=== PATIENT | male | born 1945 | race Caucasian/White ===

== ENCOUNTER → 2018-03-22 11:25 | Outpatient (CLI) | payer MEDICARE, SELFPAY | PROVIDERS: Visit Provider Urology | DX: Z12.5 Encounter for screening for malignant neoplasm of prostate (principal) | CPT/HCPCS: 36415; 84153; G0103 ==

== ENCOUNTER 2018-07-18 10:59 | Emergency (ER) | payer MEDICARE, SELFPAY ==
[2018-07-18 11:00] VITALS: BP 136/75; PULSE 59; RESP 18; TEMP 37.5; O2SAT 98; BMI 25.6
[2018-07-18 11:04] VITALS: BP 136/75; PULSE 60; RESP 19; TEMP 37.5; O2SAT 97
--- NOTE | 2018-07-18 11:14 | EKG12_ITS ---
Test Reason : CP Blood Pressure : / mmHG Vent. Rate : 056 BPM Atrial Rate : 056 BPM P-R Int : 188 ms QRS Dur : 092 ms QT Int : 404 ms P-R-T Axes : 056 023 043 degrees QTc Int : 389 ms Sinus bradycardia Minimal voltage criteria for LVH, may be normal variant Borderline ECG Confirmed by TAMRA BLANTON, EDNA ([id number]), photographic editor HUONG IRVING ([id number]) on 07/20/2018 1:25:42 PM Referred By: KLAUDIA Confirmed By:EDNA BARBOZA MD
--- NOTE | 2018-07-18 11:17 | ED.DCSUM_ITS ---
- ER Visit Summary Date of Service: 07/18/18 Chief Complaint: Chest pain History of Present Illness: The patient is a 73 M with chest and epigastric pain that has been constant over the past 15-17 hours. No cough no fever chills or shortness of breath. Describes the pain is achy and gas. No history of this prior. Physical Examination: Not appear in acute distress. Moist mucous membranes, no obvious facial deformity No C-spine tenderness supple neck. Regular rate and rhythm without any obvious murmurs Clear lungs bilaterally speaking in full sentences without any obvious respiratory distress Abdomen soft with slight epigastric pain, no right upper quadrant pain, no guarding or rebound Moves all extremities without any difficulty or pain. Skin does not show any obvious rashes or lesions, no trauma. Alert oriented ?3 with no gross focal deficit Test Results: [] Emergency Department Course and Treatment: Patient has a heart score of 3. His symptoms significantly improved after GI cocktail. His cardiac workup is unremarkable. I feel confident that he is safe for discharge. He will be discharged on a PPI. Discharge stable condition Impression: Epigastric pain Chest pain unclear etiology This note was generated with [employer] dictation software. It may contain incorrect words, spelling, and punctuation that were not noted in review of the chart prior to signing ED Disposition - Plan for ED Patient: Disposition: Home or Assisted Living Chief Complaint: Chest Pain Instructions: ED Chest Pain Atypical Unkn Cause Prescriptions: Omeprazole 20 mg PO BID #60 tablet. Referrals: Care Physician,No Primary [Primary Care Provider] - 3-5 Days
--- NOTE | 2018-07-18 11:23 | RAD_ITS ---
STUDY: X-RAY CHEST REASON FOR EXAM: Male, 73 years old. Chest pain. TECHNIQUE: Single AP portable view of the chest. COMPARISON: June 20, 2004. FINDINGS: Cardiac monitoring leads are present. The lungs are clear and hyperexpanded. There is no demonstrated pleural abnormality. There is borderline cardiomegaly. There are calcified mediastinal and hilar lymph nodes. Normal visualized pulmonary arteries. There is atherosclerotic calcification of the aortic arch with tortuosity. Normal visualized thoracic spine. Normal visualized ribs, clavicles, and shoulders. There is no demonstrated abnormality of the visualized soft tissue structures of the upper abdomen. RAD/Chest 1 View (Portable) IMPRESSION: No radiographic evidence of acute cardiopulmonary disease. Electronically Signed: Andree Carcamo MD at 11:52 EDT , Service support ,
[2018-07-18 11:33] LABS: Absolute Lymphocyte Count 2.85 X10^3/ul (0.83-4.51); Absolute Neutrophil Count 10.5 X10^3/uL (2.0-7.7); Basophil# 0.02 X10^3/uL; Basophil% 0.1 % (0-1); Eosinophil# 0.09 X10^3/uL; Eosinophils% 0.6 % (0-5); Hematocrit 36.8 % (40-54); Hemoglobin 12.6 g/dl (13.0-16.5); Lymphocyte # 2.85 X10^3/ul (4.0); Lymphocyte % 19.7 % (19-41); Mean Corp Hgb Conc 34.2 g/gl (32-36); Mean Corpuscular Hgb 31.4 pg (27.0-32.0); Mean Corpuscular Volume 91.8 fL (80-94); Mean Platelet Vol. 10.5 fl (6.2-12.0); Monocyte# 1.03 X10^3/uL; Monocyte% 7.1 % (0-10); Neutrophil # 10.46 X10^3/uL (2.7-7.7); Neutrophil % 72.3 % (47-70); Platelet Count 210 K/mm3 (150-450); RBC Distribution Width CV 12.7 % (11.6-14.6); RBC Distribution Width SD 41.8 fl (35.1-43.9); Red Blood Count 4.01 M/mm3 (4.6-6.2); White Blood Count 14.5 K/mm3 (4.4-11.0)
[2018-07-18 11:36] LABS: POSITIVE COUNT NO; POSITIVE DIFFERENTIAL NO; POSITIVE MORPHOLOGY NO
[2018-07-18] MEDS: Mag Hydrox/Al Hydrox/Simeth 30 ML UDC PO (11:38)
[2018-07-18 11:45] LABS: ALB/GLOB Ratio 1.1 RATIO (0.9-2.4); AST(SGOT) 16 U/L (15-37); Alanine Aminotransfer ALT/SGPT 33 U/L (16-61); Alkaline Phosphatase 92 U/L (45-117); Anion Gap 8 (5-15); BUN 23 mg/dL (7-18); Calcium,Total 9.4 mg/dL (8.5-10.1); Chloride 100 mmol/L (98-107); Creatinine, Serum 1.53 mg/dL (0.70-1.30); EST Glomerular Filtration Rate 47 mL/min (>60); Est Glom Filt Rate - Afr Amer 57 mL/min (>60); Estimated Creatinine Clearance 34.93 ml/min; Globulin 3.5 g/dL (2.2-4.2); Glucose 98 mg/dL (74-106); Lipase 151 U/L (73-393); Potassium 3.5 mmol/L (3.5-5.1); Protein, Total 7.5 g/dL (6.4-8.2); Sodium Level 139 mmol/L (136-145)
[2018-07-18 12:55] VITALS: BP 121/59; PULSE 76; RESP 16; O2SAT 97
== END 2018-07-18 12:55 | disposition home or self-care (01) ==
PROVIDERS: Emergency Provider Emergency Medicine
DX: R10.13 Epigastric pain (principal); R07.9 Chest pain, unspecified; I10 Essential (primary) hypertension; E78.00 Pure hypercholesterolemia, unspecified; Z79.899 Other long term (current) drug therapy; Z87.891 Personal history of nicotine dependence
CPT/HCPCS: 71045; 80053; 83690; 84484; 85025; 93005; 99285; A4216

== ENCOUNTER 2018-07-18 21:16 | Inpatient (IN) | payer MEDICARE, SELFPAY ==
[2018-07-18 21:17] VITALS: BP 124/71; PULSE 67; RESP 18; TEMP 37.7; O2SAT 94; BMI 25.7
[2018-07-18 22:05] LABS: Absolute Lymphocyte Count 2.19 X10^3/ul (0.83-4.51); Absolute Neutrophil Count 11.4 X10^3/uL (2.0-7.7); Basophil# 0.01 X10^3/uL; Basophil% 0.1 % (0-1); Eosinophil# 0.01 X10^3/uL; Eosinophils% 0.1 % (0-5); Hematocrit 34.6 % (40-54); Lymphocyte # 2.19 X10^3/ul (4.0); Lymphocyte % 15.1 % (19-41); Mean Corp Hgb Conc 34.7 g/gl (32-36); Mean Corpuscular Hgb 31.7 pg (27.0-32.0); Mean Corpuscular Volume 91.3 fL (80-94); Mean Platelet Vol. 10.3 fl (6.2-12.0); Monocyte# 0.89 X10^3/uL; Monocyte% 6.1 % (0-10); Neutrophil # 11.38 X10^3/uL (2.7-7.7); Neutrophil % 78.5 % (47-70); Platelet Count 198 K/mm3 (150-450); RBC Distribution Width CV 12.6 % (11.6-14.6); RBC Distribution Width SD 41.2 fl (35.1-43.9); Red Blood Count 3.79 M/mm3 (4.6-6.2); White Blood Count 14.5 K/mm3 (4.4-11.0)
[2018-07-18 22:06] LABS: POSITIVE COUNT NO; POSITIVE DIFFERENTIAL NO; POSITIVE MORPHOLOGY NO
[2018-07-18 22:14] LABS: Anion Gap 6 (5-15); BUN 18 mg/dL (7-18); BUN/Creat Ratio 12.4 RATIO (10-20); Calcium,Total 9.5 mg/dL (8.5-10.1); Chloride 98 mmol/L (98-107); Creatinine, Serum 1.45 mg/dL (0.70-1.30); EST Glomerular Filtration Rate 50 mL/min (>60); Est Glom Filt Rate - Afr Amer 61 mL/min (>60); Estimated Creatinine Clearance 36.86 ml/min; Glucose 117 mg/dL (74-106); Potassium 3.7 mmol/L (3.5-5.1); Sodium Level 135 mmol/L (136-145)
[2018-07-18 22:32] VITALS: BP 132/77; PULSE 66; RESP 16; O2SAT 100
--- NOTE | 2018-07-18 23:05 | CT_ITS ---
STUDY: CT ABDOMEN AND PELVIS WITHOUT CONTRAST REASON FOR EXAM: Male, 73 years old. Right lower quadrant abdominal pain. RADIATION DOSAGE (If Supplied By Facility): CTDIvol = ( 6.88 ) mGy, DLP = ( 325.21 ) mGycm TECHNIQUE: Transaxial images were obtained from the dome of the diaphragm to the symphysis pubis without oral contrast, and without intravenous contrast. Sagittal and coronal images were reconstructed. Individualized dose optimization techniques were used for this CT. COMPARISON: None. FINDINGS: There is bilateral basilar dependent atelectasis. Lung bases otherwise appear to be clear. No pleural effusions are visualized. The visualized heart is within normal limits. Normal liver. Normal gallbladder and extrahepatic biliary system. There is a benign calcified granuloma of the spleen. Normal pancreas. Normal bilateral adrenal glands. There is mild bilateral perinephric stranding. The acuity of this is uncertain. The kidneys otherwise have generally normal appearance. There is no evidence for hydronephrosis, hydroureter or radiopaque ureteral calculus. Normal visualized stomach. There is no evidence for dilated bowel, ascites or pneumoperitoneum. The small bowel has a grossly normal appearance. The descending colon is nondistended which gives the appearance of thickened jeronimo. There is residual solid stool. There appears to be some increased attenuation within the right colon that may be medication related. There is a tubular, thick-walled appendix (>7mm), consistent with acute appendicitis. Maximum transverse dimension of the appendix measures approximately 9.8 mm. There is an appendicolith. There is heterogeneous increased attenuation within the fat adjacent to the appendix consistent with acute inflammation. There is minimal atherosclerotic calcification of the abdominal aorta with elongation and tortuosity, but without a demonstrated aneurysm. There is venous distention of the inferior vena cava (IVC). Normal retroperitoneum. Normal urinary bladder. There is enlargement of the prostate gland. There is a small umbilical hernia containing fat. There are diffuse degenerative changes of the visualized lumbar spine. The bones appear mildly osteopenic. There are degenerative changes of the right-sided sacroiliac joint. There are subchondral lucencies within the anterior aspect of the left femoral head that suggests sequela of femoral acetabular impingement. CT/Abdomen/Pelvis without Cont IMPRESSION: CT findings are consistent with acute appendicitis. There is no evidence for abscess or other signs of perforation. N.B. : The above information has been verbally conveyed by Andree Carcamo MD to Parker Kristen on 07/19/2018 00:10:03 (ET). Electronically Signed: Andree Carcamo MD at 0:16 EDT , Service support ,
--- NOTE | 2018-07-18 23:06 | ED.VISSUMM ---
- ER Visit Summary Date of Service: 07/18/18 Chief Complaint: Right lower quadrant abdominal pain History of Present Illness: The patient is a 73 M presents returns to the ED with pain is progressed to the right lower quadrant. Patient seen earlier this morning for chest pain epigastric pain, cardiac workup was negative. He does admit symptoms improved after GI cocktail. States leaving around 11 AM, pain settled in the middle of the stomach and has migrated to the right lower quadrant. Nausea without vomiting. No urinary symptoms. Subjective fevers. No abdominal surgeries. No current chest pain. Denies cardiac or lung history. His pain is constant currently. Did state worse with car ride coming in. Currently 5 out of 10. Had a colonoscopy 10-[address] Elliott. Last meal was earlier this morning with cereal. Physical Examination: General: Alert and oriented ?3, no acute distress HEENT: Normocephalic, atraumatic. Moist mucosa membranes Neck: supple, nontender. Cardiovascular: Regular rate and rhythm, no murmurs Respiratory: Normal breath sounds, symmetric, no distress Abdomen: Soft, nondistended. Tenderness at McBurney's. There is no guarding or rebound. Negative Rovsing's, negative obturators. Negative Meade's. Extremities: Nontender, no edema, pulses intact ?4 Neuro: no focal neurological deficits. Test Results: WBC 14.5. Hemoglobin 12. Platelets 198. Creatinine 1.45. INR 1.1. PTT 35.7. CT abdomen pelvis confirms appendicitis with dilated appendix and appendicolith. There is no abscess or perforation per radiologist. Emergency Department Course and Treatment: Patient progressed pain to the right lower quadrant after being evaluated 12 hours ago. Exam right lower quadrant concerning for likely appendicitis. I did speak with surgeon Dr. Sanderson after my evaluation, requested call back after CT scan. Labs no white count 14.5 with similar previous. Chronic creatinine 1.45. CT does confirm appendicitis. Patient declines any pain medicines. Fluids running. He is kept n.p.o. We discussed with surgeon will start Zosyn. He will be evaluated in the emergency department. Family updated. Patient did have chest x-ray and EKG from his earlier evaluation. Treatment Plan: [] Disposition: Admission Impression: 1. Acute appendicitis 2. Right lower quadrant abdominal pain This note was generated with [employer] dictation software. It may contain incorrect words, spelling, and punctuation that were not noted in review of the chart prior to signing ED Disposition - Plan for ED Patient: Disposition: Acute Care Hospital [facility] Chief Complaint: Abd Pain Diagnosis: Acute appendicitis, Right lower quadrant abdominal pain Referrals: Care Physician,No Primary [Primary Care Provider] -
--- NOTE | 2018-07-18 23:09 | ED.DCSUM_ITS ---
- ER Visit Summary Date of Service: 07/18/18 Chief Complaint: Right lower quadrant abdominal pain History of Present Illness: The patient is a 73 M presents returns to the ED with pain is progressed to the right lower quadrant. Patient seen earlier this morning for chest pain epigastric pain, cardiac workup was negative. He does admit symptoms improved after GI cocktail. States leaving around 11 AM, pain settled in the middle of the stomach and has migrated to the right lower quadrant. Nausea without vomiting. No urinary symptoms. Subjective fevers. No abdominal surgeries. No current chest pain. Denies cardiac or lung history. His pain is constant currently. Did state worse with car ride coming in. Currently 5 out of 10. Had a colonoscopy 10-[address] Elliott. Last meal was earlier this morning with cereal. Physical Examination: General: Alert and oriented ?3, no acute distress HEENT: Normocephalic, atraumatic. Moist mucosa membranes Neck: supple, nontender. Cardiovascular: Regular rate and rhythm, no murmurs Respiratory: Normal breath sounds, symmetric, no distress Abdomen: Soft, nondistended. Tenderness at McBurney's. There is no guarding or rebound. Negative Rovsing's, negative obturators. Negative Meade's. Extremities: Nontender, no edema, pulses intact ?4 Neuro: no focal neurological deficits. Test Results: WBC 14.5. Hemoglobin 12. Platelets 198. Creatinine 1.45. INR 1.1. PTT 35.7. CT abdomen pelvis confirms appendicitis with dilated appendix and appendicolith. There is no abscess or perforation per radiologist. Emergency Department Course and Treatment: Patient progressed pain to the right lower quadrant after being evaluated 12 hours ago. Exam right lower quadrant concerning for likely appendicitis. I did speak with surgeon Dr. Sanderson after my evaluation, requested call back after CT scan. Labs no white count 14.5 with similar previous. Chronic creatinine 1.45. CT does confirm appendicitis. Patient declines any pain medicines. Fluids running. He is kept n.p.o. We discussed with surgeon will start Zosyn. He will be evaluated in the emergency department. Family updated. Patient did have chest x-ray and EKG from his earlier evaluation. Treatment Plan: [] Disposition: Admission Impression: 1. Acute appendicitis 2. Right lower quadrant abdominal pain This note was generated with [employer] dictation software. It may contain incorrect words, spelling, and punctuation that were not noted in review of the chart prior to signing ED Disposition - Plan for ED Patient: Disposition: Acute Care Hospital [facility] Chief Complaint: Abd Pain Diagnosis: Acute appendicitis, Right lower quadrant abdominal pain Referrals: Care Physician,No Primary [Primary Care Provider] -
[2018-07-18] MEDS: 0.9% Normal Saline 1,000 ML 125 ML IV (23:35)
[2018-07-18 23:39] LABS: International Normalized Ratio 1.1; Prothrombin Time (Protime)PT. 14.1 SECONDS (11.7-14.9)
[2018-07-18 23:40] LABS: Partial Thromboplast Time 35.1 Seconds (24.1-36.2)
[2018-07-19] VITALS (16 sets, daily range): BP systolic 98–135; BP diastolic 54–72; PULSE 52–83; RESP 16–18; TEMP 36.6–37.6; O2SAT 88–99; BMI 25.7
--- NOTE | 2018-07-19 | APP_PTH ---
PATIENT: NICK EASTON LOC: [facility]3 U#:[id number] AGE/SX: 73/M ROOM: [facility]322 RE07/20/[address]: Dr. Mitch Sanderson MD : 1945 BED: 1 DIS: 07/22/2018 SPEC #: [id number] RECD: 07/19/18 13:22 STATUS: OTIS REDelroy #: [id number] REBECCA: 07/19/18 00:[address]: Mitch Sanderson DEPT: SURGICAL PATHOLOGY RECD BY: Cesar Su ENTERED: 07/19/18 13:22 SP TYPE: APPENDIX OTHR DR: No Primary Care Phys Tissues: Appendix, NOS Procedures: Surgery Specimen Level III HEADER OPERATION: Laparoscopic appendectomy PRE-OP DIAGNOSIS: Acute appendicitis TISSUE SUBMITTED: Appendix MICROSCOPIC DIAGNOSIS Appendix, appendectomy: Acute necrotizing appendicitis. Acute serositis. AM:mattie 07/20/18 MICROSCOPIC DESCRIPTION Slides are reviewed. GROSS DESCRIPTION Received is one container labeled with the patient's name and designated appendix. The specimen consists of an S-shaped appendix measuring 7.5 cm in length and up to 0.7 cm in average diameter. The attached periappendiceal adipose tissue measures up to 1 cm in width. The serosa is focally congested. No obvious perforation is identified. The mucosa is congested. The lumen contains a small amount of fecal material. No fecalith is identified. Boot Liner Maker sections are submitted in one cassette. / SJ:mattie 07/19/18 TC:2 CPT: 56181
[2018-07-19 00:22] LABS: Bacteria 0 SEEN /hpf (None Seen); Mucous, Urine 0 SEEN /hpf (<or=2+); Red Blood Cells-Urine 0 SEEN /hpf (0-5); Squamous Epithelial Cells - UA 0 SEEN /hpf (0-5); White Blood Cells 0 SEEN /hpf (0-5)
[2018-07-19 00:23] LABS: Color, Urine Yellow (Yellow); Glucose, Dipstick Normal (Normal); Ketone-Dipstick Negative (Negative); Leukocyte Esterase-Dipstick Negative /ul (Negative); Nitrite-Dipstick Negative (Negative); Occult Blood-Urine Negative /ul (Negative); Protein-Dipstick Negative (Negative); Urine Bilirubin Dipstick Negative (Negative); Urine Clarity Clear (Clear); Urine Urobilinogen Normal (Normal)
--- NOTE | 2018-07-19 01:20 | PCM.HP.STD ---
Problem List (1) Acute appendicitis Status: Acute Qualifiers: Acute appendicitis type: unspecified acute appendicitis type Qualified Code(s): K35.80 - Unspecified acute appendicitis History of Present Illness Date of Admission: 07/19/18 The patient is a 73 year old M who reports he has been having pain in his abdomen for over 24 hours. The pain started as epigastric in nature but then moved to his right lower quadrant. The patient has had a hiccuping and no flatus for the last 12 hours. The patient states he is having sharp right lower quadrant pain. He is having nausea but no vomiting. Patient reports no fevers or chills. Past Medical History Past Medical History (Chronic Problems): Chronic Problems Hyperlipidemia (Chronic) Benign hypertension (Chronic) Allergies No Known Allergies Allergy (Verified 07/18/18 21:19) Home Medications: Ambulatory Orders Medication Instructions Recorded Hydrochlorothiazide 12.5 mg PO DAILY 10/24/13 Aspirin [Aspirin, Baby] 81 mg PO DAILY@0800 12/23/14 Atenolol [Tenormin (beta Chrissie)] 25 mg PO DAILY 12/23/14 Dextroamphetamine/Amphetamine 15 mg PO DAILY 12/23/14 [Adderall 15 mg Tablet] Ibuprofen/Diphenhydramine Cit 1 each PO QHS 12/23/14 [Advil Pm Caplet] Omeprazole [Prilosec] 20 mg PO DAILY 12/23/14 Pravastatin [Pravachol] 20 mg PO DAILY 12/23/14 Omeprazole 20 mg PO BID #60 tablet. 07/18/18 Surgical History: no surgical history Smoking Status: Never smoker Alcohol: None - *Family History Maternal History Items: Unknown Review of Systems Constitutional: Reports: Anorexia. Denies: Fever HEENT: Denies: Difficulty Swallowing Cardiovascular: Denies: Chest Pain Respiratory: Denies: Cough, Shortness of Breath Gastrointestinal: Reports: Abdominal Pain, Nausea. Denies: Diarrhea, Vomiting Genitourinary: Denies: Dysuria Musculoskeletal: Denies: Joint Tenderness Skin: Denies: Dryness Neurological: Denies: Balance problems Psychiatric: Denies: Anxiety, Depression Hematologic/ Lymphatic: Denies: Anemia VTE Information - Inpt Only VTE Present on Admission: No VTE Mechan Device Prophylaxis: SCD's Patient Problems: Active and Suspected Problems Acute appendicitis (Acute) Right lower quadrant abdominal pain (Acute) - Physical Exam General: Alert, Oriented x3, Cooperative, No apparent distress HEENT: Atraumatic, PERRLA, EOMI, Normocephalic Oral: Moist Mucosa Neck: Supple Lungs: Normal air movement Cardiovascular: Regular rate, Regular Rhythm Abdomen: Soft, Non-Distended, Tender - Tender in the right lower quadrant with positive Rovsing sign. No rebound or guarding. Skin: No rashes Musculoskeletal: No Tenderness to Palpation of Joints or Extremities, No Muscle Wasting Neurological: Cranial nerves II-XII grossly intact Psych/Mental Status: Normal Affect, Appropriate Vital Signs Temp Pulse Resp BP Pulse Ox 98.6 F 64 16 132/72 H 98 07/19/18 00:52 07/19/18 00:52 07/19/18 00:52 07/19/18 00:52 07/19/18 00:52 Oxygen Delivery Method Room Air Weight: 150 lb Body Mass Index (BMI) 25.7 Laboratory Tests Past 24 Hrs 07/18/18 07/18/18 07/18/18 21:42 21:42 21:42 WBC 14.5 H RBC 3.79 L Hgb 12.0 L Hct 34.6 L MCV 91.3 MCH 31.7 MCHC 34.7 RDW 12.6 RDW Differential 41.2 Plt Count 198 MPV 10.3 Immature Gran % (Auto) 0.100 Neut % (Auto) 78.5 H Lymph % (Auto) 15.1 L Titus % (Auto) 6.1 Eos % (Auto) 0.1 Baso % (Auto) 0.1 Absolute Neuts (auto) 11.4 H Absolute Lymphs (auto) 2.19 Total Counted Not Reportable PT 14.1 INR 1.1 APTT 35.1 Sodium 135 L Potassium 3.7 Chloride 98 Carbon Dioxide 31.0 Anion Gap 6 BUN 18 Creatinine 1.45 H Estim Creat Clear Calc 36.86 Est GFR (MDRD) Af Amer 61 Est GFR (MDRD) Non-Af 50 L BUN/Creatinine Ratio 12.4 Glucose 117 H Calcium 9.5 Urine Color Urine Clarity Urine pH Ur Specific Fulton Urine Protein Urine Glucose (UA) Urine Ketones Urine Occult Blood Urine Nitrite Urine Bilirubin Urine Urobilinogen Ur Leukocyte Esterase Urine RBC Urine WBC Ur Squamous Epith Cells Urine Bacteria Urine Mucus Blood Type Antibody Screen 07/19/18 07/19/18 00:18 00:30 WBC RBC Hgb Hct MCV MCH MCHC RDW RDW Differential Plt Count MPV Immature Gran % (Auto) Neut % (Auto) Lymph % (Auto) Titus % (Auto) Eos % (Auto) Baso % (Auto) Absolute Neuts (auto) Absolute Lymphs (auto) Total Counted PT INR APTT Sodium Potassium Chloride Carbon Dioxide Anion Gap BUN Creatinine Estim Creat Clear Calc Est GFR (MDRD) Af Amer Est GFR (MDRD) Non-Af BUN/Creatinine Ratio Glucose Calcium Urine Color Yellow Urine Clarity Clear Urine pH 8.0 Ur Specific Fulton 1.010 Urine Protein Negative Urine Glucose (UA) Normal Urine Ketones Negative Urine Occult Blood Negative Urine Nitrite Negative Urine Bilirubin Negative Urine Urobilinogen Normal Ur Leukocyte Esterase Negative Urine RBC 0 SEEN Urine WBC 0 SEEN Ur Squamous Epith Cells 0 SEEN Urine Bacteria 0 SEEN Urine Mucus 0 SEEN Blood Type Pending Antibody Screen Pending Clinical Impression(s) from Imaging Studies Abdomen/Pelvis CT 07/18/18 23:05 IMPRESSION: CT findings are consistent with acute appendicitis. There is no evidence for abscess or other signs of perforation. N.B. : The above information has been verbally conveyed by Andree Carcamo MD to Parker Peterson on 07/19/2018 00:10:03 (ET). Electronically Signed: Andree Carcamo MD at 0:16 EDT , Service support , Assessment/Plan All Active Problems Acute appendicitis (Acute) Right lower quadrant abdominal pain (Acute) 73-year-old male with acute appendicitis 1. Patient has elevated white count and right lower quadrant pain. CT is consistent with acute appendicitis. I explained this to the patient and I explained laparoscopic appendectomy to the patient. I explained the risks include but not limited to bleeding, infection, injury to surrounding organs such as the bowels or bladder. Patient understands and is willing to proceed with surgery. 2. Patient is also having a lot of hiccuping and not passing gas. He may be in early stages of an ileus due to the appendicitis. Mitch Sanderson MD Pager: [facility] [address] [place] [address], [address] [place] [address] Office:
--- NOTE | 2018-07-19 01:23 | HP.PCM_ITS ---
Problem List (1) Acute appendicitis Status: Acute Qualifiers: Acute appendicitis type: unspecified acute appendicitis type Qualified Code(s): K35.80 - Unspecified acute appendicitis History of Present Illness Date of Admission: 07/19/18 The patient is a 73 year old M who reports he has been having pain in his abdomen for over 24 hours. The pain started as epigastric in nature but then moved to his right lower quadrant. The patient has had a hiccuping and no flatus for the last 12 hours. The patient states he is having sharp right lower quadrant pain. He is having nausea but no vomiting. Patient reports no fevers or chills. Past Medical History Past Medical History (Chronic Problems): Chronic Problems Hyperlipidemia (Chronic) Benign hypertension (Chronic) Allergies No Known Allergies Allergy (Verified 07/18/18 21:19) Home Medications: Ambulatory Orders Medication Instructions Recorded Hydrochlorothiazide 12.5 mg PO DAILY 10/24/13 Aspirin [Aspirin, Baby] 81 mg PO DAILY@0800 12/23/14 Atenolol [Tenormin (beta Chrissie)] 25 mg PO DAILY 12/23/14 Dextroamphetamine/Amphetamine 15 mg PO DAILY 12/23/14 [Adderall 15 mg Tablet] Ibuprofen/Diphenhydramine Cit 1 each PO QHS 12/23/14 [Advil Pm Caplet] Omeprazole [Prilosec] 20 mg PO DAILY 12/23/14 Pravastatin [Pravachol] 20 mg PO DAILY 12/23/14 Omeprazole 20 mg PO BID #60 tablet. 07/18/18 Surgical History: no surgical history Smoking Status: Never smoker Alcohol: None - *Family History Maternal History Items: Unknown Review of Systems Constitutional: Reports: Anorexia. Denies: Fever HEENT: Denies: Difficulty Swallowing Cardiovascular: Denies: Chest Pain Respiratory: Denies: Cough, Shortness of Breath Gastrointestinal: Reports: Abdominal Pain, Nausea. Denies: Diarrhea, Vomiting Genitourinary: Denies: Dysuria Musculoskeletal: Denies: Joint Tenderness Skin: Denies: Dryness Neurological: Denies: Balance problems Psychiatric: Denies: Anxiety, Depression Hematologic/ Lymphatic: Denies: Anemia VTE Information - Inpt Only VTE Present on Admission: No VTE Mechan Device Prophylaxis: SCD's Patient Problems: Active and Suspected Problems Acute appendicitis (Acute) Right lower quadrant abdominal pain (Acute) - Physical Exam General: Alert, Oriented x3, Cooperative, No apparent distress HEENT: Atraumatic, PERRLA, EOMI, Normocephalic Oral: Moist Mucosa Neck: Supple Lungs: Normal air movement Cardiovascular: Regular rate, Regular Rhythm Abdomen: Soft, Non-Distended, Tender - Tender in the right lower quadrant with positive Rovsing sign. No rebound or guarding. Skin: No rashes Musculoskeletal: No Tenderness to Palpation of Joints or Extremities, No Muscle Wasting Neurological: Cranial nerves II-XII grossly intact Psych/Mental Status: Normal Affect, Appropriate Vital Signs Temp Pulse Resp BP Pulse Ox 98.6 F 64 16 132/72 H 98 07/19/18 00:52 07/19/18 00:52 07/19/18 00:52 07/19/18 00:52 07/19/18 00:52 Oxygen Delivery Method Room Air Weight: 150 lb Body Mass Index (BMI) 25.7 Laboratory Tests Past 24 Hrs 07/18/18 07/18/18 07/18/18 21:42 21:42 21:42 WBC 14.5 H RBC 3.79 L Hgb 12.0 L Hct 34.6 L MCV 91.3 MCH 31.7 MCHC 34.7 RDW 12.6 RDW Differential 41.2 Plt Count 198 MPV 10.3 Immature Gran % (Auto) 0.100 Neut % (Auto) 78.5 H Lymph % (Auto) 15.1 L [place] % (Auto) 6.1 Eos % (Auto) 0.1 Baso % (Auto) 0.1 Absolute Neuts (auto) 11.4 H Absolute Lymphs (auto) 2.19 Total Counted Not Reportable PT 14.1 INR 1.1 APTT 35.1 Sodium 135 L Potassium 3.7 Chloride 98 Carbon Dioxide 31.0 Anion Gap 6 BUN 18 Creatinine 1.45 H Estim Creat Clear Calc 36.86 Est GFR (MDRD) Af Amer 61 Est GFR (MDRD) Non-Af 50 L BUN/Creatinine Ratio 12.4 Glucose 117 H Calcium 9.5 Urine Color Urine Clarity Urine pH Ur Specific [place] Urine Protein Urine Glucose (UA) Urine Ketones Urine Occult Blood Urine Nitrite Urine Bilirubin Urine Urobilinogen Ur Leukocyte Esterase Urine RBC Urine WBC Ur Squamous Epith Cells Urine Bacteria Urine Mucus Blood Type Antibody Screen 07/19/18 07/19/18 00:18 00:30 WBC RBC Hgb Hct MCV MCH MCHC RDW RDW Differential Plt Count MPV Immature Gran % (Auto) Neut % (Auto) Lymph % (Auto) [place] % (Auto) Eos % (Auto) Baso % (Auto) Absolute Neuts (auto) Absolute Lymphs (auto) Total Counted PT INR APTT Sodium Potassium Chloride Carbon Dioxide Anion Gap BUN Creatinine Estim Creat Clear Calc Est GFR (MDRD) Af Amer Est GFR (MDRD) Non-Af BUN/Creatinine Ratio Glucose Calcium Urine Color Yellow Urine Clarity Clear Urine pH 8.0 Ur Specific [place] 1.010 Urine Protein Negative Urine Glucose (UA) Normal Urine Ketones Negative Urine Occult Blood Negative Urine Nitrite Negative Urine Bilirubin Negative Urine Urobilinogen Normal Ur Leukocyte Esterase Negative Urine RBC 0 SEEN Urine WBC 0 SEEN Ur Squamous Epith Cells 0 SEEN Urine Bacteria 0 SEEN Urine Mucus 0 SEEN Blood Type Pending Antibody Screen Pending Clinical Impression(s) from Imaging Studies Abdomen/Pelvis CT 07/18/18 23:05 IMPRESSION: CT findings are consistent with acute appendicitis. There is no evidence for abscess or other signs of perforation. N.B. : The above information has been verbally conveyed by Andree Carcamo MD to Parker Peterson on 07/19/2018 00:10:03 (ET). Electronically Signed: Andree Carcamo MD at 0:16 EDT , Service support , Assessment/Plan All Active Problems Acute appendicitis (Acute) Right lower quadrant abdominal pain (Acute) 73-year-old male with acute appendicitis 1. Patient has elevated white count and right lower quadrant pain. CT is consistent with acute appendicitis. I explained this to the patient and I explained laparoscopic appendectomy to the patient. I explained the risks include but not limited to bleeding, infection, injury to surrounding organs such as the bowels or bladder. Patient understands and is willing to proceed with surgery. 2. Patient is also having a lot of hiccuping and not passing gas. He may be in early stages of an ileus due to the appendicitis. Mitch Sanderson MD Pager: [facility] [address] [place] [address], [address] [place] [address] Office:
[2018-07-19] MEDS: Piperacil/Tazobactam 3.375 GM/50 ML ML IV (02:01)
[2018-07-19] MEDS: Bupiv/Epi 0.5% Mpf 30 ML Vial (02:20)
--- NOTE | 2018-07-19 02:45 | OP.PCM_ITS ---
Problem List (1) Acute appendicitis Status: Acute Qualifiers: Acute appendicitis type: unspecified acute appendicitis type Qualified Code(s): K35.80 - Unspecified acute appendicitis Report of Operation Date of Procedure: 07/19/18 Pre-Operative Diagnosis: Acute appendicitis Post-Operative Diagnosis: Acute appendicitis Surgery/Procedure Performed:: Laparoscopic appendectomy Specimen's removed: Appendix Description of Procedure: The patient was brought into the operating room and general anesthesia was induced. The left arm was tucked and the abdomen was prepped and draped in usual sterile fashion. A small midline incision was made superior to the umbilicus and deepened to the level of the fascia. The fascia was elevated and incised. The peritoneum was also elevated and incised. A finger sweep was performed and a balloon trocar was placed into the abdomen and inflated. The abdomen was insufflated to 15 mmHg and the camera was inserted and the abdomen was inspected for any injuries upon entering the abdomen. There were none. The patient was placed in Trendelenburg position and a 5 mm ports placed in the left lower quadrant and suprapubic areas under direct visualization. Next using atraumatic bowel graspers the appendix was identified. The appendix was grasped and elevated and a harmonic scalpel was used to take down the mesoappendix. A stapler was used to come across the base of the appendix. There was a small amount of bleeding from the staple line. A 5 mm titanium clip was placed over the staple line to stop this bleeding. The appendix was then placed in Endo Catch bag and removed through the umbilical incision. The staple line was inspected and found to be hemostatic and intact. The 2 5 mm ports are removed under direct visualization. The balloon trocar was deflated and removed and all the air was removed from the abdomen. The umbilical incision fascia was closed with an 0 Vicryl [id number] suture. The incisions were then irrigated with saline and dried. Local anesthetic was injected into the incision sites. The skin incisions were then closed with interrupted 4-0 Monocryl suture and Steri- Strips. Bandages were applied and the patient was awoken and taken to PACU in stable condition. Patient tolerated the procedure well.
--- NOTE | 2018-07-19 03:00 | EKG12_ITS ---
Test Reason : POST OP Blood Pressure : / mmHG Vent. Rate : 067 BPM Atrial Rate : 067 BPM P-R Int : 178 ms QRS Dur : 096 ms QT Int : 416 ms P-R-T Axes : 066 041 057 degrees QTc Int : 439 ms Normal sinus rhythm Nonspecific ST abnormality Abnormal ECG Confirmed by TAMRA BLANTON, EDNA ([id number]), editor trade journal HUONG IRVING ([id number]) on 07/20/2018 2:34:56 PM Referred By: RENE Confirmed By:EDNA BARBOZA MD
[2018-07-19] MEDS: Dextrose 5%-Lactated Ringers 1,000 ML 125 ML IV ×2 (05:29→15:19)
[2018-07-19 06:17] LABS: Absolute Lymphocyte Count 1.81 X10^3/ul (0.83-4.51); Absolute Neutrophil Count 14.2 X10^3/uL (2.0-7.7); Basophil# 0.01 X10^3/uL; Basophil% 0.1 % (0-1); Hematocrit 32.5 % (40-54); Hemoglobin 10.9 g/dl (13.0-16.5); Lymphocyte # 1.81 X10^3/ul (4.0); Mean Corp Hgb Conc 33.5 g/gl (32-36); Mean Corpuscular Volume 92.3 fL (80-94); Mean Platelet Vol. 10.6 fl (6.2-12.0); Monocyte# 0.43 X10^3/uL; Monocyte% 2.6 % (0-10); Neutrophil # 14.21 X10^3/uL (2.7-7.7); Neutrophil % 86.1 % (47-70); Platelet Count 178 K/mm3 (150-450); RBC Distribution Width CV 12.8 % (11.6-14.6); RBC Distribution Width SD 41.6 fl (35.1-43.9); Red Blood Count 3.52 M/mm3 (4.6-6.2); White Blood Count 16.5 K/mm3 (4.4-11.0)
[2018-07-19 06:23] LABS: POSITIVE COUNT NO; POSITIVE DIFFERENTIAL NO; POSITIVE MORPHOLOGY NO
[2018-07-19 06:29] LABS: Anion Gap 8 (5-15); BUN 20 mg/dL (7-18); BUN/Creat Ratio 12.8 RATIO (10-20); Calcium,Total 8.6 mg/dL (8.5-10.1); Chloride 101 mmol/L (98-107); Creatinine, Serum 1.56 mg/dL (0.70-1.30); EST Glomerular Filtration Rate 46 mL/min (>60); Est Glom Filt Rate - Afr Amer 56 mL/min (>60); Estimated Creatinine Clearance 34.26 ml/min; Glucose 146 mg/dL (74-106); Potassium 3.3 mmol/L (3.5-5.1); Sodium Level 136 mmol/L (136-145)
[2018-07-19] MEDS: Pantoprazole Sodium 40 MG Tablet PO (07:44)
--- NOTE | 2018-07-19 08:05 | PN.SURG_ITS ---
Patient Problems: Active and Suspected Problems Acute appendicitis (Acute) Right lower quadrant abdominal pain (Acute) Subjective: Patient's pain is well controlled. He is not having any nausea or vomiting. He has tolerated some water since surgery. He is not passing any flatus. - Physical Exam General: Alert, Oriented x3, Cooperative Lungs: Normal air movement Cardiovascular: Regular rate, Regular Rhythm Abdomen: Soft, Non-Distended, Tender - Tender in the right lower quadrant., - - Incisions are clean dry and intact Vital Signs Temp Pulse Resp BP Pulse Ox 98.1 F 69 17 98/54 L 98 07/19/18 07:28 07/19/18 07:28 07/19/18 07:28 07/19/18 07:28 07/19/18 07:28 Oxygen Flow Rate (L/min) 2 Oxygen Delivery Method Nasal Cannula Weight: 150 lb Body Mass Index (BMI) 25.7 Intake and Output for Last 24 Hours 07/17/18 07/18/18 07/19/18 23:59 23:59 23:59 Intake Total 1664 / 1664 Balance 1664 / 1664 Laboratory Tests Past 24 Hrs 07/18/18 07/18/18 07/18/18 21:42 21:42 21:42 WBC 14.5 H RBC 3.79 L Hgb 12.0 L Hct 34.6 L MCV 91.3 MCH 31.7 MCHC 34.7 RDW 12.6 RDW Differential 41.2 Plt Count 198 MPV 10.3 Immature Gran % (Auto) 0.100 Neut % (Auto) 78.5 H Lymph % (Auto) 15.1 L [place] % (Auto) 6.1 Eos % (Auto) 0.1 Baso % (Auto) 0.1 Absolute Neuts (auto) 11.4 H Absolute Lymphs (auto) 2.19 Total Counted Not Reportable PT 14.1 INR 1.1 APTT 35.1 Sodium 135 L Potassium 3.7 Chloride 98 Carbon Dioxide 31.0 Anion Gap 6 BUN 18 Creatinine 1.45 H Estim Creat Clear Calc 36.86 Est GFR (MDRD) Af Amer 61 Est GFR (MDRD) Non-Af 50 L BUN/Creatinine Ratio 12.4 Glucose 117 H Calcium 9.5 Urine Color Urine Clarity Urine pH Ur Specific [place] Urine Protein Urine Glucose (UA) Urine Ketones Urine Occult Blood Urine Nitrite Urine Bilirubin Urine Urobilinogen Ur Leukocyte Esterase Urine RBC Urine WBC Ur Squamous Epith Cells Urine Bacteria Urine Mucus Blood Type Antibody Screen 07/19/18 07/19/18 07/19/18 00:18 00:30 05:45 WBC 16.5 H RBC 3.52 L Hgb 10.9 L Hct 32.5 L MCV 92.3 MCH 31.0 MCHC 33.5 RDW 12.8 RDW Differential 41.6 Plt Count 178 MPV 10.6 Immature Gran % (Auto) 0.200 Neut % (Auto) 86.1 H Lymph % (Auto) 11.0 L [place] % (Auto) 2.6 Eos % (Auto) 0.0 Baso % (Auto) 0.1 Absolute Neuts (auto) 14.2 H Absolute Lymphs (auto) 1.81 Total Counted Not Reportable PT INR APTT Sodium Potassium Chloride Carbon Dioxide Anion Gap BUN Creatinine Estim Creat Clear Calc Est GFR (MDRD) Af Amer Est GFR (MDRD) Non-Af BUN/Creatinine Ratio Glucose Calcium Urine Color Yellow Urine Clarity Clear Urine pH 8.0 Ur Specific [place] 1.010 Urine Protein Negative Urine Glucose (UA) Normal Urine Ketones Negative Urine Occult Blood Negative Urine Nitrite Negative Urine Bilirubin Negative Urine Urobilinogen Normal Ur Leukocyte Esterase Negative Urine RBC 0 SEEN Urine WBC 0 SEEN Ur Squamous Epith Cells 0 SEEN Urine Bacteria 0 SEEN Urine Mucus 0 SEEN Blood Type O POSITIVE Antibody Screen NEGATIVE 07/19/18 05:45 WBC RBC Hgb Hct MCV MCH MCHC RDW RDW Differential Plt Count MPV Immature Gran % (Auto) Neut % (Auto) Lymph % (Auto) [place] % (Auto) Eos % (Auto) Baso % (Auto) Absolute Neuts (auto) Absolute Lymphs (auto) Total Counted PT INR APTT Sodium 136 Potassium 3.3 L Chloride 101 Carbon Dioxide 27.0 Anion Gap 8 BUN 20 H Creatinine 1.56 H Estim Creat Clear Calc 34.26 Est GFR (MDRD) Af Amer 56 L Est GFR (MDRD) Non-Af 46 L BUN/Creatinine Ratio 12.8 Glucose 146 H Calcium 8.6 Urine Color Urine Clarity Urine pH Ur Specific [place] Urine Protein Urine Glucose (UA) Urine Ketones Urine Occult Blood Urine Nitrite Urine Bilirubin Urine Urobilinogen Ur Leukocyte Esterase Urine RBC Urine WBC Ur Squamous Epith Cells Urine Bacteria Urine Mucus Blood Type Antibody Screen Medical Necessity - Tobacco Use Smoking Status: Never smoker Assessment/Plan All Active Problems Acute appendicitis (Acute) Right lower quadrant abdominal pain (Acute) 73-year-old male status post laparoscopic appendectomy 1. I will start the patient on clear liquids. He may be developing an ileus. Once he is passing gas he can advance his diet and if he tolerates that he will be discharged home. Mitch Sanderson MD Pager: [facility] [address] [place] [address], [address] [place] [address] Office:
--- NOTE | 2018-07-19 12:09 | NURSING ---
ST CATHED ORDERED FOR 100ML KARENA URINE. PT TOLERATED WELL.
--- NOTE | 2018-07-19 17:34 | NURSING ---
CALLED PTS PHARMACY, [id number] TO UPDATE HOME MED LIST, THEY STATE ONLY MEDS FILLED THERE SINCE MAY HAVE BEEN ADDERALL & OMEPRAZOLE.
--- NOTE | 2018-07-19 18:41 | NURSING ---
DR DIGGS CALLED WITH UPDATE. PT STILL UNABLE TO VOID AFTER BEING ST CATH X1 EARLIER. STILL NO BS, BUT DENIES ABD PAIN, NAUSEA. NEW ORDERS RECEIVED.
[2018-07-19] MEDS: Tamsulosin HCl 0.4 MG Capsule PO (20:04)
--- NOTE | 2018-07-20 00:45 | NURSING ---
This RN walked into pt's room for hourly rounds and discovered IV pump had been turned off. Pt states he turned it off about 15 minutes ago because it would not stop beeping. Pt states he didn't even think to call out for his nurse. Instructed pt to push his call light next time his IV pump alarms. IV pump now locked.
[2018-07-20] MEDS: Dextrose 5%-Lactated Ringers 1,000 ML 125 ML IV ×2 (00:50→10:01)
--- NOTE | 2018-07-20 01:04 | NURSING ---
Pt has voided 200cc since bolus was given about 4hrs ago. Per MD orders, was only to straight cath if pt hadn't voided by those 4 hrs. Bladder scanned for 467ml post void, but pt states he feels like he will be able to void again, will continue to monitor and contact MD if needed.
[2018-07-20 03:15] VITALS: BP 106/58; PULSE 52; RESP 18; TEMP 36.9; O2SAT 94
[2018-07-20 06:20] LABS: Absolute Neutrophil Count 8.2 X10^3/uL (2.0-7.7); Basophil# 0.01 X10^3/uL; Basophil% 0.1 % (0-1); Eosinophil# 0.02 X10^3/uL; Eosinophils% 0.2 % (0-5); Hematocrit 27.2 % (40-54); Hemoglobin 9.1 g/dl (13.0-16.5); Lymphocyte % 17.3 % (19-41); Mean Corp Hgb Conc 33.5 g/gl (32-36); Mean Corpuscular Hgb 31.1 pg (27.0-32.0); Mean Corpuscular Volume 92.8 fL (80-94); Mean Platelet Vol. 10.3 fl (6.2-12.0); Monocyte# 0.82 X10^3/uL; Monocyte% 7.4 % (0-10); Neutrophil # 8.24 X10^3/uL (2.7-7.7); Neutrophil % 74.8 % (47-70); Platelet Count 137 K/mm3 (150-450); RBC Distribution Width CV 12.9 % (11.6-14.6); Red Blood Count 2.93 M/mm3 (4.6-6.2)
[2018-07-20 06:22] LABS: POSITIVE COUNT NO; POSITIVE DIFFERENTIAL NO; POSITIVE MORPHOLOGY NO
[2018-07-20 06:37] LABS: Anion Gap 8 (5-15); BUN 20 mg/dL (7-18); BUN/Creat Ratio 14.4 RATIO (10-20); Chloride 101 mmol/L (98-107); Creatinine, Serum 1.39 mg/dL (0.70-1.30); EST Glomerular Filtration Rate 53 mL/min (>60); Est Glom Filt Rate - Afr Amer 64 mL/min (>60); Estimated Creatinine Clearance 38.45 ml/min; Glucose 102 mg/dL (74-106); Potassium 3.4 mmol/L (3.5-5.1); Sodium Level 135 mmol/L (136-145)
--- NOTE | 2018-07-20 08:57 | PCM.PN.SRG ---
Patient Problems: Active and Suspected Problems Acute appendicitis (Acute) Right lower quadrant abdominal pain (Acute) Subjective: Patient reports he is still having hiccuping. He does feel some abdominal soreness. He is not passing any flatus but he did have a small bowel movement. - Physical Exam General: Alert, Oriented x3, Cooperative Lungs: Clear to auscultation Cardiovascular: Regular rate, Regular Rhythm Abdomen: Soft, Non Tender, Distended Vital Signs Temp Pulse Resp BP Pulse Ox 98.5 F 52 L 18 106/58 L 94 07/20/18 03:15 07/20/18 03:15 07/20/18 03:15 07/20/18 03:15 07/20/18 03:15 Oxygen Flow Rate (L/min) 2 Oxygen Delivery Method Nasal Cannula Weight: 150 lb 0.005 oz Body Mass Index (BMI) 25.7 Intake and Output for Last 24 Hours 07/18/18 07/19/18 07/20/18 23:59 23:59 23:59 Intake Total 4859 / 4859 2427 / 2427 Output Total 450 / 450 1075 / 1075 Balance 4409 / 4409 1352 / 1352 Laboratory Tests Past 24 Hrs 07/20/18 07/20/18 06:04 06:04 WBC 11.0 RBC 2.93 L Hgb 9.1 L Hct 27.2 L MCV 92.8 MCH 31.1 MCHC 33.5 RDW 12.9 RDW Differential 42.0 Plt Count 137 L MPV 10.3 Immature Gran % (Auto) 0.200 Neut % (Auto) 74.8 H Lymph % (Auto) 17.3 L [place] % (Auto) 7.4 Eos % (Auto) 0.2 Baso % (Auto) 0.1 Absolute Neuts (auto) 8.2 H Absolute Lymphs (auto) 1.90 Total Counted Not Reportable Sodium 135 L Potassium 3.4 L Chloride 101 Carbon Dioxide 26.0 Anion Gap 8 BUN 20 H Creatinine 1.39 H Estim Creat Clear Calc 38.45 Est GFR (MDRD) Af Amer 64 Est GFR (MDRD) Non-Af 53 L BUN/Creatinine Ratio 14.4 Glucose 102 Calcium 8.0 L Medical Necessity - Tobacco Use Smoking Status: Never smoker Assessment/Plan All Active Problems Acute appendicitis (Acute) Right lower quadrant abdominal pain (Acute) 73-year-old male status post laparoscopic appendectomy 1. Patient had urinary retention yesterday. Flomax was started. The patient reported one straight cath that he is urinating on his own having adequate urine output. 2. Patient is having postoperative ileus-abdomen is distended and the patient is not passing any flatus. Continue clears until he is passing flatus and having more significant bowel function and I will advance his diet and discharge him. Continue IV fluids at the current time. 3. Hypokalemia-replaced 4. PPI, SCDs, Lovenox Mitch Sanderson MD Pager: [facility] [address] [place] [address], [address] [place] [address] Office:
--- NOTE | 2018-07-20 09:00 | PN.SURG_ITS ---
Patient Problems: Active and Suspected Problems Acute appendicitis (Acute) Right lower quadrant abdominal pain (Acute) Subjective: Patient reports he is still having hiccuping. He does feel some abdominal soreness. He is not passing any flatus but he did have a small bowel movement. - Physical Exam General: Alert, Oriented x3, Cooperative Lungs: Clear to auscultation Cardiovascular: Regular rate, Regular Rhythm Abdomen: Soft, Non Tender, Distended Vital Signs Temp Pulse Resp BP Pulse Ox 98.5 F 52 L 18 106/58 L 94 07/20/18 03:15 07/20/18 03:15 07/20/18 03:15 07/20/18 03:15 07/20/18 03:15 Oxygen Flow Rate (L/min) 2 Oxygen Delivery Method Nasal Cannula Weight: 150 lb 0.005 oz Body Mass Index (BMI) 25.7 Intake and Output for Last 24 Hours 07/18/18 07/19/18 07/20/18 23:59 23:59 23:59 Intake Total 4859 / 4859 2427 / 2427 Output Total 450 / 450 1075 / 1075 Balance 4409 / 4409 1352 / 1352 Laboratory Tests Past 24 Hrs 07/20/18 07/20/18 06:04 06:04 WBC 11.0 RBC 2.93 L Hgb 9.1 L Hct 27.2 L MCV 92.8 MCH 31.1 MCHC 33.5 RDW 12.9 RDW Differential 42.0 Plt Count 137 L MPV 10.3 Immature Gran % (Auto) 0.200 Neut % (Auto) 74.8 H Lymph % (Auto) 17.3 L [place] % (Auto) 7.4 Eos % (Auto) 0.2 Baso % (Auto) 0.1 Absolute Neuts (auto) 8.2 H Absolute Lymphs (auto) 1.90 Total Counted Not Reportable Sodium 135 L Potassium 3.4 L Chloride 101 Carbon Dioxide 26.0 Anion Gap 8 BUN 20 H Creatinine 1.39 H Estim Creat Clear Calc 38.45 Est GFR (MDRD) Af Amer 64 Est GFR (MDRD) Non-Af 53 L BUN/Creatinine Ratio 14.4 Glucose 102 Calcium 8.0 L Medical Necessity - Tobacco Use Smoking Status: Never smoker Assessment/Plan All Active Problems Acute appendicitis (Acute) Right lower quadrant abdominal pain (Acute) 73-year-old male status post laparoscopic appendectomy 1. Patient had urinary retention yesterday. Flomax was started. The patient reported one straight cath that he is urinating on his own having adequate urine output. 2. Patient is having postoperative ileus-abdomen is distended and the patient is not passing any flatus. Continue clears until he is passing flatus and having more significant bowel function and I will advance his diet and discharge him. Continue IV fluids at the current time. 3. Hypokalemia-replaced 4. PPI, SCDs, Lovenox Mitch Sanderson MD Pager: [facility] [address] [place] [address], [address] [place] [address] Office:
[2018-07-20 09:15] VITALS: BP 102/58; PULSE 52; RESP 16; TEMP 36.6; O2SAT 95
[2018-07-20] MEDS: BENZOCAINE/MENTHOL 1 LOZENGE MUCOUS MEM ×3 (09:42→14:22)
[2018-07-20] MEDS: Pantoprazole Sodium 40 MG Tablet PO (09:42)
[2018-07-20] MEDS: Morphine 2 MG/ML Syringe IV (12:05)
--- NOTE | 2018-07-20 12:30 | RAD_ITS ---
STUDY: X-RAY - ABDOMEN/PELVIS REASON FOR EXAM: Male, 73 years old. Abdominal pain, ileus TECHNIQUE: Single AP view of the abdomen / pelvis. COMPARISON: CT from 07/18/2018 FINDINGS: Excluded lung bases. There is air within the right side of the colon. No dilated loops of small bowel. There is no demonstrated free abdominal air. The visualized liver, spleen and kidneys are grossly normal in size and morphology. Normal soft tissue structures. Normal visualized osseous structures. RAD/Abdomen Single View (Portable) IMPRESSION: Nonobstructive bowel gas pattern. Electronically Signed: Santiago Mckeon MD at 15:36 EDT , Service support ,
[2018-07-20] MEDS: Dextrose 5%-Lactated Ringers 1,000 ML 80 ML IV ×2 (12:51→19:35)
[2018-07-20 16:30] VITALS: BP 113/66; PULSE 66; RESP 18; TEMP 38.2; O2SAT 95
--- NOTE | 2018-07-20 16:37 | NURSING ---
message replied from Dr. Elliott to pt and visitor Clarita that he will be up to see pt as soon is he's done dictating that he just finished up a case and will be up.
--- NOTE | 2018-07-20 17:10 | NURSING ---
Patient in bed upon entering room. He complains of abdominal discomfort. focussed abdominal assessment performed. Patient is short of breath at times per report and O2 saturation was in the upper 80s on Room air. Patient encouraged up at side of bed and ambulated in hallway 2 full laps. Also had patient perform incentive spirometry. Patient then ambulated to bathroom and voided 250mls of clear yellow urine. patient now in chair. Dr Elliott in room with patient
[2018-07-20 17:41] VITALS: TEMP 38.7
[2018-07-20 17:57] LABS: Absolute Lymphocyte Count 2.47 X10^3/ul (0.83-4.51); Absolute Neutrophil Count 9.2 X10^3/uL (2.0-7.7); Basophil# 0.01 X10^3/uL; Basophil% 0.1 % (0-1); Eosinophil# 0.08 X10^3/uL; Eosinophils% 0.6 % (0-5); Hematocrit 29.2 % (40-54); Hemoglobin 9.8 g/dl (13.0-16.5); Lymphocyte # 2.47 X10^3/ul (4.0); Lymphocyte % 19.4 % (19-41); Mean Corp Hgb Conc 33.6 g/gl (32-36); Mean Corpuscular Hgb 31.1 pg (27.0-32.0); Mean Corpuscular Volume 92.7 fL (80-94); Monocyte# 0.89 X10^3/uL; Neutrophil # 9.23 X10^3/uL (2.7-7.7); Neutrophil % 72.7 % (47-70); Platelet Count 147 K/mm3 (150-450); RBC Distribution Width CV 13.4 % (11.6-14.6); RBC Distribution Width SD 45.2 fl (35.1-43.9); Red Blood Count 3.15 M/mm3 (4.6-6.2); White Blood Count 12.7 K/mm3 (4.4-11.0)
[2018-07-20 17:58] LABS: POSITIVE COUNT NO; POSITIVE DIFFERENTIAL NO; POSITIVE MORPHOLOGY NO
[2018-07-20] MEDS: Tamsulosin HCl 0.4 MG Capsule PO (18:33)
[2018-07-20] MEDS: Piperacil/Tazobactam 3.375 GM/50 ML ML IV (20:31)
--- NOTE | 2018-07-20 21:02 | NURSING ---
pt walked the nursing unit x 4 times. pt used is x10 up to 1700ml
[2018-07-20 21:04] VITALS: BP 124/61; PULSE 71; RESP 18; TEMP 38.1; O2SAT 93
--- NOTE | 2018-07-20 21:37 | NURSING ---
Pt took his advil pm from home. His friend Yasemin took his pills home.
[2018-07-20] MEDS: Acetaminophen 325 MG Tablet 650 MG PO (23:37)
[2018-07-20 23:51] VITALS: BP 116/56; PULSE 60; RESP 18; TEMP 37.8; O2SAT 93
[2018-07-21 02:38] VITALS: BP 103/69; PULSE 53; RESP 17; TEMP 38.2; O2SAT 95
[2018-07-21] MEDS: Piperacil/Tazobactam 3.375 GM/50 ML ML IV ×3 (05:04→21:30)
[2018-07-21 05:06] VITALS: TEMP 37.6
[2018-07-21 06:40] LABS: Absolute Lymphocyte Count 2.27 X10^3/ul (0.83-4.51); Absolute Neutrophil Count 6.1 X10^3/uL (2.0-7.7); Basophil# 0.01 X10^3/uL; Basophil% 0.1 % (0-1); Eosinophil# 0.09 X10^3/uL; Hematocrit 28.7 % (40-54); Hemoglobin 9.6 g/dl (13.0-16.5); Lymphocyte # 2.27 X10^3/ul (4.0); Lymphocyte % 24.6 % (19-41); Mean Corp Hgb Conc 33.4 g/gl (32-36); Mean Corpuscular Hgb 31.5 pg (27.0-32.0); Mean Corpuscular Volume 94.1 fL (80-94); Mean Platelet Vol. 10.8 fl (6.2-12.0); Monocyte# 0.79 X10^3/uL; Monocyte% 8.5 % (0-10); Neutrophil # 6.07 X10^3/uL (2.7-7.7); Neutrophil % 65.7 % (47-70); Platelet Count 149 K/mm3 (150-450); RBC Distribution Width CV 13.1 % (11.6-14.6); RBC Distribution Width SD 43.6 fl (35.1-43.9); Red Blood Count 3.05 M/mm3 (4.6-6.2); White Blood Count 9.2 K/mm3 (4.4-11.0)
[2018-07-21 06:42] LABS: POSITIVE COUNT NO; POSITIVE DIFFERENTIAL NO; POSITIVE MORPHOLOGY NO
[2018-07-21 06:54] LABS: Anion Gap 7 (5-15); BUN 18 mg/dL (7-18); BUN/Creat Ratio 10.7 RATIO (10-20); Calcium,Total 8.4 mg/dL (8.5-10.1); Chloride 106 mmol/L (98-107); Creatinine, Serum 1.68 mg/dL (0.70-1.30); EST Glomerular Filtration Rate 43 mL/min (>60); Est Glom Filt Rate - Afr Amer 51 mL/min (>60); Estimated Creatinine Clearance 31.81 ml/min; Glucose 94 mg/dL (74-106); Potassium 3.8 mmol/L (3.5-5.1); Sodium Level 142 mmol/L (136-145)
--- NOTE | 2018-07-21 07:48 | PCM.PN.SRG ---
Patient Problems: Active and Suspected Problems Acute appendicitis (Acute) Right lower quadrant abdominal pain (Acute) Subjective: Patient is feeling was bloated but he is still not passing any flatus. He had low-grade fever overnight and his antibiotics were resumed. He is not having severe abdominal pain this morning. He has not had any pain medication since midnight. - Physical Exam General: Alert, Oriented x3, Cooperative Neck: No JVD Lungs: Normal air movement Cardiovascular: Regular rate, Regular Rhythm Abdomen: Soft, Non Tender, Distended - Less distended, - - Incisions are clean dry and intact with no erythema Vital Signs Temp Pulse Resp BP Pulse Ox 99.6 F H 53 L 17 103/69 95 07/21/18 05:06 07/21/18 02:38 07/21/18 02:38 07/21/18 02:38 07/21/18 02:38 Oxygen Flow Rate (L/min) 2 Oxygen Delivery Method Room Air Weight: 153 lb 3.54 oz Body Mass Index (BMI) 25.7 Intake and Output for Last 24 Hours 07/19/18 07/20/18 07/21/18 23:59 23:59 23:59 Intake Total 4859 / 4859 4479 / 4479 411 / 411 Output Total 450 / 450 4975 / 4975 850 / 850 Balance 4409 / 4409 -496 / -496 -439 / -439 Laboratory Tests Past 24 Hrs 07/20/18 07/21/18 07/21/18 17:49 06:15 06:15 WBC 12.7 H 9.2 RBC 3.15 L 3.05 L Hgb 9.8 L 9.6 L Hct 29.2 L 28.7 L MCV 92.7 94.1 H MCH 31.1 31.5 MCHC 33.6 33.4 RDW 13.4 13.1 RDW Differential 45.2 H 43.6 Plt Count 147 L 149 L MPV 10.0 10.8 Immature Gran % (Auto) 0.200 0.100 Neut % (Auto) 72.7 H 65.7 Lymph % (Auto) 19.4 24.6 [place] % (Auto) 7.0 8.5 Eos % (Auto) 0.6 1.0 Baso % (Auto) 0.1 0.1 Absolute Neuts (auto) 9.2 H 6.1 Absolute Lymphs (auto) 2.47 2.27 Total Counted Not Reportable Not Reportable Sodium 142 Potassium 3.8 Chloride 106 Carbon Dioxide 29.0 Anion Gap 7 BUN 18 Creatinine 1.68 H Estim Creat Clear Calc 31.81 Est GFR (MDRD) Af Amer 51 L Est GFR (MDRD) Non-Af 43 L BUN/Creatinine Ratio 10.7 Glucose 94 Calcium 8.4 L Medical Necessity - Tobacco Use Smoking Status: Never smoker Assessment/Plan All Active Problems Acute appendicitis (Acute) Right lower quadrant abdominal pain (Acute) 73-year-old male status post laparoscopic appendectomy 1. Postoperative ileus-patient is still not passing any flatus. He is still n.p.o. with IV fluids. Await bowel function before starting clears again. 2. Hypokalemia improved 3. Patient had elevated white count yesterday evening and low-grade fevers. Zosyn was resumed. Incisions appear clean with no erythema or purulent drainage. 4. Urinary retention-patient had postvoid residual of 375 cc and a Azul was placed. Patient has had copious urine output overnight having almost 5 L of urine output for the last 24 hours. IV fluids have been decreased. His creatinine has risen to 1.68 but he does have some baseline renal insufficiency. Patient has been started on Flomax. Plan another postvoid residual before discharge. Mitch Sanderson MD Pager: [facility] [address] [place] [address], [address] [place] [address] Office:
--- NOTE | 2018-07-21 07:51 | PN.SURG_ITS ---
Patient Problems: Active and Suspected Problems Acute appendicitis (Acute) Right lower quadrant abdominal pain (Acute) Subjective: Patient is feeling was bloated but he is still not passing any flatus. He had low-grade fever overnight and his antibiotics were resumed. He is not having severe abdominal pain this morning. He has not had any pain medication since midnight. - Physical Exam General: Alert, Oriented x3, Cooperative Neck: No JVD Lungs: Normal air movement Cardiovascular: Regular rate, Regular Rhythm Abdomen: Soft, Non Tender, Distended - Less distended, - - Incisions are clean dry and intact with no erythema Vital Signs Temp Pulse Resp BP Pulse Ox 99.6 F H 53 L 17 103/69 95 07/21/18 05:06 07/21/18 02:38 07/21/18 02:38 07/21/18 02:38 07/21/18 02:38 Oxygen Flow Rate (L/min) 2 Oxygen Delivery Method Room Air Weight: 153 lb 3.54 oz Body Mass Index (BMI) 25.7 Intake and Output for Last 24 Hours 07/19/18 07/20/18 07/21/18 23:59 23:59 23:59 Intake Total 4859 / 4859 4479 / 4479 411 / 411 Output Total 450 / 450 4975 / 4975 850 / 850 Balance 4409 / 4409 -496 / -496 -439 / -439 Laboratory Tests Past 24 Hrs 07/20/18 07/21/18 07/21/18 17:49 06:15 06:15 WBC 12.7 H 9.2 RBC 3.15 L 3.05 L Hgb 9.8 L 9.6 L Hct 29.2 L 28.7 L MCV 92.7 94.1 H MCH 31.1 31.5 MCHC 33.6 33.4 RDW 13.4 13.1 RDW Differential 45.2 H 43.6 Plt Count 147 L 149 L MPV 10.0 10.8 Immature Gran % (Auto) 0.200 0.100 Neut % (Auto) 72.7 H 65.7 Lymph % (Auto) 19.4 24.6 [place] % (Auto) 7.0 8.5 Eos % (Auto) 0.6 1.0 Baso % (Auto) 0.1 0.1 Absolute Neuts (auto) 9.2 H 6.1 Absolute Lymphs (auto) 2.47 2.27 Total Counted Not Reportable Not Reportable Sodium 142 Potassium 3.8 Chloride 106 Carbon Dioxide 29.0 Anion Gap 7 BUN 18 Creatinine 1.68 H Estim Creat Clear Calc 31.81 Est GFR (MDRD) Af Amer 51 L Est GFR (MDRD) Non-Af 43 L BUN/Creatinine Ratio 10.7 Glucose 94 Calcium 8.4 L Medical Necessity - Tobacco Use Smoking Status: Never smoker Assessment/Plan All Active Problems Acute appendicitis (Acute) Right lower quadrant abdominal pain (Acute) 73-year-old male status post laparoscopic appendectomy 1. Postoperative ileus-patient is still not passing any flatus. He is still n.p.o. with IV fluids. Await bowel function before starting clears again. 2. Hypokalemia improved 3. Patient had elevated white count yesterday evening and low-grade fevers. Zosyn was resumed. Incisions appear clean with no erythema or purulent drainage. 4. Urinary retention-patient had postvoid residual of 375 cc and a Azul was placed. Patient has had copious urine output overnight having almost 5 L of urine output for the last 24 hours. IV fluids have been decreased. His creatinine has risen to 1.68 but he does have some baseline renal insufficiency. Patient has been started on Flomax. Plan another postvoid residual before discharge. Mitch Sanderson MD Pager: [facility] [address] [place] [address], [address] [place] [address] Office:
[2018-07-21 08:27] VITALS: BP 116/60; PULSE 60; RESP 16; TEMP 37; O2SAT 94
[2018-07-21] MEDS: Pantoprazole Sodium 40 MG Tablet PO (09:50)
[2018-07-21] MEDS: Dextrose 5%-Lactated Ringers 1,000 ML 80 ML IV (12:49)
--- NOTE | 2018-07-21 13:34 | CASEMGMT ---
RN CM Face to Face with patient for initial transition planning/care coordination assessment. RN CM introduced self and role at [facility]. Patient lying in bed, alert and oriented. Patient willing to participate in assessment and is able to answer all questions appropriately. Care providers, pharmacy, and demographics verified. Patient lives in 2 story home with bed and bath on 1st floor. Patient is independent and drives self at home. Patient states he has living will and HPOA with son Taran Alvares listed has HPOA. Patient wishes to discharge home, denies need for home health at this time. Patient states he has no further needs or concerns at this time. CM to follow for discharge planning needs that may arise. Disposition Plan: Patient to discharge home with family support and follow-up plans in place. Monique BUSBY, RN, CM
[2018-07-21 14:17] VITALS: BP 139/71; PULSE 65; RESP 16; TEMP 36.8; O2SAT 94
[2018-07-21] MEDS: Tamsulosin HCl 0.4 MG Capsule PO (17:21)
[2018-07-21 21:00] VITALS: BP 137/71; PULSE 75; RESP 16; TEMP 37.6; O2SAT 96
[2018-07-21] MEDS: Acetaminophen 325 MG Tablet 650 MG PO (21:36)
[2018-07-21] MEDS: DiphenhydrAMINE 25 MG Capsule PO (22:22)
[2018-07-22] MEDS: Dextrose 5%-Lactated Ringers 1,000 ML 80 ML IV (02:30)
[2018-07-22 03:35] VITALS: BP 120/58; PULSE 55; RESP 16; TEMP 37.1; O2SAT 96
[2018-07-22] MEDS: Piperacil/Tazobactam 3.375 GM/50 ML ML IV ×2 (06:11→13:06)
--- NOTE | 2018-07-22 07:22 | PN.SURG_ITS ---
Patient Problems: Active and Suspected Problems Acute appendicitis (Acute) Right lower quadrant abdominal pain (Acute) Subjective: Patient admits to flatus and a small bowel movement denies any nausea or vomiting tolerating clears - Physical Exam General: Alert, Oriented x3, Cooperative, No apparent distress Lungs: Normal air movement Cardiovascular: Regular rate Abdomen: Soft, Passing Flatus, Distended - Mild, Tender - Mild tenderness palpation at incisions/right lower quadrant, no rebound or guarding Extremities: No clubbing, No cyanosis, No edema Vital Signs Temp Pulse Resp BP Pulse Ox 98.7 F 55 L 16 120/58 L 96 07/22/18 03:35 07/22/18 03:35 07/22/18 03:35 07/22/18 03:35 07/22/18 03:35 Oxygen Flow Rate (L/min) 2 Oxygen Delivery Method Room Air Weight: 154 lb 8.705 oz Body Mass Index (BMI) 25.7 Intake and Output for Last 24 Hours 07/20/18 07/21/18 07/22/18 23:59 23:59 23:59 Intake Total 4479 / 4479 1773 / 1773 1636 / 1636 Output Total 4975 / 4975 2300 / 2300 1250 / 1250 Balance -496 / -496 -527 / -527 386 / 386 Medical Necessity - Tobacco Use Smoking Status: Never smoker Assessment/Plan All Active Problems Acute appendicitis (Acute) Right lower quadrant abdominal pain (Acute) 73-year-old male status post laparoscopic appendectomy, postoperative ileus 1. Patient tolerated clears will advance to full liquids. He is having flatus and did have a small bowel movement. His stomach is still slightly distended however patient states it almost back to normal. If patient tolerates full liquids will advance to regular for lunch. If patient tolerates a regular diet is ambulating pain controlled vital signs remained stable he may be able to be DC'd later today. 2. Urinary retention we will try to DC Azul today and check for postvoid residual. If adequate patient will build to go home with his Flomax for about 2 weeks otherwise the Azul may need to be replaced and patient will need to follow-up with urology. 3. We will continue Augmentin for 2 more days at home. Lucy Meraz M.D. Pager: [phone] [facility] [address] [place] [address], [address] [place] [address] Office: [phone]
[2018-07-22 07:37] LABS: Absolute Neutrophil Count 4.5 X10^3/uL (2.0-7.7); Basophil# 0.02 X10^3/uL; Basophil% 0.3 % (0-1); Eosinophil# 0.18 X10^3/uL; Eosinophils% 2.4 % (0-5); Hematocrit 29.6 % (40-54); Hemoglobin 9.8 g/dl (13.0-16.5); Lymphocyte % 30.5 % (19-41); Mean Corp Hgb Conc 33.1 g/gl (32-36); Mean Corpuscular Hgb 30.9 pg (27.0-32.0); Mean Corpuscular Volume 93.4 fL (80-94); Mean Platelet Vol. 10.1 fl (6.2-12.0); Monocyte# 0.54 X10^3/uL; Monocyte% 7.2 % (0-10); Neutrophil % 59.6 % (47-70); Platelet Count 152 K/mm3 (150-450); RBC Distribution Width CV 13.1 % (11.6-14.6); RBC Distribution Width SD 44.6 fl (35.1-43.9); Red Blood Count 3.17 M/mm3 (4.6-6.2); White Blood Count 7.5 K/mm3 (4.4-11.0)
[2018-07-22 07:38] LABS: POSITIVE COUNT NO; POSITIVE DIFFERENTIAL NO; POSITIVE MORPHOLOGY NO
[2018-07-22 07:52] VITALS: BP 153/73; PULSE 53; RESP 16; TEMP 36.7; O2SAT 97
[2018-07-22 07:52] LABS: Anion Gap 6 (5-15); BUN 13 mg/dL (7-18); BUN/Creat Ratio 7.6 RATIO (10-20); Calcium,Total 8.3 mg/dL (8.5-10.1); Chloride 107 mmol/L (98-107); EST Glomerular Filtration Rate 42 mL/min (>60); Est Glom Filt Rate - Afr Amer 51 mL/min (>60); Estimated Creatinine Clearance 31.44 ml/min; Glucose 101 mg/dL (74-106); Potassium 3.5 mmol/L (3.5-5.1); Sodium Level 141 mmol/L (136-145)
[2018-07-22] MEDS: Pantoprazole Sodium 40 MG Tablet PO (08:08)
--- NOTE | 2018-07-22 08:49 | PCM.DC.APPY ---
Discharge Diet: Light diet - advance as tolerated Discharge Activity: May Shower Lifting Restrictions: no lifting >20 lb for 4 weeks Call your doctor if your incision/area has: Continuous Slow Oozing, Sudden Increased Bleeding, Increased Pain/ Swelling, Increased Redness, Foul Smelling Discharge, Swelling at the incision site Call your doctor if you observe: Fever of 101 or Higher Medications to take at Discharge Hydrochlorothiazide 12.5 mg PO DAILY 10/24/13 Atenolol [Tenormin (beta Chrissie)] 25 mg PO DAILY 12/23/14 Dextroamphetamine/Amphetamine [Adderall 15 mg Tablet] 15 mg PO DAILY 12/23/14 Pravastatin [Pravachol] 20 mg PO DAILY 12/23/14 Omeprazole 20 mg PO BID #60 tablet.dr 07/18/18 Amoxicillin/Potassium Clav [Augmentin 875-125 Tablet] 1 each PO BID #4 tablet 07/22/18 Tamsulosin HCl [Flomax] 0.4 mg PO DAILY #12 capsule 07/22/18 Allergies/Adverse Reactions: Allergies No Known Allergies Allergy (Verified 07/18/18 21:19) The following prescriptions were given: Tamsulosin HCl [Flomax] 0.4 mg PO DAILY #12 capsule Amoxicillin/Potassium Clav [Augmentin 875-125 Tablet] 1 each PO BID #4 tablet Primary Care Physician: Care Physician,No Primary [Primary Care Provider] - Test Results: Test results from this visit will be discussed in further detail at your follow-up appointment, if applicable. Please Follow Up With: Mitch Sanderson MD - after 5pm/weekends call [phone] with any concerns When: call office for appt in 2 weeks [phone] Proposed Discharge Date: 07/22/18
--- NOTE | 2018-07-22 08:52 | DCINST_ITS ---
Discharge Diet: Light diet - advance as tolerated Discharge Activity: May Shower Lifting Restrictions: no lifting >20 lb for 4 weeks Call your doctor if your incision/area has: Continuous Slow Oozing, Sudden Increased Bleeding, Increased Pain/ Swelling, Increased Redness, Foul Smelling Discharge, Swelling at the incision site Call your doctor if you observe: Fever of 101 or Higher Medications to take at Discharge Hydrochlorothiazide 12.5 mg PO DAILY 10/24/13 Atenolol [Tenormin (beta Chrissie)] 25 mg PO DAILY 12/23/14 Dextroamphetamine/Amphetamine [Adderall 15 mg Tablet] 15 mg PO DAILY 12/23/14 Pravastatin [Pravachol] 20 mg PO DAILY 12/23/14 Omeprazole 20 mg PO BID #60 tablet.dr 07/18/18 Amoxicillin/Potassium Clav [Augmentin 875-125 Tablet] 1 each PO BID #4 tablet 07/22/18 Tamsulosin HCl [Flomax] 0.4 mg PO DAILY #12 capsule 07/22/18 Allergies/Adverse Reactions: Allergies No Known Allergies Allergy (Verified 07/18/18 21:19) The following prescriptions were given: Tamsulosin HCl [Flomax] 0.4 mg PO DAILY #12 capsule Amoxicillin/Potassium Clav [Augmentin 875-125 Tablet] 1 each PO BID #4 tablet Primary Care Physician: Care Physician,No Primary [Primary Care Provider] - Test Results: Test results from this visit will be discussed in further detail at your follow- up appointment, if applicable. Please Follow Up With: Mitch Sanderson MD - after 5pm/weekends call [phone] with any concerns When: call office for appt in 2 weeks [phone] Proposed Discharge Date: 07/22/18
--- NOTE | 2018-07-22 08:57 | DS.PCM_ITS ---
Discharge Date and Diagnosis - Problem List Patient Problems: Active and Suspected Problems Acute appendicitis (Acute) Right lower quadrant abdominal pain (Acute) Date of Admission: 07/19/18 Date of Discharge: 07/22/18 - Primary Discharge Diagnosis Active and Suspected Problems Acute appendicitis (Acute) Right lower quadrant abdominal pain (Acute) Post op ileus Urinary retention - Secondary Discharge Diagnosis Chronic Problems Hyperlipidemia (Chronic) Benign hypertension (Chronic) Hospital Course and Treatment Operations: appendectomy - lap appy 07/19/18 Summary of Care Provided: The patient is a 73 year old M underwent lap appy 07/19/18 for acute appendicitis. He did require straight cath and klein for urinary retention, was started on flomax. He also had an post op ileus and fevers, so zosyn IV was restarted. 07/21/18 pt began having +flatus, griselda clears. 07/22/18, his diet was advanced-he tolerated regular diet. and klein was d/c for void trial and pt states that he felt like he was emptying well- voided 250- PVR 140 will check again before d/c and continue flomax for another 12 days. Patient Problems: Active and Suspected Problems Acute appendicitis (Acute) Right lower quadrant abdominal pain (Acute) Subjective: + flatus, less distended, griselda clears- - Physical Exam General: Alert, Oriented x3, Cooperative, No apparent distress Lungs: Normal air movement Cardiovascular: Regular rate Abdomen: Soft, Distended - mild, Tender - mild, no PS Extremities: No clubbing, No cyanosis, No edema Neurological: Cranial nerves II-XII grossly intact Psych/Mental Status: Normal Affect Vital Signs Temp Pulse Resp BP Pulse Ox 98.0 F 53 L 16 153/73 H 97 07/22/18 07:52 07/22/18 07:52 07/22/18 07:52 07/22/18 07:52 07/22/18 07:52 Oxygen Flow Rate (L/min) 2 Oxygen Delivery Method Room Air Weight: 154 lb 8.705 oz Body Mass Index (BMI) 25.7 Intake and Output for Last 24 Hours 07/20/18 07/21/18 07/22/18 23:59 23:59 23:59 Intake Total 4479 / 4479 1773 / 1773 1636 / 1636 Output Total 4975 / 4975 2300 / 2300 1350 / 1350 Balance -496 / -496 -527 / -527 286 / 286 Laboratory Tests Past 24 Hrs 07/22/18 07/22/18 07:18 07:18 WBC 7.5 RBC 3.17 L Hgb 9.8 L Hct 29.6 L MCV 93.4 MCH 30.9 MCHC 33.1 RDW 13.1 RDW Differential 44.6 H Plt Count 152 MPV 10.1 Immature Gran % (Auto) 0.000 Neut % (Auto) 59.6 Lymph % (Auto) 30.5 [place] % (Auto) 7.2 Eos % (Auto) 2.4 Baso % (Auto) 0.3 Absolute Neuts (auto) 4.5 Absolute Lymphs (auto) 2.30 Total Counted Not Reportable Sodium 141 Potassium 3.5 Chloride 107 Carbon Dioxide 28.0 Anion Gap 6 BUN 13 Creatinine 1.70 H Estim Creat Clear Calc 31.44 Est GFR (MDRD) Af Amer 51 L Est GFR (MDRD) Non-Af 42 L BUN/Creatinine Ratio 7.6 L Glucose 101 Calcium 8.3 L Discharge Diet: Light diet - advance as tolerated Discharge Activity: May Shower Call your doctor if your incision/area has: Continuous Slow Oozing, Sudden Increased Bleeding, Increased Pain/ Swelling, Increased Redness, Foul Smelling Discharge, Swelling at the incision site Call your doctor if you observe: Fever of 101 or Higher Home Medications: Medications to take at Discharge Hydrochlorothiazide 12.5 mg PO DAILY 10/24/13 Atenolol [Tenormin (beta Chrissie)] 25 mg PO DAILY 12/23/14 Dextroamphetamine/Amphetamine [Adderall 15 mg Tablet] 15 mg PO DAILY 12/23/14 Pravastatin [Pravachol] 20 mg PO DAILY 12/23/14 Omeprazole 20 mg PO BID #60 tablet. 07/18/18 Amoxicillin/Potassium Clav [Augmentin 875-125 Tablet] 1 each PO BID #4 tablet 07/22/18 Tamsulosin HCl [Flomax] 0.4 mg PO DAILY #12 capsule 07/22/18 Following Prescrptions Were Given to Patient: Tamsulosin HCl [Flomax] 0.4 mg PO DAILY #12 capsule Amoxicillin/Potassium Clav [Augmentin 875-125 Tablet] 1 each PO BID #4 tablet Primary Care Physician: Care Physician,No Primary [Primary Care Provider] - Please Follow Up With: Mitch Sanderson MD - after 5pm/weekends call [phone] with any concerns When: call office for appt in 2 weeks [phone] Medical Necessity - Tobacco Use Smoking Status: Never smoker Meaningful Use Info Meaningful Use Diagnoses (Choose all that apply): None applicable
[2018-07-22 14:00] VITALS: BP 148/86; PULSE 76; RESP 16; TEMP 37; O2SAT 98
[2018-07-22] MEDS: Tamsulosin HCl 0.4 MG Capsule PO (17:02)
[2018-07-22 17:06] VITALS: BP 159/84; PULSE 56; RESP 16; TEMP 37.1; O2SAT 98
== END 2018-07-22 17:41 | disposition home or self-care (01) | DRG 342 ==
LOC: ED 07-19 00:23 → SDC 07-19 00:41 → AC 07-19 00:42 → MS3 07-19 01:36 → SDC 07-19 01:36
PROVIDERS: Surgery; Admitting Provider Surgery; Emergency Provider Emergency Medicine; Visit Provider Surgery
PROC: 0DTJ4ZZ Resection of Appendix, Percutaneous Endoscopic Approach (ICD-10-PCS; CPT 44970; principal; 2018-07-19 01:45)
DX: K56.7 Ileus, unspecified (principal); K35.80 Unspecified acute appendicitis; E87.6 Hypokalemia; R33.9 Retention of urine, unspecified; E78.5 Hyperlipidemia, unspecified; I10 Essential (primary) hypertension; Z23 Encounter for immunization
CPT/HCPCS: 36415; 71045; 74018; 74176; 80048; 80053; 81001; 83690; 84484; 85025; 85610; 85730; 86850; 86900; 88304; 93005; 97802; 99283; 99285; J7030; J7040; 90686; A4216; C1760; J2405

== ENCOUNTER 2018-08-05 10:43 | Emergency (ER) | payer MEDICARE, SELFPAY ==
[2018-08-05 10:44] VITALS: BP 139/78; PULSE 57; RESP 18; TEMP 37.2; O2SAT 99; BMI 24.9
--- NOTE | 2018-08-05 11:05 | CT_ITS ---
STUDY: CT FACIAL BONES WITHOUT CONTRAST REASON FOR EXAM: Male, 73 years old. Injury to the head and nose. RADIATION DOSAGE (If Supplied By Facility): CTDIvol = ( 29.38 ) mGy, DLP = ( 591.93 ) mGycm TECHNIQUE: The patient was scanned in a multi detector CT scanner. Sagittal and coronal images were reconstructed. Individualized dose optimization techniques were used for this CT. COMPARISON: None. FINDINGS: There is mild right periorbital soft tissue swelling. Normal orbital jeronimo and orbital contents. There are fractures of the nasal bones bilaterally. The remainder of the facial bony structures appear intact. There is mild mucosal thickening of the right maxillary sinus. CT/Sinus/Facial Bone IMPRESSION: Fracture of the nasal bones. Electronically Signed: Lio Gonzalez MD at 12:23 EDT Tel , Service support ,
--- NOTE | 2018-08-05 11:05 | CT_ITS ---
STUDY: CT BRAIN WITHOUT CONTRAST REASON FOR EXAM: Male, 73 years old. Head injury. RADIATION DOSAGE (If Supplied By Facility): CTDIvol = ( 44.99 ) mGy, DLP = ( 779.24 ) mGycm TECHNIQUE: Transaxial CT imaging of the brain was performed without administration of intravenous contrast material. Individualized dose optimization techniques were used for this CT. COMPARISON: None. FINDINGS: Normal soft tissue structures. Normal calvarium. There is mild cerebral atrophy with widening of the extra-axial spaces and ventricular dilatation. There are areas of decreased attenuation within the white matter tracts of the supratentorial brain, consistent with microvascular disease changes. Normal basal ganglia and thalami. Normal brainstem. Normal cerebellum. There is no intracranial hemorrhage. There are no findings of an acute ischemic infarction. Normal visualized paranasal sinuses. CT/Brain/Head without Contrast IMPRESSION: 1. Chronic involutional changes of the brain. 2. No acute intracranial process. Electronically Signed: Lio Gonzalez MD at 12:19 EDT Tel , Service support ,
--- NOTE | 2018-08-05 12:44 | ED.VISSUMM ---
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 He notes he had bleeding from the nares for quite a while. He states that as the night has gone on right eye particular has gotten swollen shot in the left eye starts to have some swelling. He notes the epistaxis has resolved. He notes a cut to the bridge of the nose. He had surgery less than 2 weeks ago for an appendectomy and believes that his tetanus is up-to-date. History of hypertension high cholesterol BPH. No vomiting. No loss of consciousness. He is not on anticoagulants. Physical Examination: Afebrile vital signs are stable Gen: Well-nourished well-developed Head: Normocephalic bilateral periorbital ecchymosis. Right upper and lower eyelid swelling. Eyes: Perrl EOMI subconjunctival hemorrhage. No hyphema. ENT: TMs clear no rhinorrhea moist mucous membranes there is no septal hematoma. There is a centimeter laceration with mild bleeding over the bridge of the nose. The wound edges are well approximated Neck: Supple no lymphadenopathy no JVD nontender CVS: Regular rate rhythm no murmurs normal S1-S2 Respiratory: No distress clear to auscultation bilaterally chest nontender Abdomen: Soft nontender nondistended normal bowel sounds no masses Back: Nontender Extremity: Nontender no edema Skin: Normal color no rash Neuro: alert orientated ?3 CN II-XII intact normal strength sensation reflexes gait cerebellar Psych: Normal affect normal mood Test Results: CT the facial bone and brain did not demonstrate any intracranial hemorrhage. Bilateral nasal bone fractures were seen. Emergency Department Course and Treatment: Wound was washed with Shur-Clens. Dermabond was used to close the abrasion there is been no further bleeding. Patient will follow plastic surgery if he is unhappy with cosmetic outcome or with difficulty breathing through his nose. Return if worsening or concerns. Impression: 1. Facial contusion 2. Bilateral nasal bone fracture 3. Nasal laceration 1 cm with repair This note was generated with [employer]™ dictation software. It may contain incorrect words, spelling, and punctuation that were not noted in review of the chart prior to signing ED Disposition - Plan for ED Patient: Disposition: Home or Assisted Living Chief Complaint: Head Injury Instructions: ED Fx Nose W Lac Skin Glue Referrals: Anselmo Keys MD [STAFF PHYSICIAN] - As Needed
--- NOTE | 2018-08-05 12:48 | ED.DCSUM_ITS ---
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 He notes he had bleeding from the nares for quite a while. He states that as the night has gone on right eye particular has gotten swollen shot in the left eye starts to have some swelling. He notes the epistaxis has resolved. He notes a cut to the bridge of the nose. He had surgery less than 2 weeks ago for an appendectomy and believes that his tetanus is up-to-date. History of hypertension high cholesterol BPH. No vo miting. No loss of consciousness. He is not on anticoagulants. Physical Examination: Afebrile vital signs are stable Gen: Well-nourished well-developed Head: Normocephalic bilateral periorbital ecchymosis. Right upper and lower eyelid swelling. Eyes: Perrl EOMI subconjunctival hemorrhage. No hyphema. ENT: TMs clear no rhinorrhea moist mucous membranes there is no septal hematoma. There is a centimeter laceration with mild bleeding over the bridge of the nose. The wound edges are well approximated Neck: Supple no lymphadenopathy no JVD nontender CVS: Regular rate rhythm no murmurs normal S1-S2 Respiratory: No distress clear to auscultation bilaterally chest nontender Abdomen: Soft nontender nondistended normal bowel sounds no masses Back: Nontender Extremity: Nontender no edema Skin: Normal color no rash Neuro: alert orientated ?3 CN II-XII intact normal strength sensation reflexes gait cerebellar Psych: Normal affect normal mood Test Results: CT the facial bone and brain did not demonstrate any intracranial hemorrhage. Bilateral nasal bone fractures were seen. Emergency Department Course and Treatment: Wound was washed with Shur-Clens. Dermabond was used to close the abrasion there is been no further bleeding. Patient will follow plastic surgery if he is unhappy with cosmetic outcome or with difficulty breathing through his nose. Return if worsening or concerns. Impression: 1. Facial contusion 2. Bilateral nasal bone fracture 3. Nasal laceration 1 cm with repair This note was generated with [employer] software. It may contain incorrect words, spelling, and punctuation that were not noted in review of the chart prior to signing ED Disposition - Plan for ED Patient: Disposition: Home or Assisted Living Chief Complaint: Head Injury Instructions: ED Fx Nose W Lac Skin Glue Referrals: Anselmo Keys MD [STAFF PHYSICIAN] - As Needed
[2018-08-05 13:10] VITALS: PULSE 68; RESP 14; O2SAT 98
== END 2018-08-05 13:11 | disposition home or self-care (01) ==
PROVIDERS: Emergency Provider Emergency Medicine
DX: S02.2XXA Fracture of nasal bones, initial encounter for closed fracture (principal); S01.21XA Laceration without foreign body of nose, initial encounter; H11.33 Conjunctival hemorrhage, bilateral; S00.83XA Contusion of other part of head, initial encounter; W22.8XXA Striking against or struck by other objects, initial encounter; Y93.9 Activity, unspecified; Y92.9 Unspecified place or not applicable; Y99.9 Unspecified external cause status; I10 Essential (primary) hypertension; E78.00 Pure hypercholesterolemia, unspecified; K21.9 Gastro-esophageal reflux disease without esophagitis; N40.1 Benign prostatic hyperplasia with lower urinary tract symptoms; Z79.899 Other long term (current) drug therapy
CPT/HCPCS: 12011; 70450; 70486; 99282

== ENCOUNTER → 2018-08-09 13:08 | Outpatient (CLI) | payer MEDICARE, SELFPAY | DX: Z00.00 Encounter for general adult medical examination without abnormal findings (principal) ==

== ENCOUNTER 2018-11-11 09:53 | Observation (INO) | payer MEDICARE, SELFPAY ==
[2018-11-11] VITALS (13 sets, daily range): BP systolic 128–139; BP diastolic 68–86; PULSE 58–75; RESP 16–20; TEMP 36.6–37.3; O2SAT 94–100; BMI 24.0; BMI 23.5
--- NOTE | 2018-11-11 10:21 | EKG12_ITS ---
Test Reason : GENERAL ILLNESS Blood Pressure : / mmHG Vent. Rate : 057 BPM Atrial Rate : 057 BPM P-R Int : 176 ms QRS Dur : 098 ms QT Int : 406 ms P-R-T Axes : 056 057 063 degrees QTc Int : 395 ms Sinus bradycardia Otherwise normal ECG Confirmed by JUANCHO BLANTON, VINCENZO ([id number]), news assignment editor HUONG IRVING ([id number]) on 11/15/2018 1:30:18 PM Referred By: CARMENZA Confirmed By:VINCENZO DAWKINS MD
--- NOTE | 2018-11-11 10:25 | ED.DCSUM_ITS ---
- ER Visit Summary Date of Service: 11/11/18 Chief Complaint: Cough, congestion History of Present Illness: The patient is a 73 M presenting with cough, congestion. Patient has been ill for the past week. He states he went to urgent care and was diagnosed with the flu. He states he has been progressively worsening. He has had productive cough, shortness of breath. He denies chest pain. He had nausea, vomiting, diarrhea. He has lightheadedness. No syncope. He has not been eating or drinking well. He complains of generalized weakness. Denies other complaints. Physical Examination: Vitals are stable. Patient is afebrile. Alert no acute distress. HEENT exam dry mucous membranes Neck is supple. Lungs are expiratory wheezing bilaterally. Heart is regular rate and rhythm. Abdomen is soft nontender nondistended. No guarding or rebound Extremities are unremarkable. Skin is warm and dry. No focal neurologic deficit. Remainder of exam is unremarkable. Emergency Department Course and Treatment: Patient was given IV fluids, Zofran. He was given albuterol, Atrovent aerosols. Chest x-ray shows no acute process. EKG sinus rate of 57. CBC unremarkable. Chemistries show sodium 134, potassium 3.2, BUN 22, creatinine 1.51. Troponin is negative. Urinalysis unremarkable. Influenza negative. With ambulation patient's pulse ox dropped from 96% to 90% with just a couple of steps. He felt dizzy with ambulation. While resting in bed his pulse ox dropped to 88% with talking. On repeat exam, lungs have continued wheezing bilaterally. He was given solumedrol IV. Will discuss with hospitalist for observation. Disposition: Observation Impression: Bronchitis, hypoxia This note was generated with [employer] dictation software. It may contain incorrect words, spelling, and punctuation that were not noted in review of the chart prior to signing ED Disposition - Plan for ED Patient: Referrals: Care Physician,No Primary [NON-STAFF] -
--- NOTE | 2018-11-11 10:27 | RAD_ITS ---
STUDY: X-RAY CHEST REASON FOR EXAM: Male, 73 years old. Cough TECHNIQUE: AP COMPARISON: 07/28/2018 FINDINGS: EKG leads project over the chest. Granulomata stable. There is no demonstrated pleural abnormality. Normal size heart. There are calcified mediastinal lymph nodes. Normal visualized pulmonary arteries. There is atherosclerotic tortuosity of the aortic arch and descending thoracic aorta. No acute bony process. There is no demonstrated abnormality of the visualized soft tissue structures of the upper abdomen. RAD/Chest 1 View (Portable) IMPRESSION: Nonacute portable x-ray examination of the chest. Electronically Signed: Santiago Mckeon MD at 10:48 EST , Service support ,
[2018-11-11] MEDS: Ipratropium/Albuterol Sulfate 3 ML AMPUL.NEB INHALATION ×4 (10:38→22:23)
[2018-11-11] MEDS: Ondansetron 4 MG/2 ML Vial IV (10:38)
[2018-11-11] MEDS: Albuterol 2.5 MG/3 ML VIAL.NEB. INHALATION ×3 (10:38→10:39)
[2018-11-11 11:01] LABS: Absolute Lymphocyte Count 2.13 X10^3/ul (0.83-4.51); Absolute Neutrophil Count 2.7 X10^3/uL (2.0-7.7); Basophil# 0.02 X10^3/uL; Basophil% 0.4 % (0-1); Eosinophil# 0.03 X10^3/uL; Eosinophils% 0.6 % (0-5); Hematocrit 37.9 % (40-54); Hemoglobin 13.5 g/dl (13.0-16.5); Lymphocyte # 2.13 X10^3/ul (4.0); Lymphocyte % 39.9 % (19-41); Mean Corp Hgb Conc 35.6 g/gl (32-36); Mean Corpuscular Hgb 31.4 pg (27.0-32.0); Mean Corpuscular Volume 88.1 fL (80-94); Mean Platelet Vol. 10.4 fl (6.2-12.0); Monocyte# 0.49 X10^3/uL; Monocyte% 9.2 % (0-10); Neutrophil # 2.66 X10^3/uL (2.7-7.7); Neutrophil % 49.7 % (47-70); Platelet Count 176 K/mm3 (150-450); RBC Distribution Width CV 12.7 % (11.6-14.6); RBC Distribution Width SD 40.3 fl (35.1-43.9); White Blood Count 5.3 K/mm3 (4.4-11.0)
[2018-11-11 11:04] LABS: POSITIVE COUNT NO; POSITIVE DIFFERENTIAL NO; POSITIVE MORPHOLOGY NO
[2018-11-11 11:16] LABS: Anion Gap 10 (5-15); BUN 22 mg/dL (7-18); BUN/Creat Ratio 14.6 RATIO (10-20); Calcium,Total 9.7 mg/dL (8.5-10.1); Chloride 97 mmol/L (98-107); Creatinine, Serum 1.51 mg/dL (0.70-1.30); EST Glomerular Filtration Rate 48 mL/min (>60); Est Glom Filt Rate - Afr Amer 58 mL/min (>60); Estimated Creatinine Clearance 35.39 ml/min; Glucose 109 mg/dL (74-106); Potassium 3.2 mmol/L (3.5-5.1); Sodium Level 134 mmol/L (136-145)
[2018-11-11 12:01] LABS: Bacteria 0 SEEN /hpf (None Seen); Mucous, Urine 0 SEEN /hpf (<or=2+); Red Blood Cells-Urine 0 SEEN /hpf (0-5); Squamous Epithelial Cells - UA 0 SEEN /hpf (0-5); White Blood Cells 0 SEEN /hpf (0-5)
[2018-11-11 12:03] LABS: Color, Urine Yellow (Yellow); Glucose, Dipstick Normal (Normal); Ketone-Dipstick Negative (Negative); Leukocyte Esterase-Dipstick Negative /ul (Negative); Nitrite-Dipstick Negative (Negative); Occult Blood-Urine Negative /ul (Negative); Protein-Dipstick 15 mg/dl (Negative); Urine Bilirubin Dipstick Negative (Negative); Urine Clarity Clear (Clear); Urine Urobilinogen Normal (Normal)
--- NOTE | 2018-11-11 12:40 | PCM.HP.STD ---
Problem List (1) Acute viral syndrome Status: Acute (2) Hypoxia Status: Acute (3) HTN (hypertension) Status: Chronic Qualifiers: Hypertension type: essential hypertension Qualified Code(s): I10 - Essential (primary) hypertension (4) Exposure to tobacco smoke at work Status: Chronic (5) ANTIONE (obstructive sleep apnea) Status: Chronic (6) ADHD Status: Chronic Qualifiers: Attention deficit-hyperactivity disorder type: unspecified Qualified Code(s): F90.9 - Attention-deficit hyperactivity disorder, unspecified type (7) Hyperlipidemia Status: Chronic Qualifiers: Hyperlipidemia type: unspecified Qualified Code(s): E78.5 - Hyperlipidemia, unspecified History of Present Illness Date of Admission: 11/11/18 Chief Complaint: Cough, congestion, dyspnea The patient is a 73 y/o M w/ PMHx: HTN, HLD, GERD, ADHD, BPH, CKD stage III, History of 2nd hand tobacco exposure who presents to the [facility] ED on 11/11/18 with history of ongoing cough, mildly to moderately productive, congestion, fatigue, malaise, decreased intake, initially nausea, emesis but this has seemed to resolve in addition to episodes of more loose stools than baseline with evaluation at prior with no nasal swab obtained but noted Influenza diagnosis and discharged to home with conservative measures encouraged, now returning to ED for evaluation as worsening over the last 2-3 days with subjective fevers and chills. 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 Work-up in the ED included T 97.8, heart rate 58, BP 136/73, respiratory rate 16, 94% on room air however per ED report did decrease to 90% with any attempted exertion, CBC with W BC 5.3, heme globin 13.5, platelet 176 without shift, BMP with sodium 134, potassium 3.2, chloride 97, BUN/Cr 1.51 (baseline Cr 1.5-1.7), glucose 109, troponin < 0.015, UA not marked appearing, negative influenza rapid, CXR w/ no acute cardiopulmonary process, EKG with sinus bradycardia without acute evidence of ischemia. In the ED patient administered albuterol, DuoNeb, Zofran in addition to normal saline. Notified ED that hospitalist added on respiratory viral panel as urgent care had mentioned influenza positive in the [place] are frequently falsely negative. Past Medical History Past Medical History (Chronic Problems): Chronic Problems HTN (hypertension) (Chronic) Exposure to tobacco smoke at work (Chronic) ANTIONE (obstructive sleep apnea) (Chronic) ADHD (Chronic) Hyperlipidemia (Chronic) Benign hypertension (Chronic) Allergies No Known Allergies Allergy (Verified 11/11/18 09:54) Home Medications: Ambulatory Orders Medication Instructions Recorded Hydrochlorothiazide 12.5 mg PO DAILY 10/24/13 Atenolol [Tenormin (beta Chrissie)] 25 mg PO DAILY 12/23/14 Pravastatin [Pravachol] 20 mg PO DAILY 12/23/14 Omeprazole 20 mg PO BID #60 tablet. 07/18/18 Tamsulosin HCl [Flomax] 0.4 mg PO DAILY #12 capsule 07/22/18 Surgical History: appendectomy Psychiatric History: Attn. deficit disorder Lives: Spouse/ Significant Other - Patient notes that he and his girlfriend share living spaces. 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 Tobacco Use: Secondhand Alcohol: None - *Family History Maternal History Items: Hypertension Paternal History Items: - - Patient notes that his father had been healthy until age 61 at which time he passed secondary to a brain tumor. Review of Systems Constitutional: Reports: Anorexia, Chills, Fever, Malaise, Weakness, Fatigue. Denies: Weight Change HEENT: Denies: Head Aches, Sinus Congestion, Sinus Drainage Cardiovascular: Denies: Chest Pain, Palpitations Respiratory: Reports: Cough, Shortness of Breath, Shortness of breath at rest, Shortness of breath upon exertion, Sputum production, Wheezing Gastrointestinal: Reports: Diarrhea, Nausea, Vomiting. Denies: Abdominal Pain Genitourinary: Denies: Dysuria Musculoskeletal: Reports: Joint Pain, Muscle pain. Denies: Joint Tenderness Skin: Denies: Rash, Wounds Neurological: Denies: Numbness, Tingling, Focal weakness Psychiatric: Denies: Anxiety, Depression, Homicidal Ideations, Suicidal Ideations Hematologic/ Lymphatic: Denies: Easy Bruising, Easy Bleeding VTE Information - Inpt Only VTE Present on Admission: No VTE Mechan Device Prophylaxis: SCD's VTE Pharm Prophylaxis ordered?: Yes Patient Problems: Active and Suspected Problems Acute viral syndrome (Acute) Hypoxia (Acute) Subjective: Seated upright in ED bed, fatigued appearance, harsh coughing, do note occasional hypoxia on monitor with any exertion dropping into the 80s, however does recover quickly into the 90s. Objective: Physical Examination: General: awake, alert, oriented x 3 and cooperative, seated upright in the ED bed, NAD, fatigued appearance, harsh coughing during exam. Skin: normal color, turgor, no icterus, cyanosis. HEENT: AT/NC, EOMI, PERRLA, dry MM, no carotid bruits or JVD noted. Lungs: Diminished BS BL, > bases, diffusely coarse, rhonchorous, wheezings, harsh coughing during examination. Heart: Regular rate and rhythm; no gallop, rub audible. Abdomen: soft, NTTP, ND, normal BS, no HSM. Extremities: no cyanosis, clubbing, or edema. Neurological: patient awake, alert, oriented x 3; cognitive function intact; pupils equally reactive to light and accomodation; cranial nerves II-XII grossly normal, moving all 4 extremities, no focal deficits, strength severely globally decreased secondary to acute presentation. Psychiatric: affect appears fatigued, normal, no acute evidence of depressive or anxiety feelings. - Physical Exam Vital Signs Temp Pulse Resp BP Pulse Ox 98.0 F 75 20 H 139/86 H 97 11/11/18 11:59 11/11/18 11:59 11/11/18 11:59 11/11/18 11:59 11/11/18 11:59 Oxygen Delivery Method Room Air Weight: 140 lb Body Mass Index (BMI) 24.0 Microbiology Past 72 Hours 11/11/18 11:15 Influenza Types A,B Direct FA (CHARISSA) - Final Mucosa - Nose Laboratory Tests Past 24 Hrs 11/11/18 11/11/18 11/11/18 10:50 10:50 11:55 WBC 5.3 RBC 4.30 L Hgb 13.5 Hct 37.9 L MCV 88.1 MCH 31.4 MCHC 35.6 RDW 12.7 RDW Differential 40.3 Plt Count 176 MPV 10.4 Immature Gran % (Auto) 0.200 Neut % (Auto) 49.7 Lymph % (Auto) 39.9 Faulk % (Auto) 9.2 Eos % (Auto) 0.6 Baso % (Auto) 0.4 Absolute Neuts (auto) 2.7 Absolute Lymphs (auto) 2.13 Total Counted Not Reportable Sodium 134 L Potassium 3.2 L Chloride 97 L Carbon Dioxide 27.0 Anion Gap 10 BUN 22 H Creatinine 1.51 H Estim Creat Clear Calc 35.39 Est GFR (MDRD) Af Amer 58 L Est GFR (MDRD) Non-Af 48 L BUN/Creatinine Ratio 14.6 Glucose 109 H Calcium 9.7 Troponin I < 0.015 Urine Color Yellow Urine Clarity Clear Urine pH 6.0 Ur Specific [place] 1.010 Urine Protein 15 H Urine Glucose (UA) Normal Urine Ketones Negative Urine Occult Blood Negative Urine Nitrite Negative Urine Bilirubin Negative Urine Urobilinogen Normal Ur Leukocyte Esterase Negative Urine RBC 0 SEEN Urine WBC 0 SEEN Ur Squamous Epith Cells 0 SEEN Urine Bacteria 0 SEEN Urine Mucus 0 SEEN Assessment/Plan All Active Problems Acute appendicitis (Acute) Right lower quadrant abdominal pain (Acute) Acute viral syndrome (Acute) Hypoxia (Acute) The patient is a 73 y/o M w/ PMHx: HTN, HLD, GERD, ADHD, BPH, CKD stage III, History of 2nd hand tobacco exposure who presents to the [facility] ED on 11/11/18 with history of ongoing cough, mildly to moderately productive, congestion, fatigue, malaise, decreased intake, initially nausea, emesis but this has seemed to resolve in addition to episodes of more loose stools than baseline with evaluation at UC prior with no nasal swab obtained but noted Influenza diagnosis and discharged to home with conservative measures encouraged, now returning to ED for evaluation as worsening over the last 2-3 days with subjective fevers and chills. (1) General Malaise, Cough, Subjective Fever/Chills, General Debility secondary to possibly Influenza Viral Syndrome, Noted Recent UC + Influenza but pending Respiratory Viral Panel: CXR in the ED w/ no acute cardiopulmonary findings. Admission CBC w/ WBC WBC 5.3 without shift. Influenza rapid negative; however, poor test, requested ED initiated respiratory viral panel. Given timeline would not initiate Tamiflu. Will admit to [facility], requested ED to administer solumedrol given severity of wheezing, maintain on oxygen with wean as tolerated, continue ATC duonebs, PRN albuterol, HOB, IS parameters. PT, OT, CM consultation for discharge planning. May need oxygenation testing prior to discharge. Given dehydration, will plan continued hydration and repeat PA and Lateral CXR in AM. (2) Hypokalemia: Admission K+ 3.2, supplementation given, repeat level in AM. (3) Hyponatremia, Mild: Hypovolemic, admission Na 134, baseline 140s, likely secondary to acute presentation #1 with mild dehydration, continue to hydrate, hold diuretic, repeat BMP in AM. (4) Chronic Kidney Disease Stage III w/ likely concurrent mild dehydration given acute presentation #1: Admission BUN/Cr 22/1.51, baseline renal function 1.5-1.7, stable, gently hydrating, repeat BMP in AM. 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 Possible underlying pulmonary disease, would benefit from PFTs once clinically improved. (6) Hypertension: Continue home regimen including atenolol, holding HCTZ, PRN hydralazine. (7) Hyperlipidemia: Continue home statin regimen. (8) BPH: Continue home flomax regimen. (9) GERD: PPI. (10) ANTIONE: CPAP q HS. (11) DVT Prophylaxis: SCDs, heparin. Code Visit OBSV E&M: 31309 Initial observation care L3
[2018-11-11] MEDS: MethylPREDNISolone 125 MG/2 ML Vial IV (12:52)
[2018-11-11] MEDS: 0.9% Normal Saline 1,000 ML 100 ML IV ×2 (14:43→23:27)
[2018-11-11] MEDS: Pravastatin 20 MG Tablet PO (15:45)
[2018-11-11] MEDS: Atenolol 25 MG Tablet PO (15:45)
[2018-11-11] MEDS: Heparin Injection (Vial) 5,000 UNIT/ML VIAL 5000 UNIT SC (21:48)
[2018-11-11] MEDS: Pantoprazole Sodium 20 MG Tablet PO (21:48)
[2018-11-11] MEDS: guaiFENesin 600 MG Tablet PO (21:48)
[2018-11-11] MEDS: DiphenhydrAMINE 25 MG Capsule PO (23:26)
[2018-11-11] MEDS: Acetaminophen 325 MG Tablet 650 MG PO (23:26)
[2018-11-12 02:00] VITALS: BP 121/64; PULSE 59; RESP 18; TEMP 36.9; O2SAT 97
[2018-11-12 03:29] VITALS: PULSE 64; RESP 18
[2018-11-12] MEDS: Ipratropium/Albuterol Sulfate 3 ML AMPUL.NEB INHALATION ×2 (03:29→08:38)
[2018-11-12 06:58] LABS: Absolute Lymphocyte Count 1.51 X10^3/ul (0.83-4.51); Absolute Neutrophil Count 4.2 X10^3/uL (2.0-7.7); Basophil# 0.01 X10^3/uL; Basophil% 0.2 % (0-1); Hematocrit 32.3 % (40-54); Lymphocyte # 1.51 X10^3/ul (4.0); Lymphocyte % 25.6 % (19-41); Mean Corp Hgb Conc 34.1 g/gl (32-36); Mean Corpuscular Hgb 30.8 pg (27.0-32.0); Mean Corpuscular Volume 90.5 fL (80-94); Mean Platelet Vol. 10.8 fl (6.2-12.0); Monocyte# 0.21 X10^3/uL; Monocyte% 3.6 % (0-10); Neutrophil # 4.15 X10^3/uL (2.7-7.7); Neutrophil % 70.3 % (47-70); Platelet Count 171 K/mm3 (150-450); RBC Distribution Width CV 13.1 % (11.6-14.6); Red Blood Count 3.57 M/mm3 (4.6-6.2); White Blood Count 5.9 K/mm3 (4.4-11.0)
[2018-11-12 07:00] LABS: POSITIVE COUNT NO; POSITIVE DIFFERENTIAL NO; POSITIVE MORPHOLOGY NO
[2018-11-12 07:24] LABS: Anion Gap 13 (5-15); BUN 25 mg/dL (7-18); BUN/Creat Ratio 16.4 RATIO (10-20); Calcium,Total 8.8 mg/dL (8.5-10.1); Chloride 104 mmol/L (98-107); Creatinine, Serum 1.52 mg/dL (0.70-1.30); EST Glomerular Filtration Rate 48 mL/min (>60); Est Glom Filt Rate - Afr Amer 58 mL/min (>60); Estimated Creatinine Clearance 35.16 ml/min; Glucose 153 mg/dL (74-106); Potassium 3.7 mmol/L (3.5-5.1); Sodium Level 140 mmol/L (136-145)
[2018-11-12 08:38] VITALS: PULSE 66; RESP 18; O2SAT 92
[2018-11-12 08:45] VITALS: BP 134/60; PULSE 70; RESP 18; TEMP 37.1; O2SAT 92
[2018-11-12] MEDS: Tamsulosin HCl 0.4 MG Capsule PO (08:45)
[2018-11-12] MEDS: Atenolol 25 MG Tablet PO (08:46)
[2018-11-12] MEDS: Heparin Injection (Vial) 5,000 UNIT/ML VIAL 5000 UNIT SC (08:46)
[2018-11-12] MEDS: guaiFENesin 600 MG Tablet PO (08:46)
[2018-11-12] MEDS: Pantoprazole Sodium 20 MG Tablet PO (08:46)
[2018-11-12 09:08] VITALS: O2SAT 89; O2SAT 92
--- NOTE | 2018-11-12 09:13 | NURSING ---
Walked pt [place] on [place] and only dropped to 89%. Walked all away around unit. Denies SOB. Dr. Simmons aware.
--- NOTE | 2018-11-12 09:52 | PCM.DC ---
- Discharge Diagnoses Current Active Problems: Current Active and Chronic Problems (1) General Malaise, Cough, Subjective Fever/Chills, General Debility secondary to Suspected Acute Viral Bronchitis (2) Hypokalemia (3) Hyponatremia, Mild, Hypovolemic, secondary to #1 (4) Chronic Kidney Disease Stage III w/ concurrent mild dehydration given acute presentation #1 (5) History of Heavy Tobacco Exposure, Possible Underlying Pulmonary Disease (6) Hypertension (7) Hyperlipidemia (8) BPH (9) GERD (10) ANTIONE w/ CPAP q HS usage You will use the following diet at home:: Cardiac Your food should be the consistency of: Regular Your liquids should be the consistency of: Regular/Thin Discharge Activity: - - Avoid aggressive activity until complete steroid burst, no recurrent shortness of breath and no requiring the inhaler. May resume sexual activity in: 10-14 days Call your doctor if you observe: Fever of 101 or Higher, Inability to urinate, Inability to have a bowel movement, Shortness of breath, Dizziness, Fainting spells, Chest pain, Uncontrolled pain Instructions: Acute Bronchitis, Caring for Your Inhaler, Using an Inhaler with a Spacer, Using an Inhaler Without a Spacer Allergies/Adverse Reactions: Allergies No Known Allergies Allergy (Verified 11/11/18 14:19) Medications to take at Discharge Hydrochlorothiazide 12.5 mg PO DAILY 10/24/13 Atenolol [Tenormin (beta batool)] 25 mg PO DAILY 12/23/14 Pravastatin [Pravachol] 20 mg PO DAILY 12/23/14 Omeprazole 20 mg PO BID #60 tablet. 07/18/18 Tamsulosin HCl [Flomax] 0.4 mg PO DAILY #12 capsule 07/22/18 Potassium Chloride 10 meq PO DAILY 11/11/18 Albuterol IH (ProAir) [Proair Hfa] 1 - 2 puff INHALATION UD PRN #1 inhaler 11/12/18 Guaifenesin [Mucinex] 600 mg PO BID #20 tablet 11/12/18 predniSONE tablet 40 mg PO DAILY 5 Days #10 tablet 11/12/18 The following prescriptions were given: Albuterol IH (ProAir) [Proair Hfa] 1 - 2 puff INHALATION UD PRN #1 inhaler PRN Reason: Dyspnea, wheezing predniSONE tablet 40 mg PO DAILY 5 Days #10 tablet Guaifenesin [Mucinex] 600 mg PO BID #20 tablet Primary Care Physician: Care Physician,No Primary [NON-STAFF] - Please follow up with your Primary Care Physician in: Follow-up with PCP within 3-5 days to review admission. Test Results: Test results from this visit will be discussed in further detail at your follow-up appointment, if applicable. Please Follow Up With: Natan Varma DO - Notable tobacco prolonged exposure, evaluation for underlying pulmonary disease. When: Please follow-up with Pulmonary 2-4 weeks, may see UTILITY SALES AND SERVICE MANAGER/PA for PFT. Proposed Discharge Date: 11/12/18
--- NOTE | 2018-11-12 09:56 | DCINST_ITS ---
- Discharge Diagnoses Current Active Problems: Current Active and Chronic Problems (1) General Malaise, Cough, Subjective Fever/Chills, General Debility secondary to Suspected Acute Viral Bronchitis (2) Hypokalemia (3) Hyponatremia, Mild, Hypovolemic, secondary to #1 (4) Chronic Kidney Disease Stage III w/ concurrent mild dehydration given acute presentation #1 (5) History of Heavy Tobacco Exposure, Possible Underlying Pulmonary Disease (6) Hypertension (7) Hyperlipidemia (8) BPH (9) GERD (10) ANTIONE w/ CPAP q HS usage You will use the following diet at home:: Cardiac Your food should be the consistency of: Regular Your liquids should be the consistency of: Regular/Thin Discharge Activity: - - Avoid aggressive activity until complete steroid burst, no recurrent shortness of breath and no requiring the inhaler. May resume sexual activity in: 10-14 days Call your doctor if you observe: Fever of 101 or Higher, Inability to urinate, Inability to have a bowel movement, Shortness of breath, Dizziness, Fainting spells, Chest pain, Uncontrolled pain Instructions: Acute Bronchitis, Caring for Your Inhaler, Using an Inhaler with a Spacer, Using an Inhaler Without a Spacer Allergies/Adverse Reactions: Allergies No Known Allergies Allergy (Verified 11/11/18 14:19) Medications to take at Discharge Hydrochlorothiazide 12.5 mg PO DAILY 10/24/13 Atenolol [Tenormin (beta batool)] 25 mg PO DAILY 12/23/14 Pravastatin [Pravachol] 20 mg PO DAILY 12/23/14 Omeprazole 20 mg PO BID #60 tablet. 07/18/18 Tamsulosin HCl [Flomax] 0.4 mg PO DAILY #12 capsule 07/22/18 Potassium Chloride 10 meq PO DAILY 11/11/18 Albuterol IH (ProAir) [Proair Hfa] 1 - 2 puff INHALATION UD PRN #1 inhaler 11/12/18 Guaifenesin [Mucinex] 600 mg PO BID #20 tablet 11/12/18 predniSONE tablet 40 mg PO DAILY 5 Days #10 tablet 11/12/18 The following prescriptions were given: Albuterol IH (ProAir) [Proair Hfa] 1 - 2 puff INHALATION UD PRN #1 inhaler PRN Reason: Dyspnea, wheezing predniSONE tablet 40 mg PO DAILY 5 Days #10 tablet Guaifenesin [Mucinex] 600 mg PO BID #20 tablet Primary Care Physician: Care Physician,No Primary [NON-STAFF] - Please follow up with your Primary Care Physician in: Follow-up with PCP within 3-5 days to review admission. Test Results: Test results from this visit will be discussed in further detail at your follow- up appointment, if applicable. Please Follow Up With: Natan Varma DO - Notable tobacco prolonged exposure, evaluation for underlying pulmonary disease. When: Please follow-up with Pulmonary 2-4 weeks, may see ROOFING MACHINE OPERATOR/PA for PFT. Proposed Discharge Date: 11/12/18
--- NOTE | 2018-11-12 09:56 | PCM.DC.SUM ---
Discharge Date and Diagnosis - Problem List Patient Problems: Active and Suspected Problems Acute viral syndrome (Acute) Hypoxia (Acute) Date of Admission: 11/11/18 Date of Discharge: 11/12/18 - Primary Discharge Diagnosis Active and Suspected Problems (1) General Malaise, Cough, Subjective Fever/Chills, General Debility secondary to Suspected Acute Viral Bronchitis with Mild Hypoxia (down to 89-90%) in the ED (2) Hypokalemia (3) Hyponatremia, Mild, Hypovolemic, secondary to #1 (4) Chronic Kidney Disease Stage III w/ concurrent mild dehydration given acute presentation #1 (5) History of Heavy Tobacco Exposure, Possible Underlying Pulmonary Disease (6) Hypertension (7) Hyperlipidemia (8) BPH (9) GERD (10) ANTIONE w/ CPAP q HS usage - Secondary Discharge Diagnosis Chronic Problems HTN (hypertension) (Chronic) Exposure to tobacco smoke at work (Chronic) ANTIONE (obstructive sleep apnea) (Chronic) ADHD (Chronic) Hyperlipidemia (Chronic) Benign hypertension (Chronic) Hospital Course and Treatment Operations: appendectomy Procedures: EKG Summary of Care Provided: The patient is a 73 y/o M w/ PMHx: HTN, HLD, GERD, ADHD, BPH, CKD stage III, History of 2nd hand tobacco exposure who presented to the [facility] ED on 11/11/18 with history of ongoing cough, mildly to moderately productive, congestion, fatigue, malaise, decreased intake, initially nausea, emesis but this has seemed to resolve in addition to episodes of more loose stools than baseline with evaluation at prior with no nasal swab obtained but noted Influenza diagnosis and discharged to home with conservative measures encouraged, now returning to ED for evaluation as worsening over the last 2-3 days with subjective fevers and chills. 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 Work-up in the ED included T 97.8, heart rate 58, BP 136/73, respiratory rate 16, 94% on room air however per ED report did decrease to 90% with any attempted exertion, CBC with W BC 5.3, heme globin 13.5, platelet 176 without shift, BMP with sodium 134, potassium 3.2, chloride 97, BUN/Cr 1.51 (baseline Cr 1.5-1.7), glucose 109, troponin < 0.015, UA not marked appearing, negative influenza rapid, CXR w/ no acute cardiopulmonary process, EKG with sinus bradycardia without acute evidence of ischemia. In the ED patient administered albuterol, DuoNeb, Zofran in addition to normal saline. The patient was admitted to [place], maintained on room air with improvement with no desaturations and remained > 89% with exertion upon oxygenation assessment, continued on ATC duonebs, PRN albuterol, HOB, IS parameters. Dramatically improved following steroid initiation with market improvement on pulmonary exam. Patient also ambulating in the room and feeling much better, exerting himself with greater ease. Overnight hydration patient improvement in his BMP with sodium 140, potassium 3.7 following supplementation in addition to stable renal function with creatinine 1.52. Patient rapid influenza as noted was negative with respiratory viral panel requested and obtained, results pending upon discharge; however, given timeline and improvement would not initiate any Tamiflu even if returned positive. Patient discharged to home in improved condition with unremarkable oxygenation testing with no needs for home discharge, steroid burst, albuterol inhaler with strong encouragement to follow-up with primary care physician in addition to pulmonary medicine for outpatient PFTs once clinically improved given very prolonged heavy secondhand tobacco exposure. DAY OF DISCHARGE PROGRESS NOTE: Subjective: Patient without acute event overnight per self and nursing report. Patient notes remarkable improvement since initial presentation, pulmonary examination improved and states coughing has markedly lessened, notes having more energy and appetite has returned. Patient denies fever, chills, nausea, emesis, abdominal pain, chest pain or recurrent or worsened dyspnea. Patient agreeable to discharge to home. Patient will be discharged with follow-up with primary care physician within 3-5 days in addition to a follow-up. Objective: T 98.7, heart rate 70, BP 134/60, respiratory rate 18, 92% on room air. Physical Examination: General: awake, alert, oriented x 3 and cooperative, seated upright in the bedside chair, improved appearance, eating, NAD. Skin: normal color, turgor, no icterus, cyanosis. HEENT: AT/NC, EOMI, PERRLA, improved MMM. Lungs: Improved, diminished BL bases, nearly resolved coarse rhonchi, resolved wheezing, normal respiratory effort. Heart: Regular rate and rhythm; no gallop, rub audible. Abdomen: soft, NTTP, ND, normal BS. Extremities: no cyanosis, clubbing, or edema. Neurological: patient awake, alert, oriented x 3; cognitive function appears intact upon questioning,; pupils equally reactive to light and accomodation; cranial nerves II-XII grossly normal, moving all 4 extremities, strength improved, mildly globally decreased. Psychiatric: affect appears normal, no acute evidence of depressive or anxiety feelings. Assessment and Plan: Please see hospital summary above. Patient Problems: Active and Suspected Problems Acute viral syndrome (Acute) Hypoxia (Acute) - Physical Exam Vital Signs Temp Pulse Resp BP Pulse Ox 98.7 F 70 18 134/60 H 92 11/12/18 08:45 11/12/18 08:45 11/12/18 08:45 11/12/18 08:45 11/12/18 09:08 Oxygen Delivery Method Room Air Weight: 137 lb Body Mass Index (BMI) 23.5 Intake and Output for Last 24 Hours 11/10/18 11/11/18 11/12/18 23:59 23:59 23:59 Intake Total 653 / 653 1776 / 1776 Output Total 200 / 200 300 / 300 Balance 453 / 453 1476 / 1476 Microbiology Past 72 Hours 11/11/18 11:15 Influenza Types A,B Direct FA (CHARISSA) - Final Mucosa - Nose Laboratory Tests Past 24 Hrs 11/11/18 11/11/18 11/11/18 10:50 10:50 10:50 WBC 5.3 RBC 4.30 L Hgb 13.5 Hct 37.9 L MCV 88.1 MCH 31.4 MCHC 35.6 RDW 12.7 RDW Differential 40.3 Plt Count 176 MPV 10.4 Immature Gran % (Auto) 0.200 Neut % (Auto) 49.7 Lymph % (Auto) 39.9 [place] % (Auto) 9.2 Eos % (Auto) 0.6 Baso % (Auto) 0.4 Absolute Neuts (auto) 2.7 Absolute Lymphs (auto) 2.13 Total Counted Not Reportable Sodium 134 L Potassium 3.2 L Chloride 97 L Carbon Dioxide 27.0 Anion Gap 10 BUN 22 H Creatinine 1.51 H Estim Creat Clear Calc 35.39 Est GFR (MDRD) Af Amer 58 L Est GFR (MDRD) Non-Af 48 L BUN/Creatinine Ratio 14.6 Glucose 109 H Calcium 9.7 Magnesium 2.0 Troponin I < 0.015 Urine Color Urine Clarity Urine pH Ur Specific [place] Urine Protein Urine Glucose (UA) Urine Ketones Urine Occult Blood Urine Nitrite Urine Bilirubin Urine Urobilinogen Ur Leukocyte Esterase Urine RBC Urine WBC Ur Squamous Epith Cells Urine Bacteria Urine Mucus 11/11/18 11/12/18 11/12/18 11:55 05:16 05:16 WBC 5.9 RBC 3.57 L Hgb 11.0 L Hct 32.3 L MCV 90.5 MCH 30.8 MCHC 34.1 RDW 13.1 RDW Differential 43.0 Plt Count 171 MPV 10.8 Immature Gran % (Auto) 0.300 Neut % (Auto) 70.3 H Lymph % (Auto) 25.6 [place] % (Auto) 3.6 Eos % (Auto) 0.0 Baso % (Auto) 0.2 Absolute Neuts (auto) 4.2 Absolute Lymphs (auto) 1.51 Total Counted Not Reportable Sodium 140 Potassium 3.7 Chloride 104 Carbon Dioxide 23.0 Anion Gap 13 BUN 25 H Creatinine 1.52 H Estim Creat Clear Calc 35.16 Est GFR (MDRD) Af Amer 58 L Est GFR (MDRD) Non-Af 48 L BUN/Creatinine Ratio 16.4 Glucose 153 H Calcium 8.8 Magnesium Troponin I Urine Color Yellow Urine Clarity Clear Urine pH 6.0 Ur Specific [place] 1.010 Urine Protein 15 H Urine Glucose (UA) Normal Urine Ketones Negative Urine Occult Blood Negative Urine Nitrite Negative Urine Bilirubin Negative Urine Urobilinogen Normal Ur Leukocyte Esterase Negative Urine RBC 0 SEEN Urine WBC 0 SEEN Ur Squamous Epith Cells 0 SEEN Urine Bacteria 0 SEEN Urine Mucus 0 SEEN Discharge Activity: - - Avoid aggressive activity until complete steroid burst, no recurrent shortness of breath and no requiring the inhaler. May resume sexual activity in: 10-14 days Call your doctor if you observe: Fever of 101 or Higher, Inability to urinate, Inability to have a bowel movement, Shortness of breath, Dizziness, Fainting spells, Chest pain, Uncontrolled pain Home Medications: Medications to take at Discharge Hydrochlorothiazide 12.5 mg PO DAILY 10/24/13 Atenolol [Tenormin (beta batool)] 25 mg PO DAILY 12/23/14 Pravastatin [Pravachol] 20 mg PO DAILY 12/23/14 Omeprazole 20 mg PO BID #60 tablet. 07/18/18 Tamsulosin HCl [Flomax] 0.4 mg PO DAILY #12 capsule 07/22/18 Potassium Chloride 10 meq PO DAILY 11/11/18 Albuterol IH (ProAir) [Proair Hfa] 1 - 2 puff INHALATION UD PRN #1 inhaler 11/12/18 Guaifenesin [Mucinex] 600 mg PO BID #20 tablet 11/12/18 predniSONE tablet 40 mg PO DAILY 5 Days #10 tablet 11/12/18 Following Prescrptions Were Given to Patient: Albuterol IH (ProAir) [Proair Hfa] 1 - 2 puff INHALATION UD PRN #1 inhaler PRN Reason: Dyspnea, wheezing predniSONE tablet 40 mg PO DAILY 5 Days #10 tablet Guaifenesin [Mucinex] 600 mg PO BID #20 tablet Primary Care Physician: Care Physician,No Primary [NON-STAFF] - Please follow up with your Primary Care Physician in: Follow-up with PCP within 3-5 days to review admission. Please Follow Up With: Natan Varma DO - Notable tobacco prolonged exposure, evaluation for underlying pulmonary disease. When: Please follow-up with Pulmonary 2-4 weeks, may see MARKETING AND COMMUNICATIONS OFFICER/PA for PFT. Patient Instructions: Acute Bronchitis, Caring for Your Inhaler, Using an Inhaler with a Spacer, Using an Inhaler Without a Spacer Disposition: Home Minutes spent on discharge:: 35 Patient Condition:: Fair Medical Necessity - Tobacco Use Smoking Status: Never smoker Tobacco Use: Secondhand Meaningful Use Info Meaningful Use Diagnoses (Choose all that apply): None applicable Code Visit OBSV E&M: 83050 Observation care discharge
[2018-11-12] MEDS: Pravastatin 20 MG Tablet PO (10:49)
[2018-11-12 13:16] VITALS: BP 130/57; PULSE 62; RESP 20; TEMP 36.6; O2SAT 95
== END 2018-11-12 13:15 | disposition home or self-care (01) ==
LOC: ED 11:33 → MS2 13:17
PROVIDERS: Admitting Provider Family Medicine; Emergency Provider Emergency Medicine; Family Provider Family Medicine; PCP Family Medicine; Visit Provider Family Medicine
DX: R09.02 Hypoxemia (principal); R05 Cough; B34.9 Viral infection, unspecified; E87.1 Hypo-osmolality and hyponatremia; E86.0 Dehydration; E87.6 Hypokalemia; K21.9 Gastro-esophageal reflux disease without esophagitis; G47.33 Obstructive sleep apnea (adult) (pediatric); N40.0 Benign prostatic hyperplasia without lower urinary tract symptoms; E78.5 Hyperlipidemia, unspecified; I12.9 Hypertensive chronic kidney disease with stage 1 through stage 4 chronic kidney disease, or unspecified chronic kidney disease; N18.3 Chronic kidney disease, stage 3 (moderate); F90.9 Attention-deficit hyperactivity disorder, unspecified type; Z79.899 Other long term (current) drug therapy
CPT/HCPCS: 36415; 71045; 80048; 81001; 83735; 84484; 85025; 87633; 87804; 93005; 94640; 94667; 94668; 96361; 96372; 96374; 96375; 96376; 97802; 99218; 99285; J7030; J7040; A4216; G0378; J2405

== ENCOUNTER 2019-06-12 04:48 | Emergency (ER) | payer MEDICARE, SELFPAY ==
[2018-11-11 13:47] VITALS: BMI 23.5
[2019-06-12 04:49] VITALS: BP 144/77; PULSE 55; RESP 16; TEMP 36.7; O2SAT 98; BMI 25.6
--- NOTE | 2019-06-12 04:59 | CT_ITS ---
STUDY: CT ABDOMEN AND PELVIS WITHOUT CONTRAST REASON FOR EXAM: Male, 74 years old. Right-sided abdominal pain and swelling RADIATION DOSAGE (If Supplied By Facility): CTDIvol = ( 6.41 ) mGy, DLP = ( 312.13 ) mGycm TECHNIQUE: Transaxial images were obtained from the dome of the diaphragm to the symphysis pubis without oral contrast, and without intravenous contrast. Sagittal and coronal images were reconstructed. Individualized dose optimization techniques were used for this CT. COMPARISON: CT abdomen and pelvis from 07/18/2018 FINDINGS: The visualized lung bases are unremarkable. The visualized portions of the heart are within normal limits. Normal liver. Normal gallbladder and extrahepatic biliary system. There is tiny splenic calcified granulomas. Normal pancreas. Normal bilateral adrenal glands. Normal right kidney. Normal left kidney. Normal visualized stomach. Normal small intestine. Normal colon. There is moderate retained stool is in the colon. The appendix is nonvisualized. Normal abdominal aorta. Normal inferior vena cava. Normal retroperitoneum. Normal urinary bladder. Small bilateral inguinal hernias containing a small portion of the anterior urinary bladder projecting into the right inguinal hernia. Normal abdominal wall. There are diffuse degenerative changes of the visualized lumbar spine. CT/Abdomen/Pelvis without Cont IMPRESSION: Negative unenhanced CT of the abdomen and pelvis for acute intra-abdominal abnormality. Interval appendectomy. Electronically Signed: Darren Mercado, at 5:35 EDT Tel , Service support ,
--- NOTE | 2019-06-12 04:59 | ED.VIS.GEN ---
History of Present Illness Chief Complaint: Abd Pain Informant: Patient Narrative: Stated for the last 3 months he has noticed a bulge in his right abdomen. He is unsure what it is. Going to make sure things were okay. And normally does not bother him but over the last 10 days has been getting intermittent pain in this area that is sharp. Denies any urinary symptoms. Not having any pain currently. He was having some discomfort when he laid down this evening so he came in for further evaluation. He had a laparoscopy in 2018 to remove his appendix for appendicitis. He stated he did not have this before his laparoscopy. He is unsure if that is the cause of this. Current severity is mild. - Past Medical History (1) Acute appendicitis Status: Acute (2) Acute viral syndrome Status: Acute (3) Hypoxia Status: Acute (4) Right lower quadrant abdominal pain Status: Acute (5) ADHD Status: Chronic (6) Benign hypertension Status: Chronic (7) Exposure to tobacco smoke at work Status: Chronic (8) HTN (hypertension) Status: Chronic (9) Hyperlipidemia Status: Chronic (10) ANTIONE (obstructive sleep apnea) Status: Chronic Past Medical History - Allergies and Home Meds Allergies/Adverse Reactions: Allergies No Known Allergies Allergy (Verified 06/12/19 04:52) Primary Care Physician: Ana Wilburn MD [Primary Care Provider] - Prior records reviewed: Yes Past Medical History: - Surgical History: appendectomy Smoking Status: Never smoker Alcohol: None Drugs: None - Family History Maternal Family History: Reports: Hypertension Paternal Family History: Reports: - - Patient notes that his father had been healthy until age 61 at which time he passed secondary to a brain tumor. Review of Systems General: Denies: Chills, Fever, Sweats Eyes: Denies: Visual changes - bilaterally, Diplopia ENT: Denies: Rhinorrhea, Sore throat Cardiovascular: Denies: Chest pain, Palpitations Respiratory: Denies: Dyspnea, Cough, Dyspnea on exertion Gastrointestinal: Reports: Abdominal pain. Denies: Nausea, Vomiting, Diarrhea, Melena, Hematochezia Genitourinary: Denies: Dysuria, Hematuria, Frequency Musculoskeletal: Denies: Back pain, Extremity Pain Skin: Denies: Rash, Wounds Neurological: Denies: Headache, Weakness, Numbness Physical Exam Vital Signs/Narrative: Vital Signs Temp Pulse Resp BP Pulse Ox 06/12/19 04:49 98.0 F 55 L 16 144/77 H 98 General: Well nourished, Well developed, No Acute Distress Head: Normocephalic, Atraumatic Eyes: Perrl, EOMI ENT: Moist mucous membranes, No rhinorrhea Neck: Supple, Nontender Cardiovascular: Regular rate, Regular rhythm, No murmurs Respiratory: No distress, CTA bilaterally, Chest nontender Abdomen: Soft, Nontender, Normal bowel sounds, Tender - Right side of his abdomen has a small bulge-like area which I suspect is a abdominal wall hernia. There is no incarceration or strangulation. Negative for: Nondistended Back: Nontender, Normal Inspection Extremities: Nontender, No edema Skin: Normal color, No rash Neurological: Alert, Oriented x3, Cranial nerves II-XII grossly intact, Normal Strength, Normal Sensation Psychological: Normal affect, Normal Mood Diagnostic/Tx/Re-eval - Medical Decision Making Resting comfortably. Did not want any pain medicine. Lab work and CAT scan obtained of the abdomen. Lab work shows no major abnormalities. Chronic renal insufficiency. Potassium 2.8. He has not been taking his potassium at home. He has chronic hypokalemia. He states he does not want a dose here and will take one at home. CT showed no major abnormalities. Bilateral small inguinal hernias. They are not causing him discomfort. He knew about these. The abdominal wall bulge is just soft tissue of his right abdomen. I do not think this is pathologic. I feel like the pain he is experiencing actually is more back related musculoskeletal pain. He will continue to use ibuprofen and follow-up as an outpatient. I do not feel he needs further imaging. Resting comfortably. ED Disposition - Plan for ED Patient: Disposition: Psychiatric Hospital or Unit Diagnosis: Hypokalemia, Back pain Instructions: Relieving Back Pain Referrals: Ana Wilburn MD [Primary Care Provider] -
[2019-06-12 05:09] LABS: Absolute Lymphocyte Count 3.93 X10^3/uL (0.83-4.51); Absolute Neutrophil Count 3.4 X10^3/uL (2.0-7.7); Basophil# 0.04 X10^3/uL; Basophil% 0.5 % (0-1); Eosinophil# 0.18 X10^3/uL; Eosinophils% 2.2 % (0-5); Hematocrit 35.1 % (40-54); Hemoglobin 12.2 g/dL (13.0-16.5); Lymphocyte # 3.93 X10^3/ul (4.0); Lymphocyte % 47.6 % (19-41); Mean Corp Hgb Conc 34.8 g/dL (32-36); Mean Corpuscular Hgb 31.6 pg (27.0-32.0); Mean Corpuscular Volume 90.9 fL (80-94); Mean Platelet Vol. 10.3 fl (6.2-12.0); Monocyte# 0.71 X10^3/uL; Monocyte% 8.6 % (0-10); NRBC Flagged by Analyzer 0 % (0-5); Neutrophil # 3.38 X10^3/uL (2.7-7.7); Neutrophil % 40.9 % (47-70); Platelet Count 195 K/mm3 (150-450); RBC Distribution Width CV 12.8 % (11.6-14.6); Red Blood Count 3.86 M/mm3 (4.6-6.2); White Blood Count 8.3 K/mm3 (4.4-11.0)
[2019-06-12 05:21] LABS: Anion Gap 10 (5-15); BUN 28 mg/dL (7-18); BUN/Creat Ratio 15.6 RATIO (10-20); Calcium,Total 8.8 mg/dL (8.5-10.1); Chloride 98 mmol/L (98-107); Creatinine, Serum 1.79 mg/dL (0.70-1.30); EST Glomerular Filtration Rate 39 mL/min (>60); Est Glom Filt Rate - Afr Amer 48 mL/min (>60); Glucose 148 mg/dL (74-106); Potassium 2.8 mmol/L (3.5-5.1); Sodium Level 137 mmol/L (136-145)
[2019-06-12 05:57] VITALS: RESP 16
== END 2019-06-12 06:07 | disposition home or self-care (01) ==
PROVIDERS: Emergency Provider Emergency Medicine; Family Provider Family Medicine; PCP Family Medicine
DX: E87.6 Hypokalemia (principal); M54.9 Dorsalgia, unspecified; K40.20 Bilateral inguinal hernia, without obstruction or gangrene, not specified as recurrent; I12.9 Hypertensive chronic kidney disease with stage 1 through stage 4 chronic kidney disease, or unspecified chronic kidney disease; N18.9 Chronic kidney disease, unspecified; E78.5 Hyperlipidemia, unspecified; G47.33 Obstructive sleep apnea (adult) (pediatric); Z79.899 Other long term (current) drug therapy
CPT/HCPCS: 74176; 80048; 85025; 99283; A4216

== ENCOUNTER → 2019-08-14 11:22 | Outpatient (CLI) | payer MEDICARE, SELFPAY ==
[2019-06-21 06:22] VITALS: BMI 24.3
[2019-08-14 15:20] LABS: Absolute Lymphocyte Count 2.98 X10^3/uL (0.83-4.51); Absolute Neutrophil Count 4.1 X10^3/uL (2.0-7.7); Basophil# 0.04 X10^3/uL; Basophil% 0.5 % (0-1); Eosinophil# 0.11 X10^3/uL; Eosinophils% 1.4 % (0-5); Hematocrit 36.8 % (40-54); Hemoglobin 12.2 g/dL (13.0-16.5); Lymphocyte # 2.98 X10^3/ul (4.0); Lymphocyte % 38.3 % (19-41); Mean Corp Hgb Conc 33.2 g/dL (32-36); Mean Corpuscular Volume 93.6 fL (80-94); Mean Platelet Vol. 11.1 fl (6.2-12.0); Monocyte# 0.58 X10^3/uL; Monocyte% 7.4 % (0-10); NRBC Flagged by Analyzer 0 % (0-5); Neutrophil # 4.05 X10^3/uL (2.7-7.7); Platelet Count 201 K/mm3 (150-450); RBC Distribution Width CV 12.8 % (11.6-14.6); Red Blood Count 3.93 M/mm3 (4.6-6.2); White Blood Count 7.8 K/mm3 (4.4-11.0)
[2019-08-14 15:33] LABS: ALB/GLOB Ratio 1.3 RATIO (0.9-2.4); AST(SGOT) 12 U/L (15-37); Alanine Aminotransfer ALT/SGPT 24 U/L (16-61); Albumin, Serum 4.2 g/dL (3.2-5.0); Alkaline Phosphatase 80 U/L (45-117); Anion Gap 6 (5-15); BUN 24 mg/dL (7-18); BUN/Creat Ratio 14.9 RATIO (10-20); Calcium,Total 9.1 mg/dL (8.5-10.1); Chloride 102 mmol/L (98-107); Cholesterol 178 mg/dL (200); Creatinine, Serum 1.61 mg/dL (0.70-1.30); EST Glomerular Filtration Rate 45 mL/min (>60); Est Glom Filt Rate - Afr Amer 54 mL/min (>60); Globulin 3.3 g/dL (2.2-4.2); Glucose 87 mg/dL (74-106); High Density Lipoprotein 42 mg/dL; PSA,Total - Annual Screen 4.73 ng/mL (0.00-4.00); Potassium 3.7 mmol/L (3.5-5.1); Protein, Total 7.5 g/dL (6.4-8.2); Sodium Level 138 mmol/L (136-145); Triglycerides 169 mg/dL; Very Low Density Lipoprotein 34 mg/dL (5-40)
== END ==
PROVIDERS: Family Provider Family Medicine; PCP Family Medicine; Visit Provider Family Medicine
DX: Z00.00 Encounter for general adult medical examination without abnormal findings (principal); I12.9 Hypertensive chronic kidney disease with stage 1 through stage 4 chronic kidney disease, or unspecified chronic kidney disease; N18.3 Chronic kidney disease, stage 3 (moderate); E78.5 Hyperlipidemia, unspecified; N40.0 Benign prostatic hyperplasia without lower urinary tract symptoms; K21.9 Gastro-esophageal reflux disease without esophagitis; Z12.5 Encounter for screening for malignant neoplasm of prostate
CPT/HCPCS: 36415; 80053; 80061; 84153; 85025; G0103

== ENCOUNTER 2020-08-10 18:08 | Observation (INO) | payer MEDICARE, SELFPAY ==
[2019-06-21 06:22] VITALS: BMI 24.3
[2020-08-10 18:09] VITALS: BP 157/82; PULSE 65; RESP 24; TEMP 36.4; O2SAT 95; BMI 24.0
--- NOTE | 2020-08-10 18:46 | EKG12_ITS ---
Test Reason : FALL Blood Pressure : / mmHG Vent. Rate : 063 BPM Atrial Rate : 063 BPM P-R Int : 208 ms QRS Dur : 080 ms QT Int : 378 ms P-R-T Axes : 057 042 039 degrees QTc Int : 386 ms Normal sinus rhythm Normal ECG Confirmed by JUANCHO BLANTON, VINCENZO ([id number]), greeting card editor NAZIA ROSENBAUM ([id number]) on 08/12/2020 11:29:51 AM Referred By: Garfield Monroe Confirmed By:VINCENZO DAWKINS MD
--- NOTE | 2020-08-10 18:47 | CT_ITS ---
STUDY: CT CHEST WITH CONTRAST REASON FOR EXAM: Male, 75 years old. Trauma fall, hit chest, left chest pain RADIATION DOSAGE (If Supplied By Facility): CTDIvol = ( 13.98 ) mGy, DLP = ( 589.30 ) mGycm TECHNIQUE: Transaxial imaging was performed following intravenous administration of IV 100mL [id number]-370. Individualized dose optimization techniques were used for this CT. COMPARISON: 18 July 2018 plain films FINDINGS: Lungs are clear. Pleural surfaces are intact. Central airways are patent. Mediastinal contents are normal. Cardiac changes are normal in size and shape. Aorta and pulmonary artery are unremarkable. There is a longitudinal oblique fracture of the medial left clavicle. Sternoclavicular joint is mildly widened on the left. However, this is a finding of questionable significance. Left acromioclavicular joint is intact. There is a 1 cm sclerotic lesion in the right first rib. CT/Chest WITH Contrast IMPRESSION: 1. Left clavicular fracture. 2. No intrathoracic organ injury. 3. Right first rib sclerotic lesion, unknown etiology, possibly benign bone island versus less likely metastatic prostate. Refer to PSA confirmation. Electronically Signed: Jhon Curry, at 19:48 EST Tel , Service support ,
--- NOTE | 2020-08-10 18:48 | RAD_ITS ---
STUDY: X-RAY - LEFT SHOULDER REASON FOR EXAM: Male, 75 years old. fall 4-6 ft from ladder, hitting chest area, left shoulder pain TECHNIQUE: 3 view(s) of the shoulder. COMPARISON: 24 October 2013 FINDINGS: Normal glenohumeral articulation. There is degenerative change in the acromion clavicular joint.. Normal acromion. Normal humeral head and visualized proximal humerus. The soft tissue structures are unremarkable. Normal visualized pulmonary apex. RAD/Shoulder min 2 Views IMPRESSION: Normal x-ray examination of the shoulder. Electronically Signed: Jhon Curry, at 19:53 EST Tel , Service support ,
[2020-08-10] MEDS: fentaNYL 100 MCG/2 ML Ampul 50 MCG IV (19:15)
[2020-08-10] MEDS: Diphth,Pertuss(Acell),Tet Vac 0.5 ML Vial IM (19:15)
[2020-08-10] MEDS: Ondansetron 4 MG/2 ML Vial IV (19:16)
[2020-08-10 19:23] LABS: Absolute Lymphocyte Count 2.75 X10^3/uL (0.83-4.51); Absolute Neutrophil Count 9.1 X10^3/uL (2.0-7.7); Basophil# 0.02 X10^3/uL; Basophil% 0.2 % (0-1); Eosinophil# 0.05 X10^3/uL; Eosinophils% 0.4 % (0-5); Hematocrit 34.3 % (40-54); Hemoglobin 11.6 g/dL (13.0-16.5); Lymphocyte # 2.75 X10^3/ul (4.0); Mean Corp Hgb Conc 33.8 g/dL (32-36); Mean Corpuscular Hgb 31.5 pg (27.0-32.0); Mean Corpuscular Volume 93.2 fL (80-94); Mean Platelet Vol. 10.6 fl (6.2-12.0); Monocyte# 0.54 X10^3/uL; Monocyte% 4.3 % (0-10); NRBC Flagged by Analyzer 0 % (0-5); Neutrophil # 9.05 X10^3/uL (2.7-7.7); Neutrophil % 72.5 % (47-70); Platelet Count 184 K/mm3 (150-450); RBC Distribution Width CV 12.8 % (11.6-14.6); RBC Distribution Width SD 43.6 fl (35.1-43.9); Red Blood Count 3.68 M/mm3 (4.6-6.2); White Blood Count 12.5 K/mm3 (4.4-11.0)
[2020-08-10 19:29] LABS: International Normalized Ratio 1.1; Prothrombin Time (Protime)PT. 13.2 SECONDS (11.7-14.9)
[2020-08-10 19:30] LABS: Partial Thromboplast Time 28.6 Seconds (24.1-36.2)
[2020-08-10 19:38] LABS: AST(SGOT) 14 U/L (15-37); Alanine Aminotransfer ALT/SGPT 24 U/L (16-61); Albumin, Serum 3.8 g/dL (3.2-5.0); Alkaline Phosphatase 83 U/L (45-117); Anion Gap 7 (5-15); BUN 37 mg/dL (7-18); BUN/Creat Ratio 17.7 RATIO (10-20); Bilirubin, Direct 0.09 mg/dL (0.00-0.30); Calcium,Total 8.6 mg/dL (8.5-10.1); Chloride 104 mmol/L (98-107); Creatinine, Serum 2.09 mg/dL (0.70-1.30); EST Glomerular Filtration Rate 33 mL/min (>60); Est Glom Filt Rate - Afr Amer 40 mL/min (>60); Estimated Creatinine Clearance 24.78 ml/min; Globulin 3.2 g/dL (2.2-4.2); Glucose 134 mg/dL (74-106); Potassium 3.3 mmol/L (3.5-5.1); Sodium Level 139 mmol/L (136-145)
--- NOTE | 2020-08-10 20:12 | ED.VIS.INJ ---
History of Present Illness Chief Complaint: Fall Informant: Patient Onset: Today Mechanism/Context: Fall Narrative: Patient is a 75-year-old male with history of hypertension, hyperlipidemia and obstructive sleep apnea presenting from home after injury. Patient was working on a project when standing on a stepladder. He states he was about 4 to 6 feet up in the air. The ladder tipped over patient fell on top of the ladder. Patient hit his chest with the ladder. He had immediate pain and shortness of breath secondary to his chest pain. The laceration to his chin. He denies any his head. He denies any loss of consciousness. He is also complaining of pain over his left shoulder. No associated numbness or tingling. No other injuries. He is not on any anticoagulation. He has no other complaints at this time. Did not take anything for pain prior to arrival. Tetanus Immunization: Unknown Past Medical History - Allergies and Home Meds Allergies/Adverse Reactions: Allergies No Known Allergies Allergy (Verified 08/10/20 18:15) Primary Care Physician: Ana Wilburn MD [Primary Care Provider] - Past Medical History: - - Hyperlipidemia, hypertension Surgical History: appendectomy Lives: Alone Smoking Status: Never smoker - Family History Maternal Family History: Reports: Hypertension Paternal Family History: Reports: - - Patient notes that his father had been healthy until age 61 at which time he passed secondary to a brain tumor. Review of Systems General: Denies: Chills, Fever, Sweats Eyes: Denies: Visual changes - bilaterally, Diplopia ENT: Denies: Rhinorrhea, Sore throat Cardiovascular: Reports: Chest pain. Denies: Palpitations Respiratory: Denies: Dyspnea, Cough, Dyspnea on exertion Gastrointestinal: Denies: Abdominal pain, Nausea, Vomiting, Diarrhea, Melena, Hematochezia Genitourinary: Denies: Dysuria, Hematuria, Frequency Musculoskeletal: Reports: Myalgias, Extremity Pain - Left shoulder. Denies: Neck pain, Back pain, Swelling Skin: Reports: Wounds - right neck . Denies: Rash Neurological: Denies: Headache, Weakness, Numbness Physical Exam Vital Signs/Narrative: Vital Signs Temp Pulse Resp BP Pulse Ox 08/10/20 18:09 97.5 F L 65 24 H 157/82 H 95 Inital Vital Signs reviewed: Yes General: Well nourished, Well developed Head: Normocephalic, Atraumatic. Negative for: Trauma Eyes: Perrl, EOMI ENT: TM's clear, No hemotympanum or drainage, No trauma. Negative for: Hemotympanum, Nasal trauma, Nasal septal hematoma Neck: Nontender, Full ROM. Negative for: Spinal Tenderness, Paraspinal Tenderness Cardiovascular: Regular rate, Regular rhythm, No murmurs Respiratory: No distress, CTA bilaterally, Chest tenderness - Diffuse anterior tenderness, - - No chest wall crepitus. No flail chest. Abdomen: Soft, Nontender, Nondistended, Normal bowel sounds. Negative for: Guarding, Rebound tenderness Back: Nontender. Negative for: Spinal Tenderness, Paraspinal Tenderness Extremeties: No obvious deformity. Extremities are equal length. Decreased range of motion of the left shoulder secondary to pain. Diffuse tenderness palpation of the left shoulder. Normal strength and sensation of the lower arms. Normal lower extremities. Pelvis is stable. Skin: Normal color, No rash, Trauma - 2 cm irregular laceration just below the right jawline. Exposure of subcutanious tissue. Does not appear to violate the platysmas. Superficial abrasions to the anterior chest wall present. Neurological: Alert, Oriented x3, Cranial nerves II-XII grossly intact, Normal Strength, Normal Sensation Psychological: Normal affect - Glascow Coma Scale Eye Opening: Spontaneous Motor: Obeys Commands Verbal: Oriented Coma Scale Total: 15 Diagnostic/Tx/Re-eval Clinical Impression(s) from Imaging Studies Chest CT 08/10/20 18:47 IMPRESSION: 1. Left clavicular fracture. 2. No intrathoracic organ injury. 3. Right first rib sclerotic lesion, unknown etiology, possibly benign bone island versus less likely metastatic prostate. Refer to PSA confirmation. Electronically Signed: Jhon Curry at 19:48 EST Tel , Service support , Shoulder X-Ray 08/10/20 18:48 IMPRESSION: Normal x-ray examination of the shoulder. Electronically Signed: Jhon Curry at 19:53 EST Tel , Service support , Laboratory Data 08/10/20 08/10/20 08/10/20 19:11 19:11 19:11 WBC 12.5 H RBC 3.68 L Hgb 11.6 L Hct 34.3 L MCV 93.2 MCH 31.5 MCHC 33.8 RDW Std Deviation 43.6 RDW Coeff of Moiz 12.8 Plt Count 184 MPV 10.6 Immature Gran % (Auto) 0.600 Neut % (Auto) 72.5 H Lymph % (Auto) 22.0 Edgar % (Auto) 4.3 Eos % (Auto) 0.4 Baso % (Auto) 0.2 Absolute Neuts (auto) 9.1 H Absolute Lymphs (auto) 2.75 Nucleated RBC % 0 PT 13.2 INR 1.1 APTT 28.6 Sodium 139 Potassium 3.3 L Chloride 104 Carbon Dioxide 28.0 Anion Gap 7 BUN 37 H Creatinine 2.09 H Estim Creat Clear Calc 24.78 Est GFR (MDRD) Af Amer 40 L Est GFR (MDRD) Non-Af 33 L BUN/Creatinine Ratio 17.7 Glucose 134 H Calcium 8.6 Total Bilirubin 0.30 Direct Bilirubin 0.09 AST 14 L ALT 24 Alkaline Phosphatase 83 Troponin I Total Protein 7.0 Albumin 3.8 Globulin 3.2 Urine Color Urine Clarity Urine pH Ur Specific [place] Urine Protein Urine Glucose (UA) Urine Ketones Urine Occult Blood Urine Nitrite Urine Bilirubin Urine Urobilinogen Ur Leukocyte Esterase Urine RBC Urine WBC Ur Squamous Epith Cells Urine Bacteria Urine Mucus Blood Type Antibody Screen 08/10/20 08/10/20 08/10/20 19:11 19:11 20:48 WBC RBC Hgb Hct MCV MCH MCHC RDW Std Deviation RDW Coeff of Moiz Plt Count MPV Immature Gran % (Auto) Neut % (Auto) Lymph % (Auto) Edgar % (Auto) Eos % (Auto) Baso % (Auto) Absolute Neuts (auto) Absolute Lymphs (auto) Nucleated RBC % PT INR APTT Sodium Potassium Chloride Carbon Dioxide Anion Gap BUN Creatinine Estim Creat Clear Calc Est GFR (MDRD) Af Amer Est GFR (MDRD) Non-Af BUN/Creatinine Ratio Glucose Calcium Total Bilirubin Direct Bilirubin AST ALT Alkaline Phosphatase Troponin I < 0.015 Total Protein Albumin Globulin Urine Color Yellow Urine Clarity Clear Urine pH 6.5 Ur Specific [place] 1.010 Urine Protein Negative Urine Glucose (UA) Normal Urine Ketones Negative Urine Occult Blood 10 H Urine Nitrite Negative Urine Bilirubin Negative Urine Urobilinogen Normal Ur Leukocyte Esterase Negative Urine RBC 0 SEEN Urine WBC 0 SEEN Ur Squamous Epith Cells 0 SEEN Urine Bacteria 0 SEEN Urine Mucus 0 SEEN Blood Type O POSITIVE Antibody Screen NEGATIVE - EKG Initial EKG Interpretation: Sinus Rhythm, - - Normal sinus rhythm at a rate of 63 Normal axis Normal intervals Normal ST segments Compared to prior EKG on 11/11/2018, no acute changes Prior: Unchanged - Medical Decision Making Evaluated after mechanical fall off a stepladder. He hit his chest on the stepladder when he fell. No loss of consciousness. Patient has normal vital signs. He is initially given fentanyl for pain control. Patient sustained a laceration to his right neck, see procedure note for repair. Work-up is remarkable for a left clavicular fracture. Patient has abrasion to his anterior chest wall no associated rib fracture or signs of any underlying contusion. No signs of cardiac contusion based on EKG and troponin. Given patient oxycodone for pain control and attempted to ambulate him. He was not able to secondary to significant left shoulder pain. Patient will require admission for pain control and possible PT OT. He does live home alone and does not feel safe going home tonight. Patient is agreeable with plan of care. Patient will need his sutures removed in approximately 7 days. Laceration No standard instances Length: 0.79 in Depth: Skin Shape: Stellate Prep: Sterile Conditions, Chlorhexadine Laceration Repair: Lidocaine with epi Irrigated (ml): 200 Number of Sutures/Martita: 3 Stitch Description: Ethilon, Simple, 5-0 ED Disposition - Plan for ED Patient: Disposition: Home or Assisted Living Diagnosis: Fall from ladder, Laceration of neck without foreign body, Closed left clavicular fracture, Chest wall contusion Referrals: Ana Wilburn MD [Primary Care Provider] -
[2020-08-10 20:49] VITALS: PULSE 72; RESP 22; O2SAT 93
[2020-08-10 20:58] LABS: Bacteria 0 SEEN /hpf (None Seen); Mucous, Urine 0 SEEN /hpf (<or=2+); Red Blood Cells-Urine 0 SEEN /hpf (0-5); Squamous Epithelial Cells - UA 0 SEEN /hpf (0-5); White Blood Cells 0 SEEN /hpf (0-5)
[2020-08-10 21:10] LABS: Color, Urine Yellow (Yellow); Glucose, Dipstick Normal (Normal); Ketone-Dipstick Negative (Negative); Leukocyte Esterase-Dipstick Negative /ul (Negative); Nitrite-Dipstick Negative (Negative); Occult Blood-Urine 10 /ul (Negative); Protein-Dipstick Negative (Negative); Urine Bilirubin Dipstick Negative (Negative); Urine Clarity Clear (Clear); Urine Urobilinogen Normal (Normal); Urine pH 6.5 (5.0 - 8.0)
[2020-08-10] MEDS: oxyCODONE 5 MG Tablet PO (21:20)
[2020-08-10 22:04] VITALS: BP 127/69; PULSE 71; RESP 21; TEMP 36.3; O2SAT 92
[2020-08-10 23:10] VITALS: PULSE 64
[2020-08-10 23:17] VITALS: BMI 24.7
[2020-08-10 23:18] VITALS: BP 137/74; PULSE 69; RESP 22; TEMP 37.6; O2SAT 95
[2020-08-10 23:31] VITALS: BMI 24.7
--- NOTE | 2020-08-10 23:32 | HP.PCM_ITS ---
Problem List (1) Fall from ladder Status: Acute (2) Laceration of neck without foreign body Status: Acute (3) Closed left clavicular fracture Status: Acute (4) Chest wall contusion Status: Acute (5) HTN (hypertension) Status: Chronic Qualifiers: Hypertension type: essential hypertension Qualified Code(s): I10 - Essential (primary) hypertension (6) Exposure to tobacco smoke at work Status: Chronic (7) ANTIONE (obstructive sleep apnea) Status: Chronic (8) ADHD Status: Chronic Qualifiers: Attention deficit-hyperactivity disorder type: unspecified Qualified Code(s): F90.9 - Attention-deficit hyperactivity disorder, unspecified type (9) Hyperlipidemia Status: Chronic Qualifiers: Hyperlipidemia type: unspecified Qualified Code(s): E78.5 - Hyperlipidemia, unspecified (10) Benign hypertension Status: Chronic History of Present Illness Date of Admission: 08/10/20 Chief Complaint: Fall The patient is a 75 year old M obstructive sleep apnea; hypertension and hyperlipidemia who presents emergency department because he fell on the day of presentation. He fell from a ladder and landed on his chest. He has excruciating pain of the right side of his chest and his entire anterior torso as well as his left scapular area. He had a laceration under his chin that was sutured at the emergency department. He was given DTaP vaccination at the ED. Past Medical History Past Medical History (Chronic Problems): Chronic Problems (Last Reviewed 08/11/20 @ 00:[address] Garfield Monroe MD) HTN (hypertension) (Chronic) Exposure to tobacco smoke at work (Chronic) ANTIONE (obstructive sleep apnea) (Chronic) ADHD (Chronic) Hyperlipidemia (Chronic) Benign hypertension (Chronic) Medical History: Medical History (Last Reviewed 08/11/20 @ 01:[address] Garfield Monroe MD) Inguinal hernia of right side without obstruction or gangrene (Inactive) K40.90 Diastasis, muscle (Inactive) M62.00 Acute appendicitis (Inactive) K35.80 Right lower quadrant abdominal pain (Inactive) R10.31 Acute viral syndrome (Inactive) B34.9 Hypoxia (Inactive) R09.02 HTN (hypertension) (Chronic) I10 Exposure to tobacco smoke at work (Chronic) Z57.31 ANTIONE (obstructive sleep apnea) (Chronic) G47.33 ADHD (Chronic) F90.9 Hyperlipidemia (Chronic) E78.5 Benign hypertension (Chronic) I10 Allergies No Known Allergies Allergy (Verified 08/10/20 18:15) Home Medications: Ambulatory Orders Medication Instructions Recorded Hydrochlorothiazide 25 mg PO DAILY 10/24/13 Atenolol [Tenormin (beta batool)] 25 mg PO DAILY 12/23/14 Pravastatin [Pravachol] 20 mg PO DAILY 12/23/14 Omeprazole 20 mg PO BID #60 tablet.dr 07/18/18 Tamsulosin HCl [Flomax] 0.4 mg PO DAILY #12 cap 07/22/18 potassium chloride 10 mEq 10 meq PO BID cap 06/21/19 capsule,extended release Surgical History: Surgical History (Last Reviewed 08/11/20 @ 01:[address] Garfield Monroe MD) History of laparoscopic appendectomy Z90.49 History of tonsillectomy Z90.89 Surgical History: appendectomy Psychiatric History: Attn. deficit disorder Lives: Alone Smoking Status: Never smoker - *Family History Maternal History Items: Hypertension Paternal History Items: - - Patient notes that his father had been healthy until age 61 at which time he passed secondary to a brain tumor. Review of Systems Constitutional: Denies: Chills, Fever, Weight Change HEENT: Denies: Head Aches, Sinus Congestion, Sinus Drainage Cardiovascular: Reports: Chest Pain - Chest wall pain. Denies: Palpitations Respiratory: Denies: Cough, Shortness of breath at rest, Sputum production Gastrointestinal: Denies: Abdominal Pain, Nausea, Vomiting Genitourinary: Denies: Dysuria Musculoskeletal: Denies: Joint Pain, Joint Tenderness Skin: Reports: Skin Changes - Chest wall bruise. Denies: Rash, Wounds Neurological: Denies: Numbness, Tingling, Focal weakness Psychiatric: Denies: Anxiety, Depression, Homicidal Ideations, Suicidal Ideations Hematologic/ Lymphatic: Denies: Easy Bruising, Easy Bleeding VTE Information - Inpt Only VTE Present on Admission: No VTE Mechan Device Prophylaxis: SCD's VTE Pharm Prophylaxis ordered?: No Patient Problems: Active and Suspected Problems (Last Reviewed 08/11/20 @ 00:[address] Garfield Monroe MD) Fall from ladder (Acute) Laceration of neck without foreign body (Acute) Closed left clavicular fracture (Acute) Chest wall contusion (Acute) - Physical Exam Vitals/I&O's: Vital Signs Temp Pulse Resp BP Pulse Ox 99.6 F H 69 22 H 137/74 H 95 08/10/20 23:18 08/10/20 23:18 08/10/20 23:18 08/10/20 23:18 08/10/20 23:18 Oxygen Delivery Method Room Air Weight: 65.227 kg Body Mass Index (BMI) 24.7 Intake and Output for Last 24 Hours 08/08/20 08/09/20 08/10/20 23:59 23:59 22:59 Intake Total 500 / 500 Balance 500 / 500 General: Alert, Oriented x3, Cooperative HEENT: Atraumatic, PERRLA, EOMI, Normocephalic Neck: Supple, No JVD, Negative Carotid Bruits Lungs: Diminished, - - Tender left clavicular area Cardiovascular: Regular rate, No murmurs Abdomen: Bowel Sounds Present, Soft, Non Tender Extremities: No edema, Capillary Refill Less than 3 Seconds Skin: - - ecchymosis on right chest and; curvilinear scratch on left upper chest. Sutures beneath chin. Musculoskeletal: Tenderness - left clavicular area Neurological: Cranial nerves II-XII grossly intact Psych/Mental Status: Normal Affect, Appropriate Laboratory Results 08/10/20 19:11: WBC 12.5 H, RBC 3.68 L, Hgb 11.6 L, Hct 34.3 L, MCV 93.2, MCH 31.5, MCHC 33.8, RDW Std Deviation 43.6, RDW Coeff of Moiz 12.8, Plt Count 184, MPV 10.6, Immature Gran % (Auto) 0.600, Neut % (Auto) 72.5 H, Lymph % (Auto) 22.0, [place] % (Auto) 4.3, Eos % (Auto) 0.4, Baso % (Auto) 0.2, Absolute Neuts (auto) 9.1 H, Absolute Lymphs (auto) 2.75, Nucleated RBC % 0 08/10/20 19:11: Sodium 139, Potassium 3.3 L, Chloride 104, Carbon Dioxide 28.0, Anion Gap 7, BUN 37 H, Creatinine 2.09 H, Estim Creat Clear Calc 24.78, Est GFR (MDRD) Af Amer 40 L, Est GFR (MDRD) Non-Af 33 L, BUN/Creatinine Ratio 17.7, Glucose 134 H, Calcium 8.6, Total Bilirubin 0.30, Direct Bilirubin 0.09, AST 14 L, ALT 24, Alkaline Phosphatase 83, Total Protein 7.0, Albumin 3.8, Globulin 3.2 08/10/20 19:11: PT 13.2, INR 1.1, APTT 28.6 08/10/20 19:11: Blood Type O POSITIVE, Antibody Screen NEGATIVE 08/10/20 19:11: Troponin I < 0.015 08/10/20 19:11: Free PSA Pending, % Free PSA Pending, Total PSA Pending 08/10/20 20:48: Urine Color Yellow, Urine Clarity Clear, Urine pH 6.5, Ur Specific [place] 1.010, Urine Protein Negative, Urine Glucose (UA) Normal, Urine Ketones Negative, Urine Occult Blood 10 H, Urine Nitrite Negative, Urine Bilirubin Negative, Urine Urobilinogen Normal, Ur Leukocyte Esterase Negative, Urine RBC 0 SEEN, Urine WBC 0 SEEN, Ur Squamous Epith Cells 0 SEEN, Urine Bacteria 0 SEEN, Urine Mucus 0 SEEN Current Medications Acetaminophen (Acetaminophen 325 Mg Tablet) 650 mg PO Q6H PRN PRN PRN Reason: Pain Score 1-10/Temp > 100.7 F Atenolol (Atenolol 25 Mg Tablet) 25 mg PO DAILY [facility] Sodium Chloride () 1,000 mls @ 75 mls/hr IV .[id number] JAISON Sodium Chloride () 250 mls @ 15 mls/hr IV .[id number] PRN PRN Reason: Saline Flush Ondansetron HCl (Ondansetron 4 Mg/2 Ml Vial) 4 mg IV Q8H PRN PRN PRN Reason: NAUSEA/VOMITING Oxycodone HCl (Oxycodone 5 Mg Tablet) 5 mg PO Q4H PRN PRN PRN Reason: Pain Score 4-5 Oxycodone HCl (Oxycodone 5 Mg Tablet) 10 mg PO Q4H PRN PRN PRN Reason: Pain Score 6-10 Pantoprazole Sodium (Pantoprazole Sodium 20 Mg Tablet) 20 mg PO BID [facility] Potassium Chloride (Potassium Chloride 10 Meq Tablet) 10 meq PO BIDCM [facility] Pravastatin Sodium (Pravastatin 20 Mg Tablet) 20 mg PO DAILY@2200 [facility] Senna/Docusate Sodium (Senna/Docusate Sodium 1 Tablet) 2 tablet PO BID PRN PRN PRN Reason: Constipation Sodium Chloride (0.9% Saline Lock 10 Ml Syringe) 10 - 40 ml IV UD PRN PRN Reason: SALINE FLUSH Tamsulosin HCl (Tamsulosin Hcl 0.4 Mg Capsule) 0.4 mg PO DAILY JAISON Assessment/Plan All Active Problems (Last Reviewed 08/11/20 @ 00:[address] Garfield Monroe MD) Fall from ladder (Acute) Laceration of neck without foreign body (Acute) Closed left clavicular fracture (Acute) Chest wall contusion (Acute) The patient is a 75 year old M obstructive sleep apnea; hypertension and hyperlipidemia who presents emergency department with a fall from ladder and contusions and injuries from the fall including clavicular fracture Fall with acute closed clavicular fracture; chest wall contusion Shoulder x-ray with normal Chest CT with left clavicular fracture. Received oxycodone 5 mg p.o. at the ED with improvement in pain. Oxycodone 5 mg p.o. as needed continued. Bowel protocol and antiemetics ordered. Incentive spirometer ordered. Rib sclerotic lesion There was right first rib sclerotic lesion of unknown etiology possible benign bone island versus less likely metastatic prostate. PSA was recommended by radiology. PSA ordered. SYLVIA Creatinine is 2.09 Review of records shows a creatinine baseline between 1.5-1.79. BUN was 37. BUN over creatinine is 17.7. Urine electrolytes ordered. US bladder and kidneys ordered Gentle rehydration. Hold nephrotoxins. Hydrochlorothiazide held. Hypertension Blood pressure is not within goal Atenolol continued. Trend blood pressures and adjust blood pressure medication. Obstructive Sleep apnea Home CPAP continued DVT Prophylaxis SCD ordered. Avoid chemical thromboprophylaxis due to patient being at risk of bleeding from fall. OBSV E&M: 19423 Initial observation care L3
[2020-08-10] MEDS: 0.9% Normal Saline 1,000 ML 75 ML IV (23:58)
[2020-08-10] MEDS: Acetaminophen 325 MG Tablet 650 MG PO (23:58)
[2020-08-11] MEDS: 0.9% Saline Lock 10 ML Syringe IV ×2 (00:08→08:02)
--- NOTE | 2020-08-11 02:28 | NURSING ---
Called lab to see if they could run urine creatinine & sodium off urine already collected. She will check and see and call if we need to collect more.
--- NOTE | 2020-08-11 03:13 | NURSING ---
Ela BURTON assuming care.
[2020-08-11 04:30] VITALS: BP 135/66; PULSE 70; RESP 18; TEMP 36.9; O2SAT 98
[2020-08-11] MEDS: oxyCODONE 5 MG Tablet 10 MG PO ×5 (04:31→21:54)
[2020-08-11 05:52] LABS: Absolute Lymphocyte Count 2.75 X10^3/uL (0.83-4.51); Absolute Neutrophil Count 7.7 X10^3/uL (2.0-7.7); Basophil# 0.02 X10^3/uL; Basophil% 0.2 % (0-1); Eosinophil# 0.02 X10^3/uL; Eosinophils% 0.2 % (0-5); Hematocrit 33.3 % (40-54); Hemoglobin 11.3 g/dL (13.0-16.5); Lymphocyte # 2.75 X10^3/ul (4.0); Lymphocyte % 24.4 % (19-41); Mean Corp Hgb Conc 33.9 g/dL (32-36); Mean Corpuscular Hgb 31.1 pg (27.0-32.0); Mean Corpuscular Volume 91.7 fL (80-94); Mean Platelet Vol. 10.6 fl (6.2-12.0); Monocyte# 0.71 X10^3/uL; Monocyte% 6.3 % (0-10); NRBC Flagged by Analyzer 0 % (0-5); Neutrophil # 7.73 X10^3/uL (2.7-7.7); Neutrophil % 68.6 % (47-70); Platelet Count 185 K/mm3 (150-450); RBC Distribution Width CV 13.1 % (11.6-14.6); RBC Distribution Width SD 43.7 fl (35.1-43.9); Red Blood Count 3.63 M/mm3 (4.6-6.2); White Blood Count 11.3 K/mm3 (4.4-11.0)
[2020-08-11 06:11] LABS: Anion Gap 6 (5-15); BUN 28 mg/dL (7-18); Calcium,Total 8.5 mg/dL (8.5-10.1); Chloride 107 mmol/L (98-107); Creatinine, Serum 1.87 mg/dL (0.70-1.30); EST Glomerular Filtration Rate 37 mL/min (>60); Est Glom Filt Rate - Afr Amer 45 mL/min (>60); Glucose 100 mg/dL (74-106); Potassium 3.8 mmol/L (3.5-5.1); Sodium Level 138 mmol/L (136-145)
[2020-08-11 08:00] VITALS: BP 131/75; PULSE 60; RESP 18; TEMP 36.8; O2SAT 97
[2020-08-11] MEDS: Acetaminophen 325 MG Tablet 650 MG PO (08:01)
[2020-08-11] MEDS: Tamsulosin HCl 0.4 MG Capsule PO (08:02)
[2020-08-11] MEDS: Atenolol 25 MG Tablet PO (08:02)
[2020-08-11] MEDS: Pantoprazole Sodium 20 MG Tablet PO ×2 (08:03→21:55)
[2020-08-11] MEDS: 0.9% Normal Saline 1,000 ML 75 ML IV (13:16)
[2020-08-11 15:00] VITALS: BP 134/82; PULSE 69; RESP 18; TEMP 36.9; O2SAT 93
--- NOTE | 2020-08-11 15:17 | CASEMGMT ---
Social Work Note PT/OT updated this worker that they are recommending placement for pt. SW in to speak with pt. SW introduced self and role at [facility]. Pt is alert and orientated x3. Pt kept his eyes shut during conversation with this worker. Pt appears to be in some pain. Pt states that he lives alone in a two story home with first floor set up. Pt states that he has six steps to enter the home. PCP is Ana Wilburn. DME: Pt states my probably had something that I could use. Pt states that he is having some pain now that his arm is in a sling, requests to be laid down in bed. SW updated pt that this worker would update RN. HHC: Pt states he thinks his used to have some kind of HHC SNF: None Mental Health Hx: Pt denied Substance Abuse Hx: Pt denied SW spoke with pt regarding recommendations of placement. Pt states you mean like [facility]? SW explained that [facility] is an option but there are other SNF in the area that accept his insurance. Pt states I am not going to a penitentiary. FAWN informed pt that [facility] does have a TCU that pt may be able to go to pending bed availability. FAWN provided pt with list of SNF that accept pt's insurance. Pt agreeable to [facility] TCU and then states I think I am able to go home though. FAWN asked pt if this worker could get the process started for TCU in the event that tomorrow pt doesn't feel that he can go home and pt agreeable to starting process with TCU. FAWN updated RN on pt's request to lay down. FAWN placed a call to Valentina in TCU and provided referral. Valentina states TCU does have a bed available tomorrow, will submit for pre-cert. Plan: TBD. TCU pending pre-cert vs Home Monique Murillo [employer], [employer]
[2020-08-11 15:45] LABS: Urine Sodium 71 mmol/L (Not Establ.)
[2020-08-11] MEDS: dexAMETHasone 4 MG Tablet PO (17:37)
[2020-08-11] MEDS: BENZOCAINE/MENTHOL 1 LOZENGE 2 LOZENGE MUCOUS MEM (17:37)
--- NOTE | 2020-08-11 18:57 | PCM.PROGNOTE ---
Patient Problems: Active and Suspected Problems (Last Reviewed 08/11/20 @ 01:[address] Garfield Monroe MD) Fall from ladder (Acute) Laceration of neck without foreign body (Acute) Closed left clavicular fracture (Acute) Chest wall contusion (Acute) Subjective: She was seen and examined today, he continues to complain of left shoulder pain and pain on deep breathing. Patient did very poorly with physical therapy today, it was recommended that the patient be reevaluated tomorrow morning again. I placed the patient on dexamethasone for left shoulder pain, I do not know if he could have bruised his left shoulder when he fell. Patient is getting OxyIR for pain, I added on IV morphine for severe pain. - Physical Exam Vitals/I&O's: Vital Signs Temp Pulse Resp BP Pulse Ox 98.4 F 69 18 134/82 H 93 08/11/20 15:00 08/11/20 15:00 08/11/20 15:00 08/11/20 15:00 08/11/20 15:00 Oxygen Delivery Method Room Air Weight: 65.227 kg Body Mass Index (BMI) 24.7 Intake and Output for Last 24 Hours 08/10/20 08/10/20 08/11/20 00:59 23:59 23:59 Intake Total 2237.5 / 2237.5 Output Total 825 / 825 Balance 1412.5 / 1412.5 General: Alert, Oriented x3, Cooperative, No apparent distress, Well developed, Well nourished HEENT: Atraumatic, PERRLA, EOMI, Normocephalic Oral: Moist Mucosa Neck: Supple, No JVD, Trachea Midline, Thyroid Normal Size and Texture Lungs: Clear to auscultation, Normal air movement, No rhonchi, No wheeze Cardiovascular: Regular rate, Regular Rhythm, Normal S1, Normal S2, No murmurs Abdomen: Bowel Sounds Present, Soft, Non Tender, Non-Distended Extremities: No clubbing, No cyanosis, No edema, Capillary Refill Less than 3 Seconds Skin: No rashes, Ulcer/ Wound - 2 cm sutured wound on the right neck area Musculoskeletal: Tenderness - extreme tenderness to palpation over the patient's left shoulder area Neurological: Cranial nerves II-XII grossly intact, Neuro grossly intact, Sensory exam intact to light touch and pain, Coordination normal Psych/Mental Status: Normal Affect, Appropriate, Alert and oriented to time, place, person, mood and affect Laboratory Results 08/10/20 19:11: WBC 12.5 H, RBC 3.68 L, Hgb 11.6 L, Hct 34.3 L, MCV 93.2, MCH 31.5, MCHC 33.8, RDW Std Deviation 43.6, RDW Coeff of Moiz 12.8, Plt Count 184, MPV 10.6, Immature Gran % (Auto) 0.600, Neut % (Auto) 72.5 H, Lymph % (Auto) 22.0, [place] % (Auto) 4.3, Eos % (Auto) 0.4, Baso % (Auto) 0.2, Absolute Neuts (auto) 9.1 H, Absolute Lymphs (auto) 2.75, Nucleated RBC % 0 08/10/20 19:11: Sodium 139, Potassium 3.3 L, Chloride 104, Carbon Dioxide 28.0, Anion Gap 7, BUN 37 H, Creatinine 2.09 H, Estim Creat Clear Calc 24.78, Est GFR (MDRD) Af Amer 40 L, Est GFR (MDRD) Non-Af 33 L, BUN/Creatinine Ratio 17.7, Glucose 134 H, Calcium 8.6, Total Bilirubin 0.30, Direct Bilirubin 0.09, AST 14 L, ALT 24, Alkaline Phosphatase 83, Total Protein 7.0, Albumin 3.8, Globulin 3.2 08/10/20 19:11: PT 13.2, INR 1.1, APTT 28.6 08/10/20 19:11: Blood Type O POSITIVE, Antibody Screen NEGATIVE 08/10/20 19:11: Troponin I < 0.015 08/10/20 19:11: Free PSA Pending, % Free PSA Pending, Total PSA Pending 08/10/20 20:48: Urine Color Yellow, Urine Clarity Clear, Urine pH 6.5, Ur Specific [place] 1.010, Urine Protein Negative, Urine Glucose (UA) Normal, Urine Ketones Negative, Urine Occult Blood 10 H, Urine Nitrite Negative, Urine Bilirubin Negative, Urine Urobilinogen Normal, Ur Leukocyte Esterase Negative, Urine RBC 0 SEEN, Urine WBC 0 SEEN, Ur Squamous Epith Cells 0 SEEN, Urine Bacteria 0 SEEN, Urine Mucus 0 SEEN 08/11/20 05:30: WBC 11.3 H, RBC 3.63 L, Hgb 11.3 L, Hct 33.3 L, MCV 91.7, MCH 31.1, MCHC 33.9, RDW Std Deviation 43.7, RDW Coeff of Moiz 13.1, Plt Count 185, MPV 10.6, Immature Gran % (Auto) 0.300, Neut % (Auto) 68.6, Lymph % (Auto) 24.4, [place] % (Auto) 6.3, Eos % (Auto) 0.2, Baso % (Auto) 0.2, Absolute Neuts (auto) 7.7, Absolute Lymphs (auto) 2.75, Nucleated RBC % 0 08/11/20 05:30: Sodium 138, Potassium 3.8, Chloride 107, Carbon Dioxide 25.0, Anion Gap 6, BUN 28 H, Creatinine 1.87 H, Estim Creat Clear Calc 27.70, Est GFR (MDRD) Af Amer 45 L, Est GFR (MDRD) Non-Af 37 L, BUN/Creatinine Ratio 15.0, Glucose 100, Calcium 8.5 08/11/20 07:00: Ur Random Sodium 71, Urine Creatinine 72.80 Current Medications Acetaminophen (Acetaminophen 325 Mg Tablet) 650 mg PO Q6H PRN PRN PRN Reason: Pain Score 1-10/Temp > 100.7 F Last Admin: 08/11/20 08:01 Dose: 650 mg Documented by: Atenolol (Atenolol 25 Mg Tablet) 25 mg PO DAILY [facility] Last Admin: 08/11/20 08:02 Dose: 25 mg Documented by: Dexamethasone (Dexamethasone 4 Mg Tablet) 4 mg PO TIDCM [facility] Last Admin: 08/11/20 17:37 Dose: 4 mg Documented by: Sodium Chloride () 1,000 mls @ 75 mls/hr IV .[id number] [facility] Last Admin: 08/11/20 13:16 Dose: 75 mls/hr Documented by: Sodium Chloride () 250 mls @ 15 mls/hr IV .[id number] PRN PRN Reason: Saline Flush Morphine Sulfate (Morphine 4 Mg/Ml Syringe) 4 mg IV Q4H PRN PRN PRN Reason: Pain Score 6-10 Ondansetron HCl (Ondansetron 4 Mg/2 Ml Vial) 4 mg IV Q8H PRN PRN PRN Reason: NAUSEA/VOMITING Oxycodone HCl (Oxycodone 5 Mg Tablet) 5 mg PO Q4H PRN PRN PRN Reason: Pain Score 4-5 Oxycodone HCl (Oxycodone 5 Mg Tablet) 10 mg PO Q4H PRN PRN PRN Reason: Pain Score 6-10 Last Admin: 08/11/20 17:01 Dose: 10 mg Documented by: Pantoprazole Sodium (Pantoprazole Sodium 20 Mg Tablet) 20 mg PO BID [facility] Last Admin: 08/11/20 08:03 Dose: 20 mg Documented by: Potassium Chloride (Potassium Ch[facility]ide 10 Meq [facility]t) [facility] Last Admin: 08/11/20 17:01 Dose: 10 meq Documented by: Pravastatin Sodium (Pravastatin 20 Mg Tablet) 20 mg PO DAILY@2200 [facility] Senna/Docusate Sodium (Senna/Docusate Sodium 1 Tablet) 2 tablet PO BID PRN PRN PRN Reason: Constipation Sodium Chloride (0.9% Saline Lock 10 Ml Syringe) 10 - 40 ml IV UD PRN PRN Reason: SALINE FLUSH Last Admin: 08/11/20 08:02 Dose: 10 ml Documented by: Tamsulosin HCl (Tamsulosin Hcl 0.4 Mg Capsule) 0.4 mg PO DAILY [facility] Last Admin: 08/11/20 08:02 Dose: 0.4 mg Documented by: Throat Lozenges (Benzocaine/Menthol 1 Lozenge) 2 lozenge MUCOUS MEM Q2H PRN PRN PRN Reason: SORE THROAT Last Admin: 08/11/20 17:37 Dose: 2 lozenge Documented by: Medical Necessity - Tobacco Use Smoking Status: Never smoker Assessment/Plan All Active Problems (Last Reviewed 08/11/20 @ 01:[address] Garfield Monroe MD) Fall from ladder (Acute) Laceration of neck without foreign body (Acute) Closed left clavicular fracture (Acute) Chest wall contusion (Acute) #1 acute left clavicular fracture secondary to mechanical fall-patient had a sling ordered for his left arm, PT will continue to work with patient #2 chest wall contusion #3 sclerotic lesion right first rib-etiology unclear #4 left shoulder contusion-secondary to fall #5 essential hypertension #6 obstructive sleep apnea-patient uses CPAP when sleeping #7 right neck laceration-secondary to fall, this was sutured in the emergency room OBSV E&M: 15502 Subsequent observation care L3
[2020-08-11 21:44] VITALS: BP 148/76; PULSE 68; RESP 18; TEMP 37; O2SAT 91
[2020-08-11] MEDS: Pravastatin 20 MG Tablet PO (21:55)
[2020-08-11 23:12] VITALS: BP 149/82; PULSE 72; RESP 18; TEMP 37; O2SAT 97
[2020-08-12] MEDS: 0.9% Normal Saline 1,000 ML 75 ML IV (01:24)
[2020-08-12 03:20] VITALS: BP 151/75; PULSE 75; RESP 18; TEMP 36.6; O2SAT 94
[2020-08-12] MEDS: BENZOCAINE/MENTHOL 1 LOZENGE 2 LOZENGE MUCOUS MEM ×3 (03:24→10:15)
[2020-08-12 09:24] VITALS: BP 157/81; PULSE 69; RESP 18; TEMP 36.7; O2SAT 95
--- NOTE | 2020-08-12 09:35 | CASEMGMT ---
MICHEAL HAMPTON in to complete S[employer] form with patient. MICHEAL HAMPTON explained [employer] form to patient, patient voiced understanding. Patient signed [employer] form and original filed in chart. Patient provided with copy of signed [employer] form. Patient had no further questions or concerns at this time.
[2020-08-12] MEDS: Pantoprazole Sodium 20 MG Tablet PO (10:10)
[2020-08-12] MEDS: Atenolol 25 MG Tablet PO (10:10)
[2020-08-12] MEDS: dexAMETHasone 4 MG Tablet PO ×2 (10:10→12:03)
[2020-08-12] MEDS: Tamsulosin HCl 0.4 MG Capsule PO (10:10)
[2020-08-12] MEDS: Acetaminophen 325 MG Tablet 650 MG PO (10:14)
[2020-08-12] MEDS: oxyCODONE 5 MG Tablet 10 MG PO (10:15)
--- NOTE | 2020-08-12 12:17 | DCINST_ITS ---
- Discharge Diagnoses Current Active Problems: Current Active and Chronic Problems (Last Reviewed 08/11/20 @ 01:[address] Garfield Monroe MD) Fall from ladder (Acute) Laceration of neck without foreign body (Acute) Closed left clavicular fracture (Acute) Chest wall contusion (Acute) HTN (hypertension) (Chronic) Exposure to tobacco smoke at work (Chronic) ANTIONE (obstructive sleep apnea) (Chronic) ADHD (Chronic) Hyperlipidemia (Chronic) Benign hypertension (Chronic) You will use the following diet at home:: No restrictions Your food should be the consistency of: Regular Your liquids should be the consistency of: Regular/Thin Discharge Activity: Return to Normal Activity Weight Bearing Status: Full weight bearing Additional Instructions: Wear left arm sling when ambulating and for comfort measures Be careful driving when using pain meds Allergies/Adverse Reactions: Allergies No Known Allergies Allergy (Verified 08/10/20 18:15) Medications to take at Discharge Hydrochlorothiazide 25 mg PO DAILY 10/24/13 Atenolol [Tenormin (beta batool)] 25 mg PO DAILY 12/23/14 Pravastatin [Pravachol] 20 mg PO DAILY 12/23/14 Omeprazole 20 mg PO BID #60 tablet. 07/18/18 Tamsulosin HCl [Flomax] 0.4 mg PO DAILY #12 cap 07/22/18 potassium chloride 10 mEq capsule,extended release 10 meq PO BID cap 06/21/19 Oxycodone [Oxyir] 10 mg PO Q4H PRN PRN 7 Days #40 tablet 08/12/20 Senna/Docusate Sodium [Senokot-S] 2 tablet PO BID PRN PRN tablet 08/12/20 predniSONE tablet 20 mg PO UD #15 tab 08/12/20 The following prescriptions were given: Oxycodone [Oxyir] 10 mg PO Q4H PRN PRN 7 Days #40 tablet PRN Reason: Pain Score 6-10 Transmission Status: Sent to [facility] predniSONE tablet 20 mg PO UD #15 tab Transmission Status: Pending to [facility] Primary Care Physician: Ana Wilburn MD [Primary Care Provider] - Please follow up with your Primary Care Physician in: in one week Test Results: Test results from this visit will be discussed in further detail at your follow- up appointment, if applicable.
--- NOTE | 2020-08-12 12:57 | CASEMGMT ---
MICHEAL HAMPTON updated by nurse that patient would like [facility] at discharge. MICHEAL HAMPTON in to discuss discharge planning with patient. MICHEAL HAMPTON provided list of [facility] and he would like [facility]. MICHEAL HAMPTON sent referral to [facility] and they are able to accept the patient. MICHEAL HAMPTON updated that patient and he had no further questions or concerns at this time.
--- NOTE | 2020-08-12 13:12 | CASEMGMT ---
Social Work Note SW updated that pt is going home with [facility]. SW placed a call to referral line for TCU, updated Felicitas that pt is going home now. Plan: Home with [facility] Monique BOOGIE, POLYGRAPH OPERATOR
[2020-08-12 14:40] LABS: PSA, Free 1.88 ng/mL; PSA, Free % 34.8 % (.); PSA, Total Ultrasensitive 5.4 ng/mL (0.0-4.0)
--- NOTE | 2020-08-13 11:14 | PCM.DC.SUM ---
Discharge Date and Diagnosis - Problem List Patient Problems: Active and Suspected Problems (Last Reviewed 08/11/20 @ 01:[address] Garfield Monroe MD) Fall from ladder (Acute) Laceration of neck without foreign body (Acute) Closed left clavicular fracture (Acute) Chest wall contusion (Acute) Date of Admission: 08/10/20 Date of Discharge: 08/12/20 - Primary Discharge Diagnosis Acute Problems: Active Problems (Last Reviewed 08/11/20 @ 01:[address] Garfield Monroe MD) Closed left clavicular fracture (Acute) Chest wall contusion (Acute) Right neck laceration-superficial Right first rib sclerotic lesion-etiology unknown Left shoulder contusion Obstructive sleep apnea Essential hypertension - Secondary Discharge Diagnosis Chronic Problems: Chronic Problems (Last Reviewed 08/11/20 @ 01:[address] Garfield Monroe MD) HTN (hypertension) (Chronic) Exposure to tobacco smoke at work (Chronic) ANTIONE (obstructive sleep apnea) (Chronic) ADHD (Chronic) Hyperlipidemia (Chronic) Benign hypertension (Chronic) Hospital Course and Treatment Procedures: None Summary of Care Provided: The patient is a 75 year old M was seen in the emergency room at [facility] after suffering a fall on a ladder, patient fell and struck his chest and left clavicular area and left shoulder. Work-up in the emergency room included x-rays which showed an acute left clavicular fracture, chest CT was unremarkable, patient was not hypoxic, patient has small laceration his right neck area which was repaired with sutures. Patient was placed in observation status on [facility] 3. He was seen by PT and OT. He was given oral corticosteroids and pain medications. On 08/12/2020, patient was seen and examined: On examination he appeared in good health and spirits. Vital signs as documented. Skin warm and dry and without overt rashes. Neck without JVD, neck was supple, trachea midline, thyroid was normal. Lungs clear bilaterally, normal air movement was noted. Heart exam notable for regular rhythm, normal sounds and absence of murmurs, rubs or gallops. Abdomen unremarkable and without evidence of organomegaly, masses, or abdominal aortic enlargement. Bowel sounds are present, abdomen is not distended. Extremities nonedematous, no cyanosis was noted, no clubbing was noted, there is tenderness to palpation over the patient's left shoulder area. Neuro: Cranial nerves II through XII are grossly intact, no focal motor deficits were noted, sensation to light touch and pinprick intact, motor exam 5/5 throughout. Psych: Patient is alert and oriented x3, he does not appear anxious or depressed, he does not appear agitated. On 08/12/2020, patient was discharged to home in stable condition, I contacted him by phone and talked with him and his son about a sclerotic lesion to his right first rib and I recommended that he follow-up with his PCP to do a further investigation about this. I also called the patient's PCP (Dr. Wilburn) and let her know about this finding. Patient had a PSA when he was placed in the hospital and this was elevated in the 5 range. Patient Problems: Active and Suspected Problems (Last Reviewed 08/11/20 @ 01:[address] Garfield Monroe MD) Fall from ladder (Acute) Laceration of neck without foreign body (Acute) Closed left clavicular fracture (Acute) Chest wall contusion (Acute) - Physical Exam Vitals/I&O's: Vital Signs Temp Pulse Resp BP Pulse Ox 98.1 F 69 18 157/81 H 95 08/12/20 09:24 08/12/20 09:24 08/12/20 09:24 08/12/20 09:24 08/12/20 09:24 Oxygen Flow Rate (L/min) 2 Oxygen Delivery Method Room Air Weight: 65.227 kg Body Mass Index (BMI) 24.7 Intake and Output for Last 24 Hours 08/11/20 08/12/20 08/13/20 23:59 23:59 23:59 Intake Total 2737.5 / 2737.5 2113.75 / 2113.75 Output Total 825 / 825 250 / 250 Balance 1912.5 / 1912.5 1863.75 / 1863.75 Laboratory Results 08/10/20 19:11: Free PSA 34.8, % Free PSA 1.88, Total PSA 5.4 H Discharge Activity: Return to Normal Activity Weight Bearing Status: Full weight bearing Home Medications: Medications to take at Discharge Hydrochlorothiazide 25 mg PO DAILY 10/24/13 Atenolol [Tenormin (beta batool)] 25 mg PO DAILY 12/23/14 Pravastatin [Pravachol] 20 mg PO DAILY 12/23/14 Omeprazole 20 mg PO BID #60 tablet. 07/18/18 Tamsulosin HCl [Flomax] 0.4 mg PO DAILY #12 cap 07/22/18 potassium chloride 10 mEq capsule,extended release 10 meq PO BID cap 06/21/19 Oxycodone [Oxyir] 10 mg PO Q4H PRN PRN 7 Days #40 tab 08/12/20 Senna/Docusate Sodium [Senokot-S] 2 tab PO BID PRN PRN tab 08/12/20 predniSONE tablet 20 mg PO UD #15 tab 08/12/20 Following Prescriptions Were Given to Patient: Oxycodone [Oxyir] 10 mg PO Q4H PRN PRN 7 Days #40 tab PRN Reason: Pain Score 6-10 Transmission Status: Received by [facility] predniSONE tablet 20 mg PO UD #15 tab Transmission Status: Received by [facility] Primary Care Physician: Ana Wilburn MD [Primary Care Provider] - Please follow up with your Primary Care Physician in: in one week Disposition: Home Minutes spent on discharge:: 31 Patient Condition:: Stable Medical Necessity - Tobacco Use Smoking Status: Never smoker Meaningful Use Info Meaningful Use Diagnoses (Choose all that apply): None applicable OBSV E&M: 25318 Observation care discharge
== END 2020-08-12 14:24 | disposition home health service (06) ==
LOC: ED 21:51 → MS3 22:50
PROVIDERS: Admitting Provider Hospitalist; Emergency Provider Emergency Medicine; PCP Family Medicine; Referring Provider Hospitalist; Visit Provider Internal Medicine
DX: S42.002A Fracture of unspecified part of left clavicle, initial encounter for closed fracture (principal); S11.91XA Laceration without foreign body of unspecified part of neck, initial encounter; S20.219A Contusion of unspecified front wall of thorax, initial encounter; N17.9 Acute kidney failure, unspecified; Z23 Encounter for immunization; G47.33 Obstructive sleep apnea (adult) (pediatric); I10 Essential (primary) hypertension; E78.5 Hyperlipidemia, unspecified; M89.9 Disorder of bone, unspecified; W11.XXXA Fall on and from ladder, initial encounter; Y92.009 Unspecified place in unspecified non-institutional (private) residence as the place of occurrence of the external cause; Y93.89 Activity, other specified; Y99.9 Unspecified external cause status; Z79.899 Other long term (current) drug therapy
CPT/HCPCS: 12001; 36415; 71260; 73030; 80048; 80076; 81001; 82570; 84153; 84154; 84300; 84484; 85025; 85610; 85730; 86850; 86900; 86901; 90715; 93005; 96361; 96374; 96375; 97116; 97162; 97166; 97530; 97535; 99218; 99251; 99285; J7030; J7040; Q9967; A4216; G0378; G0463; J2405

== ENCOUNTER → 2020-08-20 10:01 | Outpatient (CLI) | payer MEDICARE, SELFPAY ==
[2019-06-21 06:22] VITALS: BMI 24.3
[2020-08-10 18:09] VITALS: BMI 24.0
[2020-08-10 23:17] VITALS: BMI 24.7
[2020-08-20 12:13] LABS: Absolute Lymphocyte Count 4.91 X10^3/uL (0.83-4.51); Absolute Neutrophil Count 5.9 X10^3/uL (2.0-7.7); Basophil# 0.02 X10^3/uL; Basophil% 0.2 % (0-1); Eosinophil# 0.07 X10^3/uL; Eosinophils% 0.6 % (0-5); Hemoglobin 11.2 g/dL (13.0-16.5); Lymphocyte # 4.91 X10^3/ul (4.0); Lymphocyte % 41.6 % (19-41); Mean Corp Hgb Conc 32.9 g/dL (32-36); Mean Corpuscular Volume 94.2 fL (80-94); Mean Platelet Vol. 10.7 fl (6.2-12.0); Monocyte# 0.86 X10^3/uL; Monocyte% 7.3 % (0-10); NRBC Flagged by Analyzer 0 % (0-5); Neutrophil # 5.85 X10^3/uL (2.7-7.7); Neutrophil % 49.6 % (47-70); Platelet Count 268 K/mm3 (150-450); RBC Distribution Width CV 13.1 % (11.6-14.6); RBC Distribution Width SD 45.1 fl (35.1-43.9); Red Blood Count 3.61 M/mm3 (4.6-6.2); White Blood Count 11.8 K/mm3 (4.4-11.0)
[2020-08-20 12:44] LABS: Vitamin B12 653 pg/mL (211-911)
[2020-08-20 13:06] LABS: ALB/GLOB Ratio 1.1 RATIO (0.9-2.4); AST(SGOT) 11 U/L (15-37); Alanine Aminotransfer ALT/SGPT 36 U/L (16-61); Albumin, Serum 3.8 g/dL (3.2-5.0); Alkaline Phosphatase 80 U/L (45-117); Anion Gap 7 (5-15); BUN 37 mg/dL (7-18); BUN/Creat Ratio 20.7 RATIO (10-20); Calcium,Total 8.7 mg/dL (8.5-10.1); Chloride 101 mmol/L (98-107); Cholesterol 170 mg/dL (200); Creatinine, Serum 1.79 mg/dL (0.70-1.30); EST Glomerular Filtration Rate 39 mL/min (>60); Est Glom Filt Rate - Afr Amer 48 mL/min (>60); Ferritin 30 ng/mL (26-388); Globulin 3.5 g/dL (2.2-4.2); Glucose 78 mg/dL (74-106); High Density Lipoprotein 49 mg/dL; Iron 144 ug/dL (65-175); Iron Binding Capacity,Total 293 ug/dL (250-450); PSA,Total - Annual Screen 5.58 ng/mL (0.00-4.00); Potassium 3.1 mmol/L (3.5-5.1); Protein, Total 7.3 g/dL (6.4-8.2); Sodium Level 137 mmol/L (136-145); Triglycerides 146 mg/dL; Very Low Density Lipoprotein 29 mg/dL (5-40)
== END ==
LOC: LAB.FUTURE 08-10 21:23 → BFHLAB 10:01
PROVIDERS: PCP Family Medicine; Visit Provider Family Medicine
DX: I12.9 Hypertensive chronic kidney disease with stage 1 through stage 4 chronic kidney disease, or unspecified chronic kidney disease (principal); N18.30 Chronic kidney disease, stage 3 unspecified; E78.5 Hyperlipidemia, unspecified; D64.9 Anemia, unspecified; K21.9 Gastro-esophageal reflux disease without esophagitis; N40.0 Benign prostatic hyperplasia without lower urinary tract symptoms; Z12.5 Encounter for screening for malignant neoplasm of prostate
CPT/HCPCS: 36415; 80053; 80061; 82607; 82728; 83540; 83550; 84153; 85025; G0103

== ENCOUNTER → 2020-09-03 07:59 | Outpatient (CLI) | payer MEDICARE, SELFPAY ==
[2020-08-10 23:17] VITALS: BMI 24.7
--- NOTE | 2020-09-03 08:02 | NM_ITS ---
CLINICAL: 75-year-old male with recent traumatic fall and resultant left clavicular fracture with apparent right first rib radiographic abnormality. WHOLE BODY 99m Tc MDP RADIONUCLIDE BONE SCINTIGRAPHY COMPARISON: CT of the chest 08/10/2020 FINDINGS: Following the intravenous administration of 24.9 mCi of 99m Tc MDP, whole body bone images reveal: 1. Increased radiopharmaceutical concentration is defined in the left proximal clavicle, the manubrium to the right midline, proximal sternum, first-third thoracic vertebra posteriorly in the midline, right posterior first rib, the first-third anterior ribs bilaterally, fourth-sixth left anterior ribs at the costochondral junctions, distal right femoral metaphysis medially. 2. Enhanced tracer uptake is defined in the lower cervical spine posteriorly on the left, eighth thoracic vertebra posteriorly on the left, bilateral wrists, left elbow, the left hand, patellofemoral compartment of the left knee, bilateral ankles and right midfoot. 3. The remaining skeletal structures are scintigraphically unremarkable with normal-appearing renal images and urinary bladder activity identified. NM/Bone Scan Whole Body IMPRESSION: 1. The increase in radiopharmaceutical concentration identified in the left proximal clavicle, sternum, upper thoracic spine, bilateral ribs and distal right femur is most consistent with trauma-fracture. Uptake in the right posterior first rib appears to correlate with the sclerotic change defined on CT of the chest dated 08/10/2020 in the analogous location. 2. 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 3. There is no definitive typical scintigraphic evidence of diffuse axial skeletal metastatic disease on the current examination. Electronically Signed: Javy Sue DO at 8:00 EST Tel , Service support ,
== END ==
PROVIDERS: PCP Family Medicine; Referring Provider Family Medicine; Visit Provider Family Medicine
DX: M84.48XA Pathological fracture, other site, initial encounter for fracture (principal)
CPT/HCPCS: 78306

== ENCOUNTER 2021-11-21 10:32 | Outpatient (CLI) | payer MEDICARE, SELFPAY ==
[2021-11-25 15:30] LABS: Calprotectin, Stool 26 ug/g (0-120)
== END 2021-11-21 23:59 | disposition home or self-care (01) ==
LOC: LABSPEC 10:35
PROVIDERS: PCP Family Medicine; Referring Provider Family Medicine; Visit Provider Family Medicine
DX: R19.7 Diarrhea, unspecified (principal)
CPT/HCPCS: 83630; 83993; 87177; 87209; 87493; 87506

== ENCOUNTER 2021-11-23 10:44 | Emergency (ER) | payer MEDICARE, SELFPAY ==
[2021-11-23 10:45] VITALS: BP 170/81; PULSE 62; RESP 15; TEMP 36; O2SAT 99; BMI 22.3
[2021-11-23 11:50] VITALS: BP 170/81; PULSE 62; RESP 15; TEMP 36; O2SAT 99
[2021-11-23] MEDS: 0.9% Normal Saline 1,000 ML 1000 ML IV (11:50)
[2021-11-23 12:30] LABS: Absolute Lymphocyte Count 2.66 X10^3/uL (0.83-4.51); Absolute Neutrophil Count 6.5 X10^3/uL (2.0-7.7); Basophil# 0.03 X10^3/uL; Basophil% 0.3 % (0-1); Eosinophil# 0.02 X10^3/uL; Eosinophils% 0.2 % (0-5); Hematocrit 33.4 % (40-54); Hemoglobin 12.2 g/dL (13.0-16.5); Lymphocyte # 2.66 X10^3/ul (0.83-4.51); Lymphocyte % 27.1 % (19-41); Mean Corp Hgb Conc 36.5 g/dL (32-36); Mean Corpuscular Hgb 32.4 pg (27.0-32.0); Mean Corpuscular Volume 88.6 fL (80-94); Mean Platelet Vol. 10.7 fl (6.2-12.0); Monocyte# 0.63 X10^3/uL; Monocyte% 6.4 % (0-10); NRBC Flagged by Analyzer 0 % (0-5); Neutrophil # 6.47 X10^3/uL (2.7-7.7); Neutrophil % 65.8 % (47-70); Platelet Count 251 K/mm3 (150-450); Red Blood Count 3.77 M/mm3 (4.6-6.2); White Blood Count 9.8 K/mm3 (4.4-11.0)
[2021-11-23 13:29] LABS: ALB/GLOB Ratio 1.2 RATIO (0.9-2.4); AST(SGOT) 17 U/L (15-37); Alanine Aminotransfer ALT/SGPT 28 U/L (16-61); Albumin, Serum 4.2 g/dL (3.2-5.0); Alkaline Phosphatase 82 U/L (45-117); Anion Gap 6 (5-15); BUN 29 mg/dL (7-18); BUN/Creat Ratio 13.2 RATIO (10-20); Calcium,Total 9.3 mg/dL (8.5-10.1); Chloride 99 mmol/L (98-107); Creatinine, Serum 2.19 mg/dL (0.70-1.30); EST Glomerular Filtration Rate 31 mL/min (>60); Est Glom Filt Rate - Afr Amer 38 mL/min (>60); Estimated Creatinine Clearance 23.19 ml/min; Globulin 3.4 g/dL (2.2-4.2); Glucose 87 mg/dL (74-106); Lipase 89 U/L (73-393); Potassium 2.5 mmol/L (3.5-5.1); Protein, Total 7.6 g/dL (6.4-8.2); Sodium Level 134 mmol/L (136-145)
[2021-11-23 14:13] VITALS: BP 137/72; PULSE 56; RESP 18; TEMP 36.6; O2SAT 97
--- NOTE | 2021-11-23 14:55 | EDS_ITS ---
HPI HPI - GI History of Present Illness Chief Complaint: Diarrhea Informant: patient Abdominal Pain/Flank Pain Worsened by: Nothing Relieved by: Nothing Nausea/Vomiting/Emesis GI Symptom: Positive for Nausea; Negative for Vomiting Diarrhea/Melena/Hematochezia GI Symptom: Positive for Diarrhea; Negative for Melena and Hematochezia Onset: Weeks (2) Stool Quality: Positive for Watery Associated Symptoms Associated Symptoms: Positive for Frequency; Negative for Dysuria and Hematuria Narrative Narrative: Patient presents with diarrhea that has been constant for the past 2 weeks. Patient states his diarrhea is watery. Patient states that his doctor ordered an outpatient stool study which he brought to the hospital 2 days ago. Patient admits to some intermittent nausea but denies any vomiting. Patient denies any abdominal pain. Patient denies any melena or hematochezia. Patient admits to some urinary frequency but denies any dysuria or hematuria. Patient states nothing makes his diarrhea better nothing makes it worse. PFSH PFS Medical History Acute appendicitis Acute viral syndrome ADHD Benign hypertension Diastasis, muscle Exposure to tobacco smoke at work HTN (hypertension) Hyperlipidemia Hypoxia Inguinal hernia of right side without obstruction or gangrene ANTIONE (obstructive sleep apnea) Right lower quadrant abdominal pain Home Medications hydrochlorothiazide 25 mg PO DAILY 10/24/13 [History Last Taken Unknown] atenolol 25 mg PO DAILY 12/23/14 [History Last Taken Unknown] pravastatin 20 mg PO DAILY 12/23/14 [History Last Taken Unknown] omeprazole 20 mg PO BID #60 tablet. 07/18/18 [Rx Last Taken Unknown] tamsulosin 0.4 mg PO DAILY #12 cap 07/22/18 [Rx Last Taken Unknown] potassium chloride 10 mEq capsule,extended release 10 meq PO BID cap 06/21/19 [History Last Taken Unknown] Allergy/AdvReac Type Severity Reaction Status Date / Time No Known Allergies Allergy Verified 11/23/21 10:47 Surgical History History of laparoscopic appendectomy History of tonsillectomy Social History Smoking Status: Never smoker alcohol intake: never substance use type: does not use ROS ROS ED Constitutional Constitutional ED: Denies chills or fever(s) Eyes Eyes: Denies blurry vision or change in vision ENT ENT ED: Reports rhinorrhea; Denies sore throat Cardiovascular Cardiovascular: Denies chest pain or palpitations Respiratory/Chest Respiratory/Chest: Denies cough or dyspnea Gastrointestinal Gastrointestinal: Reports diarrhea; Denies nausea or vomiting Genitourinary Genitourinary ED: Reports urinary frequency; Denies dysuria or hematuria Musculoskeletal Musculoskeletal: Denies back pain or neck pain Integumentary Denies abscess or rash Neurologic Neurologic: Denies headache(s) or weakness Allergic/Immunologic Allergic/Immunologic ED: Denies mouth swelling or urticaria EXAM Physical Exam Const Vital Signs: 11/23/21 10:45 11/23/21 11:50 11/23/21 14:13 Temperature 96.8 F L 96.8 F L 97.8 F Temperature Source Temporal Temporal Oral Pulse Rate 62 62 56 L Respiratory Rate 15 15 18 Blood Pressure 170/81 H 170/81 H 137/72 H Blood Pressure Mean 110 110 93 Pulse Ox 99 99 97 Oxygen Delivery Method Room Air Room Air Room Air Positive well nourished and well developed General Appearance ED: well developed HEENT Reports moist mucous membranes Neck supple and no JVD Resp normal respiratory effort and clear to auscultation bilaterally Cardio regular rate, regular rhythm and no murmurs GI normal to inspection, nondistended, normoactive bowel sounds and non-tender Palpation: soft Extremity normal to inspection General Extremety ED: Negative for edema or tenderness General Extremity: Negative for edema Neuro oriented x3, CN's II-XII intact bilaterally and no sensory deficits noted Sensorium / Orientation: alert Motor Exam: strength 5/5 throughout Psych mental status grossly normal Skin no rashes or lesions noted MDM MDM MDM Narrative Medical decision making narrative: Patient was given IV fluids here. CBC shows hemoglobin of 12.2 hematocrit 33.4. Comprehensive metabolic profile shows a potassium of 2.5. BUN was 29 and creatinine was 2.19. These are only slightly increased from previous results. Lipase was normal. Patient was given a dose of oral potassium as well as IV potassium. Stool studies were reviewed. There are fecal leukocytes. Stool culture was negative. C. difficile was negative. Patient was instructed to continue his oral potassium is previously prescribed. Patient was instructed to follow-up with his primary care physician in 5 to 7 days. Patient understood and was agreeable with the plan. All questions were answered. Lab Data Attestation: I reviewed the patient's lab results. Labs: Laboratory Results - last 24 hr 11/23/21 11/23/21 11:15 11:15 WBC 9.8 RBC 3.77 L Hgb 12.2 L Hct 33.4 L MCV 88.6 MCH 32.4 H MCHC 36.5 H RDW Std Deviation 42.0 RDW Coeff of Moiz 13.0 Plt Count 251 MPV 10.7 Immature Gran % (Auto) 0.200 Neut % (Auto) 65.8 Lymph % (Auto) 27.1 [place] % (Auto) 6.4 Eos % (Auto) 0.2 Baso % (Auto) 0.3 Absolute Neuts (auto) 6.5 Absolute Lymphs (auto) 2.66 Nucleated RBC % 0 Sodium 134 L Potassium 2.5 L* Chloride 99 Carbon Dioxide 29.0 Anion Gap 6 BUN 29 H Creatinine 2.19 H Estim Creat Clear Calc 23.19 Est GFR (MDRD) Af Amer 38 L Est GFR (MDRD) Non-Af 31 L BUN/Creatinine Ratio 13.2 Glucose 87 Calcium 9.3 Total Bilirubin 0.50 AST 17 ALT 28 Alkaline Phosphatase 82 Total Protein 7.6 Albumin 4.2 Globulin 3.4 Albumin/Globulin Ratio 1.2 Lipase 89 Discharge Plan Triage Chief Complaint: Diarrhea ED Provider: Juan Heller Dx/Rx/DC Orders Clinical Impression: Diarrhea Instructions: ED Diarrhea, Unknown Cause Prescriptions: No Action hydrochlorothiazide 25 MG tablet 25 mg PO DAILY RF: 0 atenolol 25 MG tablet 25 mg PO DAILY RF: 0 pravastatin 20 MG tablet 20 mg PO DAILY RF: 0 omeprazole 20 MG tablet,delayed release (DR/EC) 20 mg PO BID Qty: 60 RF: 0 tamsulosin 0.4 MG capsule 0.4 mg PO DAILY Qty: 12 RF: 0 potassium chloride 10 mEq capsule, extended release 10 meq PO BID RF: 0 Primary Care Provider: Ana Wilburn Referrals: Ana Wilburn MD [Primary Care Provider] - 3-5 Days Disposition Disposition: Home, Self Care
[2021-11-23] MEDS: Potassium Chloride 10mEq/100mL 10 MEQ/100 ML IV.SOLN. 100 MEQ IV BOLUS (16:07)
[2021-11-23] MEDS: Potassium Chloride Oral Tablet 20 MEQ 40 MEQ PO (17:17)
== END 2021-11-23 17:45 | disposition home or self-care (01) ==
PROVIDERS: Emergency Provider Emergency Medicine; PCP Family Medicine; Visit Provider Emergency Medicine
DX: R19.7 Diarrhea, unspecified (principal); E87.6 Hypokalemia; R11.0 Nausea; R35.0 Frequency of micturition; R10.9 Unspecified abdominal pain; I10 Essential (primary) hypertension; E78.5 Hyperlipidemia, unspecified; G47.33 Obstructive sleep apnea (adult) (pediatric); Z79.899 Other long term (current) drug therapy
CPT/HCPCS: 80053; 83690; 85025; 96361; 96365; 99284; J7030; A4216

== ENCOUNTER 2021-11-24 14:00 | Outpatient (CLI) | payer MEDICARE, SELFPAY ==
[2021-11-24 14:31] LABS: Magnesium 1.8 mg/dL (1.6-2.6); Potassium 3.2 mmol/L (3.5-5.1)
== END 2021-11-24 23:59 | disposition home or self-care (01) ==
LOC: PAVLAB 14:01
PROVIDERS: PCP Family Medicine; Referring Provider Surgery; Visit Provider Surgery
DX: E83.42 Hypomagnesemia (principal); E87.6 Hypokalemia
CPT/HCPCS: 36415; 83735; 84132

== ENCOUNTER 2021-11-27 05:32 | Day surgery (SDC) | payer MEDICARE, SELFPAY ==
[2021-11-27] MEDS: Lactated Ringers 1,000 ML 15 ML IV (05:45)
--- NOTE | 2021-11-27 05:58 | HP.PCM_ITS ---
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 07/18/18 [Rx Confirmed 11/24/21] tamsulosin 0.4 mg PO DAILY #12 cap 07/22/18 [Rx Confirmed 11/24/21] potassium chloride 10 mEq capsule,extended release 20 meq PO TID cap 11/24/21 [History Confirmed 11/24/21] PFSH Medical History Acute appendicitis Acute viral syndrome ADHD Benign hypertension Diastasis, muscle Exposure to tobacco smoke at work HTN (hypertension) Hyperlipidemia Hypoxia Inguinal hernia of right side without obstruction or gangrene ANTIONE (obstructive sleep apnea) Right lower quadrant abdominal pain Surgical History History of laparoscopic appendectomy History of tonsillectomy Social History Smoking Status: Never smoker alcohol intake: never substance use type: does not use HPI HPI HPI: NICK EASTON, is a 76 M who presents to the office today for evaluation of a hand lesion. 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 Evaluation for possible wide excision in the setting that will be required. The hand lesion was why the patient is referred however its become apparent that an additional referral was made for urgent colonoscopy. For 2 weeks the patient has had severe profuse watery diarrhea. Etiology not clear. He travels back and forth to [place]. He was seen by urgent care and was instructed to take Pepto-Bismol. Because of increasing severity of problems and greater than 10 pound weight loss he was seen in the emergency room yesterday. White blood cell count 9.8 with a hemoglobin 12.2 hematocrit 33.4 platelet count 251,000. Stool was negative for C. difficile. Enteric pathogen gins were not identified. His potassium was 2.5. BUN elevated 29 and creatinine elevated 2.19. Magnesium was 2. Liver function tests normal. He received some IV fluid and 10 mEq of IV potassium and 40 mEq of oral potassium. He was discharged on 10 mEq of potassium twice a day. He was seen by Dr. Ana Wilburn earlier today and that was increased to 10 mEq 3 times a day. The patient denies any bright red blood per rectum or melena. He claims that it is a perfused watery diarrhea. He does not recall eating any unusual foods. He is does not go out to eat when he travels. He takes his own food. ROS General General: Yes weight change and fatigue; No appetite, colon cancer, breast cancer or weakness Additional Details: Pt states 10lb weight loss in two weeks HEENT HEENT: Yes difficulty swallowing; No eye injury, eye surgery, swollen glands or hoarseness Endo Endocrine: No thyroid disease, diabetes mellitus, thyroid cancer, Hair loss, heat intolerance or cold intolerance Skin Skin: Yes changing moles; No rash Additional Details: Pt has had many skin removals and skin areas frozen in the past[place] [facility] [place]: No back problems, arthritis, rheumatoid arthritis, gout or joint pain Cardio Cardiovascular: Yes high blood pressure; No murmur, pacemaker, heart disease, atrial fibrillation, heart attack, heart stent, palpitations, shortness of breat with exertion or chest pain Psych Psychiatric: No depression, anxiety or hearing voices Resp Respiratory: No shortness of breath, Yes sleep apnea, No cough, No COPD, No asthma, No emphysema and No wheezing Gastro Gastrointestinal: No abdominal pain, Yes nausea or vomiting, Yes diarrhea, No constipation, No blood in stool, No acid reflux, No hemorrhoids, No ulcers, No gallbladder problem and No black,tarry stools Fabien Hematologic: No blood thinners, No blood disorders, No bleeding, No anemia and No blood clots Neuro Neurologic: No system reviewed and no additional complaints, except as d ocumented, No as per HPI, No abnormal gait, No abnormal hearing, No abnormal movements, No abnormal speech, No behavioral changes, No burning sensations, No confusion, No convulsions, No disequilibrium, No dizziness, No localized weakness, No frequent falls, No headache(s), No lack of coordination, No loss of vision, No memory loss, No numbness, No other visual disturbances, No radicular pain, No restless legs, No sensory deficit, No syncope, No tingling, No tremor(s), No weakness and No other Exam Const General: cooperative and comfortable Nutritional Appearance: average body habitus Orientation: alert and awake [facility] Head: normal to inspection Eyes General: appearance normal, both eyes and all related structures Neck Neck: normal visual inspection Chest Chest palpation & inspection: normal inspection of the chest Resp Effort & Inspection: normal respiratory effort Auscultation: clear to auscultation bilaterally Cardio Rate: regular rate Rhythm: regular rhythm GI Palpation: soft and no hepatosplenomegaly Musc Cervical Spine: normal cervical lordosis Skin General: no rashes or lesions noted Neuro General: patient alert and patient awake Extrem General: no calf tenderness Psych Appearance: grossly normal Assessment and Plan Plan Details Other Orders: Orders: Potassium Today E83.42, E87.6 Magnesium Today E83.42, E87.6 Additional Comments: 76-year-old gentleman. 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 We will schedule and plan I am very concerned however this patient's diffuse watery diarrhea and weight loss and renal insufficiency. I believe it becomes very important to do everything possible to try to help manage and stop and control his diarrhea. I have recommended to him Pedialyte or adult electrolyte replacement. I am upping his potassium to 20 mg orally 3 times a day. We will again recheck his potassium and magnesium today. Unfortunately with the profuse diarrhea I do not believe he will tolerate oral magnesium. We will try to expedite schedule him for combined upper and lower endoscopy with planned arthur biopsies throughout an attempt to try to help decipher the etiology to his diarrhea. We need to make sure that his electrolyte replacement can tolerate the bowel prep. He is aware of the technique, benefit, risk, alternatives. He has had an opportunity to ask and have questions answered. We will schedule and expedite his care. Appreciate the opportunity of assisting with the surgical management. Copy: Dr. Ana Elliott M.D., F.A.C.S. I have re-examined the patient. There are no clinical changes since date of exam.
[2021-11-27 06:06] VITALS: BP 128/73; PULSE 54; RESP 16; TEMP 36.4; O2SAT 100; BMI 23.5
[2021-11-27 06:09] LABS: Potassium 3.4 mmol/L (3.5-5.1)
--- NOTE | 2021-11-27 06:30 | IMM_PTH ---
PATIENT: NICK EASTON LOC: EN U#:[id number] AGE/SX: 76/M ROOM: RE11/27/[address]: Dr. Jorge Elliott MD : 1945 BED: DIS: 11/27/2021 SPEC #: [id number] RECD: 11/27/21 14:08 STATUS: OTIS REDelroy #: [id number] REBECCA: 11/27/21 06:[address]: Jorge Elliott DEPT: IMMUNOHISTOCHEMISTRY RECD BY: Janeth Barlow ENTERED: 11/27/21 14:09 SP TYPE: IMMUNO OTHR DR: Dr. Ana Wilburn MD Tissues: B - Stomach, NOS Procedures: H Pylori (initial) PHYSICIAN & INSTITUTION [place] [id number] SPECIMEN INFORMATION: Tissue Source: B ? Antrum biopsy Clinical Info: Diffuse watery diarrhea Specimen Number: [id number] CPT code: 42668 METHODOLOGY: Deparaffinized sections of prefer/formalin-fixed tissue or PAP/DQ stained slides are incubated with monoclonal/polyclonal antibodies/oligonucleotide probes. Localization is made via biotin free immunoperoxidase method. Appropriate controls are performed and reacted as expected. Results on target cell population are indicated in the following table: RESULTS: ANTIBODY / CLONE RESULT Block B H Pylori (polyclonal) negative These tests were developed and their performance characteristics determined by [facility]. They may not have been cleared or approved by the U.S. Food and Drug Administration. The FDA has determined that such clearance or approval is not necessary. INTERPRETATION: B. Antrum biopsy: Negative for Helicobacter pylori organisms. SJ:mattie 11/30/2021
--- NOTE | 2021-11-27 06:30 | COLBX_PTH ---
PATIENT: NICK EASTON LOC: EN U#:[id number] AGE/SX: 76/M ROOM: RE11/27/[address]: Dr. Jorge Elliott MD : 1945 BED: DIS: 11/27/2021 SPEC #: [id number] RECD: 11/27/21 06:30 STATUS: OTIS FABIAN #: [id number] REBECCA: 11/27/21 06:[address]: Jorge Elliott DEPT: SURGICAL PATHOLOGY RECD BY: Sharon Shaw ENTERED: 11/27/21 13:05 SP TYPE: COLON BX OTHR DR: Dr. Ana Wilburn MD Tissues: A - Duodenum, NOS B - Gastric mucous membrane C - Esophagus, NOS D - Esophagus, NOS E - COLON BIOPSY Procedures: Trichrome (control) Special Stain Group II Surgery Specimen Level IV Alcian Blue/PAS (control) HEADER OPERATION: Colonoscopy, EGD ([facility]), biopsy PRE-OP DIAGNOSIS: Diffuse watery diarrhea TISSUE SUBMITTED: A ? Duodenum biopsy, B ? Antrum biopsy for histo and H. pylori, C ? Distal esophagus biopsy, D ? Mid esophagus biopsy, E ? Random colonic biopsy MICROSCOPIC DIAGNOSIS A. Duodenum, biopsy: Mild nonspecific chronic inflammation. B. Gastric antrum, biopsy: Chronic gastritis. See comment. C. Distal esophagus, biopsy: Consistent with reflux esophagitis/eosinophilic esophagitis. No evidence of goblet cell metaplasia. See comment. D. Mid esophagus, biopsy: No significant pathologic change. See comment. E. Colon, random biopsy: Lymphocytic colitis. See comment. AM:mattie 11/30/21 COMMENT B. The results of immunohistochemistry for Helicobacter pylori will be reported separately ([id number]). C. Alcian blue/PAS stain with matched control supports the above diagnosis. D. Very rare eosinophils are present. Clinical correlation is suggested. E. Trichrome stain with matched control does not reveal a thickened basal plate. MICROSCOPIC DESCRIPTION Slides are reviewed. GROSS DESCRIPTION A - Received in fixative is one container labeled with the patient's name and designated duodenum biopsy. The specimen consists of one irregular fragment of light arrington soft tissue that measures 0.3 x 0.3 x 0.1 cm. The specimen is totally submitted in one cassette. B - Received in fixative is one container labeled with the patient's name and designated antrum biopsy. The specimen consists of one irregular fragment of light arrington soft tissue that measures 0.4 x 0.2 x 0.1 cm. The specimen is totally submitted in one cassette. C - Received in fixative is one container labeled with the patient's name and designated distal esophagus biopsy. The specimen consists of one irregular fragment of light arrington soft tissue that measures 0.5 x 0.2 x 0.1 cm. The specimen is totally submitted in one cassette. D - Received in fixative is one container labeled with the patient's name and designated mid esophagus biopsy. The specimen consists of multiple irregular fragments of light arrington soft tissue that in aggregate measure 0.5 x 0.5 x 0.1 cm. The specimen is totally submitted in one cassette. E - Received in fixative is one container labeled with the patient's name and designated random colonic biopsy. The specimen consists of multiple irregular fragments of light arrington soft tissue that in aggregate measure 2 x 0.5 x 0.1 cm. The specimen is totally submitted in one cassette. / SJ:rg 11/27/2021 TC:3 CPT: 21099 x5, 10011 x2
--- NOTE | 2021-11-27 07:04 | OP.EGD_ITS ---
Patient Name: Juan Diego Alvares Procedure Date: 11/27/2021 6:15 AM Date of : 1945 Age: 76 Procedure: Upper GI endoscopy Indications: Nausea Providers: Jorge Elliott MD Referring MD: Jorge Elliott MD Medicines: See the Anesthesia note for documentation of the administered medications Complications: No immediate complications. Procedure: Pre-Anesthesia Assessment: - Prior to the procedure, a History and Physical was performed, and patient medications and allergies were reviewed. The patient's tolerance of previous anesthesia was also reviewed. The risks and benefits of the procedure and the sedation options and risks were discussed with the patient. All questions were answered, and informed consent was obtained. Prior Anticoagulants: The patient has taken no previous anticoagulant or antiplatelet agents. ASA Grade Assessment: III - A patient with severe systemic disease. After reviewing the risks and benefits, the patient was deemed in satisfactory condition to undergo the procedure. After obtaining informed consent, the endoscope was passed under direct vision. Throughout the procedure, the patient's blood pressure, pulse, and oxygen saturations were monitored continuously. The Endoscope was introduced through the mouth, and advanced to the second part of duodenum. The upper GI endoscopy was accomplished without difficulty. The patient tolerated the procedure well. Scope In: 6:34:37 AM Scope Out: 6:39:39 AM Total Procedure Duration Time 0 hours 5 minutes 2 seconds Findings: The examined esophagus was normal. The mid esophagus was normal. Biopsies were taken with a cold forceps for histology. The Z-line was regular and was found 40 cm from the incisors. Biopsies were taken with a cold forceps for histology. Diffuse mildly erythematous mucosa without bleeding was found in the gastric antrum. Biopsies were taken with a cold forceps for histology. The examined duodenum was normal. Biopsies were taken with a cold forceps for histology. Impression: - Normal esophagus. - Normal mid esophagus. Biopsied. - Z-line regular, 40 cm from the incisors. Biopsied. - Erythematous mucosa in the antrum. Biopsied. - Normal examined duodenum. Biopsied. Recommendation: - Discharge patient to home. - Resume previous diet. - Continue present medications. - Await pathology results. - Telephone my office for pathology results in 1 week. Procedure Code(s): --- Professional --- 50616, Esophagogastroduodenoscopy, flexible, transoral; with biopsy, single or multiple Diagnosis Code(s): --- Professional --- K31.89, Other diseases of stomach and duodenum CPT copyright 2017 [employer]. All rights reserved. The codes documented in this report are preliminary and upon preschool paraprofessional review may be revised to meet current compliance requirements. Jorge Elliott MD 11/27/2021 7:04:13 AM This report has been signed electronically. Number of Addenda: 0 Note Initiated On: 11/27/2021 6:15 AM
[2021-11-27 07:05] VITALS: BP 113/65; BP 128/73; PULSE 56; RESP 14; TEMP 36.5; O2SAT 99
--- NOTE | 2021-11-27 07:05 | OP.CCLET_ITS ---
11/27/2021 Ana Wilburn [address] [place] [address] Re : Upper GI endoscopy procedure for Juan Diego Dia Dear Dr. Wilburn This procedure was performed on Saturday, November 27, 2021. My impressions and recommendations are as follows: Impressions : - Normal esophagus. - Normal mid esophagus. Biopsied. - Z-line regular, 40 cm from the incisors. Biopsied. - Erythematous mucosa in the antrum. Biopsied. - Normal examined duodenum. Biopsied. Recommendations : - Discharge patient to home. - Resume previous diet. - Continue present medications. - Await pathology results. - Telephone my office for pathology results in 1 week. My findings are described in the full procedure note, which is enclosed. If I can be of further assistance, please feel free to contact me at Doctor phone number(s): Work: . Sincerely, Jorge Elliott MD 11/27/2021 7:04:13 AM This report has been signed electronically.
--- NOTE | 2021-11-27 07:08 | OP.COLON_ITS ---
Patient Name: Juan Diego Alvares Procedure Date: 11/27/2021 6:40 AM Date of : 1945 Age: 76 Procedure: Colonoscopy Indications: Clinically significant diarrhea of unexplained origin Providers: Jorge Elliott MD Referring MD: Jorge Elliott MD Medicines: See the Anesthesia note for documentation of the administered medications Patient Profile: Last Colonoscopy: none. The patient's first colonoscopy is today. Complications: No immediate complications. Procedure: Pre-Anesthesia Assessment: - Prior to the procedure, a History and Physical was performed, and patient medications and allergies were reviewed. The patient's tolerance of previous anesthesia was also reviewed. The risks and benefits of the procedure and the sedation options and risks were discussed with the patient. All questions were answered, and informed consent was obtained. Prior Anticoagulants: The patient has taken no previous anticoagulant or antiplatelet agents. ASA Grade Assessment: III - A patient with severe systemic disease. After reviewing the risks and benefits, the patient was deemed in satisfactory condition to undergo the procedure. After I obtained informed consent, the scope was passed under direct vision. Throughout the procedure, the patient's blood pressure, pulse, and oxygen saturations were monitored continuously. The Colonoscope was introduced through the anus and advanced to the cecum, identified by appendiceal orifice and ileocecal valve. The colonoscopy was performed without difficulty. The patient tolerated the procedure well. The quality of the bowel preparation was good. The ileocecal valve and the appendiceal orifice were photographed. Scope In: 6:42:02 AM Scope Withdrawal Time 0 hours 8 minutes 38 seconds Scope Out: 6:58:35 AM Total Procedure Duration Time 0 hours 16 minutes 33 seconds Findings: The digital rectal exam findings include non-thrombosed external hemorrhoids, non-thrombosed internal hemorrhoids, internal hemorrhoids that prolapse with straining, but spontaneously regress to the resting position (Grade II) and enlarged prostate. The colon (entire examined portion) appeared normal. Biopsies for histology were taken with a cold forceps from the entire colon for evaluation of microscopic colitis. Impression: - Non-thrombosed external hemorrhoids, non-thrombosed internal hemorrhoids, internal hemorrhoids that prolapse with straining, but spontaneously regress to the resting position (Grade II) and enlarged prostate found on digital rectal exam. - The entire examined colon is normal. Biopsied. Recommendation: - Discharge patient to home. - Resume previous diet. - Continue present medications. - Repeat colonoscopy in 10 years for screening purposes. - Telephone my office for pathology results in 1 week. Procedure Code(s): --- Professional --- 04140, Colonoscopy, flexible; with biopsy, single or multiple Diagnosis Code(s): --- Professional --- K64.1, Second degree hemorrhoids K64.4, Residual hemorrhoidal skin tags R19.7, Diarrhea, unspecified N40.0, Benign prostatic hyperplasia without lower urinary tract symptoms CPT copyright 2017 [employer]. All rights reserved. The codes documented in this report are preliminary and upon medical photographer review may be revised to meet current compliance requirements. Jorge Elliott MD 11/27/2021 7:07:50 AM This report has been signed electronically. Number of Addenda: 0 Note Initiated On: 11/27/2021 6:40 AM
--- NOTE | 2021-11-27 07:09 | OP.CCLET_ITS ---
11/27/2021 Ana Wilburn [place] [id number] [address] Re : Colonoscopy procedure for Juan Diego Alvares Dear Dr. Wilburn This procedure was performed on Saturday, November 27, 2021. My impressions and recommendations are as follows: Impressions : - Non-thrombosed external hemorrhoids, non-thrombosed internal hemorrhoids, internal hemorrhoids that prolapse with straining, but spontaneously regress to the resting position (Grade II) and enlarged prostate found on digital rectal exam. - The entire examined colon is normal. Biopsied. Recommendations : - Discharge patient to home. - Resume previous diet. - Continue present medications. - Repeat colonoscopy in 10 years for screening purposes. - Telephone my office for pathology results in 1 week. My findings are described in the full procedure note, which is enclosed. If I can be of further assistance, please feel free to contact me at Doctor phone number(s): Work: . Sincerely, Jorge Elliott MD 11/27/2021 7:07:50 AM This report has been signed electronically.
[2021-11-27 07:10] VITALS: BP 114/62; BP 128/73; PULSE 58; RESP 14; O2SAT 99
[2021-11-27 07:15] VITALS: BP 112/69; BP 128/73; PULSE 61; RESP 14; O2SAT 99
[2021-11-27 07:21] VITALS: BP 123/67; BP 128/73; PULSE 74; RESP 16; TEMP 36.4; O2SAT 99
[2021-11-27 08:20] VITALS: BP 113/70; BP 128/73; PULSE 56; RESP 16; TEMP 36.7; O2SAT 97
== END 2021-11-27 23:59 | disposition home or self-care (01) ==
LOC: EN 05:33 → AC 05:37
PROVIDERS: PCP Family Medicine; Referring Provider Surgery; Visit Provider Surgery
PROC: 0DJD8ZZ Inspection of Lower Intestinal Tract, Via Natural or Artificial Opening Endoscopic (ICD-10-PCS; CPT 45378; principal; 2021-11-27 06:25)
DX: K52.832 Lymphocytic colitis (principal); K29.80 Duodenitis without bleeding; K29.50 Unspecified chronic gastritis without bleeding; R63.4 Abnormal weight loss; Z68.23 Body mass index [BMI] 23.0-23.9, adult; K21.9 Gastro-esophageal reflux disease without esophagitis; K64.1 Second degree hemorrhoids; K64.4 Residual hemorrhoidal skin tags; I10 Essential (primary) hypertension; E78.5 Hyperlipidemia, unspecified; N40.0 Benign prostatic hyperplasia without lower urinary tract symptoms; G47.33 Obstructive sleep apnea (adult) (pediatric); Z79.899 Other long term (current) drug therapy
CPT/HCPCS: 45380; 43239; 84132; 87426; 88305; 88313; 88342; J7040; J7120; J2405; J3475

== ENCOUNTER 2021-11-29 09:32 | Emergency (ER) | payer MEDICARE, SELFPAY ==
[2021-11-29 09:33] VITALS: BP 139/70; PULSE 66; RESP 18; TEMP 36.4; O2SAT 95; BMI 21.9
[2021-11-29] MEDS: 0.9% Normal Saline 1,000 ML 999 ML IV (10:24)
[2021-11-29 10:42] LABS: Absolute Lymphocyte Count 2.36 X10^3/uL (0.83-4.51); Absolute Neutrophil Count 5.9 X10^3/uL (2.0-7.7); Basophil# 0.03 X10^3/uL; Basophil% 0.3 % (0-1); Eosinophil# 0.08 X10^3/uL; Eosinophils% 0.9 % (0-5); Hematocrit 33.1 % (40-54); Hemoglobin 11.1 g/dL (13.0-16.5); Lymphocyte # 2.36 X10^3/ul (0.83-4.51); Lymphocyte % 26.5 % (19-41); Mean Corp Hgb Conc 33.5 g/dL (32-36); Mean Corpuscular Hgb 30.9 pg (27.0-32.0); Mean Corpuscular Volume 92.2 fL (80-94); Mean Platelet Vol. 10.2 fl (6.2-12.0); Monocyte# 0.52 X10^3/uL; Monocyte% 5.8 % (0-10); NRBC Flagged by Analyzer 0 % (0-5); Neutrophil # 5.88 X10^3/uL (2.7-7.7); Neutrophil % 66.3 % (47-70); Platelet Count 205 K/mm3 (150-450); RBC Distribution Width CV 13.4 % (11.6-14.6); RBC Distribution Width SD 45.9 fl (35.1-43.9); Red Blood Count 3.59 M/mm3 (4.6-6.2); White Blood Count 8.9 K/mm3 (4.4-11.0)
--- NOTE | 2021-11-29 10:49 | EDS_ITS ---
HPI History of Present Illness Chief Complaint: General Illness Informant: patient and family Narrative Narrative: Patient is a 76-year-old male with history of recurrent diarrhea over the past 3 weeks with subsequent hypokalemia and hypomagnesium. On Tuesday, 2 da ys ago, he had an EGD and colonoscopy with Dr. Elliott. Dr. 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 He had a post anesthesia urinary retention and a Azul catheter was placed. He received magnesium and normal saline during and before his procedure. Family notes that he is continued to have diarrhea which has been typical but his urine output has decreased and his urine has been much darker. They are concern for subsequent dehydration with his continued diarrhea. Last episode of diarrhea was last night and was like lemonade. Per the patient he has had negative stool studies. He denies any abdominal pain, lightheadedness or fatigue. He was able to keep down an Ensure this morning without any further diarrhea. Patient is on 60 mEq of potassium daily. Not currently on any magnesium supplementation. [facility] Medical History Acute appendicitis Acute viral syndrome ADHD Benign hypertension Broken back Cancer Cardiology follow-up encounter CPAP (continuous positive airway pressure) dependence Diastasis, muscle Excessive bleeding Exposure to tobacco smoke at work Gastric reflux High cholesterol History of rheumatic fever History of stress test HTN (hypertension) Hyperlipidemia Hypoxia Inguinal hernia of right side without obstruction or gangrene Non-smoker ANTIONE (obstructive sleep apnea) Right lower quadrant abdominal pain Sleep apnea Home Medications hydrochlorothiazide 25 mg PO DAILY 10/24/13 [History Last Taken Unknown] atenolol 25 mg PO DAILY 12/23/14 [History Last Taken 11/27/21 04:30] pravastatin 20 mg PO DAILY 12/23/14 [History Last Taken Unknown] omeprazole 20 mg PO BID #60 tablet. 07/18/18 [Rx Last Taken Unknown] potassium chloride 10 mEq capsule,extended release 20 meq PO TID cap 11/24/21 [History Last Taken Unknown] tamsulosin 0.4 mg capsule 0.4 mg PO DAILY 11/27/21 [History Last Taken Unknown] Allergy/AdvReac Type Severity Reaction Status Date / Time No Known Allergies Allergy Verified 11/27/21 15:52 Surgical History History of cardiac catheterization History of laparoscopic appendectomy History of tonsillectomy Social History Smoking Status: Never smoker alcohol intake: never substance use type: does not use ROS ROS ED Constitutional Constitutional ED: Reports weight loss; Denies chills or fever(s) Eyes Eyes: Denies change in vision ENT ENT ED: Denies rhinorrhea or sore throat Cardiovascular Cardiovascular: Denies chest pain or palpitations Respiratory/Chest Respiratory/Chest: Denies dyspnea Gastrointestinal Gastrointestinal: Reports diarrhea; Denies abdominal pain, melena, nausea or vomiting Genitourinary Genitourinary ED: Reports other Details: Decreased urine output ; Denies dysuria or hematuria Musculoskeletal Musculoskeletal: Denies arthralgias or myalgias Integumentary Denies rash Neurologic Neurologic: Denies headache(s), paresthesias or weakness EXAM Physical Exam Const Vital Signs: 11/29/21 09:33 11/29/21 10:46 11/29/21 12:28 Temperature 97.6 F L Temperature Source Temporal Pulse Rate 66 62 Respiratory Rate 18 18 Respiratory Effort Normal Non-Labored Respiratory Pattern Normal Blood Pressure 139/70 H 118/75 Blood Pressure Mean 93 89 Pulse Ox 95 97 Oxygen Delivery Method Room Air Room Air 11/29/21 14:25 Temperature Temperature Source Pulse Rate 62 Respiratory Rate 20 H Respiratory Effort Respiratory Pattern Blood Pressure 123/75 H Blood Pressure Mean 91 Pulse Ox 99 Oxygen Delivery Method Room Air Positive well nourished and well developed; Negative for cachectic General Appearance ED: well developed; Negative for cachectic Nutritional Appearance: Negative for cachectic HEENT Reports moist mucous membranes Negative for trauma Eyes PERRL and EOMs intact bilaterally Neck supple and no JVD Chest Wall inspection of chest normal Resp normal respiratory effort and clear to auscultation bilaterally Cardio regular rate, regular rhythm and no murmurs GI normal to inspection, nondistended, normoactive bowel sounds, non-tender and non-distended Palpation: soft Extremity normal to inspection General Extremety ED: Negative for edema or tenderness General Extremity: Negative for edema Neuro oriented x3 Sensorium / Orientation: alert Motor Exam: Negative for general weakness Psych mental status grossly normal Skin no rashes or lesions noted and no wounds MDM MDM MDM Narrative Medical decision making narrative: Patient evaluated for concern of dehydration, decreased urine output and electrode abnormalities. Patient having ongoing diarrhea that is currently under evaluation with general surgery. He is on oral potassium supplements and is received IV magnesium supplements. In the last 24 hours he has had decreased urine output. He admits he is not drinking as much fluid as he should be. Lab work is largely normal. He is hemodynamically stable. His creatinine is baseline elevated at 2.13. Potassium is normal at 3.6 and magnesium is normal at 1.6 but it is downtrending. Patient is given a total of 2 L of IV fluid in the ER with improvement of his urine output as well as IV magnesium replacement. He is given referral for GI and encouraged to continue to follow-up with Dr. Elliott. Spoke with the patient and his son and he does not meet inpatient criteria at this time. They verbalized agreement understand this plan. Patient is given return precaution. His abdomen is soft and nontender I do not think emergent CT imaging is indicated at this time. He is counseled at length on the importance of keeping up his oral intake to help combat GI loss. Lab Data Labs: Laboratory Results - last 24 hr 11/29/21 11/29/21 10:25 10:25 WBC 8.9 RBC 3.59 L Hgb 11.1 L Hct 33.1 L MCV 92.2 MCH 30.9 MCHC 33.5 RDW Std Deviation 45.9 H RDW Coeff of Moiz 13.4 Plt Count 205 MPV 10.2 Immature Gran % (Auto) 0.200 Neut % (Auto) 66.3 Lymph % (Auto) 26.5 [place] % (Auto) 5.8 Eos % (Auto) 0.9 Baso % (Auto) 0.3 Absolute Neuts (auto) 5.9 Absolute Lymphs (auto) 2.36 Nucleated RBC % 0 Sodium 139 Potassium 3.6 Chloride 107 Carbon Dioxide 25.0 Anion Gap 7 BUN 22 H Creatinine 2.13 H Estim Creat Clear Calc 23.47 Est GFR (MDRD) Af Amer 39 L Est GFR (MDRD) Non-Af 32 L BUN/Creatinine Ratio 10.3 Glucose 95 Calcium 8.7 Magnesium 1.6 Discharge Plan Triage Chief Complaint: General Illness ED Provider: Tianna Gonsales Dx/Rx/DC Orders Clinical Impression: Diarrhea Instructions: ED Diarrhea, Unknown Cause Prescriptions: No Action tamsulosin [Flomax] 0.4 mg capsule 0.4 mg PO DAILY RF: 0 hydrochlorothiazide 25 MG tablet 25 mg PO DAILY RF: 0 atenolol 25 MG tablet 25 mg PO DAILY RF: 0 pravastatin 20 MG tablet 20 mg PO DAILY RF: 0 omeprazole 20 MG tablet,delayed release (DR/EC) 20 mg PO BID Qty: 60 RF: 0 potassium chloride 10 mEq capsule, extended release 20 meq PO TID RF: 0 Primary Care Provider: Ana Wilburn Referrals: Ana Wilburn MD [Primary Care Provider] - Forrest Almanzar DO [STAFF PHYSICIAN] - Activity Restrictions/Additional Instructions: Your potassium today was 3.6. Your magnesium 1.6. You were given magnesium replacement. Please continue to follow-up with Dr. Elliott for this diarrhea. You have been given information for GI doctor, Dr. Almanzar to follow-up with as needed. Disposition Disposition: Home, Self Care Discharge Date/Time: 11/29/21 15:43
[2021-11-29 11:04] LABS: Anion Gap 7 (5-15); BUN 22 mg/dL (7-18); BUN/Creat Ratio 10.3 RATIO (10-20); Calcium,Total 8.7 mg/dL (8.5-10.1); Chloride 107 mmol/L (98-107); Creatinine, Serum 2.13 mg/dL (0.70-1.30); EST Glomerular Filtration Rate 32 mL/min (>60); Est Glom Filt Rate - Afr Amer 39 mL/min (>60); Estimated Creatinine Clearance 23.47 ml/min; Glucose 95 mg/dL (74-106); Magnesium 1.6 mg/dL (1.6-2.6); Potassium 3.6 mmol/L (3.5-5.1); Sodium Level 139 mmol/L (136-145)
[2021-11-29 12:28] VITALS: BP 118/75; PULSE 62; RESP 18; O2SAT 97
[2021-11-29 14:25] VITALS: BP 123/75; PULSE 62; RESP 20; O2SAT 99
== END 2021-11-29 15:43 | disposition home or self-care (01) ==
PROVIDERS: Emergency Provider Emergency Medicine; PCP Family Medicine; Visit Provider Emergency Medicine
DX: R19.7 Diarrhea, unspecified (principal); I10 Essential (primary) hypertension; E78.00 Pure hypercholesterolemia, unspecified; E78.5 Hyperlipidemia, unspecified; F90.9 Attention-deficit hyperactivity disorder, unspecified type; K21.9 Gastro-esophageal reflux disease without esophagitis; G47.30 Sleep apnea, unspecified; Z79.899 Other long term (current) drug therapy
CPT/HCPCS: 80048; 83735; 85025; 96360; 96361; 99282; J7030; J7040; A4216

== ENCOUNTER 2021-12-08 15:00 | Inpatient (IN) | payer MEDICARE, SELFPAY ==
[2021-12-08 15:01] VITALS: BP 133/74; PULSE 67; RESP 15; TEMP 36.3; O2SAT 98; BMI 21.9
[2021-12-08 15:03] VITALS: BP 133/74; PULSE 67; RESP 15; TEMP 36.3; O2SAT 98
--- NOTE | 2021-12-08 15:19 | ED.VIS.GI ---
HPI HPI - GI History of Present Illness Chief Complaint: Diarrhea Informant: patient, family and PCP (General surgeon called in prior to arrival) Abdominal Pain/Flank Pain Onset: Days Context: Sudden Onset Timing: Intermittent Quality: - (Fullness) Location: Diffuse Current Severity: Gone Maximum Severity: Mild Worsened by: Nothing Relieved by: Nothing Nausea/Vomiting/Emesis GI Symptom: Negative for Nausea and Vomiting Diarrhea/Melena/Hematochezia GI Symptom: Positive for Diarrhea (8 loose stools today and many yesterday) Stool Quality: Positive for Loose and Watery; Negative for Mucous, Black, Maroon and BRB per rectum Associated Symptoms Associated Symptoms: Negative for Dysuria, Frequency, Hematuria and Urgency LMP: Not applicable Narrative Narrative: Patient is a 76-year-old male with history of lymphocytic colitis who has lost 15 to 20 pounds since November 10 not July. He has had issues with hypokalemia and hypomagnesemia due to the profuse diarrhea. He was scoped 1.5 weeks ago, EGD and colonoscopy. He carries diagnosis of lymphocytic colitis. He is presently on budesonide. He is still having diarrhea. He complains of mild generalized weakness. Does report dry tongue and thirst. He denies dark urine this past several days. Had dark urine a month ago. He denies history of liver disease. He denies fever, chills night sweats. He denies HEENT, cardiac or respiratory symptoms. Prior similar symptoms: Yes Recent Illness/Hospitalization: No [facility] Medical History Acute appendicitis Acute viral syndrome ADHD Benign hypertension Broken back Cancer Cardiology follow-up encounter CPAP (continuous positive airway pressure) dependence Diastasis, muscle Eosinophilic esophagitis Excessive bleeding Exposure to tobacco smoke at work Gastric reflux High cholesterol History of rheumatic fever History of stress test HTN (hypertension) Hyperlipidemia Hypoxia Inguinal hernia of right side without obstruction or gangrene Non-smoker ANTIONE (obstructive sleep apnea) Right lower quadrant abdominal pain Sleep apnea Home Medications hydrochlorothiazide 25 mg PO DAILY 10/24/13 [History Last Taken Unknown] atenolol 25 mg PO DAILY 12/23/14 [History Last Taken 11/27/21 04:30] pravastatin 20 mg PO DAILY 12/23/14 [History Last Taken Unknown] omeprazole 20 mg PO BID #60 tablet. 07/18/18 [Rx Last Taken Unknown] potassium chloride 10 mEq capsule,extended release 20 meq PO TID cap 11/24/21 [History Last Taken Unknown] tamsulosin 0.4 mg capsule 0.4 mg PO DAILY 11/27/21 [History Last Taken Unknown] budesonide 9 mg tablet,delayed and extended release 9 mg PO DAILY #60 ea 12/02/21 [Rx Last Taken Unknown] Allergy/AdvReac Type Severity Reaction Status Date / Time No Known Allergies Allergy Verified 12/02/21 16:25 Family History (Updated 12/08/21 @ 16:22 by Emma Rodriguez NP, [employer]) Mother Hypertension Father , at age 61 secondary to brain tumor Cancer Surgical History History of cardiac catheterization History of laparoscopic appendectomy History of tonsillectomy Social History household members: none Smoking Status: Never smoker alcohol intake: never substance use type: does not use ROS ROS ED Constitutional Constitutional ED: Reports weight loss; Denies chills, fever(s), subjective or sweats ENT ENT ED: Denies ear pain, rhinorrhea or sore throat Cardiovascular Cardiovascular: Denies chest pain, palpitations or racing heartbeat Respiratory/Chest Respiratory/Chest: Denies cough, dyspnea or dyspnea on exertion Gastrointestinal Gastrointestinal: Reports abdominal pain and diarrhea; Denies constipation, melena, nausea or vomiting Genitourinary Genitourinary ED: Denies dysuria, hematuria or urinary frequency Musculoskeletal Musculoskeletal: Denies arthralgias, myalgias or neck pain Integumentary Denies rash Neurologic Neurologic: Reports weakness; Denies headache(s) or paresthesias Endocrine Endocrinology: Denies polydipsia, polyphagia or polyuria Hematologic/Lymphatic Hematologic/Lymphatic: Denies anemia, easy bleeding, easy bruising or lymphadenopathy EXAM Physical Exam Const Vital Signs: 12/08/21 15:01 12/08/21 15:03 12/08/21 16:10 Temperature 97.4 F L 97.4 F L 97.4 F L Temperature Source Temporal Temporal Temporal Pulse Rate 67 67 67 Respiratory Rate 15 15 15 Blood Pressure 133/74 H 133/74 H 133/74 H Blood Pressure Mean 93 93 93 Pulse Ox 98 98 98 Oxygen Delivery Method Room Air Room Air Room Air Positive well nourished and well developed General Appearance ED: well developed and NAD; Negative for pallor HEENT Reports dry mucous membranes HEENT Narrative: Nares patent. Uvula midline. No erythema or exudate posterior pharynx. Ears normal. normocephalic and atraumatic Mouth ED: Yes dry mucous membranes Mouth: dry mucous membranes Eyes PERRL and EOMs intact bilaterally General Eye ED: Negative for pale conjunctiva or scleral icterus Neck no lymphadenopathy, supple and no JVD Resp normal respiratory effort and clear to auscultation bilaterally Cardio regular rate, regular rhythm, S1 normal heart sound and no murmurs GI non-tender and no masses; Negative for non-distended Inspection: abdominal distention Auscultation: hypoactive bowel sounds; Negative for normoactive bowel sounds Palpation: soft; Negative for hepatomegaly or splenomegaly Back/Spine no CVA tenderness Thoracic Spine / Upper Back: Negative for thoracic spinal tenderness Lumbar Spine / Lower Back: Negative for lumbar spinal tenderness Extremity full ROM General Extremety ED: Negative for edema or tenderness General Extremity: Negative for edema Neuro CN's II-XII intact bilaterally and no sensory deficits noted Sensorium / Orientation: alert and oriented to person Motor Exam: strength 5/5 throughout Psych mental status grossly normal and thought process normal Skin no wounds Skin Narrative: Question of slight yellow tinge to skin versus patient's normal skin color. General Skin Exam: Negative for jaundice or pallor Lesions: no lesions Rashes: no rashes MDM MDM MDM Narrative Medical decision making narrative: Dr. Almanzar was contacted regarding starting octreotide as far as dose. With history of hypokalemia and hypomagnesemia electrolyte panel was obtained as well as magnesium. Clinically patient is dehydrated. IV fluids were started. Once laboratory results are back we will contact hospitalist since hospitalist was notified prior to patient's arrival by Dr. Jorge Elliott. Dr. Almanzar was paged. His nurse called back. Patient was started on octreotide. He also received magnesium since he has hypomagnesemia. Creatinine is elevated. His creatinine is slightly lower than baseline. Lab Data Attestation: I reviewed the patient's lab results. Labs: Laboratory Results - last 24 hr 12/08/21 12/08/21 12/08/21 15:40 15:40 15:40 WBC 10.2 RBC 3.46 L Hgb 11.0 L Hct 31.4 L MCV 90.8 MCH 31.8 MCHC 35.0 RDW Std Deviation 42.3 RDW Coeff of Moiz 12.9 Plt Count 259 MPV 10.5 Immature Gran % (Auto) 0.400 Neut % (Auto) 61.5 Lymph % (Auto) 29.3 [place] % (Auto) 7.7 Eos % (Auto) 0.7 Baso % (Auto) 0.4 Absolute Neuts (auto) 6.3 Absolute Lymphs (auto) 2.98 Nucleated RBC % 0 Sodium 135 L Potassium 3.6 Chloride 101 Carbon Dioxide 27.0 Anion Gap 7 BUN 21 H Creatinine 1.87 H Estim Creat Clear Calc 26.74 Est GFR (MDRD) Af Amer 45 L Est GFR (MDRD) Non-Af 37 L BUN/Creatinine Ratio 11.2 Glucose 87 Lactic Acid 1.3 Calcium 8.9 Magnesium 1.5 L Discharge Plan Triage Chief Complaint: Diarrhea ED Provider: Chevy Mendes Dx/Rx/DC Orders Clinical Impression: Lymphocytic colitis, Hypomagnesemia, Unintentional weight loss of 10% body weight within 6 months Prescriptions: No Action tamsulosin [Flomax] 0.4 mg capsule 0.4 mg PO DAILY RF: 0 hydrochlorothiazide 25 MG tablet 25 mg PO DAILY RF: 0 atenolol 25 MG tablet 25 mg PO DAILY RF: 0 pravastatin 20 MG tablet 20 mg PO DAILY RF: 0 omeprazole 20 MG tablet,delayed release (DR/EC) 20 mg PO BID Qty: 60 RF: 0 potassium chloride 10 mEq capsule, extended release 20 meq PO TID RF: 0 budesonide 9 mg tablet,delayed and ext.release 9 mg PO DAILY Qty: 60 RF: 0 Primary Care Provider: Ana Wilburn Referrals: Ana Wilburn MD [Primary Care Provider] - Disposition Disposition: Acute Care Hospital [facility]
[2021-12-08] MEDS: 0.9% Normal Saline 1,000 ML 125 ML IV (15:39)
[2021-12-08 15:51] LABS: Absolute Lymphocyte Count 2.98 X10^3/uL (0.83-4.51); Absolute Neutrophil Count 6.3 X10^3/uL (2.0-7.7); Basophil# 0.04 X10^3/uL; Basophil% 0.4 % (0-1); Eosinophil# 0.07 X10^3/uL; Eosinophils% 0.7 % (0-5); Hematocrit 31.4 % (40-54); Lymphocyte # 2.98 X10^3/ul (0.83-4.51); Lymphocyte % 29.3 % (19-41); Mean Corpuscular Hgb 31.8 pg (27.0-32.0); Mean Corpuscular Volume 90.8 fL (80-94); Mean Platelet Vol. 10.5 fl (6.2-12.0); Monocyte# 0.78 X10^3/uL; Monocyte% 7.7 % (0-10); NRBC Flagged by Analyzer 0 % (0-5); Neutrophil # 6.25 X10^3/uL (2.7-7.7); Neutrophil % 61.5 % (47-70); Platelet Count 259 K/mm3 (150-450); RBC Distribution Width CV 12.9 % (11.6-14.6); RBC Distribution Width SD 42.3 fl (35.1-43.9); Red Blood Count 3.46 M/mm3 (4.6-6.2); White Blood Count 10.2 K/mm3 (4.4-11.0)
[2021-12-08 16:01] LABS: Anion Gap 7 (5-15); BUN 21 mg/dL (7-18); BUN/Creat Ratio 11.2 RATIO (10-20); Calcium,Total 8.9 mg/dL (8.5-10.1); Chloride 101 mmol/L (98-107); Creatinine, Serum 1.87 mg/dL (0.70-1.30); EST Glomerular Filtration Rate 37 mL/min (>60); Est Glom Filt Rate - Afr Amer 45 mL/min (>60); Estimated Creatinine Clearance 26.74 ml/min; Glucose 87 mg/dL (74-106); Magnesium 1.5 mg/dL (1.6-2.6); Potassium 3.6 mmol/L (3.5-5.1); Sodium Level 135 mmol/L (136-145)
[2021-12-08 16:10] VITALS: BP 133/74; PULSE 67; RESP 15; TEMP 36.3; O2SAT 98
--- NOTE | 2021-12-08 16:13 | PCM.HP.STD ---
Documented by User: Emma Rodriguez NP, MEDICAL COLLECTIONS-C 12/08/21 17:28 HPI - General HPI Narrative NICK EASTON, is a 76 M who presents to the emergency room due to intractable diarrhea. He underwent EGD/colonoscopy 11/27/2021 which demonstrated lymphocytic colitis. He has been on budesonide. Patient states after he began budesonide his symptoms improved however last night began to have intractable diarrhea again with 7-8 watery stools overnight as well as nausea without emesis. He reports 15 to 20 pound weight loss since November 10. He reports mild abdominal tenderness. Denies significant abdominal pain. Denies fever, chills. Denies bloody stool. Reports generalized fatigue. Denies other symptoms or complaints. He has a past medical history of ANTIONE on CPAP, hypertension, hyperlipidemia, BPH, squamous cell carcinoma of the hand. [facility] Medical History (Updated 12/08/21 @ 18:[address] Juan Novak, DO) Acute appendicitis Acute viral syndrome ADHD Benign hypertension Broken back Cancer Cardiology follow-up encounter COVID-19 vaccine dose declined CPAP (continuous positive airway pressure) dependence Diastasis, muscle Eosinophilic esophagitis Excessive bleeding Exposure to tobacco smoke at work Gastric reflux High cholesterol History of rheumatic fever History of stress test HTN (hypertension) Hyperlipidemia Hypoxia Inguinal hernia of right side without obstruction or gangrene Lymphocytic colitis Non-smoker ANTIONE (obstructive sleep apnea) Right lower quadrant abdominal pain Sleep apnea Home Medications hydrochlorothiazide 25 mg PO DAILY 10/24/13 [History Last Taken 12/08/21] atenolol 25 mg PO DAILY 12/23/14 [History Last Taken 12/08/21] pravastatin 20 mg PO DAILY 12/23/14 [History Last Taken 12/08/21] omeprazole 20 mg PO BID #60 tablet. 07/18/18 [Rx Last Taken 12/08/21] tamsulosin 0.4 mg capsule 0.4 mg PO DAILY 11/27/21 [History Last Taken 12/08/21] budesonide 9 mg PO DAILY@1200 12/08/21 [History Last Taken 12/08/21] potassium chloride 20 meq PO TID 12/08/21 [History Last Taken 12/08/21] Allergy/AdvReac Type Severity Reaction Status Date / Time No Known Allergies Allergy Verified 12/02/21 16:25 Family History Mother Hypertension Father , at age 61 secondary to brain tumor Cancer Surgical History History of cardiac catheterization History of laparoscopic appendectomy History of tonsillectomy Social History household members: none Smoking Status: Never smoker alcohol intake: never substance use type: does not use ROS Constitutional Constitutional: Reports change in weight and fatigue; Denies chills, fever(s) or weakness Cardiovascular Cardiovascular: Denies chest pain, edema, lightheadedness, palpitations or syncope Respiratory/Chest Respiratory/Chest: Denies cough, dyspnea, productive cough, shortness of breath at rest, shortness of breath with exertion or wheezing Gastrointestinal Gastrointestinal: Reports diarrhea, nausea and other Details: mild abdominal tenderness ; Denies constipation or vomiting Genitourinary Genitourinary: Denies burning urination, difficulty urinating, dysuria, hematuria, urinary frequency, urinary incontinence or urinary urgency Musculoskeletal Musculoskeletal: Denies back pain, joint pain or muscle weakness Integumentary Integumentary: Denies erythema, lesions, rash or wounds Neurologic Neurologic: Denies abnormal speech, confusion, dizziness, focal weakness, numbness, paresthesias, seizure-like activity or syncope Psychiatric Psychiatric: Denies anxiety or depression Hematologic/Lymphatic Hematologic/Lymphatic: Denies anemia, easy bleeding or easy bruising Allergic/Immunologic Allergic/Immunologic: Denies hives or asthma Vital Signs Vital Signs Vital Signs: 12/08/21 15:01 12/08/21 15:03 12/08/21 16:10 Temperature 97.4 F L 97.4 F L 97.4 F L Temperature Source Temporal Temporal Temporal Pulse Rate 67 67 67 Respiratory Rate 15 15 15 Blood Pressure 133/74 H 133/74 H 133/74 H Blood Pressure Mean 93 93 93 Pulse Ox 98 98 98 Oxygen Delivery Method Room Air Room Air Room Air Weight Weight: 128 lb Body Mass Index (BMI) 21.9 Physical Exam Const alert, oriented x3 and no apparent distress Orientation / Consciousness: awake, oriented to person, oriented to place and oriented to time HEENT normocephalic and moist oral mucous membranes Eyes PERRL, EOMs intact bilaterally and conjunctivae normal Neck no lymphadenopathy Resp normal respiratory effort and clear to auscultation bilaterally Cardio regular rate, regular rhythm and no murmurs Peripheral Pulses: pulses 2+ throughout GI normal to inspection, nondistended, normoactive bowel sounds, non-tender and non-distended Extremity normal to inspection Skin no rashes or lesions noted Lesions: no lesions Rashes: no rashes Trauma: no lacerations or abrasions Neuro CN's II-XII intact bilaterally, no focal motor deficits, no sensory deficits noted and deep tendon reflexes 2+ bilaterally Psych mental status grossly normal and affect normal Results Lab / Micro Data Result Diagrams: 12/08/21 15:40 12/08/21 15:40 Labs: Laboratory Results - last 24 hr 12/08/21 15:40: WBC 10.2, RBC 3.46 L, Hgb 11.0 L, Hct 31.4 L, MCV 90.8, MCH 31.8, MCHC 35.0, RDW Std Deviation 42.3, RDW Coeff of Moiz 12.9, Plt Count 259, MPV 10.5, Immature Gran % (Auto) 0.400, Neut % (Auto) 61.5, Lymph % (Auto) 29.3, [place] % (Auto) 7.7, Eos % (Auto) 0.7, Baso % (Auto) 0.4, Absolute Neuts (auto) 6.3, Absolute Lymphs (auto) 2.98, Nucleated RBC % 0 12/08/21 15:40: Sodium 135 L, Potassium 3.6, Chloride 101, Carbon Dioxide 27.0, Anion Gap 7, BUN 21 H, Creatinine 1.87 H, Estim Creat Clear Calc 26.74, Est GFR (MDRD) Af Amer 45 L, Est GFR (MDRD) Non-Af 37 L, BUN/Creatinine Ratio 11.2, Glucose 87, Calcium 8.9, Magnesium 1.5 L Assessment & Plan Assessment/Plan (1) Intractable diarrhea: (2) Lymphocytic colitis: PLAN: 1. Intractable diarrhea secondary to lymphocytic colitis- failed treatment with budesonide. GI consult. Recommends octeotride. IV fluids. As needed antiemetics. 2. Severe protein calorie malnutrition-as evidenced by significant recent weight loss, poor oral intake and GI losses. Dietitian consult. 3. CKD stage IIIb-appears at baseline. Trend BMP. 4. BPH- recent urinary retention following scopes requiring klein, now resolved. Continue Flomax. 5. ANTIONE on CPAP 6. Hypertension-stable, continue atenolol. Hold HCTZ. 7. Hyperlipidemia-continue statin. 8. Squamous cell carcinoma- following with general surgery for excision. DVT prophylaxis-heparin sc This patient was seen by Emma Rodriguez NP-Brandon under the supervision of Dr. Novak. Time spent examining patient, reviewing data and subsequent management of care: 16 Minutes Documented by User: Dr. Juan Novak DO 12/08/21 18:31 HPI - General General Date of Admission: 12/08/21 Date of Service: 12/08/21 Chief Complaint: diarrhea HPI Narrative This is a 68-year-old male presents with diarrhea. Patient has been having diarrhea since November 10. Diagnosed with lymphocytic colitis and started on cholestyramine as well as budesonide. Has been doing well since initiating that therapy about 4 days ago only to have worsening diarrhea last night. This is all began, patient has lost 15 to 20 pounds. Patient was instructed to go to the emergency room for further treatment. Dr. Elliott contacted me about this patient and stated that he spoke with Dr. Almanzar who recommended octreotide drip. Patient went to the emergency room and was noted to have hypomagnesemia and was started on IV fluids as well as an octreotide drip. Patient denies having had this before November. [facility] Medical History (Updated 12/08/21 @ 18:[address] Juan Novak DO) Acute appendicitis Acute viral syndrome ADHD Benign hypertension Broken back Cancer Cardiology follow-up encounter COVID-19 vaccine dose declined CPAP (continuous positive airway pressure) dependence Diastasis, muscle Eosinophilic esophagitis Excessive bleeding Exposure to tobacco smoke at work Gastric reflux High cholesterol History of rheumatic fever History of stress test HTN (hypertension) Hyperlipidemia Hypoxia Inguinal hernia of right side without obstruction or gangrene Lymphocytic colitis Non-smoker ANTIONE (obstructive sleep apnea) Right lower quadrant abdominal pain Sleep apnea Home Medications hydrochlorothiazide 25 mg PO DAILY 10/24/13 [History Last Taken 12/08/21] atenolol 25 mg PO DAILY 12/23/14 [History Last Taken 12/08/21] pravastatin 20 mg PO DAILY 12/23/14 [History Last Taken 12/08/21] omeprazole 20 mg PO BID #60 tablet. 07/18/18 [Rx Last Taken 12/08/21] tamsulosin 0.4 mg capsule 0.4 mg PO DAILY 11/27/21 [History Last Taken 12/08/21] budesonide 9 mg PO DAILY@1200 12/08/21 [History Last Taken 12/08/21] potassium chloride 20 meq PO TID 12/08/21 [History Last Taken 12/08/21] Allergy/AdvReac Type Severity Reaction Status Date / Time No Known Allergies Allergy Verified 12/02/21 16:25 Family History Mother Hypertension Father , at age 61 secondary to brain tumor Cancer Surgical History History of cardiac catheterization History of laparoscopic appendectomy History of tonsillectomy Social History household members: none Smoking Status: Never smoker alcohol intake: never substance use type: does not use ROS ROS Narrative All review of systems were negative except as mentioned above in the history of present illness and the other review of systems. Physical Exam Const alert General Appearance: cooperative Resp normal respiratory effort, no retractions and no use of accessory muscles Cardio regular rate, regular rhythm, S1 normal heart sound and S2 normal heart sound GI normal to inspection, nondistended, normoactive bowel sounds, soft to palpation, non-tender and non-distended Extremity normal to inspection Skin no rashes or lesions noted Neuro Sensorium / Orientation: awake and alert Psych affect normal Results Lab / Micro Data Attestation: I reviewed the patient's lab results. Result Diagrams: 12/08/21 15:40 12/08/21 15:40 Assessment & Plan Assessment/Plan (1) Intractable diarrhea: (2) Lymphocytic colitis: (3) Unintentional weight loss of 10% body weight within 6 months: (4) Hypomagnesemia: (5) Lymphocytic colitis: (6) COVID-19 vaccine dose declined: PLAN: Patient seen and examined independently. Data and vitals reviewed. I agree with the above note by the nurse practitioner. 1. Intractable diarrhea Secondary to lymphocytic colitis Per GI recommendations, patient has been started on octreotide drip in the emergency room and will continue on the floor Additionally, will continue with IV fluids. On November 20, patient was checked for ova and parasites, C. difficile and enteric panel that was all negative UA positive was fecal leukocytes. Fecal leukocytes is likely related with the lymphocytic colitis 2. Lymphocytic colitis Treatment as above Continue budesonide 3. Hypomagnesemia Secondary to diarrhea Replaced in the emergency room 4. BPH After his prior endoscopy, he did require catheter placement temporarily. He does note some urinary frequency and decreased urine output No indication for repeat catheter placement at this time. Though if does become necessary would recommend straight catheterization over Klein catheter placement. Continue tamsulosin 5. COVID-19 vaccine declined Patient has not been vaccinated for COVID-19 nor has he had COVID-19 that he is aware of. Recommended that he do have the COVID-19 vaccine. 6. VTE prophylaxis With subcu heparin 7. CODE STATUS: Addressed with the patient. Patient was to be full CODE STATUS. Greater than 40 minutes of which greater than 50% of time was discussing with the ER physician, Dr. Orosco, discussion with the patient and reviewing data. Charges/Coding Visit Charges Inpatient E&M: 33021 Init Hosp L3
[2021-12-08 16:26] LABS: Lactic Acid 1.3 mmol/L (0.4-1.9)
[2021-12-08] MEDS: Magnesium Sulfate 4gm/100mL 4 GM/100 ML IV.SOLN. IV (17:17)
--- NOTE | 2021-12-08 17:17 | NURSING ---
MED SURG JOJOSH EXAC LYMPHOCYTIC COLITIS, HYPOMAGNESEMIA, UNINTENTIONAL WEIGHT LOSS
[2021-12-08 17:22] VITALS: BP 150/72; PULSE 54; RESP 18; TEMP 36.6; O2SAT 98
[2021-12-08 17:46] LABS: Erythrocyte Sedimentation Rate 9 mm/hr (0-20)
[2021-12-08 18:09] LABS: CRP < 2.90 mg/L (0.0-3.0); LDH 141 U/L (87-241)
--- NOTE | 2021-12-08 18:50 | EX.PCM.CON.G ---
HPI Consult Data Date of Consult: 12/08/21 HPI Narrative HPI Narrative: NICK EASTON, is a 76 M who presents to the ED for evaluation of diarrhea. Patient says that this has been going on for about a month. 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 Patient said that out of the blue 1 day he started having an upset stomach accompanied by watery diarrhea. He denies any sick contacts. He does travel for living. He has not had any recent antibiotics. He had stool testing which was negative for C. difficile and enteric pathogens. He underwent an upper and lower endoscopy. His upper endoscopy did not show any signs of GI bleeding or acute inflammatory process. Also his colonoscopy did not show any acute inflammatory process but it did show biopsy-proven chronic lymphocytic colitis. He was started on empiric budesonide therapy. He says that his diarrhea was improving. However he did come back, this morning. He says his particular pattern is that he can go to the bathroom multiple times in the morning and then he is okay throughout the day. He said the only other change that he has noticed is that he has not been able to urinate. He did see the urologist and he was placed on Flomax with no improvement. Therefore he underwent catheterization for retention of urine. And yesterday he had the catheter removed and he had Flomax increased to twice a day. He has no low pain. He has lost about 12 pounds because of diarrhea. His biochemical analysis did show hypomagnesemia consistent with diarrhea and mild hypokalemia consistent with diarrhea. His biochemical analysis did not show a nongap metabolic acidosis. Previously he was diagnosed with prerenal azotemia with a creatinine of 2.19. Currently his creatinine is down to 1.87. [facility] Medical History (Updated 12/08/21 @ 18:[address] Clayton Friend, DO) Acute appendicitis Acute viral syndrome ADHD Benign hypertension Broken back Cancer Cardiology follow-up encounter COVID-19 vaccine dose declined CPAP (continuous positive airway pressure) dependence Diastasis, muscle Eosinophilic esophagitis Excessive bleeding Exposure to tobacco smoke at work Gastric reflux High cholesterol History of rheumatic fever History of stress test HTN (hypertension) Hyperlipidemia Hypoxia Inguinal hernia of right side without obstruction or gangrene Lymphocytic colitis Non-smoker ANTIONE (obstructive sleep apnea) Right lower quadrant abdominal pain Sleep apnea Home Medications hydrochlorothiazide 25 mg PO DAILY 10/24/13 [History Last Taken 12/08/21] atenolol 25 mg PO DAILY 12/23/14 [History Last Taken 12/08/21] pravastatin 20 mg PO DAILY 12/23/14 [History Last Taken 12/08/21] omeprazole 20 mg PO BID #60 tablet. 07/18/18 [Rx Last Taken 12/08/21] tamsulosin 0.4 mg capsule 0.4 mg PO DAILY 11/27/21 [History Last Taken 12/08/21] budesonide 9 mg PO DAILY@1200 12/08/21 [History Last Taken 12/08/21] potassium chloride 20 meq PO TID 12/08/21 [History Last Taken 12/08/21] Allergy/AdvReac Type Severity Reaction Status Date / Time No Known Allergies Allergy Verified 12/02/21 16:25 Family History Mother Hypertension Father , at age 61 secondary to brain tumor Cancer Surgical History History of cardiac catheterization History of laparoscopic appendectomy History of tonsillectomy Social History household members: none Smoking Status: Never smoker alcohol intake: never substance use type: does not use ROS Gastrointestinal Gastrointestinal: Reports bloating, diarrhea and loose stools Physical Exam Const alert General Appearance: cooperative Orientation / Consciousness: oriented to person HEENT hearing grossly normal bilaterally Head and Scalp: normal to inspection Face and Sinus: face symmetric Nose: external nose normal Mouth: oral and palatal mucosa normal Eyes conjunctivae normal General Eye: normal appearance of both eyes Neck full ROM General: normal visual inspection Lymph Lymphatic: no lymphadenopathy noted Chest inspection of chest normal and palpation of chest normal Chest: symmetrical chest wall rise Resp normal respiratory effort Effort and Inspection: able to speak in complete sentences Cardio regular rate GI non-distended Percussion: normal to percussion Rectal Exam: deferred Neuro Speech: speech normal Gait (Neuro): normal gait Lab / Micro Data Result Diagrams: 12/08/21 15:40 12/08/21 15:40 Labs: Laboratory Results - last 24 hr 12/08/21 15:40: WBC 10.2, RBC 3.46 L, Hgb 11.0 L, Hct 31.4 L, MCV 90.8, MCH 31.8, MCHC 35.0, RDW Std Deviation 42.3, RDW Coeff of Moiz 12.9, Plt Count 259, MPV 10.5, Immature Gran % (Auto) 0.400, Neut % (Auto) 61.5, Lymph % (Auto) 29.3, [place] % (Auto) 7.7, Eos % (Auto) 0.7, Baso % (Auto) 0.4, Absolute Neuts (auto) 6.3, Absolute Lymphs (auto) 2.98, Nucleated RBC % 0 12/08/21 15:40: Sodium 135 L, Potassium 3.6, Chloride 101, Carbon Dioxide 27.0, Anion Gap 7, BUN 21 H, Creatinine 1.87 H, Estim Creat Clear Calc 26.74, Est GFR (MDRD) Af Amer 45 L, Est GFR (MDRD) Non-Af 37 L, BUN/Creatinine Ratio 11.2, Glucose 87, Calcium 8.9, Magnesium 1.5 L 12/08/21 15:40: Lactic Acid 1.3 12/08/21 15:40: ESR 9 12/08/21 15:40: Lactate Dehydrogenase 141, C-React Prot Ext Range < 2.90 12/08/21 16:36: Miscellaneous Test Cancelled Assessment & Plan Assessment/Plan (1) Intractable diarrhea: PLAN: There is a possibility that this is refractory lymphocytic colitis. However it typically does not present as an acute diarrhea. He is typically in the acute phase of near the subacute phase. SIRS more likely infectious diarrhea secondary to a virus, such as [place] virus. The typical bacterial diarrhea that she typically experiences accompanies any nausea and vomiting followed by diarrhea due to the release of toxins. This also could be post infectious diarrhea. Typically postinfectious diarrhea will take about 3 to 6 weeks to resolve with medicine such as cholestyramine. He has any nausea which implies any hypergastrinemia component. I will check a gastrin level along with a chromogranin A and chromogranin b, stool for Giardia as this is an area of subacute phase, I will also check a protein electrophoresis and immunofixation because of his age. I do not suspect that this is a late onset of inflammatory bowel disease involving the small bowel but there is also on the differential diagnosis. I will start him on empiric octreotide as it can binds to somatostatin receptors coupled to phospholipase C through G proteins and leads to smooth muscle contraction in the blood vessels diarrhea. We will hopefully be able to get a dose start him on subcutaneous and octreotide bolus. If this is refractory lymphocytic colitis he may be able to administer Imuran but that takes 4 to 6 weeks to start working versus Remicade. However I think this is the infectious diarrhea. (2) Nausea: PLAN: Patient is here with a PPI drip also as this can also help with his nausea and stopped diarrhea. Charges/Coding Visit Charges Inpatient E&M: 51081 Init Hosp L3
[2021-12-08 19:17] VITALS: BMI 22.7
[2021-12-08 19:20] VITALS: BP 148/73; PULSE 60; RESP 18; TEMP 36.7; O2SAT 100
[2021-12-08 19:29] VITALS: BP 148/73; PULSE 60; RESP 18; TEMP 36.7; O2SAT 100
[2021-12-08] MEDS: Heparin Injection (Vial) 5,000 UNIT/ML VIAL 5000 UNIT SC (21:03)
--- NOTE | 2021-12-08 22:00 | CPS ---
set up pt's own CPAP unit from home.
[2021-12-09] MEDS: 0.9% Normal Saline 1,000 ML 125 ML IV ×3 (00:15→15:57)
[2021-12-09 01:50] VITALS: BP 145/76; PULSE 58; RESP 16; TEMP 36.6; O2SAT 100
[2021-12-09 05:48] LABS: Absolute Lymphocyte Count 2.41 X10^3/uL (0.83-4.51); Absolute Neutrophil Count 3.9 X10^3/uL (2.0-7.7); Basophil# 0.03 X10^3/uL; Basophil% 0.4 % (0-1); Eosinophil# 0.09 X10^3/uL; Eosinophils% 1.3 % (0-5); Hematocrit 27.8 % (40-54); Hemoglobin 9.7 g/dL (13.0-16.5); Lymphocyte # 2.41 X10^3/ul (0.83-4.51); Lymphocyte % 34.5 % (19-41); Mean Corp Hgb Conc 34.9 g/dL (32-36); Mean Corpuscular Hgb 31.6 pg (27.0-32.0); Mean Corpuscular Volume 90.6 fL (80-94); Mean Platelet Vol. 10.7 fl (6.2-12.0); Monocyte# 0.52 X10^3/uL; Monocyte% 7.4 % (0-10); NRBC Flagged by Analyzer 0 % (0-5); Neutrophil # 3.91 X10^3/uL (2.7-7.7); Neutrophil % 56.1 % (47-70); Platelet Count 225 K/mm3 (150-450); RBC Distribution Width CV 13.1 % (11.6-14.6); RBC Distribution Width SD 43.5 fl (35.1-43.9); Red Blood Count 3.07 M/mm3 (4.6-6.2)
[2021-12-09 06:16] LABS: Anion Gap 7 (5-15); BUN 19 mg/dL (7-18); Calcium,Total 8.3 mg/dL (8.5-10.1); Chloride 105 mmol/L (98-107); Creatinine, Serum 1.72 mg/dL (0.70-1.30); EST Glomerular Filtration Rate 41 mL/min (>60); Est Glom Filt Rate - Afr Amer 50 mL/min (>60); Estimated Creatinine Clearance 29.64 ml/min; Glucose 117 mg/dL (74-106); Magnesium 2.5 mg/dL (1.6-2.6); Sodium Level 137 mmol/L (136-145)
[2021-12-09 07:46] VITALS: BP 142/74; PULSE 47; RESP 18; TEMP 36.5; O2SAT 100
[2021-12-09] MEDS: Potassium Chloride Oral Tablet 20 MEQ PO (08:19)
[2021-12-09] MEDS: Heparin Injection (Vial) 5,000 UNIT/ML VIAL 5000 UNIT SC ×2 (08:19→20:46)
[2021-12-09] MEDS: Tamsulosin HCl 0.4 MG Capsule PO ×2 (08:19→13:29)
--- NOTE | 2021-12-09 09:35 | CASEMGMT ---
RN CM BELLSTAFF CM to room to meet with patient for initial transition planning/care coordination assessment. RN MEMO introduced self and role at [facility]. Pt voices understanding and consents to assessment at this time. Pt resting in bed in no distress at this time. Pt is A/O at this time and answers all questions appropriately. Care providers, pharmacy, and demographics verified/updated at this time. PCP: Dr Wilburn Specialists: Dr Manuel Elliott--surgeon, Dr Brooks-urology Preferred Pharmacy: [facility] Retail Insurance: [employer] MCR Prescription Benefit: Yes Living Will/HPOA: Has both LW and HPOA, which are on-file @ [facility]. Pt's son, Taran, is HPOA LNOK: 3 sons: Frankie Chirinos, and Hudson. Taran, is HPOA Living Arrangements: Lives alone in 2-story home. [employer]. 6 steps to enter w/railing. 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 Independent w/ADL's and IADL's. Friend/sig-other, Yasemin, is a retired nurse and states, She makes sure I take my meds and states, she helps w/supper. 3 sons live close and are supportive. Transportation: Pt states drives self and states no transportation concerns at this time. DME: States has the following DME: CPAP, hospital bed (was his 's, who has and pt now uses it) Pt states no need for further DME at this time. HHC/SNF: No hx of SNF. States had HHC in the past after collar bone fx. Denies need for HHC at this time. Pt wishes to return home and states has no concerns with going home at time of discharge. CM to follow for any discharge planning/needs. Pt voices no concerns/needs at this time. Advised pt to ask for CM if any questions/concerns/needs arise. Voices understanding. PLAN: Home w/family and sig other support and discharge plans in place. Sandra BUSBY RN, CM
[2021-12-09] MEDS: Ensure Clear 120 ML Liquid PO ×3 (13:29→20:46)
[2021-12-09 13:58] VITALS: BP 130/69; PULSE 45; RESP 18; TEMP 36.6; O2SAT 100
--- NOTE | 2021-12-09 14:19 | PCM.PN.HOSP ---
Documented by User: Emma Rodriguez [employer], [employer] 12/09/21 14:26 Subjective Subjective Patient seen and examined. Reports improvement in diarrhea. Denies nausea, vomiting, abdominal pain. Denies fever, chills Objective Data Objective Data Vital Signs: Vital Signs Temp Pulse Resp BP Pulse Ox 97.9 F 45 L 18 130/69 H 100 12/09/21 13:58 12/09/21 13:58 12/09/21 13:58 12/09/21 13:58 12/09/21 13:58 Oxygen Delivery Method CPAP Weight: 132 lb 11.2 oz Body Mass Index (BMI) 22.7 Intake & Output: Intake and Output for Last 24 Hours 12/07/21 12/08/21 12/09/21 23:59 23:59 23:59 Intake Total 1100 / 1380 1631 / 1631 Output Total 1000 / 1000 Balance 1100 / 1380 631 / 631 Lab / Micro Data Result Diagrams: 12/09/21 05:17 12/09/21 05:17 Labs: Laboratory Results - last 24 hr 12/08/21 15:40: WBC 10.2, RBC 3.46 L, Hgb 11.0 L, Hct 31.4 L, MCV 90.8, MCH 31.8, MCHC 35.0, RDW Std Deviation 42.3, RDW Coeff of Moiz 12.9, Plt Count 259, MPV 10.5, Immature Gran % (Auto) 0.400, Neut % (Auto) 61.5, Lymph % (Auto) 29.3, [place] % (Auto) 7.7, Eos % (Auto) 0.7, Baso % (Auto) 0.4, Absolute Neuts (auto) 6.3, Absolute Lymphs (auto) 2.98, Nucleated RBC % 0 12/08/21 15:40: Sodium 135 L, Potassium 3.6, Chloride 101, Carbon Dioxide 27.0, Anion Gap 7, BUN 21 H, Creatinine 1.87 H, Estim Creat Clear Calc 26.74, Est GFR (MDRD) Af Amer 45 L, Est GFR (MDRD) Non-Af 37 L, BUN/Creatinine Ratio 11.2, Glucose 87, Calcium 8.9, Magnesium 1.5 L 12/08/21 15:40: Lactic Acid 1.3 12/08/21 15:40: ESR 9 12/08/21 15:40: Lactate Dehydrogenase 141, C-React Prot Ext Range < 2.90 12/08/21 16:36: Miscellaneous Test Cancelled 12/08/21 16:36: Miscellaneous Test Cancelled 12/09/21 05:17: WBC 7.0, RBC 3.07 L, Hgb 9.7 L, Hct 27.8 L, MCV 90.6, MCH 31.6, MCHC 34.9, RDW Std Deviation 43.5, RDW Coeff of Moiz 13.1, Plt Count 225, MPV 10.7, Immature Gran % (Auto) 0.300, Neut % (Auto) 56.1, Lymph % (Auto) 34.5, [place] % (Auto) 7.4, Eos % (Auto) 1.3, Baso % (Auto) 0.4, Absolute Neuts (auto) 3.9, Absolute Lymphs (auto) 2.41, Nucleated RBC % 0 12/09/21 05:17: Sodium 137, Potassium 4.0, Chloride 105, Carbon Dioxide 25.0, Anion Gap 7, BUN 19 H, Creatinine 1.72 H, Estim Creat Clear Calc 29.64, Est GFR (MDRD) Af Amer 50 L, Est GFR (MDRD) Non-Af 41 L, BUN/Creatinine Ratio 11.0, Glucose 117 H, Calcium 8.3 L, Magnesium 2.5 Micro: Microbiology 12/08/21 22:40 Stool Stool Lactoferrin - Final Physical Exam Const alert, oriented x3 and no apparent distress Orientation / Consciousness: awake, oriented to person, oriented to place and oriented to time HEENT normocephalic and moist oral mucous membranes Eyes PERRL, EOMs intact bilaterally and conjunctivae normal Neck no lymphadenopathy Resp normal respiratory effort and clear to auscultation bilaterally Cardio regular rate, regular rhythm and no murmurs Peripheral Pulses: pulses 2+ throughout GI normal to inspection, nondistended, normoactive bowel sounds, non-tender and non-distended Extremity normal to inspection Skin no rashes or lesions noted Lesions: no lesions Rashes: no rashes Trauma: no lacerations or abrasions Neuro CN's II-XII intact bilaterally, no focal motor deficits, no sensory deficits noted and deep tendon reflexes 2+ bilaterally Psych mental status grossly normal and affect normal Assessment & Plan Assessment/Plan (1) Intractable diarrhea: PLAN: 1. Intractable diarrhea secondary to lymphocytic colitis versus infectious diarrhea- failed treatment with budesonide. GI consulted. On octeotride. IV fluids. As needed antiemetics. Further recommendations per GI. 2. Severe protein calorie malnutrition-as evidenced by significant recent weight loss, poor oral intake and GI losses. Dietitian consult. 3. CKD stage IIIb-appears at baseline. Trend BMP. 4. BPH- recent urinary retention following scopes requiring klein, now resolved. Continue Flomax. 5. ANTIONE on CPAP 6. Hypertension-stable, continue atenolol. Hold HCTZ. 7. Hyperlipidemia-continue statin. 8. Squamous cell carcinoma- following with general surgery for excision. DVT prophylaxis-heparin sc This patient was seen by Emma Rodriguez NP-Brandon under the supervision of Dr. Edmonds. Time spent examining patient, reviewing data and subsequent management of care: 12 Minutes Documented by User: Dr. Sumit Edmonds DO 12/09/21 18:18 Objective Data Lab / Micro Data Result Diagrams: 12/09/21 05:17 12/09/21 05:17 Charges/Coding Addendum Addendum: Patient was seen and examined independently of Emma Rodriguez today, he is having problems urinating and he has a post void residual of over 370 cc. I talked with urology concerning this, patient has been following with Dr. Brooks and has had an insertion of 2 Klein catheters in the last few weeks, the last one was removed this week. Urology will see him in consultation in the hospital. Patient states that he is only had 1 bowel movement today, I talked briefly with gastroenterology about his care, gastroenterology does not feel he has lymphocytic colitis. He thinks that he may have diarrhea from resolving infectious colitis. On examination he appeared in good health and spirits. Vital signs as documented. Skin warm and dry and without overt rashes. Neck without JVD, neck was supple, trachea midline, thyroid was normal. Lungs clear bilaterally, normal air movement was noted. Heart exam notable for regular rhythm, normal sounds and absence of murmurs, rubs or gallops. Abdomen unremarkable and without evidence of organomegaly, masses, or abdominal aortic enlargement. Bowel sounds are present, abdomen is not distended. Extremities nonedematous, no cyanosis was noted, no clubbing was noted. Neuro: Cranial nerves II through XII are grossly intact, no focal motor deficits were noted, sensation to light touch and pinprick intact, motor exam 5/5 throughout. Psych: Patient is alert and oriented x3, he does not appear anxious or depressed, he does not appear agitated. Impression: #1 intractable diarrhea-etiology unclear at this point, gastroenterology is seeing the patient, he remains on clear liquids, he remains on a Sandostatin drip and a Protonix drip. I talked with gastroenterology, they stated that in certain cases a Protonix drip would help with the diarrhea. #2 bladder outlet obstruction from benign prostatic hypertrophy-urology will see the patient, he will most likely need a Klein catheter. #3 anemia-etiology unclear at this point, I will obtain iron studies if not already done, I think some of the drop in the patient's hemoglobin may be delusional. #4 hyperlipidemia-patient is currently on pravastatin I have reviewed Emma Rodriguez's progress note including her medical assessment and plan of care and with the above additions endorse it. Total clinical time spent by myself addressing the patient's medical issues, reviewing the patient's medical data, and in collaboration with the patient's care team: 20 minutes Visit Charges Inpatient E&M: 83764 Subs Hosp L2
--- NOTE | 2021-12-09 15:32 | CON.PCM.UR_ITS ---
Assessment & Plan Assessment/Plan (1) BPH with obstruction/lower urinary tract symptoms: PLAN: Continue with Flomax and Proscar hopefully he will need a catheter as possible if he developed retention of urine hold off on the catheter for now continue to monitor his PVRs. Follow-up as an outpatient to consider TURP and cystoscopy prior to this once his diarrhea is resolved. HPI Consult Data Date of Consult: 12/09/21 HPI Narrative HPI Narrative: NICK EASTON, is a 76 M who presents to the hospital with intractable diarrhea he was admitted by the medical service is consulted regarding his BPH problems I did see him in the office for retention of urine after colonoscopy we did remove the catheter but he has been able to urinate but has been going very frequently and not emptying his bladder completely at this point he is on Flomax 0.8 mg daily and also Proscar 5 mg daily. I went recommend a TURP at this point until his diarrhea is resolved. We will try to m anage it without a catheter but if he developed retention of urine he may need a catheter. After discharge with a follow-up in my office and then probably plan for cystoscopy to evaluate the prostate to see if a TURP is necessary. We will also discussed other options of management. [facility] Medical History (Updated 12/09/21 @ 15:[address] Amandeep Brooks MD) Acute appendicitis Acute viral syndrome ADHD Benign hypertension Broken back Cancer Cardiology follow-up encounter COVID-19 vaccine dose declined CPAP (continuous positive airway pressure) dependence Diastasis, muscle Eosinophilic esophagitis Excessive bleeding Exposure to tobacco smoke at work Gastric reflux High cholesterol History of rheumatic fever History of stress test HTN (hypertension) Hyperlipidemia Hypoxia Inguinal hernia of right side without obstruction or gangrene Lymphocytic colitis Non-smoker ANTIONE (obstructive sleep apnea) Right lower quadrant abdominal pain Sleep apnea Home Medications hydrochlorothiazide 25 mg PO DAILY 10/24/13 [History Last Taken 12/08/21] atenolol 25 mg PO DAILY 12/23/14 [History Last Taken 12/08/21] pravastatin 20 mg PO DAILY 12/23/14 [History Last Taken 12/08/21] omeprazole 20 mg PO BID #60 tablet. 07/18/18 [Rx Last Taken 12/08/21] tamsulosin 0.4 mg capsule 0.4 mg PO DAILY 11/27/21 [History Last Taken 12/08/21] budesonide 9 mg PO DAILY@1200 12/08/21 [History Last Taken 12/08/21] potassium chloride 20 meq PO TID 12/08/21 [History Last Taken 12/08/21] Allergy/AdvReac Type Severity Reaction Status Date / Time No Known Allergies Allergy Verified 12/02/21 16:25 Family History Mother Hypertension Father , at age 61 secondary to brain tumor Cancer Surgical History (Updated 12/08/21 @ 19:25 by Mary Sams) History of appendectomy History of cardiac catheterization History of laparoscopic appendectomy History of tonsillectomy Social History household members: none Smoking Status: Never smoker alcohol intake: never substance use type: does not use Physical Exam Const alert and oriented x3 General Appearance: cooperative HEENT normocephalic, head/scalp atraumatic, EAC's normal and TM's normal bilaterally Eyes PERRL and EOMs intact bilaterally Pupil: sluggish Neck no lymphadenopathy, supple and no JVD General: trachea midline Lymph Lymphatic: no lymphadenopathy noted, lymphedema and lymphadenopathy Resp normal respiratory effort, normal air movement and clear to auscultation bilaterally Cardio regular rate, regular rhythm and peripheral pulses 2+ throughout GI soft to palpation, non-tender and non-distended Extremity normal capillary refill and no clubbing, cyanosis or edema General Extremity: no tenderness to palpation of joints or extremities Skin no rashes or lesions noted General Skin Exam: turgor normal Lesions: no lesions Rashes: no rashes Neuro CN's II-XII intact bilaterally Speech: speech normal Motor Exam: strength 5/5 throughout; Negative for general weakness Psych thought process normal, cooperative and affect normal Appearance: appropriate Medical Records Data Medical Nutrition Assessment Dietitian: Malnutrition Criteria Met Start: 12/09/21 15:14 Freq: Status: Active Protocol: Document 12/09/21 15:14 (Rec: 12/09/21 15:14 [id number]) Nutrition Malnutrition Evidence of Malnutrition Exists Yes Malnutrition (moderate): Acute Illness/Injury Evidenced By Suboptimal Energy Intake ( Moderate),Weight Loss (Severe) Clinical Problem Acute Disease or Injury Related Malnutrition Etiology moderate, acute malnutrition r /t inadequate energy intake w/ increased GI output Signs/Symptoms as evidenced by reported unintentional wt loss of 11.3# /8% x 1 month; estimated PO intake meeting<75% of estimated energy needs >7 days Status Active Problem Recommendation Dietitian Recommendations/Changes recommend advance diet as tolerated to transitional; will order 120mL ensure clear 4x/day w/ medpass for additional calories/protein if consumed. Recommend ensure enlive when PO diet is advanced. Lab / Micro Data Result Diagrams: 12/09/21 05:17 12/09/21 05:17 Labs: Laboratory Results - last 24 hr 12/08/21 15:40: WBC 10.2, RBC 3.46 L, Hgb 11.0 L, Hct 31.4 L, MCV 90.8, MCH 31.8, MCHC 35.0, RDW Std Deviation 42.3, RDW Coeff of Moiz 12.9, Plt Count 259, MPV 10.5, Immature Gran % (Auto) 0.400, Neut % (Auto) 61.5, Lymph % (Auto) 29.3, [place] % (Auto) 7.7, Eos % (Auto) 0.7, Baso % (Auto) 0.4, Absolute Neuts (auto) 6.3, Absolute Lymphs (auto) 2.98, Nucleated RBC % 0 12/08/21 15:40: Sodium 135 L, Potassium 3.6, Chloride 101, Carbon Dioxide 27.0, Anion Gap 7, BUN 21 H, Creatinine 1.87 H, Estim Creat Clear Calc 26.74, Est GFR (MDRD) Af Amer 45 L, Est GFR (MDRD) Non-Af 37 L, BUN/Creatinine Ratio 11.2, Glucose 87, Calcium 8.9, Magnesium 1.5 L 12/08/21 15:40: Lactic Acid 1.3 12/08/21 15:40: ESR 9 12/08/21 15:40: Lactate Dehydrogenase 141, C-React Prot Ext Range < 2.90 12/08/21 16:36: Miscellaneous Test Cancelled 12/08/21 16:36: Miscellaneous Test Cancelled 12/09/21 05:17: WBC 7.0, RBC 3.07 L, Hgb 9.7 L, Hct 27.8 L, MCV 90.6, MCH 31.6, MCHC 34.9, RDW Std Deviation 43.5, RDW Coeff of Moiz 13.1, Plt Count 225, MPV 10.7, Immature Gran % (Auto) 0.300, Neut % (Auto) 56.1, Lymph % (Auto) 34.5, [place] % (Auto) 7.4, Eos % (Auto) 1.3, Baso % (Auto) 0.4, Absolute Neuts (auto) 3.9, Absolute Lymphs (auto) 2.41, Nucleated RBC % 0 12/09/21 05:17: Sodium 137, Potassium 4.0, Chloride 105, Carbon Dioxide 25.0, Anion Gap 7, BUN 19 H, Creatinine 1.72 H, Estim Creat Clear Calc 29.64, Est GFR (MDRD) Af Amer 50 L, Est GFR (MDRD) Non-Af 41 L, BUN/Creatinine Ratio 11.0, Glucose 117 H, Calcium 8.3 L, Magnesium 2.5 Micro: Microbiology 12/08/21 22:40 Stool Stool Lactoferrin - Final
[2021-12-09] MEDS: Finasteride 5 MG Tablet PO (15:57)
--- NOTE | 2021-12-09 18:11 | PCM.PROGNOTE ---
Subjective Subjective Patient is doing very well. He is not having any abdominal pain. He has not had any stools today on the octreotide drip and the PPI drip. He was seen by urologist. Objective Data Objective Data Vital Signs: Vital Signs Temp Pulse Resp BP Pulse Ox 97.9 F 45 L 18 130/69 H 100 12/09/21 13:58 12/09/21 13:58 12/09/21 13:58 12/09/21 13:58 12/09/21 13:58 Oxygen Delivery Method CPAP Weight: 132 lb 11.21 oz Body Mass Index (BMI) 22.7 Intake & Output: Intake and Output for Last 24 Hours 12/07/21 12/08/21 12/09/21 23:59 23:59 23:59 Intake Total 1100 / 1380 2673.25 / 2673.25 Output Total 1000 / 1000 Balance 1100 / 1380 1673.25 / 1673.25 Medical Nutrition Assessment Dietitian: Malnutrition Criteria Met Start: 12/09/21 15:14 Freq: Status: Active Protocol: Document 12/09/21 15:14 AG (Rec: 12/09/21 15:14 [id number]) Nutrition Malnutrition Evidence of Malnutrition Exists Yes Malnutrition (moderate): Acute Illness/Injury Evidenced By Suboptimal Energy Intake ( Moderate),Weight Loss (Severe) Clinical Problem Acute Disease or Injury Related Malnutrition Etiology moderate, acute malnutrition r /t inadequate energy intake w/ increased GI output Signs/Symptoms as evidenced by reported unintentional wt loss of 11.3# /8% x 1 month; estimated PO intake meeting<75% of estimated energy needs >7 days Status Active Problem Recommendation Dietitian Recommendations/Changes recommend advance diet as tolerated to transitional; will order 120mL ensure clear 4x/day w/ medpass for additional calories/protein if consumed. Recommend ensure enlive when PO diet is advanced. Lab / Micro Data Result Diagrams: 12/09/21 05:17 12/09/21 05:17 Labs: Laboratory Results - last 24 hr 12/08/21 16:36: Miscellaneous Test Cancelled 12/08/21 16:36: Miscellaneous Test Cancelled 12/09/21 05:17: WBC 7.0, RBC 3.07 L, Hgb 9.7 L, Hct 27.8 L, MCV 90.6, MCH 31.6, MCHC 34.9, RDW Std Deviation 43.5, RDW Coeff of Moiz 13.1, Plt Count 225, MPV 10.7, Immature Gran % (Auto) 0.300, Neut % (Auto) 56.1, Lymph % (Auto) 34.5, [place] % (Auto) 7.4, Eos % (Auto) 1.3, Baso % (Auto) 0.4, Absolute Neuts (auto) 3.9, Absolute Lymphs (auto) 2.41, Nucleated RBC % 0 12/09/21 05:17: Sodium 137, Potassium 4.0, Chloride 105, Carbon Dioxide 25.0, Anion Gap 7, BUN 19 H, Creatinine 1.72 H, Estim Creat Clear Calc 29.64, Est GFR (MDRD) Af Amer 50 L, Est GFR (MDRD) Non-Af 41 L, BUN/Creatinine Ratio 11.0, Glucose 117 H, Calcium 8.3 L, Magnesium 2.5 Micro: Microbiology 12/08/21 22:40 Stool Stool Lactoferrin - Final Physical Exam Const alert General Appearance: cooperative Orientation / Consciousness: oriented to person HEENT hearing grossly normal bilaterally Head and Scalp: normal to inspection Face and Sinus: face symmetric Nose: external nose normal Mouth: oral and palatal mucosa normal Eyes conjunctivae normal General Eye: normal appearance of both eyes Neck full ROM General: normal visual inspection Lymph Lymphatic: no lymphadenopathy noted Chest inspection of chest normal and palpation of chest normal Chest: symmetrical chest wall rise Resp normal respiratory effort Effort and Inspection: able to speak in complete sentences Cardio regular rate GI non-distended Percussion: normal to percussion Rectal Exam: deferred Neuro Speech: speech normal Gait (Neuro): normal gait Assessment & Plan Assessment/Plan (1) Diarrhea: PLAN: I suspect that his diarrhea is postinfectious diarrhea or a functional diarrhea being that his symptoms and presentation are consistent with a infectious diarrhea. I do not think he has current diarrhea at this time secondary to infection because his fecal lactoferrin is normal. Also he is responding very well to PPI drip for his diarrhea. It works by inhibition of gastric secretion. It effectively controls the diarrhea and postprandial urgency associated with IBS or functional diarrhea, probably by diminishing the gastrocolic or gastroenteric reflex. Octreotide for his diarrhea has also been working very well. Octreotide is a drug for the treatment of these patients as it inhibits gastrointestinal motility, pancreatic secretion and inhibits intestinal absorption.it is also used in in the treatment of patients with chemotherapy-induced diarrhea, short-bowel syndrome, AIDS-associated diarrhea and other conditions with chronic diarrhea not responding to standard treatment. I will start him on cholestyramine now that his diarrhea has completely stopped. He will take that twice a day. I am waiting on his gastrin level, 5 HIAA level and also, chromogranin, protein electrophoresis and immunofixation to make sure that there is not a biochemical cause of his diarrhea. (2) Anemia: PLAN: His hemoglobin is down to 9.7. It is possibly dilutional. If his hemoglobin continues to trend down he will need an upper endoscopy. N.p.o. past midnight. Charges/Coding Visit Charges Inpatient E&M: 55341 Subs Hosp L3
[2021-12-09 20:00] VITALS: BP 127/61; PULSE 45; RESP 18; TEMP 36.9; O2SAT 98
[2021-12-09] MEDS: Pravastatin 20 MG Tablet PO (20:46)
[2021-12-10] VITALS (11 sets, daily range): BP systolic 123–183; BP diastolic 63–86; PULSE 40–72; RESP 14–20; TEMP 36.3–36.7; O2SAT 93–100; BMI 22.7
[2021-12-10] MEDS: 0.9% Normal Saline 1,000 ML 125 ML IV ×2 (00:14→08:20)
--- NOTE | 2021-12-10 07:34 | CON.PCM.UR_ITS ---
HPI Consult Data Date of Consult: 12/10/21 HPI Narrative HPI Narrative: NICK EASTON, is a 76 M who presents to the hospital with dehydration diarrhea also has BPH with obstruction he is on Flomax and Proscar yesterday was having difficult time urinating this morning he is doing much better states his flow is easier we hold off on putting the catheter yesterday he does not empty his bladder completely does have elevated postvoid residuals but since he is urinating okay organ to watch for now he can follow-up as an outpatient with me after discharge. [facility] Medical History (Updated 12/09/21 @ 18:[address] Forrest Almanzar, ) Acute appendicitis Acute viral syndrome ADHD Benign hypertension Broken back Cancer Cardiology follow-up encounter COVID-19 vaccine dose declined CPAP (continuous positive airway pressure) dependence Diastasis, muscle Eosinophilic esophagitis Excessive bleeding Exposure to tobacco smoke at work Gastric reflux High cholesterol History of rheumatic fever History of stress test HTN (hypertension) Hyperlipidemia Hypoxia Inguinal hernia of right side without obstruction or gangrene Lymphocytic colitis Non-smoker ANTIONE (obstructive sleep apnea) Right lower quadrant abdominal pain Sleep apnea Home Medications hydrochlorothiazide 25 mg PO DAILY 10/24/13 [History Last Taken 12/08/21] atenolol 25 mg PO DAILY 12/23/14 [History Last Taken 12/08/21] pravastatin 20 mg PO DAILY 12/23/14 [History Last Taken 12/08/21] omeprazole 20 mg PO BID #60 tablet. 07/18/18 [Rx Last Taken 12/08/21] tamsulosin 0.4 mg capsule 0.4 mg PO DAILY 11/27/21 [History Last Taken 12/08/21] budesonide 9 mg PO DAILY@1200 12/08/21 [History Last Taken 12/08/21] potassium chloride 20 meq PO TID 12/08/21 [History Last Taken 12/08/21] Allergy/AdvReac Type Severity Reaction Status Date / Time No Known Allergies Allergy Verified 12/02/21 16:25 Family History Mother Hypertension Father , at age 61 secondary to brain tumor Cancer Surgical History (Updated 12/08/21 @ 19:25 by Mary Sams) History of appendectomy History of cardiac catheterization History of laparoscopic appendectomy History of tonsillectomy Social History household members: none Smoking Status: Never smoker alcohol intake: never substance use type: does not use Medical Records Data Medical Nutrition Assessment Dietitian: Malnutrition Criteria Met Start: 12/09/21 15:14 Freq: Status: Active Protocol: Document 12/09/21 15:14 AG (Rec: 12/09/21 15:14 [id number]) Nutrition Malnutrition Evidence of Malnutrition Exists Yes Malnutrition (moderate): Acute Illness/Injury Evidenced By Suboptimal Energy Intake ( Moderate),Weight Loss (Severe) Clinical Problem Acute Disease or Injury Related Malnutrition Etiology moderate, acute malnutrition r /t inadequate energy intake w/ increased GI output Signs/Symptoms as evidenced by reported unintentional wt loss of 11.3# /8% x 1 month; estimated PO intake meeting<75% of estimated energy needs >7 days Status Active Problem Recommendation Dietitian Recommendations/Changes recommend advance diet as tolerated to transitional; will order 120mL ensure clear 4x/day w/ medpass for additional calories/protein if consumed. Recommend ensure enlive when PO diet is advanced. Lab / Micro Data Result Diagrams: 12/09/21 05:17 12/09/21 05:17
[2021-12-10 10:10] LABS: Absolute Lymphocyte Count 2.12 X10^3/uL (0.83-4.51); Absolute Neutrophil Count 3.5 X10^3/uL (2.0-7.7); Basophil# 0.02 X10^3/uL; Basophil% 0.3 % (0-1); Eosinophil# 0.08 X10^3/uL; Eosinophils% 1.3 % (0-5); Hematocrit 26.7 % (40-54); Hemoglobin 8.8 g/dL (13.0-16.5); Lymphocyte # 2.12 X10^3/ul (0.83-4.51); Lymphocyte % 34.6 % (19-41); Mean Corpuscular Hgb 30.8 pg (27.0-32.0); Mean Corpuscular Volume 93.4 fL (80-94); Mean Platelet Vol. 10.4 fl (6.2-12.0); Monocyte# 0.37 X10^3/uL; NRBC Flagged by Analyzer 0 % (0-5); Neutrophil # 3.52 X10^3/uL (2.7-7.7); Neutrophil % 57.6 % (47-70); Platelet Count 190 K/mm3 (150-450); RBC Distribution Width CV 13.6 % (11.6-14.6); Red Blood Count 2.86 M/mm3 (4.6-6.2); White Blood Count 6.1 K/mm3 (4.4-11.0)
[2021-12-10 10:20] LABS: Anion Gap 4 (5-15); BUN 19 mg/dL (7-18); BUN/Creat Ratio 11.4 RATIO (10-20); Chloride 111 mmol/L (98-107); Creatinine, Serum 1.66 mg/dL (0.70-1.30); EST Glomerular Filtration Rate 43 mL/min (>60); Est Glom Filt Rate - Afr Amer 52 mL/min (>60); Estimated Creatinine Clearance 30.71 ml/min; Glucose 107 mg/dL (74-106); Potassium 3.9 mmol/L (3.5-5.1); Sodium Level 140 mmol/L (136-145)
--- NOTE | 2021-12-10 12:41 | PN.HOSP_ITS ---
Documented by User: Isaac PRESTON 12/10/21 12:51 Subjective Subjective Patient is a 76-year-old male comfortably resting in bed, alert and orient x3. Patient denies development of any new symptoms overnight. Does not appear in acute distress. Objective Data Objective Data Vital Signs: Vital Signs Temp Pulse Resp BP Pulse Ox 98.1 F 42 L 18 137/66 H 97 12/10/21 11:38 12/10/21 11:38 12/10/21 11:38 12/10/21 11:38 12/10/21 11:38 Oxygen Delivery Method Room Air Weight: 132 lb 11.21 oz Body Mass Index (BMI) 22.7 Intake & Output: Intake and Output for Last 24 Hours 12/08/21 12/09/21 12/10/21 23:59 23:59 23:59 Intake Total 1100 / 1380 2673.25 / 2673.25 2200 / 2200 Output Total 1000 / 1500 500 / 500 Balance 1100 / 1380 1673.25 / 1173.25 1700 / 1700 Medical Nutrition Assessment Dietitian: Malnutrition Criteria Met Start: 12/09/21 15:14 Freq: Status: Active Protocol: Document 12/09/21 15:14 AG (Rec: 12/09/21 15:14 AG [id number]) Nutrition Malnutrition Evidence of Malnutrition Exists Yes Malnutrition (moderate): Acute Illness/Injury Evidenced By Suboptimal Energy Intake ( Moderate),Weight Loss (Severe) Clinical Problem Acute Disease or Injury Related Malnutrition Etiology moderate, acute malnutrition r /t inadequate energy intake w/ increased GI output Signs/Symptoms as evidenced by reported unintentional wt loss of 11.3# /8% x 1 month; estimated PO intake meeting<75% of estimated energy needs >7 days Status Active Problem Recommendation Dietitian Recommendations/Changes recommend advance diet as tolerated to transitional; will order 120mL ensure clear 4x/day w/ medpass for additional calories/protein if consumed. Recommend ensure enlive when PO diet is advanced. Lab / Micro Data Result Diagrams: 12/10/21 09:55 12/10/21 09:55 Labs: Laboratory Results - last 24 hr 12/10/21 09:55: WBC 6.1, RBC 2.86 L, Hgb 8.8 L, Hct 26.7 L, MCV 93.4, MCH 30.8, MCHC 33.0 D, RDW Std Deviation 46.0 H, RDW Coeff of Moiz 13.6, Plt Count 190, MPV 10.4, Immature Gran % (Auto) 0.200, Neut % (Auto) 57.6, Lymph % (Auto) 34.6, Cabell % (Auto) 6.0, Eos % (Auto) 1.3, Baso % (Auto) 0.3, Absolute Neuts (auto) 3.5, Absolute Lymphs (auto) 2.12, Nucleated RBC % 0 12/10/21 09:55: Sodium 140, Potassium 3.9, Chloride 111 H, Carbon Dioxide 25.0, Anion Gap 4 L, BUN 19 H, Creatinine 1.66 H, Estim Creat Clear Calc 30.71, Est GFR (MDRD) Af Amer 52 L, Est GFR (MDRD) Non-Af 43 L, BUN/Creatinine Ratio 11.4, Glucose 107 H, Calcium 8.0 L Micro: Microbiology 12/10/21 11:59 Nasal Secretion SARS-CoV-2 Antigen (Rapid) - Final 12/08/21 22:40 Stool Stool Lactoferrin - Final Physical Exam Const alert, oriented x3 and no apparent distress HEENT head/scalp atraumatic and moist oral mucous membranes Head and Scalp: normocephalic Eyes PERRL and conjunctivae normal Neck no lymphadenopathy, supple and no JVD Resp normal respiratory effort, no retractions and no use of accessory muscles Cardio regular rate, regular rhythm and no JVD GI normal to inspection, nondistended, normoactive bowel sounds Extremity normal to inspection Skin no rashes or lesions noted Neuro CN's II-XII intact bilaterally Psych affect normal Assessment & Plan Assessment/Plan (1) Intractable diarrhea: PLAN: Day 2 Discharge planning: To be determined. 1) intractable diarrhea Believed to be the result of postinfectious diarrhea, GI consulted, continue octreotide, IV fluids, antiemetics and IV PPI. 2) CKD stage IIIb Creatinine at baseline, continue to trend BMP. 3) severe protein calorie malnutrition Evidenced by recent weight loss and poor oral intake. BMI 22.8. Dietitian consult ordered. 4) BPH Continue Flomax. 5) ANTIONE Continue CPAP. 6) HTN Hold hydrochlorothiazide, continue atenolol. 7) hyperlipidemia Continue statin. 8) squamous cell carcinoma Following with general surgery as an outpatient. DVT prophylaxis - heparin Patient seen by Isaac Webber PA-C, under the supervision of Dr. Edmonds. Time spent on patient care: 10 minutes. Documented by User: Dr. Sumit Edmonds, 12/10/21 19:24 Objective Data Lab / Micro Data Result Diagrams: 12/10/21 09:55 12/10/21 09:55 Charges/Coding Addendum Addendum: Patient was seen and examined independently of Isaac Webber, he underwent an EGD today which did not show any obvious signs of bleeding. Patient's hemoglobin dropped to 8.8 today-this appears to be delusional in nature as we have no proof that the patient is actively bleeding. Patient is having no episodes of diarrhea today, I talked at length with the son who was in the room this afternoon and his son requested that gastroenterology return to have further conversations with them-I passed this on to Dr. Almanzar. Patient will be placed on a regular diet, the Sandostatin drip will be discontinued, and his Protonix drip will be discontinued. Patient requested that a Azul catheter be placed today before the EGD, it is desired to go home with an indwelling Azul and to follow-up with urology. I told the patient's son he would need to be on Proscar for a few weeks before it would have a marked effect on his bladder obstruction. On examination he appeared in good health and spirits. Vital signs as documented. Skin warm and dry and without overt rashes. Neck without JVD, neck was supple, trachea midline, thyroid was normal. Lungs clear bilaterally, normal air movement was noted. Heart exam notable for regular rhythm, normal sounds and absence of murmurs, rubs or gallops. Abdomen unremarkable and without evidence of organomegaly, masses, or abdominal aortic enlargement. Bowel sounds are present, abdomen is not distended. Extremities nonedematous, no cyanosis was noted, no clubbing was noted. Neuro: Cranial nerves II through XII are grossly intact, no focal motor deficits were noted, sensation to light touch and pinprick intact, motor exam 5/5 throughout. Psych: Patient is alert and oriented x3, he does not appear anxious or depressed, he does not appear agitated. Impression:1. Intractable diarrhea secondary to lymphocytic colitis versus infectious diarrhea- failed treatment with budesonide. GI consulted. Patient was placed on cholestyramine by GI, his Sandostatin drip will be discontinued. Patient will resume a regular diet 2. Severe protein calorie malnutrition-as evidenced by significant recent weight loss, poor oral intake and GI losses. Dietitian consult, recommend advance diet as tolerated , 120 mL of Ensure clear 4 times a day with Medipass for additional calories and protein, Ensure Enlive when p.o. diet is advanced. 3. CKD stage IIIb-appears at baseline. Trend BMP. 4. BPH-patient now has a Azul catheter, he will remain on Proscar and Flomax 5. ANTIONE on CPAP 6. Hypertension-stable, continue atenolol-dosage was adjusted due to bradycardia. Hold HCTZ. 7. Hyperlipidemia-continue statin. 8. Squamous cell carcinoma- following with general surgery for excision. #9 asymptomatic bradycardia-I have elected to reduce the patient's atenolol at this time I have reviewed Isaac Webber's progress note including his medical assessment and plan of care and with the above additions endorse it. Total clinical time spent by myself addressing the patient's medical issues, reviewing his medical data, and in collaboration with the patient's care team: 25 minutes Visit Charges Inpatient E&M: 15631 Subs Hosp L3
--- NOTE | 2021-12-10 12:54 | OP.CCLET_ITS ---
07/07/2022 Ana Wilburn [place] [id number] [place] [address] Re : Upper GI endoscopy procedure for Juan Diego Joyshanita Dear Dr. Wilburn This procedure was performed on December. My impressions and recommendations are as follows: Impressions : - Non-obstructing Schatzki ring. - Esophageal plaques were found, consistent with candidiasis. - Esophageal mucosal changes consistent with eosinophilic esophagitis. Biopsied. - Normal stomach. - Multiple non-bleeding duodenal ulcers with no stigmata of bleeding. Recommendations : - Nystatin suspension 200,000 units PO QID for 1 week. - Continue present medications. My findings are described in the full procedure note, which is enclosed. If I can be of further assistance, please feel free to contact me at . Sincerely, Forrest Friend, DO 12/10/2021 12:53:07 PM This report has been signed electronically.
--- NOTE | 2021-12-10 12:54 | OP.EGD_ITS ---
Patient Name: Juan Diego Alvares Procedure Date: 12/10/2021 12:12 PM Date of : 1945 Age: 76 Procedure: Upper GI endoscopy Indications: Iron deficiency anemia Providers: Forrest Almanzar DO Medicines: See the Anesthesia note for documentation of the administered medications Patient Profile: This is a 76 year old male. Refer to note in patient chart for documentation of history and physical. Patient has symptoms. He is status post EGD for biopsy within the past month. Complications: No immediate complications. Procedure: Pre-Anesthesia Assessment: - Prior to the procedure, a History and Physical was performed, and patient medications and allergies were reviewed. The patient is competent. The risks and benefits of the procedure and the sedation options and risks were discussed with the patient. All questions were answered and informed consent was obtained. Patient identification and proposed procedure were verified by the physician in the pre-procedure area. Mental Status Examination: alert and oriented. Airway Examination: normal oropharyngeal airway and neck mobility. Respiratory Examination: clear to auscultation. CV Examination: normal. Prophylactic Antibiotics: The patient does not require prophylactic antibiotics. Prior Anticoagulants: The patient has taken no previous anticoagulant or antiplatelet agents. ASA Grade Assessment: II - A patient with mild systemic disease. After reviewing the risks and benefits, the patient was deemed in satisfactory condition to undergo the procedure. The anesthesia plan was to use moderate sedation / analgesia (conscious sedation). Immediately prior to administration of medications, the patient was re-assessed for adequacy to receive sedatives. The heart rate, respiratory rate, oxygen saturations, blood pressure, adequacy of pulmonary ventilation, and response to care were monitored throughout the procedure. The physical status of the patient was re-assessed after the procedure. After obtaining informed consent, the endoscope was passed under direct vision. Throughout the procedure, the patient's blood pressure, pulse, and oxygen saturations were monitored continuously. The gastroscope was introduced through the mouth, and advanced to the second part of duodenum. The upper GI endoscopy was accomplished without difficulty. The patient tolerated the procedure well. Moderate Sedation: Moderate (conscious) sedation was administered by the endoscopy nurse and supervised by the endoscopist. The patient's oxygen saturation, heart rate, blood pressure and response to care were monitored. Total physician intraservice time was 15 minutes. Scope In: 12:38:25 PM Scope Out: 12:44:22 PM Total Procedure Duration Time 0 hours 5 minutes 57 seconds Findings: A non-obstructing Schatzki ring was found in the lower third of the esophagus. Patchy, white plaques were found in the lower third of the esophagus. Mucosal changes including ringed esophagus, small-caliber esophagus and white plaques were found in the lower third of the esophagus. Esophageal findings were graded using the Eosinophilic Esophagitis Endoscopic Reference Score (EoE-EREFS) as: Edema Grade 0 Normal (distinct vascular markings), Rings Grade 2 Moderate (distinct rings that do not occlude passage of diagnostic 8-10 mm endoscope), Exudates Grade 1 Mild (scattered white lesions involving less than 10 percent of the esophageal surface area), Furrows Grade 0 None (no vertical lines seen) and Stricture none (no stricture found). Biopsies were taken with a cold forceps for histology. Verification of patient identification for the specimen was done. Estimated blood loss was minimal. The entire examined stomach was normal. Two non-bleeding linear duodenal ulcers with no stigmata of bleeding were found in the second portion of the duodenum. The largest lesion was 6 mm in largest dimension. Impression: - Non-obstructing Schatzki ring. - Esophageal plaques were found, consistent with candidiasis. - Esophageal mucosal changes consistent with eosinophilic esophagitis. Biopsied. - Normal stomach. - Multiple non-bleeding duodenal ulcers with no stigmata of bleeding. Recommendation: - Nystatin suspension 200,000 units PO QID for 1 week. - Continue present medications. Procedure Code(s): --- Professional --- 93066, Esophagogastroduodenoscopy, flexible, transoral; with biopsy, single or multiple 34048, 59, Moderate sedation services provided by the same physician or other qualified health career resource specialist performing the diagnostic or therapeutic service that the sedation supports, requiring the presence of an independent trained observer to assist in the monitoring of the patient's level of consciousness and physiological status; initial 15 minutes of intraservice time, patient age 5 years or older CPT copyright 2017 [employer]. All rights reserved. The codes documented in this report are preliminary and upon scout professional sports review may be revised to meet current compliance requirements. Forrest Almanzar DO 12/10/2021 12:53:07 PM This report has been signed electronically. Number of Addenda: 1 Note Initiated On: 12/10/2021 12:12 PM Addendum Number: 1 Addendum Date: 07/07/2022 6:37:36 AM MAC was used as sedation for this procedure. Forrest Almanzar DO 07/07/2022 6:37:40 AM This report has been signed electronically.
--- NOTE | 2021-12-10 13:00 | EGD_PTH ---
PATIENT: NICK EASTON LOC: [facility] U#:[id number] AGE/SX: 76/M ROOM: [facility] RE12/08/[address]: Dr. Sumit Edmonds DO : 1945 BED: 1 DIS: 12/11/2021 SPEC #: [id number] RECD: 12/10/21 13:43 STATUS: OTIS FABIAN #: [id number] REBECCA: 12/10/21 13:[address]: Forrest Almanzar DEPT: SURGICAL PATHOLOGY RECD BY: Patricia Aguero ENTERED: 12/11/21 09:30 SP TYPE: EGD BIOPSY OTHR DR: DO Dr. Ana Dickinson MD Dr. Juan Miguel Proano, MD Dr. Mark Tereletsky, DO Dr. Rahsaan Friend, DO Tissues: Esophagus, NOS Procedures: Special Stain Group II Surgery Specimen Level IV Alcian Blue/PAS (control) Comments: @ Ordering doctor for SUIV edited from to @ by GABRIELLE at 12/11/21 1438 @ Submitting doctor edited from to @ by MALLIKAOD at 12/11/21 1438 HEADER OPERATION: EGD ([facility]) PRE-OP DIAGNOSIS: Intractable diarrhea, nausea, anemia TISSUE SUBMITTED: Distal esophagus biopsy MICROSCOPIC DIAGNOSIS Distal esophagus, biopsy: Fragments of gastroesophageal mucosa with moderate chronic inflammation and mild acute inflammation. Intestinal metaplasia (goblet cell metaplasia) not identified. See comment. SOTO:mattie 12/14/2021 COMMENT Alcian blue/PAS stain with matched control is used in the evaluation of the specimen. MICROSCOPIC DESCRIPTION Slides are reviewed. GROSS DESCRIPTION Received in fixative is one container labeled with the patient's name and designated distal esophagus biopsy. The specimen consists of multiple irregular fragments of light arrington soft tissue that in aggregate measure 1 x 0.6 x 0.1 cm. The specimen is totally submitted in one cassette. / SJ:mattie 12/11/2021 TC:3 CPT: 35606, 21809
[2021-12-10 15:09] LABS: Anti-Centromere B Ab <0.2 AI (0.0-0.9); Anti-Chromatin <0.2 AI (0.0-0.9); Anti-Jo <0.2 AI (0.0-0.9); Anti-Scleroderma-70 AB <0.2 AI (0.0-0.9); Anti-ribosomal P Antibodies <0.2 AI (0.0-0.9); RNP Ab 0.3 AI (0.0-0.9); SJOGREN'S Anti-SS-A test < 0.2 AI (0.0-0.9); SJOGREN'S Anti-SS-B test < 0.2 AI (0.0-0.9); Smith Ab <0.2 AI (0.0-0.9); Smith/RNP Ab <0.2 AI (0.0-0.9)
--- NOTE | 2021-12-10 15:33 | PCM.DC ---
Discharge Instructions Diet Discharge Diet: No restrictions Activity Discharge Activity: Return to Normal Activity Weight Bearing Status: Weight bearing as tolerated Dressing / Incision Call your doctor if you observe: Fever of 101 or Higher, Numbness or Tingling, Shortness of breath, Dizziness, Chest pain, Increased palpitations (irregular heartbeat) and Calf discomfort Follow Up Care Please Follow Up With: Primary care provider When: Within the next two weeks. Test Results: Test results from this visit will be discussed in further detail at your follow-up appointment, if applicable. Discharge Plan Admission Admit Date/Time: 12/08/21 17:28 Primary Reason for Your Visit: Intractable diarrhea Attending Provider: Sumit Edmonds Primary Care Provider: Ana Wilburn Consulting Providers: Forrest Almanzar ; Amandeep Brooks Discharge Orders/Prescriptions Prescriptions: No Action tamsulosin [Flomax] 0.4 mg capsule 0.4 mg PO DAILY RF: 0 hydrochlorothiazide 25 MG tablet 25 mg PO DAILY RF: 0 atenolol 25 MG tablet 25 mg PO DAILY RF: 0 pravastatin 20 MG tablet 20 mg PO DAILY RF: 0 omeprazole 20 MG tablet,delayed release (DR/EC) 20 mg PO BID Qty: 60 RF: 0 potassium chloride 20 mEq tablet extended release 20 meq PO TID RF: 0 budesonide 9 mg tablet,delayed and ext.release 9 mg PO DAILY@1200 RF: 0 Referrals / Follow Up: Ana Wilburn MD [Primary Care Provider] -
[2021-12-10] MEDS: Potassium Chloride Oral Tablet 20 MEQ PO (16:01)
[2021-12-10] MEDS: Tamsulosin HCl 0.4 MG Capsule 0.8 MG PO (16:01)
[2021-12-10] MEDS: Finasteride 5 MG Tablet PO (16:02)
[2021-12-10 16:11] LABS: Endomysial Antibody IgA Negative (Negative)
[2021-12-10] MEDS: 0.9% Normal Saline 1,000 ML 100 ML IV (17:20)
[2021-12-10] MEDS: 0.9% Saline Lock 10 ML Syringe IV (17:20)
[2021-12-10 18:42] LABS: Anti-dsDNA Ab <1 IU/mL (0-9)
[2021-12-10 18:45] LABS: Giardia Lamblia, Stool EIA Negative (Negative)
[2021-12-10 19:09] LABS: Deamidated Gliadin IgA 5 units (0-19); Deamidated Gliadin IgG 2 units (0-19); Immunoglobulin A 88 mg/dL (61-437); t-Transglutaminase IgA <2 U/mL (0-3)
[2021-12-10] MEDS: Pravastatin 20 MG Tablet PO (20:56)
[2021-12-10] MEDS: Heparin Injection (Vial) 5,000 UNIT/ML VIAL 5000 UNIT SC (20:56)
[2021-12-10] MEDS: Ensure Clear 120 ML Liquid PO (20:56)
[2021-12-10] MEDS: MELATONIN 3 MG TABLET PO (21:33)
[2021-12-11 04:00] VITALS: BP 138/66; PULSE 47; RESP 16; TEMP 36.7; O2SAT 98
[2021-12-11 06:30] LABS: Hematocrit 26.1 % (40-54); Hemoglobin 8.9 g/dL (13.0-16.5)
[2021-12-11] MEDS: Cholestyramine/Sucrose 4 GM/PACKET PO (07:40)
[2021-12-11 08:46] VITALS: BP 106/65; PULSE 47; RESP 16; TEMP 37; O2SAT 99
[2021-12-11 09:12] LABS: Iron 40 ug/dL (65-175)
[2021-12-11] MEDS: Potassium Chloride Oral Tablet 20 MEQ PO (09:34)
[2021-12-11] MEDS: Pantoprazole Sodium 40 MG Tablet PO (09:41)
[2021-12-11] MEDS: Tamsulosin HCl 0.4 MG Capsule 0.8 MG PO (09:41)
[2021-12-11] MEDS: Diphenoxylate/Atrop 1 Tablet PO (09:42)
[2021-12-11] MEDS: Ensure Clear 120 ML Liquid PO (09:43)
[2021-12-11] MEDS: Atenolol 25 MG Tablet 12.5 MG PO (09:43)
--- NOTE | 2021-12-11 11:03 | PCM.DC ---
Discharge Instructions Diet Discharge Diet: No restrictions Activity Discharge Activity: Return to Normal Activity Weight Bearing Status: Weight bearing as tolerated Dressing / Incision Call your doctor if you observe: Fever of 101 or Higher, Numbness or Tingling, Shortness of breath, Dizziness, Chest pain, Increased palpitations (irregular heartbeat) and Calf discomfort Follow Up Care Please Follow Up With: Primary care provider When: Within the next two weeks. Test Results: Test results from this visit will be discussed in further detail at your follow-up appointment, if applicable. Discharge Plan Admission Admit Date/Time: 12/08/21 17:28 Primary Reason for Your Visit: Intractable diarrhea Attending Provider: Sumit Edmonds Primary Care Provider: Ana Wilburn Consulting Providers: Forrest Almanzar ; Amandeep Brooks Discharge Orders/Prescriptions Prescriptions: New cholestyramine (with sugar) 4 gram Powder In Packet 4 g PO BIDAC Qty: 60 RF: 0 nystatin 100,000 unit/mL suspension 200,000 unit PO DAILY Qty: 30 RF: 0 ferrous sulfate [Iron (ferrous sulfate)] 325 mg (65 mg iron) tablet 325 mg PO BID Qty: 60 RF: 0 finasteride 5 mg Tablet 5 mg PO DAILY Qty: 30 RF: 0 Continued tamsulosin [Flomax] 0.4 mg capsule 0.4 mg PO DAILY RF: 0 hydrochlorothiazide 25 MG tablet 25 mg PO DAILY RF: 0 atenolol 25 MG tablet 25 mg PO DAILY RF: 0 pravastatin 20 MG tablet 20 mg PO DAILY RF: 0 omeprazole 20 MG tablet,delayed release (DR/EC) 20 mg PO BID Qty: 60 RF: 0 potassium chloride 20 mEq tablet extended release 20 meq PO TID RF: 0 budesonide 9 mg tablet,delayed and ext.release 9 mg PO DAILY@1200 RF: 0 Referrals / Follow Up: Ana Wilburn MD [Primary Care Provider] - Within 2 Weeks Amandeep Brooks MD [STAFF PHYSICIAN] - Within 2 Weeks Forrest Almanzar DO [STAFF PHYSICIAN] - Within 2 Weeks Disposition Disposition (needs filled in before D/C Order can be placed): Home, Self Care
--- NOTE | 2021-12-11 11:35 | CASEMGMT ---
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 Pt states no concerns with going home at time of discharge. SStrolan BURTON CM
[2021-12-11] MEDS: 0.9% Saline Lock 10 ML Syringe IV (11:59)
[2021-12-11] MEDS: Finasteride 5 MG Tablet PO (11:59)
[2021-12-11] MEDS: Heparin Injection (Vial) 5,000 UNIT/ML VIAL 5000 UNIT SC (12:03)
[2021-12-11 12:57] LABS: Platelet Count 204 K/mm3 (150-450); RET-HE 34.6 pg (30-35); Reticulocyte Count 0.96 % (0.5-1.5)
--- NOTE | 2021-12-11 15:40 | PCM.DC.SUM ---
Documented by User: Isaac PRESTON 12/11/21 16:31 Providers Date of Admission: 12/08/21 Date of Discharge: 12/11/21 Primary Care Physician: Dr. Ana Wilburn MD Consultations 12/08/21 19:56 Consult: Gastroenterology Routine Consulting Provider: Forrest Almanzar Reason for Consult: Lymphocytic colitis EMERGENT Consult: No Notified: Yes Date Notified: 12/08/21 Time Notified: 17:32 Method of Notification: Verbal Comments:: notified by ER 12/09/21 14:49 Consult: Urology Routine Consulting Provider: Amandeep Brooks Reason for Consult: urinary retention EMERGENT Consult: No Notified: Yes Date Notified: 12/09/21 Time Notified: 14:50 Method of Notification: Provider Initiated Reason For Visit: LYMPHOCYTIC COLITIS, INTRACTABLE DIARRHEA Diagnosis Discharge Diagnosis (1) Intractable diarrhea: Status: Acute Code(s): R19.7 - Diarrhea, unspecified (2) Lymphocytic colitis: Status: Acute Code(s): K52.832 - Lymphocytic colitis Medications at Discharge Home Medications pravastatin 20 mg PO DAILY 12/23/14 omeprazole 20 mg PO BID #60 tablet. 07/18/18 tamsulosin 0.4 mg capsule 0.4 mg PO DAILY 11/27/21 budesonide 9 mg PO DAILY@1200 12/08/21 potassium chloride 20 meq PO TID 12/08/21 atenolol 12.5 mg PO DAILY #0 tab 12/11/21 diphenoxylate-atropine [Lomotil] 1 tab PO BID #60 tab 12/11/21 ferrous sulfate [Iron (ferrous sulfate)] 325 mg PO BID #60 tab 12/11/21 finasteride 5 mg PO DAILY #30 tab 12/11/21 nystatin 200,000 unit PO DAILY #30 ml 12/11/21 Hospital Course Procedures EGD Summary of Care Provided Minutes Spent on Discharge: 20 Hospital Course: Patient is a 76-year-old male who was admitted to [facility] on 12/08/2021 for evaluation and management of intractable diarrhea. Course and management as below. 1) intractable diarrhea Patient underwent EGD which demonstrated nonobstructive Schatzki ring, esophageal plaques consistent with candidiasis, esophageal mucosal changes consistent with eosinophilic esophagitis which were biopsied and nonbleeding duodenal ulcers with no evidence of bleeding in the stomach. Recommendations are to continue with Lomotil and initiate nystatin for Nara. Patient is to follow-up with Dr. Almanzar within the next 2 weeks. 2) iron deficiency anemia Hemoglobin currently 8.9 and is stable. B12 level within normal limits. Will initiate iron twice daily. 3) severe protein calorie malnutrition Evidenced by recent weight loss and poor oral intake. BMI 22.8. Dietitian consult ordered. 4) BPH with urinary retention Continue Flomax add Proscar, continue with Azul catheter in place and follow-up with Dr. Brooks within the next 2 weeks. 5) ANTIONE Continue CPAP. 6) HTN Hold hydrochlorothiazide, continue atenolol. 7) hyperlipidemia Continue statin. 8) squamous cell carcinoma Following with general surgery as an outpatient. 9) CKD stage IIIb Creatinine at baseline, continue to trend BMP. Patient seen by Isaac Webber PA-C, under the supervision of Dr. Edmonds. Time spent on patient care: 20 minutes Medical Records Data Medical Nutrition Assessment Dietitian: Malnutrition Criteria Met Start: 12/09/21 15:14 Freq: Status: Active Protocol: Document 12/09/21 15:14 AG (Rec: 12/09/21 15:14 AG [id number]) Nutrition Malnutrition Evidence of Malnutrition Exists Yes Malnutrition (moderate): Acute Illness/Injury Evidenced By Suboptimal Energy Intake ( Moderate),Weight Loss (Severe) Clinical Problem Acute Disease or Injury Related Malnutrition Etiology moderate, acute malnutrition r /t inadequate energy intake w/ increased GI output Signs/Symptoms as evidenced by reported unintentional wt loss of 11.3# /8% x 1 month; estimated PO intake meeting<75% of estimated energy needs >7 days Status Active Problem Recommendation Dietitian Recommendations/Changes recommend advance diet as tolerated to transitional; will order 120mL ensure clear 4x/day w/ medpass for additional calories/protein if consumed. Recommend ensure enlive when PO diet is advanced. Weight / BMI Weight Weight: 132 lb 11.21 oz Body Mass Index (BMI) 22.7 ABG / Lab / Microbiology Data Result Diagrams: 12/11/21 06:00 12/10/21 09:55 Laboratory: Laboratory Results - last 24 hr 12/08/21 16:36: IgA 88, Endomysial IgA Ab Negative, Tiss Transglutamin IgG <2, Tiss Transglutamin IgA <2, Anti-Gliadin IgG Ab 2, Anti-Gliadin IgA Ab 5 12/08/21 16:36: ORTEGA 8 Profile Comment, ORTEGA Screen Not Reportable, SERGEI-1 Antibody <0.2, SS-A/Ro IgG Antibody < 0.2, SS-B/La IgG Antibody < 0.2, Sm (Vasquez) Antibody <0.2, RN PERINATAL Antibody 0.3, Scl-70 Scleroderma Ab <0.2, Double Strand DNA Ab <1, Centromere B Antibody <0.2 12/08/21 22:40: Stl Giardia Antigen Negative 12/11/21 05:15: Iron 40 L 12/11/21 06:00: Hgb 8.9 L, Hct 26.1 L 12/11/21 06:00: Retic Count 0.96, Immature Retic Fraction 6.30, Retic Hgb Equivalent 34.6 Microbiology: Microbiology 12/10/21 11:59 Nasal Secretion SARS-CoV-2 Antigen (Rapid) - Final 12/08/21 22:40 Stool Stool Lactoferrin - Final D/C Instructions Discharge Diet: No restrictions Weight Bearing Status: Weight bearing as tolerated Call your doctor if you observe: Fever of 101 or Higher, Numbness or Tingling, Shortness of breath, Dizziness, Chest pain, Increased palpitations (irregular heartbeat) and Calf discomfort Please Follow Up With: Primary care provider When: Within the next two weeks. Meaningful Use Info Meaningful Use Diagnoses (Choose all that apply): None applicable Discharge Plan Admission Admit Date/Time: 12/08/21 17:28 Primary Reason for Your Visit: Intractable diarrhea Attending Provider: Sumit Edmonds Primary Care Provider: Ana Wilburn Consulting Providers: Forrest Almanzar ; Amandeep Brooks Discharge Orders/Prescriptions Prescriptions: New nystatin 100,000 unit/mL suspension 200,000 unit PO DAILY Qty: 30 RF: 0 ferrous sulfate [Iron (ferrous sulfate)] 325 mg (65 mg iron) tablet 325 mg PO BID Qty: 60 RF: 0 finasteride 5 mg Tablet 5 mg PO DAILY Qty: 30 RF: 0 diphenoxylate-atropine [Lomotil] 2.5-0.025 mg tablet 1 tab PO BID Qty: 60 RF: 0 Continued tamsulosin [Flomax] 0.4 mg capsule 0.4 mg PO DAILY RF: 0 pravastatin 20 MG tablet 20 mg PO DAILY RF: 0 omeprazole 20 MG tablet,delayed release (DR/EC) 20 mg PO BID Qty: 60 RF: 0 potassium chloride 20 mEq tablet extended release 20 meq PO TID RF: 0 budesonide 9 mg tablet,delayed and ext.release 9 mg PO DAILY@1200 RF: 0 Changed atenolol 25 MG tablet 12.5 mg PO DAILY Qty: 0 RF: 0 Discontinued hydrochlorothiazide 25 MG tablet 25 mg PO DAILY RF: 0 Referrals / Follow Up: Ana Wilburn MD [Primary Care Provider] - 12/15/21 5:20 pm Amandeep Brooks MD [STAFF PHYSICIAN] - Within 2 Weeks (Dr. Henriquez office closed today( Tuesday) please call to schedule follow up appointment) Forrest Almanzar DO [STAFF PHYSICIAN] - 12/24/21 11:00 am Disposition Disposition (needs filled in before D/C Order can be placed): Home, Self Care Documented by User: Dr. Sumit Edmonds DO 12/11/21 19:11 Providers Date of Admission: 12/08/21 Reason For Visit: LYMPHOCYTIC COLITIS, INTRACTABLE DIARRHEA Medications at Discharge Home Medications pravastatin 20 mg PO DAILY 12/23/14 omeprazole 20 mg PO BID #60 tablet. 07/18/18 tamsulosin 0.4 mg capsule 0.4 mg PO DAILY 11/27/21 budesonide 9 mg PO DAILY@1200 12/08/21 potassium chloride 20 meq PO TID 12/08/21 atenolol 12.5 mg PO DAILY #0 tab 12/11/21 diphenoxylate-atropine [Lomotil] 1 tab PO BID #60 tab 12/11/21 ferrous sulfate [Iron (ferrous sulfate)] 325 mg PO BID #60 tab 12/11/21 finasteride 5 mg PO DAILY #30 tab 12/11/21 nystatin 200,000 unit PO DAILY #30 ml 12/11/21 ABG / Lab / Microbiology Data Result Diagrams: 12/11/21 06:00 12/10/21 09:55 Discharge Plan Admission Admit Date/Time: 12/08/21 17:28 Primary Reason for Your Visit: Intractable diarrhea Attending Provider: Sumit Edmonds Primary Care Provider: Ana Wilburn Consulting Providers: Forrest Almanzar ; Amandeep Brooks Discharge Orders/Prescriptions Prescriptions: New nystatin 100,000 unit/mL suspension 200,000 unit PO DAILY Qty: 30 RF: 0 ferrous sulfate [Iron (ferrous sulfate)] 325 mg (65 mg iron) tablet 325 mg PO BID Qty: 60 RF: 0 finasteride 5 mg Tablet 5 mg PO DAILY Qty: 30 RF: 0 diphenoxylate-atropine [Lomotil] 2.5-0.025 mg tablet 1 tab PO BID Qty: 60 RF: 0 Continued tamsulosin [Flomax] 0.4 mg capsule 0.4 mg PO DAILY RF: 0 pravastatin 20 MG tablet 20 mg PO DAILY RF: 0 omeprazole 20 MG tablet,delayed release (DR/EC) 20 mg PO BID Qty: 60 RF: 0 potassium chloride 20 mEq tablet extended release 20 meq PO TID RF: 0 budesonide 9 mg tablet,delayed and ext.release 9 mg PO DAILY@1200 RF: 0 Changed atenolol 25 MG tablet 12.5 mg PO DAILY Qty: 0 RF: 0 Discontinued hydrochlorothiazide 25 MG tablet 25 mg PO DAILY RF: 0 Referrals / Follow Up: Ana Wilburn MD [Primary Care Provider] - 12/15/21 5:20 pm Amandeep Brooks MD [STAFF PHYSICIAN] - Within 2 Weeks (Dr. Henriquez office closed today( Tuesday) please call to schedule follow up appointment) Forrest Almanzar DO [STAFF PHYSICIAN] - 12/24/21 11:00 am Disposition Disposition (needs filled in before D/C Order can be placed): Home, Self Care Charges/Coding Addendum Addendum: Carolyn todayPatient was seen and examined today independently of Isaac Webber, I had extensive conversation with the patient and his son who was in the room at the time of my examination. I answered all questions, and the entire conversation lasted about 20 to 30 minutes. I did order a retake count and a B12 level which was pending at the time of discharge today. Patient received Venofer due to iron deficiency anemia. Patient has had no diarrhea today. On examination he appeared in good health and spirits. Vital signs as documented. Skin warm and dry and without overt rashes. Neck without JVD, neck was supple, trachea midline, thyroid was normal. Lungs clear bilaterally, normal air movement was noted. Heart exam notable for regular rhythm, normal sounds and absence of murmurs, rubs or gallops. Abdomen unremarkable and without evidence of organomegaly, masses, or abdominal aortic enlargement. Bowel sounds are present, abdomen is not distended. Extremities nonedematous, no cyanosis was noted, no clubbing was noted. Neuro: Cranial nerves II through XII are grossly intact, no focal motor deficits were noted, sensation to light touch and pinprick intact, motor exam 5/5 throughout. Psych: Patient is alert and oriented x3, he does not appear anxious or depressed, he does not appear agitated. [facility] [id number] [facility] [place] [address] Progress Note - Zvnxyqvczed02/03/22 1241MR#: [id number]:[id number]:RUSTAMNICK [facility] #:[id number]: [id number]: Isaac Webber PAPCP:Dr. Ana Wilburn MD Status:ADM INLocation: [id number] Documented by User: Isaac PRESTON 12/10/21 12:51 Subjective Subjective Patient is a 76-year-old male comfortably resting in bed, alert and orient x3. Patient denies development of any new symptoms overnight. Does not appear in acute distress. Objective Data Objective Data Vital Signs: Vital Signs Temp Pulse Resp BP Pulse Ox 98.1 F 42 L 18 137/66 H 97 12/10/21 11:38 12/10/21 11:38 12/10/21 11:38 12/10/21 11:38 12/10/21 11:38 Oxygen Delivery Method Room Air Weight: 132 lb 11.21 oz Body Mass Index (BMI) 22.7 Intake & Output:Intake and Output for Last 24 Hours 12/08/21 12/09/21 12/10/21 23:59 23:59 23:59 Intake Total 1100 / 1380 2673.25 / 2673.25 2200 / 2200 Output Total 1000 / 1500 500 / 500 Balance 1100 / 1380 1673.25 / 1173.25 1700 / 1700 Medical Nutrition Assessment Dietitian: Malnutrition Criteria Met Start: 12/09/21 15:14 Freq: Status: Active Protocol: Document 12/09/21 15:14 (Rec: 12/09/21 15:14 [id number]) Nutrition Malnutrition Evidence of Malnutrition Exists Yes Malnutrition (moderate): Acute Illness/Injury Evidenced By Suboptimal Energy Intake ( Moderate),Weight Loss (Severe) Clinical Problem Acute Disease or Injury Related Malnutrition Etiology moderate, acute malnutrition r /t inadequate energy intake w/ increased GI output Signs/Symptoms as evidenced by reported unintentional wt loss of 11.3# /8% x 1 month; estimated PO intake meeting<75% of estimated energy needs >7 days Status Active Problem Recommendation Dietitian Recommendations/Changes recommend advance diet as tolerated to transitional; will order 120mL ensure clear 4x/day w/ medpass for additional calories/protein if consumed. Recommend ensure enlive when PO diet is advanced. Lab / Micro Data Result Diagrams: 12/10/21 09:55 document embedded image 12/10/21 09:55 document embedded image Labs:Laboratory Results - last 24 hr 12/10/21 09:55: WBC 6.1, RBC 2.86 L, Hgb 8.8 L, Hct 26.7 L, MCV 93.4, MCH 30.8, MCHC 33.0 D, RDW Std Deviation 46.0 H, RDW Coeff of Moiz 13.6, Plt Count 190, MPV 10.4, Immature Gran % (Auto) 0.200, Neut % (Auto) 57.6, Lymph % (Auto) 34.6, Hodgeman % (Auto) 6.0, Eos % (Auto) 1.3, Baso % (Auto) 0.3, Absolute Neuts (auto) 3.5, Absolute Lymphs (auto) 2.12, Nucleated RBC % 0 12/10/21 09:55: Sodium 140, Potassium 3.9, Chloride 111 H, Carbon Dioxide 25.0, Anion Gap 4 L, BUN 19 H, Creatinine 1.66 H, Estim Creat Clear Calc 30.71, Est GFR (MDRD) Af Amer 52 L, Est GFR (MDRD) Non-Af 43 L, BUN/Creatinine Ratio 11.4, Glucose 107 H, Calcium 8.0 L Micro:Microbiology 12/10/21 11:59 Nasal Secretion SARS-CoV-2 Antigen (Rapid) - Final 12/08/21 22:40 Stool Stool Lactoferrin - Final Physical Exam Const alert, oriented x3 and no apparent distress HEENT head/scalp atraumatic and moist oral mucous membranes Head and Scalp: normocephalic Eyes PERRL and conjunctivae normal Neck no lymphadenopathy, supple and no JVD Resp normal respiratory effort, no retractions and no use of accessory muscles Cardio regular rate, regular rhythm and no JVD GI normal to inspection, nondistended, normoactive bowel sounds Extremity normal to inspection Skin no rashes or lesions noted Neuro CN's II-XII intact bilaterally Psych affect normal Assessment & Plan Assessment/Plan (1) Intractable diarrhea: PLAN: Day 2 Discharge planning: To be determined. 1) intractable diarrhea Believed to be the result of postinfectious diarrhea, GI consulted, continue octreotide, IV fluids, antiemetics and IV PPI. 2) CKD stage IIIb Creatinine at baseline, continue to trend BMP. 3) severe protein calorie malnutrition Evidenced by recent weight loss and poor oral intake. BMI 22.8. Dietitian consult ordered. 4) BPH Continue Flomax. 5) ANTIONE Continue CPAP. 6) HTN Hold hydrochlorothiazide, continue atenolol. 7) hyperlipidemia Continue statin. 8) squamous cell carcinoma Following with general surgery as an outpatient. DVT prophylaxis - heparin Patient seen by Isaac Webber PA-C, under the supervision of Dr. Edmonds. Time spent on patient care: 10 minutes. Documented by User: Dr. Sumit Edmonds DO 12/10/21 19:24 Objective Data Lab / Micro Data Result Diagrams: 12/10/21 09:55 document embedded image 12/10/21 09:55 document embedded image Charges/Coding Addendum Addendum: Patient was seen and examined independently of Isaac Webber, he underwent an EGD today which did not show any obvious signs of bleeding. Patient's hemoglobin dropped to 8.8 today-this appears to be delusional in nature as we have no proof that the patient is actively bleeding. Patient is having no episodes of diarrhea today, I talked at length with the son who was in the room this afternoon and his son requested that gastroenterology return to have further conversations with them-I passed this on to Dr. Almanzar. Patient will be placed on a regular diet, the Sandostatin drip will be discontinued, and his Protonix drip will be discontinued. Patient requested that a Azul catheter be placed today before the EGD, it is desired to go home with an indwelling Azul and to follow-up with urology. I told the patient's son he would need to be on Proscar for a few weeks before it would have a marked effect on his bladder obstruction. On examination he appeared in good health and spirits. Vital signs as documented. Skin warm and dry and without overt rashes. Neck without JVD, neck was supple, trachea midline, thyroid was normal. Lungs clear bilaterally, normal air movement was noted. Heart exam notable for regular rhythm, normal sounds and absence of murmurs, rubs or gallops. Abdomen unremarkable and without evidence of organomegaly, masses, or abdominal aortic enlargement. Bowel sounds are present, abdomen is not distended. Extremities nonedematous, no cyanosis was noted, no clubbing was noted. Neuro: Cranial nerves II through XII are grossly intact, no focal motor deficits were noted, sensation to light touch and pinprick intact, motor exam 5/5 throughout. Psych: Patient is alert and oriented x3, he does not appear anxious or depressed, he does not appear agitated. Impression:1. Intractable diarrhea secondary to lymphocytic colitis versus post infectious diarrhea 2. Severe protein calorie malnutrition-as evidenced by significant recent weight loss, poor oral intake and GI losses. Dietitian consult, recommend advance diet as tolerated , 120 mL of Ensure clear 4 times a day with Medipass for additional calories and protein, Ensure Enlive when p.o. diet is advanced. 3. CKD stage IIIb. 4. BPH with bladder outlet obstruction-chronic 5. ANTIONE on CPAP 6. Hypertension 7. Hyperlipidemia I have reviewed Isaac Webber's discharge summary including his medical assessment and plan of care and endorse it with the above additions. Total clinical time spent by myself addressing the patient's medical issues, reviewing all of his data, and collaborating with the patient's care team: 30 minutes Visit Charges Inpatient E&M: 24403 Disch H[facility]
[2021-12-11 15:45] LABS: Vitamin B12 277 pg/mL (211-911)
[2021-12-11 16:08] VITALS: BP 144/72; PULSE 51; RESP 16; TEMP 36.8; O2SAT 98
[2021-12-12 19:07] LABS: Albumin 3.5 g/dL (2.9-4.4); Alpha-1-Globulins 0.2 g/dL (0.0-0.4); Alpha-2-Globulins 0.8 g/dL (0.4-1.0); Gamma Globulin 0.7 g/dL (0.4-1.8); Immunoglobulin A 98 mg/dL (61-437); Immunoglobulin E 4 IU/mL (6-495); Immunoglobulin G 613 mg/dL (603-1613); Immunoglobulin M 33 mg/dL (15-143)
[2021-12-14 12:26] LABS: Gastrin, Serum 172 pg/mL (0-115)
== END 2021-12-11 15:59 | disposition home or self-care (01) | DRG 391 ==
LOC: ED 17:08 → PCU 18:20
PROVIDERS: Internal Medicine Gastroenterology; Nurse Practitioner Family; Emergency Provider Emergency Medicine; PCP Family Medicine; Visit Provider Internal Medicine
PROC: 0DJ08ZZ Inspection of Upper Intestinal Tract, Via Natural or Artificial Opening Endoscopic (ICD-10-PCS; CPT 43235; principal; 2021-12-10 12:55)
DX: K52.832 Lymphocytic colitis (principal); E43 Unspecified severe protein-calorie malnutrition; B37.81 Candidal esophagitis; A09 Infectious gastroenteritis and colitis, unspecified; K22.2 Esophageal obstruction; K26.9 Duodenal ulcer, unspecified as acute or chronic, without hemorrhage or perforation; N18.32 Chronic kidney disease, stage 3b; K20.0 Eosinophilic esophagitis; E78.5 Hyperlipidemia, unspecified; D50.9 Iron deficiency anemia, unspecified; I12.9 Hypertensive chronic kidney disease with stage 1 through stage 4 chronic kidney disease, or unspecified chronic kidney disease; E83.42 Hypomagnesemia; G47.33 Obstructive sleep apnea (adult) (pediatric); N40.1 Benign prostatic hyperplasia with lower urinary tract symptoms; K21.9 Gastro-esophageal reflux disease without esophagitis; E86.0 Dehydration; Z79.51 Long term (current) use of inhaled steroids; N13.9 Obstructive and reflux uropathy, unspecified; N32.0 Bladder-neck obstruction; Z20.822 Contact with and (suspected) exposure to COVID-19; R33.8 Other retention of urine; R35.0 Frequency of micturition; Z68.22 Body mass index [BMI] 22.0-22.9, adult; R39.14 Feeling of incomplete bladder emptying
CPT/HCPCS: 36415; 80048; 82607; 82784; 82785; 82941; 83516; 83540; 83605; 83615; 83630; 83735; 84165; 85014; 85018; 85025; 85045; 85652; 86038; 86140; 86225; 86235; 86255; 86334; 87329; 87426; 88305; 88313; 97802; 99284; J7030; J7120; A4216; J2405; J2916

== ENCOUNTER 2021-12-16 09:03 | Outpatient (CLI) | payer MEDICARE, SELFPAY ==
[2021-12-16 10:17] LABS: Absolute Lymphocyte Count 2.98 X10^3/uL (0.83-4.51); Absolute Neutrophil Count 4.6 X10^3/uL (2.0-7.7); Basophil# 0.03 X10^3/uL; Basophil% 0.4 % (0-1); Eosinophil# 0.12 X10^3/uL; Eosinophils% 1.4 % (0-5); Hematocrit 32.5 % (40-54); Hemoglobin 11.1 g/dL (13.0-16.5); Lymphocyte # 2.98 X10^3/ul (0.83-4.51); Lymphocyte % 35.5 % (19-41); Mean Corp Hgb Conc 34.2 g/dL (32-36); Mean Corpuscular Hgb 31.8 pg (27.0-32.0); Mean Corpuscular Volume 93.1 fL (80-94); Mean Platelet Vol. 11.1 fl (6.2-12.0); Monocyte# 0.59 X10^3/uL; NRBC Flagged by Analyzer 0 % (0-5); Neutrophil # 4.64 X10^3/uL (2.7-7.7); Neutrophil % 55.3 % (47-70); Platelet Count 226 K/mm3 (150-450); RBC Distribution Width CV 13.9 % (11.6-14.6); Red Blood Count 3.49 M/mm3 (4.6-6.2); White Blood Count 8.4 K/mm3 (4.4-11.0)
[2021-12-16 10:51] LABS: Vitamin D,25 Hydroxy 38.1 ng/mL
[2021-12-16 10:52] LABS: Ferritin 58 ng/mL (26-388); Iron 76 ug/dL (65-175); Iron Binding Capacity,Total 266 ug/dL (250-450)
== END 2021-12-16 23:59 | disposition home or self-care (01) ==
PROVIDERS: PCP Family Medicine; Referring Provider Family Medicine; Visit Provider Family Medicine
DX: N18.30 Chronic kidney disease, stage 3 unspecified (principal); D64.9 Anemia, unspecified
CPT/HCPCS: 36415; 82306; 82728; 83540; 83550; 85025

== ENCOUNTER 2021-12-24 11:52 | Outpatient (CLI) | payer MEDICARE, SELFPAY ==
[2021-12-24 13:11] LABS: ALB/GLOB Ratio 1.1 RATIO (0.9-2.4); AST(SGOT) 6 U/L (15-37); Alanine Aminotransfer ALT/SGPT 22 U/L (16-61); Alkaline Phosphatase 88 U/L (45-117); Anion Gap 5 (5-15); BUN 25 mg/dL (7-18); BUN/Creat Ratio 14.1 RATIO (10-20); Calcium,Total 8.9 mg/dL (8.5-10.1); Chloride 104 mmol/L (98-107); Creatinine, Serum 1.77 mg/dL (0.70-1.30); EST Glomerular Filtration Rate 40 mL/min (>60); Est Glom Filt Rate - Afr Amer 48 mL/min (>60); Globulin 3.5 g/dL (2.2-4.2); Glucose 110 mg/dL (74-106); Potassium 3.9 mmol/L (3.5-5.1); Protein, Total 7.5 g/dL (6.4-8.2); Sodium Level 136 mmol/L (136-145)
== END 2021-12-24 23:59 | disposition home or self-care (01) ==
LOC: LAB 11:53
PROVIDERS: PCP Family Medicine; Referring Provider Nurse Practitioner Adult Health; Visit Provider Nurse Practitioner Adult Health
DX: K52.832 Lymphocytic colitis (principal)
CPT/HCPCS: 36415; 80053

== ENCOUNTER 2021-12-25 09:27 | Emergency (ER) | payer MEDICARE, SELFPAY ==
[2021-12-25] VITALS (7 sets, daily range): BP systolic 127–138; BP diastolic 65–92; PULSE 72–87; RESP 14–18; TEMP 37–38.7; O2SAT 79–100; BMI 21.9
--- NOTE | 2021-12-25 10:18 | EDS_ITS ---
HPI History of Present Illness Chief Complaint: Complaint Narrative Narrative: 76-year-old male presents with urinary retention. He has BPH and has required indwelling Azul's intermittently over the last few weeks. Yesterday Dr. Brooks removed the Azul in the office. He was able to urinate a little bit yesterday but today only had a few drops. He did urinate well in the ED but still has a suprapubic discomfort. He also reports chills. While taking his pills this morning he vomited but he states that occasionally happens as he has trouble swallowing. He was found to have a fever in triage. [facility] Medical History (Reviewed 12/24/21 @ 11:12 by Bess Moran GLOBAL CONSUMER SECTOR VICE PRESIDENT, GLO[employer] CONSUMER SECTOR VICE PRESIDENT-C) Acute appendicitis Acute viral syndrome ADHD Benign hypertension Broken back Cancer Cardiology follow-up encounter COVID-19 vaccine dose declined CPAP (continuous positive airway pressure) dependence Diastasis, muscle Eosinophilic esophagitis Excessive bleeding Exposure to tobacco smoke at work Gastric reflux High cholesterol History of rheumatic fever History of stress test HTN (hypertension) Hyperlipidemia Hypoxia Inguinal hernia of right side without obstruction or gangrene Non-smoker ANTIONE (obstructive sleep apnea) Right lower quadrant abdominal pain Sleep apnea Home Medications pravastatin 20 mg PO DAILY 12/23/14 [History Last Taken 12/08/21] omeprazole 20 mg PO BID #60 tablet. 07/18/18 [Rx Last Taken 12/08/21] tamsulosin 0.4 mg capsule 0.4 mg PO DAILY 11/27/21 [History Last Taken 12/08/21] budesonide 9 mg PO DAILY@1200 12/08/21 [History Last Taken 12/08/21] potassium chloride 20 meq PO TID 12/08/21 [History Last Taken 12/08/21] atenolol 12.5 mg PO DAILY #0 tab 12/11/21 [Rx Last Taken 12/08/21] diphenoxylate-atropine [Lomotil] 1 tab PO BID #60 tab 12/11/21 [Rx Last Taken Unknown] ferrous sulfate [Iron (ferrous sulfate)] 325 mg PO BID #60 tab 12/11/21 [Rx Last Taken Unknown] finasteride 5 mg PO DAILY #30 tab 12/11/21 [Rx Last Taken Unknown] nystatin 200,000 unit PO DAILY #30 ml 12/11/21 [Rx Last Taken Unknown] colestipol 1 gram tablet 2 g PO BID 90 Days #360 tab 12/14/21 [Rx Last Taken Unknown] cefdinir 300 mg PO BID 7 Days #14 cap 12/25/21 [Rx Last Taken Unknown] Allergy/AdvReac Type Severity Reaction Status Date / Time No Known Allergies Allergy Verified 12/02/21 16:25 Family History (Reviewed 12/24/21 @ 11:12 by Bess Moran GLOBAL CONSUMER SECTOR VICE PRESIDENT, GLOBAL CONSUMER SECTOR VICE PRESIDENT-C) Mother Hypertension Father , at age 61 secondary to brain tumor Cancer Surgical History History of appendectomy History of cardiac catheterization History of laparoscopic appendectomy History of tonsillectomy Social History household members: none Smoking Status: Never smoker alcohol intake: never substance use type: does not use ROS ROS ED ROS Narrative Constitutional: Negative for fever, chills, malaise. Eyes: Negative for visual change. ENT: Negative for sore throat, ear pain, rhinorrhea. CVS: Negative for palpitations, chest pain, syncope. Respiratory: Negative for shortness of breath, cough. GI: Positive for nausea, vomiting. Negative for abdominal pain, diarrhea, constipation, melena, hematochezia. : Negative for dysuria, hematuria or frequency. Neuro: Negative for headache, motor/sensory dysfunction. Skin: Negative for rash, abscess, or wound. Musc: Negative for joint pain, swelling, trauma. Heme: Negative for easy bruising, bleeding, lymphadenopathy. EXAM Physical Exam Narrative Exam Narrative: CONST: Patient sitting in no acute distress. EYES: Normal inspection. ENT: Normal inspection, moist mucous membranes. NECK: Normal inspection. RESP: No respiratory distress, CTAB. CVS: Regular rate and rhythm, no murmur, no gallop. ABD: Soft with suprapubic tenderness, no guarding or rebound, nondistended. Back: Normal inspection, no CVA tenderness. SKIN: Color normal, no rash, warm, dry, intact. EXTREMITIES: Normal appearance, no pedal edema. NEURO: Oriented x4. PSYCH: Normal affect. Const Vital Signs: 12/25/21 09:28 12/25/21 10:21 12/25/21 10:39 Temperature 101.4 F H 101.6 F H 101.6 F H Temperature Source Temporal Oral Oral Pulse Rate 87 83 Respiratory Rate 18 18 Blood Pressure 130/92 H 132/78 H Blood Pressure Mean 104 96 Pulse Ox 100 98 96 Oxygen Delivery Method Room Air Room Air Room Air 12/25/21 11:05 12/25/21 11:34 Temperature 101.4 F H 100.0 F H Temperature Source Oral Oral Pulse Rate 76 78 Respiratory Rate 14 18 Blood Pressure 134/76 H 138/65 H Blood Pressure Mean 95 89 Pulse Ox 99 79 Oxygen Delivery Method Room Air Room Air MDM MDM MDM Narrative Medical decision making narrative: Patient had an indwelling Azul removed yesterday and presents with urinary retention. He appears well and nontoxic. He is febrile at 101.4F, otherwise normal vital signs. Heart rate in the 70s. On exam his heart is regular rate and rhythm. Lungs clear. Abdomen soft with slight suprapubic tenderness. No peritoneal signs. Urine is positive for UTI. White count is 14.8, normal electrolytes, CKD essentially at baseline with creatinine of 1.86. He was treated with IV fluids and Rocephin. He does meet sepsis criteria but his vital signs improved after Tylenol and clinically he looks well enough to go home. His post void residual is around 100 cc so there is no indication for a catheter. Case was discussed with Dr. Brooks who agreed he can be discharged home on oral antibiotics. He will be prescribed cefdinir 300 mg twice daily. He was counseled to return for new or worsening symptoms and will follow up with urology next week. Diagnoses 1. UTI 2. Sepsis Lab Data Labs: Laboratory Results - last 24 hr 12/25/21 12/25/21 12/25/21 10:22 10:35 10:35 WBC 14.8 H RBC 3.39 L Hgb 10.8 L Hct 31.4 L MCV 92.6 MCH 31.9 MCHC 34.4 RDW Std Deviation 46.4 H RDW Coeff of Moiz 13.6 Plt Count 204 MPV 10.3 Immature Gran % (Auto) 0.500 Neut % (Auto) 79.6 H Lymph % (Auto) 14.3 L [place] % (Auto) 5.5 Eos % (Auto) 0.0 Baso % (Auto) 0.1 Absolute Neuts (auto) 11.8 H Absolute Lymphs (auto) 2.11 Nucleated RBC % 0 PT 14.1 INR 1.2 APTT 31.5 Sodium Potassium Chloride Carbon Dioxide Anion Gap BUN Creatinine Estim Creat Clear Calc Est GFR (MDRD) Af Amer Est GFR (MDRD) Non-Af BUN/Creatinine Ratio Glucose Lactic Acid Calcium Total Bilirubin AST ALT Alkaline Phosphatase Total Protein Albumin Globulin Albumin/Globulin Ratio Urine Color Yellow Urine Clarity Cloudy Urine pH 6.0 Ur Specific [place] 1.015 Urine Protein 100 H Urine Glucose (UA) Normal Urine Ketones Negative Urine Occult Blood 150 H Urine Nitrite Negative Urine Bilirubin Negative Urine Urobilinogen Normal Ur Leukocyte Esterase 500 H Urine RBC 0-5 SEEN Urine WBC 25-50 SEEN Ur Squamous Epith Cells 0 SEEN Urine Bacteria 3+ Urine Mucus 0 SEEN 12/25/21 12/25/21 10:35 10:35 WBC RBC Hgb Hct MCV MCH MCHC RDW Std Deviation RDW Coeff of Moiz Plt Count MPV Immature Gran % (Auto) Neut % (Auto) Lymph % (Auto) [place] % (Auto) Eos % (Auto) Baso % (Auto) Absolute Neuts (auto) Absolute Lymphs (auto) Nucleated RBC % PT INR APTT Sodium 136 Potassium 3.8 Chloride 105 Carbon Dioxide 23.0 Anion Gap 8 BUN 27 H Creatinine 1.86 H Estim Creat Clear Calc 26.88 Est GFR (MDRD) Af Amer 45 L Est GFR (MDRD) Non-Af 38 L BUN/Creatinine Ratio 14.5 Glucose 118 H Lactic Acid 1.7 Calcium 9.2 Total Bilirubin 0.70 AST 9 L ALT 19 Alkaline Phosphatase 80 Total Protein 6.9 Albumin 3.6 Globulin 3.3 Albumin/Globulin Ratio 1.1 Urine Color Urine Clarity Urine pH Ur Specific [place] Urine Protein Urine Glucose (UA) Urine Ketones Urine Occult Blood Urine Nitrite Urine Bilirubin Urine Urobilinogen Ur Leukocyte Esterase Urine RBC Urine WBC Ur Squamous Epith Cells Urine Bacteria Urine Mucus Discharge Plan Triage Chief Complaint: Complaint ED Provider: Sabra Morel Dx/Rx/DC Orders Clinical Impression: Acute UTI Instructions: ED Bladder Infection, Male (Adult) Prescriptions: New cefdinir 300 mg capsule 300 mg PO BID 7 Days Qty: 14 RF: 0 No Action tamsulosin [Flomax] 0.4 mg capsule 0.4 mg PO DAILY RF: 0 pravastatin 20 MG tablet 20 mg PO DAILY RF: 0 omeprazole 20 MG tablet,delayed release (DR/EC) 20 mg PO BID Qty: 60 RF: 0 potassium chloride 20 mEq tablet extended release 20 meq PO TID RF: 0 budesonide 9 mg tablet,delayed and ext.release 9 mg PO DAILY@1200 RF: 0 nystatin 100,000 unit/mL suspension 200,000 unit PO DAILY Qty: 30 RF: 0 ferrous sulfate [Iron (ferrous sulfate)] 325 mg (65 mg iron) tablet 325 mg PO BID Qty: 60 RF: 0 finasteride 5 mg Tablet 5 mg PO DAILY Qty: 30 RF: 0 atenolol 25 MG tablet 12.5 mg PO DAILY Qty: 0 RF: 0 diphenoxylate-atropine [Lomotil] 2.5-0.025 mg tablet 1 tab PO BID Qty: 60 RF: 0 colestipol 1 gram tablet 2 g PO BID 90 Days Qty: 360 RF: 0 Primary Care Provider: Ana Wilburn Referrals: Ana Wilburn MD [Primary Care Provider] - Activity Restrictions/Additional Instructions: You have a urinary tract infection. We gave you IV antibiotics here and prescribed cefdinir for home which should take twice a day. Please also continue to take Tylenol every 6 hours as needed. Follow-up with urology next week. If you develop new or worsening symptoms come back to the emergency room. Disposition Disposition: Home, Self Care
[2021-12-25 10:30] LABS: Mucous, Urine 0 SEEN /hpf (<or=2+); Squamous Epithelial Cells - UA 0 SEEN /hpf (0-5)
[2021-12-25 10:32] LABS: Color, Urine Yellow (Yellow); Glucose, Dipstick Normal (Normal); Ketone-Dipstick Negative (Negative); Leukocyte Esterase-Dipstick 500 /ul (Negative); Nitrite-Dipstick Negative (Negative); Occult Blood-Urine 150 /ul (Negative); Protein-Dipstick 100 mg/dl (Negative); Specific Gravity, Urine 1.015 (1.002-1.030); Urine Bilirubin Dipstick Negative (Negative); Urine Clarity Cloudy (Clear); Urine Urobilinogen Normal (Normal)
[2021-12-25 10:53] LABS: Absolute Lymphocyte Count 2.11 X10^3/uL (0.83-4.51); Absolute Neutrophil Count 11.8 X10^3/uL (2.0-7.7); Basophil# 0.01 X10^3/uL; Basophil% 0.1 % (0-1); Hematocrit 31.4 % (40-54); Hemoglobin 10.8 g/dL (13.0-16.5); Lymphocyte # 2.11 X10^3/ul (0.83-4.51); Lymphocyte % 14.3 % (19-41); Mean Corp Hgb Conc 34.4 g/dL (32-36); Mean Corpuscular Hgb 31.9 pg (27.0-32.0); Mean Corpuscular Volume 92.6 fL (80-94); Mean Platelet Vol. 10.3 fl (6.2-12.0); Monocyte# 0.82 X10^3/uL; Monocyte% 5.5 % (0-10); NRBC Flagged by Analyzer 0 % (0-5); Neutrophil # 11.79 X10^3/uL (2.7-7.7); Neutrophil % 79.6 % (47-70); Platelet Count 204 K/mm3 (150-450); RBC Distribution Width CV 13.6 % (11.6-14.6); RBC Distribution Width SD 46.4 fl (35.1-43.9); Red Blood Count 3.39 M/mm3 (4.6-6.2); White Blood Count 14.8 K/mm3 (4.4-11.0)
[2021-12-25 11:00] LABS: International Normalized Ratio 1.2; Partial Thromboplast Time 31.5 Seconds (24.1-36.2); Prothrombin Time (Protime)PT. 14.1 SECONDS (11.7-14.9)
[2021-12-25] MEDS: Acetaminophen 500 MG Tablet 1000 MG PO (11:01)
[2021-12-25 11:06] LABS: Bacteria 3+ /hpf (None Seen); Red Blood Cells-Urine 0-5 SEEN /hpf (0-5); White Blood Cells 25-50 SEEN /hpf (0-5)
[2021-12-25 11:10] LABS: ALB/GLOB Ratio 1.1 RATIO (0.9-2.4); AST(SGOT) 9 U/L (15-37); Alanine Aminotransfer ALT/SGPT 19 U/L (16-61); Albumin, Serum 3.6 g/dL (3.2-5.0); Alkaline Phosphatase 80 U/L (45-117); Anion Gap 8 (5-15); BUN 27 mg/dL (7-18); BUN/Creat Ratio 14.5 RATIO (10-20); Calcium,Total 9.2 mg/dL (8.5-10.1); Chloride 105 mmol/L (98-107); Creatinine, Serum 1.86 mg/dL (0.70-1.30); EST Glomerular Filtration Rate 38 mL/min (>60); Est Glom Filt Rate - Afr Amer 45 mL/min (>60); Estimated Creatinine Clearance 26.88 ml/min; Globulin 3.3 g/dL (2.2-4.2); Glucose 118 mg/dL (74-106); Potassium 3.8 mmol/L (3.5-5.1); Protein, Total 6.9 g/dL (6.4-8.2); Sodium Level 136 mmol/L (136-145)
[2021-12-25] MEDS: 0.9% Normal Saline 1,000 ML 999 ML IV (11:14)
[2021-12-25 11:16] LABS: Lactic Acid 1.7 mmol/L (0.4-1.9)
[2021-12-25] MEDS: Ceftriaxone 1 GM/50 ML BAG IV (11:33)
== END 2021-12-25 12:42 | disposition home or self-care (01) ==
PROVIDERS: Emergency Provider Physician Assistant; PCP Family Medicine; Visit Provider Physician Assistant
DX: A41.9 Sepsis, unspecified organism (principal); N39.0 Urinary tract infection, site not specified; N40.1 Benign prostatic hyperplasia with lower urinary tract symptoms; R33.8 Other retention of urine; I12.9 Hypertensive chronic kidney disease with stage 1 through stage 4 chronic kidney disease, or unspecified chronic kidney disease; N18.9 Chronic kidney disease, unspecified; E78.5 Hyperlipidemia, unspecified; G47.33 Obstructive sleep apnea (adult) (pediatric); R13.10 Dysphagia, unspecified; Z79.899 Other long term (current) drug therapy
CPT/HCPCS: 36415; 80053; 81001; 83605; 85025; 85610; 85730; 87040; 87077; 87086; 87088; 87186; 96365; 99285; J7030

== ENCOUNTER 2021-12-27 01:18 | Emergency (ER) | payer MEDICARE, SELFPAY ==
[2021-12-27 01:18] VITALS: BP 137/79; PULSE 75; RESP 28; TEMP 36.1; O2SAT 100
[2021-12-27 01:19] VITALS: BP 137/79; PULSE 75; RESP 28; TEMP 36.1; O2SAT 100; BMI 24.6
--- NOTE | 2021-12-27 01:34 | EX.ED.GUMALE ---
HPI History of Present Illness Chief Complaint: Complaint Detail of Chief Complaint: Unable to urinate. Recent UTI on antibiotics. Informant: patient and family Pain Onset: Today Timing: Continuous Current Severity: Moderate Maximum Severity: Moderate Appearance Lesion(s): No Genital Edema: No Narrative Narrative: 76-year-old male history of hypertension and BPH. Was seen here 2 days ago treated for UTI. Placed on antibiotic which they are currently awaiting the sensitivities. Patient has needed Azul catheters in the past. He does see Dr. Michael Brooks of urology. Patient is scheduled to have a prostate surgical procedure this coming Tuesday but they are awaiting his urinary tract infection to resolve. Today he was unable to urinate and presents with urinary retention needing a Azul catheter. Prior similar symptoms: Yes Recent Illness/Hospitalization: No PFSH PFSH Medical History Acute appendicitis Acute viral syndrome ADHD Benign hypertension Broken back Cancer Cardiology follow-up encounter COVID-19 vaccine dose declined CPAP (continuous positive airway pressure) dependence Diastasis, muscle Eosinophilic esophagitis Excessive bleeding Exposure to tobacco smoke at work Gastric reflux High cholesterol History of rheumatic fever History of stress test HTN (hypertension) Hyperlipidemia Hypoxia Inguinal hernia of right side without obstruction or gangrene Non-smoker ANTIONE (obstructive sleep apnea) Right lower quadrant abdominal pain Sleep apnea Home Medications pravastatin 20 mg PO DAILY 12/23/14 [History Last Taken 12/08/21] omeprazole 20 mg PO BID #60 tablet. 07/18/18 [Rx Last Taken 12/08/21] tamsulosin 0.4 mg capsule 0.4 mg PO DAILY 11/27/21 [History Last Taken 12/08/21] budesonide 9 mg PO DAILY@1200 12/08/21 [History Last Taken 12/08/21] potassium chloride 20 meq PO TID 12/08/21 [History Last Taken 12/08/21] atenolol 12.5 mg PO DAILY #0 tab 12/11/21 [Rx Last Taken 12/08/21] diphenoxylate-atropine [Lomotil] 1 tab PO BID #60 tab 12/11/21 [Rx Last Taken Unknown] ferrous sulfate [Iron (ferrous sulfate)] 325 mg PO BID #60 tab 12/11/21 [Rx Last Taken Unknown] finasteride 5 mg PO DAILY #30 tab 12/11/21 [Rx Last Taken Unknown] nystatin 200,000 unit PO DAILY #30 ml 12/11/21 [Rx Last Taken Unknown] colestipol 1 gram tablet 2 g PO BID 90 Days #360 tab 12/14/21 [Rx Last Taken Unknown] cefdinir 300 mg PO BID 7 Days #14 cap 12/25/21 [Rx Last Taken Unknown] Allergy/AdvReac Type Severity Reaction Status Date / Time No Known Allergies Allergy Verified 12/02/21 16:25 Family History Mother Hypertension Father , at age 61 secondary to brain tumor Cancer Surgical History History of appendectomy History of cardiac catheterization History of laparoscopic appendectomy History of tonsillectomy Social History household members: none Smoking Status: Never smoker alcohol intake: never substance use type: does not use ROS ROS ED ROS Narrative Unable to urinate. Review of Systems ROS Unobtainable: Denies due to encephalopathy Constitutional Constitutional ED: Denies fever(s) Eyes Eyes: Denies change in vision ENT ENT ED: Denies ear pain Cardiovascular Cardiovascular: Denies chest pain Respiratory/Chest Respiratory/Chest: Denies cough or dyspnea Gastrointestinal Gastrointestinal: Reports abdominal pain and diarrhea; Denies nausea or vomiting Genitourinary Genitourinary ED: Denies dysuria or hematuria Musculoskeletal Musculoskeletal: Denies myalgias Integumentary Denies rash Neurologic Neurologic: Denies headache(s) Psychiatric Psychiatric: Denies depression Endocrine Endocrinology: Denies polyuria Hematologic/Lymphatic Hematologic/Lymphatic: Denies easy bruising Allergic/Immunologic Allergic/Immunologic ED: Denies urticaria EXAM Physical Exam Narrative Exam Narrative: 76-year-old male vital signs are stable afebrile. Complaining of suprapubic discomfort because of urinary retention. H EENT exam unremarkable. Lungs are clear to auscultation. Heart regular rate and rhythm no murmur. Abdomen soft. Tender over the suprapubic area consistent with bladder distention. No peritoneal signs. External exam is unremarkable except an uncircumcised male. Moving all 4 extremities. Nontender no edema. Neurologically is awake and alert. Moving all 4 extremities. Const Vital Signs: 12/27/21 01:18 12/27/21 01:19 Temperature 97.0 F L 97.0 F L Temperature Source Temporal Temporal Pulse Rate 75 75 Respiratory Rate 28 H 28 H Blood Pressure 137/79 H 137/79 H Blood Pressure Mean 98 98 Pulse Ox 100 100 Oxygen Delivery Method Room Air Room Air Positive well nourished and well developed; Negative for obese, cachectic, contractures or unkempt General Appearance ED: well developed and NAD; Negative for unkempt, cachectic, contractures or pallor Nutritional Appearance: Negative for cachectic or obese HEENT Reports moist mucous membranes normocephalic and atraumatic; Negative for trauma or tenderness Eyes PERRL and EOMs intact bilaterally Neck no lymphadenopathy, supple and no JVD General: Negative for tenderness Resp normal respiratory effort and clear to auscultation bilaterally Auscultation: Negative for rales, rhonchi or wheezes Cardio regular rate, regular rhythm, S1 normal heart sound, S2 normal heart sound and no murmurs GI no masses; Negative for non-tender or non-distended GI Narrative: Suprapubic tenderness secondary to an enlarged bladder secondary to urinary retention. Inspection: abdominal distention Auscultation: normoactive bowel sounds; Negative for hyperactive bowel sounds or hypoactive bowel sounds Palpation: soft; Negative for hepatomegaly or splenomegaly Rectal Exam: tenderness no CVA tenderness Penis: normal penis and uncircumcised; Negative for ecchymosis, edematous, erythema or mass Back/Spine no CVA tenderness General Back: Negative for CVA tenderness Extremity normal to inspection General Extremety ED: Negative for edema or tenderness General Extremity: Negative for edema Neuro oriented x3 and moves all extremities Sensorium / Orientation: alert, oriented to person, oriented to place and oriented to time; Negative for orientation impaired, lethargic or stuporous Motor Exam: strength 5/5 throughout Psych mental status grossly normal Appearance: Negative for unkempt Attitude: No agitated Mood & Affect: Negative for depressed or tearful Skin General Skin Exam: Negative for jaundice or pallor Lesions: no lesions Rashes: no rashes MDM MDM MDM Narrative Medical decision making narrative: 76-year-old male currently being treated for a UTI and has a history of BPH. He has having urinary retention. Nurses did a bladder scan it was over thousand. They are currently placing a Azul catheter. Repeat exam at 2 AM patient is doing well. He had over 1 L of yellow urine out of the Azul catheter. His bladder is no longer distended. His abdomen and pain are resolved. He feels fine being discharged home. Is currently on antibiotics. The cultures done the sensitivities are pending. He will follow up with his urologist on Tuesday. Discharge Plan Triage Chief Complaint: Complaint ED Provider: Hudson Perez Dx/Rx/DC Orders Clinical Impression: Acute UTI, Acute urinary retention Instructions: Urinary Tract Infections in Men, ED Azul Catheter, Care, ED Urinary Retention, Male Prescriptions: No Action tamsulosin [Flomax] 0.4 mg capsule 0.4 mg PO DAILY RF: 0 pravastatin 20 MG tablet 20 mg PO DAILY RF: 0 omeprazole 20 MG tablet,delayed release (DR/EC) 20 mg PO BID Qty: 60 RF: 0 potassium chloride 20 mEq tablet extended release 20 meq PO TID RF: 0 budesonide 9 mg tablet,delayed and ext.release 9 mg PO DAILY@1200 RF: 0 nystatin 100,000 unit/mL suspension 200,000 unit PO DAILY Qty: 30 RF: 0 ferrous sulfate [Iron (ferrous sulfate)] 325 mg (65 mg iron) tablet 325 mg PO BID Qty: 60 RF: 0 finasteride 5 mg Tablet 5 mg PO DAILY Qty: 30 RF: 0 atenolol 25 MG tablet 12.5 mg PO DAILY Qty: 0 RF: 0 diphenoxylate-atropine [Lomotil] 2.5-0.025 mg tablet 1 tab PO BID Qty: 60 RF: 0 cefdinir 300 mg capsule 300 mg PO BID 7 Days Qty: 14 RF: 0 colestipol 1 gram tablet 2 g PO BID 90 Days Qty: 360 RF: 0 Primary Care Provider: Ana Wilburn Referrals: Ana Wilburn MD [Primary Care Provider] - Amandeep Brooks MD [STAFF PHYSICIAN] - As soon as possible Activity Restrictions/Additional Instructions: Continue on your antibiotics for the UTI. The sensitivities should be back in the next 24 to 48 hours. Empty the Azul catheter whenever half to near full. Follow-up with your urologist. Disposition Disposition: Home, Self Care
[2021-12-27] MEDS: Lidocaine Jelly 2% 20 ML Syringe (URO-JET) 1 APPLIC TOPICAL (01:48)
== END 2021-12-27 02:17 | disposition home or self-care (01) ==
PROVIDERS: Emergency Provider Emergency Medicine; PCP Family Medicine; Visit Provider Emergency Medicine
DX: N39.0 Urinary tract infection, site not specified (principal); N40.1 Benign prostatic hyperplasia with lower urinary tract symptoms; R33.8 Other retention of urine; I10 Essential (primary) hypertension; E78.5 Hyperlipidemia, unspecified; K21.9 Gastro-esophageal reflux disease without esophagitis; G47.33 Obstructive sleep apnea (adult) (pediatric); Z79.899 Other long term (current) drug therapy
CPT/HCPCS: 99282

== ENCOUNTER 2021-12-30 15:40 | Observation (INO) | payer MEDICARE, SELFPAY ==
[2021-12-30] VITALS (13 sets, daily range): BP systolic 132–202; BP diastolic 68–111; PULSE 57–86; RESP 16–18; TEMP 36.3–37.2; O2SAT 92–100; BMI 22.6
--- NOTE | 2021-12-30 10:25 | EKG12_ITS ---
Test Reason : PRE OP Blood Pressure : / mmHG Vent. Rate : 064 BPM Atrial Rate : 064 BPM P-R Int : 178 ms QRS Dur : 082 ms QT Int : 384 ms P-R-T Axes : 054 028 003 degrees QTc Int : 396 ms Normal sinus rhythm Normal ECG When compared with ECG of 10-AUG-2020 19:00, No significant change was found Confirmed by JUANCHO BLANTON, VINCENZO ([id number]), scientific publications editor NAZIA ROSENBAUM ([id number]) on 01/04/2022 10:50:36 AM Referred By: Amandeep Brooks Confirmed By:VINCENZO DAWKINS MD
[2021-12-30] MEDS: Lactated Ringers 1,000 ML 15 ML IV ×2 (11:04→14:51)
--- NOTE | 2021-12-30 12:15 | PROS_PTH ---
PATIENT: NICK EASTON LOC: MS3 U#:[id number] AGE/SX: 76/M [place] [facility] [place]: Dr. Amandeep Brooks MD : [id number] BED: 1 DIS: 12/31/2021 SPEC #: [id number] RECD: 12/30/21 14:04 STATUS: OTIS FABIAN #: [id number] REBECCA: 12/30/21 12:[address]: Amandeep Brooks DEPT: SURGICAL PATHOLOGY RECD BY: Patricia Aguero ENTERED: 12/31/21 07:42 SP TYPE: TURP OTHR DR: Dr. Ana Wilburn MD Tissues: Prostate, NOS Procedures: Surgery Specimen Level IV HEADER OPERATION: Cysto, transurethral resection prostate, [employer] PRE-OP DIAGNOSIS: Retention of urine TISSUE SUBMITTED: Prostate chips MICROSCOPIC DIAGNOSIS Prostate chips, transurethral resection: Benign prostatic hyperplasia, glandular and stromal type. Focal mild acute and chronic inflammation. SOTO:mattie 01/01/2022 MICROSCOPIC DESCRIPTION Slides are reviewed. GROSS DESCRIPTION Received is one container labeled with the patient's name and designated prostate chips. The specimen consists of multiple irregular fragments of pink-arrington, rubbery, soft tissue that in aggregate weigh 4.5 gm and measure in aggregate 3 x 3 x 1 cm. The entire specimen is submitted in four cassettes. / SOTO:mattie 12/31/2021 TC:5 CPT: 06575
[2021-12-30] MEDS: Cefazolin 2 GM in 0.9% Normal Saline 100 ML IV (12:29)
--- NOTE | 2021-12-30 12:31 | PCM.HP.STD ---
HPI - General HPI Narrative NICK EASTON, is a 76 M who presents for a turp for retention of urine PFS Medical History (Updated 12/29/21 @ 09:07 by Ronit Duarte) Acute appendicitis Acute viral syndrome ADHD Benign hypertension Broken back Cancer Cardiology follow-up encounter COVID-19 vaccine dose declined CPAP (continuous positive airway pressure) dependence Diastasis, muscle Eosinophilic esophagitis Excessive bleeding Exposure to tobacco smoke at work Azul catheter in place Gastric reflux High cholesterol History of rheumatic fever History of stress test HTN (hypertension) Hyperlipidemia Hypoxia Inguinal hernia of right side without obstruction or gangrene Microscopic colitis Non-smoker ANTIONE (obstructive sleep apnea) Right lower quadrant abdominal pain Sleep apnea Home Medications pravastatin 20 mg PO DAILY 12/23/14 [History Last Taken 12/29/21] tamsulosin 0.4 mg capsule 0.4 mg PO DAILY 11/27/21 [History Last Taken 12/29/21] budesonide 9 mg PO DAILY@1200 12/08/21 [History Last Taken 12/30/21 08:00] potassium chloride 20 meq PO TID 12/08/21 [History Last Taken 12/29/21] atenolol 12.5 mg PO DAILY #0 tab 12/11/21 [Rx Last Taken 12/30/21 08:00] cefdinir 300 mg PO BID 12/30/21 [History Last Taken 12/29/21] colestipol 2 g PO BID 12/30/21 [History Last Taken 12/29/21] ferrous sulfate [Iron (ferrous sulfate)] 325 mg PO BID 12/30/21 [History Last Taken 12/29/21] finasteride 5 mg PO DAILY 12/30/21 [History Last Taken 12/29/21] omeprazole 20 mg PO BID 12/30/21 [History Last Taken 12/30/21 08:00] Allergy/AdvReac Type Severity Reaction Status Date / Time No Known Allergies Allergy Verified 12/30/21 10:42 Family History Mother Hypertension Father , at age 61 secondary to brain tumor Cancer Surgical History (Updated 12/29/21 @ 08:58 by Ronit Duarte) History of appendectomy History of cardiac catheterization History of esophagogastroduodenoscopy (EGD) History of laparoscopic appendectomy History of tonsillectomy Social History household members: none Smoking Status: Never smoker alcohol intake: never substance use type: does not use Vital Signs Vital Signs Vital Signs: 12/30/21 10:50 12/30/21 10:53 Temperature 98.0 F Temperature Source Temporal Pulse Rate 57 L Respiratory Rate 18 Respiratory Pattern Normal Blood Pressure 158/76 H Blood Pressure Mean 103 Blood Pressure Source Monitor Blood Pressure Position Semi-Fowlers Blood Pressure Location Left Arm Pulse Ox 100 Oxygen Delivery Method Room Air Weight Weight: 59.874 kg Body Mass Index (BMI) 22.6
--- NOTE | 2021-12-30 12:32 | DCINST_ITS ---
Discharge Instructions Diet Discharge Diet: No restrictions Activity Discharge Activity: Return to Normal Activity and May Not Drive (while taking narcotic pain medications.) Dressing / Incision Call your doctor if you observe: Fever of 101 or Higher Follow Up Care Please Follow Up With: Amandeep Brooks MD When: Call [phone] for an appointment Test Results: Test results from this visit will be discussed in further detail at your follow-up appointment, if applicable. Discharge Plan Admission Primary Reason for Your Visit: TURP Attending Provider: Amandeep Brooks Primary Care Provider: Ana Wilburn Instructions Patient Instructions: [facility] Home Recovery Discharge Orders/Prescriptions Prescriptions: Continued tamsulosin [Flomax] 0.4 mg capsule 0.4 mg PO DAILY RF: 0 pravastatin 20 MG tablet 20 mg PO DAILY RF: 0 potassium chloride 20 mEq tablet extended release 20 meq PO TID RF: 0 budesonide 9 mg tablet,delayed and ext.release 9 mg PO DAILY@1200 RF: 0 atenolol 25 MG tablet 12.5 mg PO DAILY Qty: 0 RF: 0 ferrous sulfate [Iron (ferrous sulfate)] 325 mg (65 mg iron) tablet 325 mg PO BID RF: 0 cefdinir 300 mg capsule 300 mg PO BID RF: 0 colestipol 1 gram tablet 2 g PO BID RF: 0 finasteride 5 mg tablet 5 mg PO DAILY RF: 0 omeprazole 20 MG tablet,delayed release (DR/EC) 20 mg PO BID RF: 0 Referrals / Follow Up: Ana Wilburn MD [Primary Care Provider] - Amandeep Brooks MD [STAFF PHYSICIAN] - Disposition Disposition (needs filled in before D/C Order can be placed): Home, Self Care
--- NOTE | 2021-12-30 13:14 | PCM.OPRPT ---
Report of Operation Date of Procedure: 12/30/21 Pre-Operative Diagnosis: BPH Post-Operative Diagnosis: same Surgery/Procedure Performed:: transurethral resection of prostate Description of Surgical Findings:: In the preoperative setting I discussed with the patient how the surgery would be done with expect afterwards. We discussed how a prostate resection is done and we discussed the risk of the surgery including, bleeding, infection, retrograde ejaculation, changes with ejaculation or intercourse,. We discussed the possibility that the resection of the prostate may not alleviate his urinary symptoms. We discussed the small risk of developing scar tissue along the urethral channel and strictures. We also discussed the chance of the prostate could grow back and he may need further surgery or treatment in the future for prostate problems. Patient was taken back to the operating room, timeout procedure was performed, he was identified and marked and placed on the operating room table. He underwent general anesthesia. He was placed in dorsolithotomy position. Penis and testicles were prepped and draped in usual sterile fashion. Went into the bladder using the visual obturator with a resectoscope. Once inside the bladder identified the right and left ureteral orifice. I then identified the prostate and the anatomy of the prostate. I marked out the area of the sphincter and the verumontanum was identified. I then proceeded with the prostate resection first resected the median lobe. And then resected the right lobe of the prostate. Then to resect the left lobe of the prostate. I then resected the apical tissue of the prostate. This was a complete resection of all obstructive tissue to improve voiding and relieve obstruction. I then made sure that there was no injury to the sphincter or the verumontanum was still intact. At the end of the resection all the chips were Ellik out of the bladder. I then identified the left and right ureteral orifice and these were confirmed to be in good position and effluxing and not injured. The resectoscope was removed, a 22 Mongolian catheter was placed into the bladder on continuous irrigation. And the urine was fairly light pink color and draining normally. He was taken back to the PACU in good condition. CPT 68475 Surgeon: sunshine Type of Anesthesia: General Drains: 22fr klein Admit VTE Documentation VTE Present on Admission: No VTE Mechan Device Prophylaxis: SCD's VTE Pharm Prophylaxis ordered?: No
--- NOTE | 2021-12-30 15:42 | SUR.PHASEII ---
THIS NURSE TALKED WITH DR. BALDWIN ON THE PHONE TO CLARIFY LEVEL OF CARE FOR THE PT ADMISSION ORDER, PER MD PT TO BE ADMITTED WITH STANDARD LEVEL OF CARE NOT STEP DOWN. REVISED ADMISSION ORDER ENTERED PER TO WITH DR. BALDWIN.
[2021-12-30] MEDS: Potassium Chloride Oral Tablet 20 MEQ PO (17:29)
[2021-12-30] MEDS: Ferrous Sulfate 325 MG Tablet PO (22:47)
[2021-12-30] MEDS: Colestipol 1 GM TABLET 2 GM PO (22:47)
[2021-12-30] MEDS: Ciprofloxacin 500 MG Tablet PO (22:48)
[2021-12-30] MEDS: Cefdinir 300 MG Capsule PO (22:48)
[2021-12-30] MEDS: Pantoprazole Sodium 20 MG Tablet PO (22:49)
[2021-12-31 03:57] VITALS: BP 144/76; PULSE 72; RESP 16; TEMP 36.8; O2SAT 96
[2021-12-31 08:17] VITALS: BP 139/71; PULSE 75; RESP 18; TEMP 37.3; O2SAT 98
[2021-12-31] MEDS: Cefdinir 300 MG Capsule PO (08:31)
[2021-12-31] MEDS: Tamsulosin HCl 0.4 MG Capsule PO (10:47)
[2021-12-31] MEDS: Atenolol 25 MG Tablet 12.5 MG PO (10:48)
[2021-12-31] MEDS: Colestipol 1 GM TABLET 2 GM PO (10:48)
[2021-12-31] MEDS: Ferrous Sulfate 325 MG Tablet PO (10:48)
[2021-12-31] MEDS: Pantoprazole Sodium 20 MG Tablet PO (10:49)
[2021-12-31] MEDS: Finasteride 5 MG Tablet PO (10:49)
[2021-12-31] MEDS: Ciprofloxacin 500 MG Tablet PO (10:49)
[2021-12-31] MEDS: Potassium Chloride Oral Tablet 20 MEQ PO ×2 (10:52→14:37)
[2021-12-31 14:36] VITALS: BP 142/69; PULSE 67; RESP 18; TEMP 36.9; O2SAT 100
[2021-12-31] MEDS: Budesonide 3 MG CAPSULE.EC 9 MG PO (14:37)
[2021-12-31] MEDS: Lidocaine Jelly 2% 20 ML Syringe (URO-JET) 1 APPLIC TOPICAL (15:52)
--- NOTE | 2021-12-31 16:01 | NURSING ---
16 fr Azul catheter placed at this time. 600 cc clear, light pink urine returned. Patient has gone home with a catheter before and denies the need for additional teaching at this time. He also states he does not want to be taught how to change back and forth from a large bag to leg bag.
== END 2021-12-31 16:52 | disposition home or self-care (01) ==
LOC: SDC 15:53 → MS3 15:53
PROVIDERS: Admitting Provider Urology; PCP Family Medicine; Referring Provider Urology; Visit Provider Urology
PROC: (CPT 52601; principal; 2021-12-30 12:05)
DX: N40.1 Benign prostatic hyperplasia with lower urinary tract symptoms (principal); R33.8 Other retention of urine; E78.5 Hyperlipidemia, unspecified; I10 Essential (primary) hypertension; K21.9 Gastro-esophageal reflux disease without esophagitis; G47.33 Obstructive sleep apnea (adult) (pediatric); R39.198 Other difficulties with micturition; R13.10 Dysphagia, unspecified; Z79.899 Other long term (current) drug therapy
CPT/HCPCS: 52601; 00914; 88305; 93005; 99218; J7120; G0378; J2405

== ENCOUNTER 2022-02-03 11:24 | Emergency (ER) | payer MEDICARE, SELFPAY ==
[2022-02-03 11:25] VITALS: BP 139/99; PULSE 81; RESP 16; TEMP 36.8; O2SAT 100; BMI 21.4
[2022-02-03 12:08] VITALS: BP 145/83
[2022-02-03 12:21] VITALS: BP 149/80; TEMP 36.7
--- NOTE | 2022-02-03 12:27 | EX.ED.GENINJ ---
HPI History of Present Illness Chief Complaint: Nausea/Vomiting/Diarrhea Informant: patient and family Narrative Narrative: Patient presents with nausea vomiting and diarrhea. He had this episode back in November. He was diagnosed with microcolitis. He saw Dr. Almanzar. He was placed on colestipol and budesonide. He was doing very well until Tuesday. He started with the same symptoms again. Anytime he tries to eat or drink he gets diarrhea that is like lemonade. He also gets vomiting usually at the same time. He has never seen blood in any of this. If he does not eat or drink he does not get the symptoms that much. He is feeling generalized weakness. He states he has no abdominal pain whatsoever. He has not had pain in any time. He has no fevers or chills. No urinary symptoms. He is still taking the medicines as prescribed. [facility] Medical History Acute appendicitis Acute viral syndrome ADHD Benign hypertension Broken back Cancer Cardiology follow-up encounter COVID-19 vaccine dose declined CPAP (continuous positive airway pressure) dependence Diastasis, muscle Eosinophilic esophagitis Excessive bleeding Exposure to tobacco smoke at work Azul catheter in place Gastric reflux High cholesterol History of rheumatic fever History of stress test HTN (hypertension) Hyperlipidemia Hypoxia Inguinal hernia of right side without obstruction or gangrene Microscopic colitis Non-smoker ANTIONE (obstructive sleep apnea) Right lower quadrant abdominal pain Sleep apnea Home Medications pravastatin 20 mg PO DAILY 12/23/14 [History Last Taken 12/29/21] tamsulosin 0.4 mg capsule 0.4 mg PO DAILY 11/27/21 [History Last Taken 12/29/21] budesonide 9 mg PO DAILY@1200 12/08/21 [History Last Taken 12/30/21 08:00] potassium chloride 20 meq PO TID 12/08/21 [History Last Taken 12/29/21] atenolol 12.5 mg PO DAILY #0 tab 12/11/21 [Rx Last Taken 12/30/21 08:00] cefdinir 300 mg PO BID 12/30/21 [History Last Taken 12/29/21] colestipol 2 g PO BID 12/30/21 [History Last Taken 12/29/21] ferrous sulfate [Iron (ferrous sulfate)] 325 mg PO BID 12/30/21 [History Last Taken 12/29/21] finasteride 5 mg PO DAILY 12/30/21 [History Last Taken 12/29/21] omeprazole 20 mg PO BID 12/30/21 [History Last Taken 12/30/21 08:00] diphenoxylate-atropine [Lomotil] 1 tab PO DAILY #20 tab 02/03/22 [Rx Last Taken Unknown] ondansetron 4 mg PO Q8H PRN #10 tab 02/03/22 [Rx Last Taken Unknown] prednisone 40 mg PO DAILY #42 tab 02/03/22 [Rx Last Taken Unknown] Allergy/AdvReac Type Severity Reaction Status Date / Time No Known Allergies Allergy Verified 02/03/22 11:27 Family History Mother Hypertension Father , at age 61 secondary to brain tumor Cancer Surgical History History of appendectomy History of cardiac catheterization History of esophagogastroduodenoscopy (EGD) History of laparoscopic appendectomy History of tonsillectomy Social History household members: none Smoking Status: Never smoker alcohol intake: never substance use type: does not use ROS ROS ED Constitutional Constitutional ED: Denies chills or fever(s) ENT ENT ED: Denies rhinorrhea or sore throat Cardiovascular Cardiovascular: Denies chest pain or palpitations Respiratory/Chest Respiratory/Chest: Denies cough or dyspnea Gastrointestinal Gastrointestinal: Reports diarrhea, nausea and vomiting; Denies abdominal pain, constipation or melena Genitourinary Genitourinary ED: Denies dysuria, hematuria or urinary frequency Musculoskeletal Musculoskeletal: Denies myalgias Integumentary Denies rash Neurologic Neurologic: Denies headache(s) Psychiatric Psychiatric: Denies depression Endocrine Endocrinology: Denies polydipsia or polyuria Hematologic/Lymphatic Hematologic/Lymphatic: Denies easy bleeding or easy bruising Allergic/Immunologic Allergic/Immunologic ED: Denies urticaria EXAM Physical Exam Const Vital Signs: 02/03/22 11:25 02/03/22 12:08 02/03/22 12:21 Temperature 98.2 F 98.1 F Temperature Source Temporal Temporal Pulse Rate 81 Respiratory Rate 16 Blood Pressure 139/99 H 145/83 H 149/80 H Blood Pressure Mean 112 103 103 Pulse Ox 100 Oxygen Delivery Method Room Air Room Air 02/03/22 14:00 Temperature Temperature Source Pulse Rate Respiratory Rate Blood Pressure 138/81 H Blood Pressure Mean 100 Pulse Ox Oxygen Delivery Method Positive well nourished and well developed General Appearance ED: well developed and NAD HEENT HEENT Narrative: Mildly dry mucous membranes Eyes EOMs intact bilaterally Chest Wall inspection of chest normal Resp normal respiratory effort and clear to auscultation bilaterally Cardio regular rhythm Rate: regular rate GI normal to inspection, nondistended, normoactive bowel sounds, non-tender and non-distended GI Narrative: At first I thought the patient's abdomen was slightly distended. However he states it is really normal for him. His bowel sounds are slightly increased. But there is no tenderness in any area. Palpation: soft Back/Spine normal to inspection Extremity normal to inspection General Extremety ED: Negative for edema General Extremity: Negative for edema Neuro oriented x3 Sensorium / Orientation: alert Skin no rashes or lesions noted MDM MDM MDM Narrative Medical decision making narrative: Patient's blood work showed no marked abnormalities. He does have mild bump of his creatinine but it is only small and he was treated with IV fluids. Liver function tests are overall good. Magnesium is minimally low. I do not want to replace this as it will contribute to diarrhea. That is his primary complaint. Potassium is okay. I discussed case with Dr. Almanzar who knows him well. Plan will be to give a dose of Solu-Medrol here. We will place him on prednisone 40 a day until he is seen in 2 to 3 weeks. I will write for some Lomotil to be taken an hour before eating. He also has as needed Zofran. Patient is okay with this plan. We discussed reasons to return. Lab Data Attestation: I reviewed the patient's lab results. Labs: Laboratory Results - last 24 hr 02/03/22 02/03/22 13:00 13:00 WBC 10.7 RBC 3.64 L Hgb 11.5 L Hct 33.9 L MCV 93.1 MCH 31.6 MCHC 33.9 RDW Std Deviation 48.4 H RDW Coeff of Moiz 14.2 Plt Count 188 MPV 10.3 Immature Gran % (Auto) 0.400 Neut % (Auto) 65.5 Lymph % (Auto) 27.0 [place] % (Auto) 6.5 Eos % (Auto) 0.4 Baso % (Auto) 0.2 Absolute Neuts (auto) 7.0 Absolute Lymphs (auto) 2.88 Nucleated RBC % 0 Platelet Estimate ADEQUATE RBC Morphology NORM C+C Sodium 138 Potassium 3.6 Chloride 108 H Carbon Dioxide 23.0 Anion Gap 7 BUN 33 H Creatinine 2.09 H Estim Creat Clear Calc 23.36 Est GFR (MDRD) Af Amer 40 L Est GFR (MDRD) Non-Af 33 L BUN/Creatinine Ratio 15.8 Glucose 86 Calcium 9.0 Magnesium 1.5 L Total Bilirubin 0.70 AST 17 ALT 34 Alkaline Phosphatase 94 Total Protein 7.7 Albumin 4.1 Globulin 3.6 Albumin/Globulin Ratio 1.1 Discharge Plan Triage Chief Complaint: Nausea/Vomiting/Diarrhea ED Provider: Kali Lynn Dx/Rx/DC Orders Clinical Impression: Nausea vomiting and diarrhea, History of colitis, Dehydration Instructions: ED Dehydration (Adult) Prescriptions: New prednisone 20 MG tablet 40 mg PO DAILY Qty: 42 RF: 0 ondansetron 4 mg tablet,disintegrating 4 mg PO Q8H PRN (Reason: nausea and vomiting) Qty: 10 RF: 0 diphenoxylate-atropine [Lomotil] 2.5-0.025 mg tablet 1 tab PO DAILY Qty: 20 RF: 0 No Action tamsulosin [Flomax] 0.4 mg capsule 0.4 mg PO DAILY RF: 0 pravastatin 20 MG tablet 20 mg PO DAILY RF: 0 potassium chloride 20 mEq tablet extended release 20 meq PO TID RF: 0 budesonide 9 mg tablet,delayed and ext.release 9 mg PO DAILY@1200 RF: 0 atenolol 25 MG tablet 12.5 mg PO DAILY Qty: 0 RF: 0 ferrous sulfate [Iron (ferrous sulfate)] 325 mg (65 mg iron) tablet 325 mg PO BID RF: 0 cefdinir 300 mg capsule 300 mg PO BID RF: 0 colestipol 1 gram tablet 2 g PO BID RF: 0 finasteride 5 mg tablet 5 mg PO DAILY RF: 0 omeprazole 20 MG tablet,delayed release (DR/EC) 20 mg PO BID RF: 0 Primary Care Provider: Ana Wilburn Referrals: Ana Wilburn MD [Primary Care Provider] - Friend,Forrest, DO [STAFF PHYSICIAN] - [facility] appointment Disposition Disposition: Home, Self Care
[2022-02-03] MEDS: 0.9% Normal Saline 1,000 ML 1000 ML IV (12:55)
[2022-02-03] MEDS: Ondansetron 4 MG/2 ML Vial IV (12:55)
[2022-02-03 13:10] LABS: Absolute Lymphocyte Count 2.88 X10^3/uL (0.83-4.51); Basophil# 0.02 X10^3/uL; Basophil% 0.2 % (0-1); Eosinophil# 0.04 X10^3/uL; Eosinophils% 0.4 % (0-5); Hematocrit 33.9 % (40-54); Hemoglobin 11.5 g/dL (13.0-16.5); Lymphocyte # 2.88 X10^3/ul (0.83-4.51); Mean Corp Hgb Conc 33.9 g/dL (32-36); Mean Corpuscular Hgb 31.6 pg (27.0-32.0); Mean Corpuscular Volume 93.1 fL (80-94); Mean Platelet Vol. 10.3 fl (6.2-12.0); Monocyte# 0.69 X10^3/uL; Monocyte% 6.5 % (0-10); NRBC Flagged by Analyzer 0 % (0-5); Neutrophil # 6.98 X10^3/uL (2.7-7.7); Neutrophil % 65.5 % (47-70); POSITIVE COUNT YES; Platelet Count 188 K/mm3 (150-450); RBC Distribution Width CV 14.2 % (11.6-14.6); RBC Distribution Width SD 48.4 fl (35.1-43.9); Red Blood Count 3.64 M/mm3 (4.6-6.2); White Blood Count 10.7 K/mm3 (4.4-11.0)
[2022-02-03 13:13] LABS: Differential Indicated SCAN CRITERIA MET
[2022-02-03 13:22] LABS: ALB/GLOB Ratio 1.1 RATIO (0.9-2.4); AST(SGOT) 17 U/L (15-37); Alanine Aminotransfer ALT/SGPT 34 U/L (16-61); Albumin, Serum 4.1 g/dL (3.2-5.0); Alkaline Phosphatase 94 U/L (45-117); Anion Gap 7 (5-15); BUN 33 mg/dL (7-18); BUN/Creat Ratio 15.8 RATIO (10-20); Chloride 108 mmol/L (98-107); Creatinine, Serum 2.09 mg/dL (0.70-1.30); EST Glomerular Filtration Rate 33 mL/min (>60); Est Glom Filt Rate - Afr Amer 40 mL/min (>60); Estimated Creatinine Clearance 23.36 ml/min; Globulin 3.6 g/dL (2.2-4.2); Glucose 86 mg/dL (74-106); Magnesium 1.5 mg/dL (1.6-2.6); Potassium 3.6 mmol/L (3.5-5.1); Protein, Total 7.7 g/dL (6.4-8.2); Sodium Level 138 mmol/L (136-145)
[2022-02-03 13:35] LABS: Platelet Estimate ADEQUATE (ADEQ); Red Cell Morphology NORM C+C NORMAL (NORM C&C)
[2022-02-03 14:00] VITALS: BP 138/81
[2022-02-03 15:00] VITALS: BP 135/77
[2022-02-03] MEDS: MethylPREDNISolone 125 MG/2 ML Vial IV (15:01)
== END 2022-02-03 15:18 | disposition home or self-care (01) ==
PROVIDERS: Emergency Provider Emergency Medicine; PCP Family Medicine; Visit Provider Emergency Medicine
DX: R11.2 Nausea with vomiting, unspecified (principal); E86.0 Dehydration; R19.7 Diarrhea, unspecified; I10 Essential (primary) hypertension; E78.5 Hyperlipidemia, unspecified; G47.33 Obstructive sleep apnea (adult) (pediatric); Z79.899 Other long term (current) drug therapy
CPT/HCPCS: 80053; 83735; 85025; 96361; 96374; 96375; 99283; J2405

== ENCOUNTER 2022-02-10 14:03 | Emergency (ER) | payer MEDICARE, SELFPAY ==
[2022-02-10 14:05] VITALS: BP 139/96; PULSE 97; RESP 14; TEMP 35.7; O2SAT 100; BMI 22.4
--- NOTE | 2022-02-10 14:32 | EDS_ITS ---
HPI History of Present Illness Chief Complaint: Nausea/Vomiting/Diarrhea Informant: patient and family Narrative Narrative: 76-year-old male brought to the emergency department by his sons. He reports that he has been diagnosed with microscopic colitis. He recently ran out of his medications and last week his symptoms redeveloped and he was seen in the emergency department on Tuesday for IV hydration. States that his symptoms returned on Tuesday and he has had diarrhea and copious amounts of vomiting since. 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 He has had hypokalemia in the past as a result of the vomiting and diarrhea. States he does feel lightheaded and feels near syncopal with standing. He has still been making urine. [facility] Medical History Acute appendicitis Acute viral syndrome ADHD Benign hypertension Broken back Cancer Cardiology follow-up encounter COVID-19 vaccine dose declined CPAP (continuous positive airway pressure) dependence Diastasis, muscle Eosinophilic esophagitis Excessive bleeding Exposure to tobacco smoke at work Azul catheter in place Gastric reflux High cholesterol History of rheumatic fever History of stress test HTN (hypertension) Hyperlipidemia Hypoxia Inguinal hernia of right side without obstruction or gangrene Microscopic colitis Non-smoker ANTIONE (obstructive sleep apnea) Right lower quadrant abdominal pain Sleep apnea Home Medications pravastatin 20 mg PO DAILY 12/23/14 [History Last Taken 12/29/21] tamsulosin 0.4 mg capsule 0.4 mg PO DAILY 11/27/21 [History Last Taken 12/29/21] potassium chloride 20 meq PO TID 12/08/21 [History Last Taken 12/29/21] atenolol 12.5 mg PO DAILY #0 tab 12/11/21 [Rx Last Taken 12/30/21 08:00] cefdinir 300 mg PO BID 12/30/21 [History Last Taken 12/29/21] ferrous sulfate [Iron (ferrous sulfate)] 325 mg PO BID 12/30/21 [History Last Taken 12/29/21] finasteride 5 mg PO DAILY 12/30/21 [History Last Taken 12/29/21] omeprazole 20 mg PO BID 12/30/21 [History Last Taken 12/30/21 08:00] diphenoxylate-atropine [Lomotil] 1 tab PO DAILY #20 tab 02/03/22 [Rx Last Taken Unknown] ondansetron 4 mg PO Q8H PRN #10 tab 02/03/22 [Rx Last Taken Unknown] prednisone 40 mg PO DAILY #42 tab 02/03/22 [Rx Last Taken Unknown] budesonide 9 mg tablet,delayed and extended release 9 mg PO DAILY@1200 #30 ea 02/10/22 [Rx Last Taken Unknown] colestipol 1 gram tablet 2 g PO BID #180 tab 02/10/22 [Rx Last Taken Unknown] Allergy/AdvReac Type Severity Reaction Status Date / Time No Known Allergies Allergy Verified 02/10/22 14:05 Family History Mother Hypertension Father , at age 61 secondary to brain tumor Cancer Surgical History History of appendectomy History of cardiac catheterization History of esophagogastroduodenoscopy (EGD) History of laparoscopic appendectomy History of tonsillectomy Social History household members: none Smoking Status: Never smoker alcohol intake: never substance use type: does not use ROS ROS ED Constitutional Constitutional ED: Denies chills, fever(s) or weight loss Eyes Eyes: Denies change in vision or diplopia ENT ENT ED: Denies ear pain, rhinorrhea or sore throat Cardiovascular Cardiovascular: Reports other Details: Near syncope ; Denies chest pain, orthopnea, palpitations or racing heartbeat Respiratory/Chest Respiratory/Chest: Denies cough, dyspnea or orthopnea Gastrointestinal Gastrointestinal: Reports diarrhea and vomiting; Denies abdominal pain or nausea Genitourinary Genitourinary ED: Denies dysuria, hematuria or urinary frequency Musculoskeletal Musculoskeletal: Denies arthralgias or myalgias Integumentary Denies abscess or rash Neurologic Neurologic: Denies headache(s) or weakness Psychiatric Psychiatric: Denies anxiety, depression, suicidal ideation or suicidal thoughts Endocrine Endocrinology: Denies polydipsia, polyphagia or polyuria Allergic/Immunologic Allergic/Immunologic ED: Denies mouth swelling, tongue swelling or urticaria EXAM Physical Exam Const Vital Signs: 02/10/22 14:05 Temperature 96.2 F L Temperature Source Temporal Pulse Rate 97 Respiratory Rate 14 Blood Pressure 139/96 H Blood Pressure Mean 110 Pulse Ox 100 Oxygen Delivery Method Room Air Positive well nourished and well developed General Appearance ED: well developed HEENT Reports normocephalic, head/scalp atraumatic, TM's clear and dry mucous membranes Negative for trauma Tympanic Membrane ED: Yes TM's clear Mouth ED: Yes dry mucous membranes Mouth: dry mucous membranes Eyes PERRL and EOMs intact bilaterally Neck no lymphadenopathy, supple and no JVD Resp normal respiratory effort and clear to auscultation bilaterally Cardio regular rate and no murmurs Rate: tachycardic GI normal to inspection, nondistended, normoactive bowel sounds and non-tender Palpation: soft Back/Spine no CVA tenderness and normal ROM Extremity normal to inspection General Extremety ED: Negative for edema General Extremity: Negative for edema Neuro oriented x3 and CN's II-XII intact bilaterally Sensorium / Orientation: alert Motor Exam: strength 5/5 throughout Psych mental status grossly normal Mood & Affect: Negative for depressed or tearful Skin no rashes or lesions noted and no wounds MDM MDM MDM Narrative Medical decision making narrative: Basic blood work obtained which demonstrated BUN of 30 and creatinine 1.85 which is near baseline. Hemoglobin 12.3 with a white count of 10.4. Patient received 2 L of lactated Ringer's. At this point patient will be discharged home. Lab Data Attestation: I reviewed the patient's lab results. Labs: Laboratory Results - last 24 hr 02/10/22 02/10/22 15:00 15:00 WBC 10.4 RBC 3.90 L Hgb 12.3 L Hct 36.5 L MCV 93.6 MCH 31.5 MCHC 33.7 RDW Std Deviation 50.1 H RDW Coeff of Moiz 14.5 Plt Count 258 MPV 9.9 Immature Gran % (Auto) 0.500 Neut % (Auto) 66.0 Lymph % (Auto) 27.8 [place] % (Auto) 5.2 Eos % (Auto) 0.3 Baso % (Auto) 0.2 Absolute Neuts (auto) 6.8 Absolute Lymphs (auto) 2.88 Nucleated RBC % 0 Sodium 138 Potassium 3.7 Chloride 110 H Carbon Dioxide 21.0 Anion Gap 7 BUN 30 H Creatinine 1.85 H Estim Creat Clear Calc 27.56 Est GFR (MDRD) Af Amer 46 L Est GFR (MDRD) Non-Af 38 L BUN/Creatinine Ratio 16.2 Glucose 107 H Calcium 9.0 Total Bilirubin 0.60 AST 15 ALT 39 Alkaline Phosphatase 86 Total Protein 7.6 Albumin 4.1 Globulin 3.5 Albumin/Globulin Ratio 1.2 Discharge Plan Triage Chief Complaint: Nausea/Vomiting/Diarrhea ED Provider: Binu Holloway Dx/Rx/DC Orders Clinical Impression: Dehydration, Microscopic colitis Instructions: ED Dehydration (Adult) Prescriptions: No Action tamsulosin [Flomax] 0.4 mg capsule 0.4 mg PO DAILY RF: 0 pravastatin 20 MG tablet 20 mg PO DAILY RF: 0 potassium chloride 20 mEq tablet extended release 20 meq PO TID RF: 0 atenolol 25 MG tablet 12.5 mg PO DAILY Qty: 0 RF: 0 ferrous sulfate [Iron (ferrous sulfate)] 325 mg (65 mg iron) tablet 325 mg PO BID RF: 0 cefdinir 300 mg capsule 300 mg PO BID RF: 0 finasteride 5 mg tablet 5 mg PO DAILY RF: 0 omeprazole 20 MG tablet,delayed release (DR/EC) 20 mg PO BID RF: 0 prednisone 20 MG tablet 40 mg PO DAILY Qty: 42 RF: 0 ondansetron 4 mg tablet,disintegrating 4 mg PO Q8H PRN (Reason: nausea and vomiting) Qty: 10 RF: 0 diphenoxylate-atropine [Lomotil] 2.5-0.025 mg tablet 1 tab PO DAILY Qty: 20 RF: 0 colestipol 1 gram tablet 2 g PO BID Qty: 180 RF: 5 budesonide 9 mg tablet,delayed and ext.release 9 mg PO DAILY@1200 Qty: 30 RF: 2 Primary Care Provider: Rohini Gonzales Referrals: Rohini Gonzales MD [Primary Care Provider] - Forrest Almanzar DO [STAFF PHYSICIAN] - [facility] appointment Disposition Disposition: Home, Self Care
[2022-02-10] MEDS: Lactated Ringers 1,000 ML 999 ML IV ×2 (14:59→15:53)
[2022-02-10 15:12] LABS: Absolute Lymphocyte Count 2.88 X10^3/uL (0.83-4.51); Absolute Neutrophil Count 6.8 X10^3/uL (2.0-7.7); Basophil# 0.02 X10^3/uL; Basophil% 0.2 % (0-1); Eosinophil# 0.03 X10^3/uL; Eosinophils% 0.3 % (0-5); Hematocrit 36.5 % (40-54); Hemoglobin 12.3 g/dL (13.0-16.5); Lymphocyte # 2.88 X10^3/ul (0.83-4.51); Lymphocyte % 27.8 % (19-41); Mean Corp Hgb Conc 33.7 g/dL (32-36); Mean Corpuscular Hgb 31.5 pg (27.0-32.0); Mean Corpuscular Volume 93.6 fL (80-94); Mean Platelet Vol. 9.9 fl (6.2-12.0); Monocyte# 0.54 X10^3/uL; Monocyte% 5.2 % (0-10); NRBC Flagged by Analyzer 0 % (0-5); Neutrophil # 6.84 X10^3/uL (2.7-7.7); Platelet Count 258 K/mm3 (150-450); RBC Distribution Width CV 14.5 % (11.6-14.6); RBC Distribution Width SD 50.1 fl (35.1-43.9); White Blood Count 10.4 K/mm3 (4.4-11.0)
[2022-02-10 15:31] LABS: ALB/GLOB Ratio 1.2 RATIO (0.9-2.4); AST(SGOT) 15 U/L (15-37); Alanine Aminotransfer ALT/SGPT 39 U/L (16-61); Albumin, Serum 4.1 g/dL (3.2-5.0); Alkaline Phosphatase 86 U/L (45-117); Anion Gap 7 (5-15); BUN 30 mg/dL (7-18); BUN/Creat Ratio 16.2 RATIO (10-20); Chloride 110 mmol/L (98-107); Creatinine, Serum 1.85 mg/dL (0.70-1.30); EST Glomerular Filtration Rate 38 mL/min (>60); Est Glom Filt Rate - Afr Amer 46 mL/min (>60); Estimated Creatinine Clearance 27.56 ml/min; Globulin 3.5 g/dL (2.2-4.2); Glucose 107 mg/dL (74-106); Potassium 3.7 mmol/L (3.5-5.1); Protein, Total 7.6 g/dL (6.4-8.2); Sodium Level 138 mmol/L (136-145)
[2022-02-10 16:20] VITALS: BP 145/84; PULSE 73
== END 2022-02-10 16:49 | disposition home or self-care (01) ==
PROVIDERS: Emergency Provider Emergency Medicine; PCP Internal Medicine; Visit Provider Emergency Medicine
DX: K52.839 Microscopic colitis, unspecified (principal); E86.0 Dehydration; E78.5 Hyperlipidemia, unspecified; I10 Essential (primary) hypertension; K21.9 Gastro-esophageal reflux disease without esophagitis; G47.33 Obstructive sleep apnea (adult) (pediatric); Z79.52 Long term (current) use of systemic steroids; Z79.899 Other long term (current) drug therapy
CPT/HCPCS: 80053; 85025; 96360; 99283; J7120; A4216

== ENCOUNTER → 2022-02-17 | Outpatient (CLI) | payer MEDICARE, SELFPAY ==
[2022-02-17 12:31] LABS: Absolute Lymphocyte Count 3.37 X10^3/uL (0.83-4.51); Absolute Neutrophil Count 4.9 X10^3/uL (2.0-7.7); Basophil# 0.02 X10^3/uL; Basophil% 0.2 % (0-1); Eosinophil# 0.09 X10^3/uL; Hematocrit 31.2 % (40-54); Lymphocyte # 3.37 X10^3/ul (0.83-4.51); Lymphocyte % 37.2 % (19-41); Mean Corp Hgb Conc 32.1 g/dL (32-36); Mean Corpuscular Hgb 31.3 pg (27.0-32.0); Mean Corpuscular Volume 97.8 fL (80-94); Mean Platelet Vol. 10.7 fl (6.2-12.0); Monocyte# 0.63 X10^3/uL; NRBC Flagged by Analyzer 0 % (0-5); Neutrophil # 4.92 X10^3/uL (2.7-7.7); Neutrophil % 54.3 % (47-70); Platelet Count 227 K/mm3 (150-450); RBC Distribution Width CV 14.5 % (11.6-14.6); RBC Distribution Width SD 51.7 fl (35.1-43.9); Red Blood Count 3.19 M/mm3 (4.6-6.2); White Blood Count 9.1 K/mm3 (4.4-11.0)
[2022-02-17 12:38] LABS: Vitamin D,25 Hydroxy 34.2 ng/mL
[2022-02-17 12:46] LABS: Anion Gap 7 (5-15); BUN 20 mg/dL (7-18); BUN/Creat Ratio 11.7 RATIO (10-20); Calcium,Total 8.4 mg/dL (8.5-10.1); Chloride 106 mmol/L (98-107); Creatinine, Serum 1.71 mg/dL (0.70-1.30); EST Glomerular Filtration Rate 41 mL/min (>60); Est Glom Filt Rate - Afr Amer 50 mL/min (>60); Ferritin 37 ng/mL (26-388); Glucose 85 mg/dL (74-106); Iron 61 ug/dL (65-175); Iron Binding Capacity,Total 280 ug/dL (250-450); Magnesium 1.4 mg/dL (1.6-2.6); PERCENT IRON SATURATION 21.8 % (15.0-55.0); Sodium Level 139 mmol/L (136-145)
== END | disposition home or self-care (01) ==
LOC: BIMLAB 08:03
PROVIDERS: PCP Internal Medicine; Referring Provider Internal Medicine; Visit Provider Internal Medicine
DX: E87.6 Hypokalemia (principal); E83.42 Hypomagnesemia; I10 Essential (primary) hypertension; D64.9 Anemia, unspecified; C44.92 Squamous cell carcinoma of skin, unspecified; E55.9 Vitamin D deficiency, unspecified
CPT/HCPCS: 36415; 80048; 82306; 82728; 83540; 83550; 83735; 85025

== ENCOUNTER → 2022-03-01 | Outpatient (CLI) | payer MEDICARE, SELFPAY ==
--- NOTE | 2022-03-01 | LES_PTH ---
PATIENT: NICK EASTON LOC: [facility] U#:[id number] AGE/SX: 76/M ROOM: RE03/01/[address]: Dr. Jorge Elliott MD : 1945 BED: DIS: 03/01/2022 SPEC #: [id number] RECD: 03/01/22 14:29 STATUS: OTIS REDelroy #: [id number] REBECCA: 03/01/22 00:[address]: Jorge Elliott DEPT: SURGICAL PATHOLOGY RECD BY: Cesar Su ENTERED: 03/02/22 09:30 SP TYPE: Lesion OTHR DR: Dr. 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 See comment. AM:mattie 03/03/2022 COMMENT There is no evidence of carcinoma. Clinical correlation is suggested. MICROSCOPIC DESCRIPTION Slides are reviewed. GROSS DESCRIPTION Received in fixative is one container labeled with the patient's name and designated left hand. The specimen consists of a piece of arrington-white skin ellipse measuring 1.5 x 0.7 cm and 0.2 cm in thickness. The specimen is inked, serially sectioned and submitted entirely in one cassette. / SJ:mattie 03/02/2022 TC:5 CPT: 42486
== END | disposition home or self-care (01) ==
LOC: LABSPEC 14:32
PROVIDERS: PCP Internal Medicine; Referring Provider Surgery; Visit Provider Surgery
DX: L57.8 Other skin changes due to chronic exposure to nonionizing radiation (principal); X32.XXXA Exposure to sunlight, initial encounter
CPT/HCPCS: 88305

== ENCOUNTER → 2022-03-23 | Outpatient (CLI) | payer MEDICARE, SELFPAY ==
[2022-03-23 12:33] LABS: Hematocrit 34.5 % (40-54); Hemoglobin 11.5 g/dL (13.0-16.5); Mean Corp Hgb Conc 33.3 g/dL (32-36); Mean Corpuscular Volume 96.1 fL (80-94); Mean Platelet Vol. 10.7 fl (6.2-12.0); Platelet Count 211 K/mm3 (150-450); Red Blood Count 3.59 M/mm3 (4.6-6.2); White Blood Count 8.6 K/mm3 (4.4-11.0)
[2022-03-23 13:08] LABS: Anion Gap 4 (5-15); BUN 25 mg/dL (7-18); BUN/Creat Ratio 12.9 RATIO (10-20); Calcium,Total 9.1 mg/dL (8.5-10.1); Chloride 101 mmol/L (98-107); Creatinine, Serum 1.94 mg/dL (0.70-1.30); EST Glomerular Filtration Rate 36 mL/min (>60); Est Glom Filt Rate - Afr Amer 43 mL/min (>60); Glucose 91 mg/dL (74-106); Potassium 3.7 mmol/L (3.5-5.1); Sodium Level 137 mmol/L (136-145)
[2022-03-24 16:09] LABS: Cytoplasmic Ab (C-ANCA) <1:20 titer (Neg:<1:20)
[2022-03-24 18:04] LABS: Perinuclear Ab (P-ANCA) <1:20 titer (Neg:<1:20)
== END | disposition home or self-care (01) ==
LOC: BIMLAB 09:07
PROVIDERS: Internal Medicine Gastroenterology; PCP Internal Medicine; Referring Provider Nurse Practitioner Family; Visit Provider Nurse Practitioner Family
DX: K52.832 Lymphocytic colitis (principal); D64.9 Anemia, unspecified; I10 Essential (primary) hypertension
CPT/HCPCS: 36415; 80048; 85027; 86256

== ENCOUNTER → 2022-03-25 | Outpatient (CLI) | payer MEDICARE, SELFPAY ==
[2022-03-27 21:22] LABS: Giardia Lamblia, Stool EIA Negative (Negative)
== END | disposition home or self-care (01) ==
LOC: LABSPEC 11:24
PROVIDERS: PCP Internal Medicine; Referring Provider Internal Medicine Gastroenterology; Visit Provider Internal Medicine Gastroenterology
DX: K52.832 Lymphocytic colitis (principal)
CPT/HCPCS: 87329

== ENCOUNTER 2022-03-30 14:32 | Emergency (ER) | payer MEDICARE, SELFPAY ==
[2022-03-30 14:32] VITALS: BP 114/101; PULSE 68; RESP 18; TEMP 36.6; O2SAT 100; BMI 23.1
--- NOTE | 2022-03-30 15:29 | EDS_ITS ---
HPI History of Present Illness HPI Narrative: Dog bite right calf. Chief Complaint: Bite Informant: patient Occured/Mechanism Mechanism/Context: Yes injury Onset/Context/Timing Onset: Today Context: Sudden Onset Timing: Continuous Quality of Pain: Sharp Current Severity: Moderate Maximum Severity: Moderate Associated Symptoms Associated Symptoms: Negative for Parasthesia or Loss of Funtion Narrative Narrative: 76-year-old male accidentally started their dog and it bit him in the right calf. He has had pain there. He has a laceration right over the course of the Achilles tendon. Was seen in urgent care and sent here. Denies any other complaints. Tetanus Immunization: <5 years Prior similar symptoms: No Recent Illness/Hospitalization: No ROS ROS ED ROS Narrative Denies recent illness. Review of Systems ROS Unobtainable: Denies due to encephalopathy Constitutional Constitutional ED: Denies chills Eyes Eyes: Denies blurry vision ENT ENT ED: Denies ear pain Cardiovascular Cardiovascular: Denies chest pain Respiratory/Chest Respiratory/Chest: Denies cough Gastrointestinal Gastrointestinal: Denies abdominal pain Genitourinary Genitourinary ED: Denies dysuria Musculoskeletal Musculoskeletal: Denies arthralgias Integumentary Denies abscess Neurologic Neurologic: Denies headache(s) Psychiatric Psychiatric: Denies anxiety Endocrine Endocrinology: Denies polydipsia Hematologic/Lymphatic Hematologic/Lymphatic: Denies easy bleeding Allergic/Immunologic Allergic/Immunologic ED: Denies mouth swelling PFSH PFSH Medical History Acute appendicitis Acute viral syndrome ADHD Benign hypertension Broken back Cancer Cardiology follow-up encounter CKD (chronic kidney disease) stage 3, GFR 30-59 ml/min COVID-19 vaccine dose declined CPAP (continuous positive airway pressure) dependence Diastasis, muscle Eosinophilic esophagitis Excessive bleeding Exposure to tobacco smoke at work Azul catheter in place Gastric reflux High cholesterol History of rheumatic fever History of stress test HTN (hypertension) Hyperlipidemia Hypoxia Inguinal hernia of right side without obstruction or gangrene Microscopic colitis Non-smoker ANTIONE (obstructive sleep apnea) Right lower quadrant abdominal pain Sleep apnea Home Medications pravastatin 20 mg tablet 20 mg PO DAILY CHOLESTEROL 12/23/14 [History Last Taken 12/29/21] potassium chloride 20 mEq tablet,extended release 20 meq PO TID supplement 12/08/21 [History Last Taken 12/29/21] ferrous sulfate 325 mg (65 mg iron) tablet (Iron (ferrous sulfate)) 325 mg PO BID supplement 12/30/21 [History Last Taken 12/29/21] finasteride 5 mg tablet 5 mg PO DAILY BPH 12/30/21 [History Last Taken 12/29/21] omeprazole 20 mg tablet,delayed release 20 mg PO BID GERD 12/30/21 [History Last Taken 12/30/21 08:00] colestipol 1 gram tablet 2 g PO BID cholesterol #180 tabs 02/10/22 [Rx Last Taken Unknown] diphenoxylate-atropine 2.5 mg-0.025 mg tablet (Lomotil) 1 tab PO DAILY #20 tabs 02/22/22 [Rx Last Taken Unknown] amoxicillin 875 mg-potassium clavulanate 125 mg tablet 1 tab PO BID Dog bite 7 days #14 tabs 03/30/22 [Rx Last Taken Unknown] Allergy/AdvReac Type Severity Reaction Status Date / Time No Known Allergies Allergy Verified 03/30/22 14:34 Family History Mother Hypertension Father , at age 61 secondary to brain tumor Cancer Surgical History H/O hand surgery History of appendectomy History of cardiac catheterization History of esophagogastroduodenoscopy (EGD) History of laparoscopic appendectomy History of tonsillectomy Social History household members: none Smoking Status: Never smoker alcohol intake: never substance use type: does not use EXAM Physical Exam Narrative Exam Narrative: 68-year-old male no acute distress vital signs stable afebrile. HEENT exam unremarkable. Lungs are clear. Heart regular rhythm. Abdomen soft nontender. Extremities moves all 4. Right calf has dog bites on the posterior aspect. There is about a 1 inch laceration over the proximal end of the skin above the Achilles tendon. He is able to dorsi and plantarflex. It is somewhat limited due to pain. His right foot is neurovascular intact with DP pulse. Touch sensation. He is able wiggle his toes. There is no signs of infection. Const Vital Signs: 03/30/22 14:32 03/30/22 16:03 Temperature 97.8 F Temperature Source Temporal Pulse Rate 68 58 L Respiratory Rate 18 15 Blood Pressure 114/101 H 132/72 H Blood Pressure Mean 105 92 Pulse Ox 100 100 Oxygen Delivery Method Room Air Room Air Positive well nourished and well developed; Negative for obese, cachectic or contractures General Appearance ED: well developed; Negative for cachectic or contractures Nutritional Appearance: Negative for cachectic or obese HEENT Reports moist mucous membranes normocephalic; Negative for atraumatic, trauma or tenderness Eyes PERRL and EOMs intact bilaterally Neck full ROM and no lymphadenopathy General: Negative for tenderness Resp normal respiratory effort and clear to auscultation bilaterally Auscultation: Negative for rales, rhonchi or wheezes Cardio regular rate, regular rhythm and S2 normal heart sound GI non-tender, non-distended and no masses Inspection: Negative for abdominal distention Auscultation: normoactive bowel sounds Palpation: soft; Negative for tender, guarding or rebound tenderness present no CVA tenderness Back/Spine no CVA tenderness General Back: Negative for CVA tenderness Cervical Spine: Negative for cervical spine tenderness Thoracic Spine / Upper Back: Negative for thoracic spinal tenderness Lumbar Spine / Lower Back: Negative for lumbar spinal tenderness Extremity normal to inspection and full ROM Extremity Narrative: Except dog bite right calf. Skin laceration about 1 inch over the skin at the proximal Achilles. Potentially could have a puncture wound to the Achilles. He is able to dorsi plantarflexion somewhat limited due to pain. Foot is neurovascular intact. Neuro oriented x3 and no sensory deficits noted Sensorium / Orientation: alert, oriented to person, oriented to place and oriented to time; Negative for orientation impaired, confused, lethargic or stuporous Motor Exam: Negative for strength 5/5 throughout Psych mental status grossly normal and thought process normal Attitude: No agitated Mood & Affect: Negative for anxious Skin skin turgor normal Lesions: No no lesions Rashes: No no rashes Trauma: laceration; Negative for abrasion MDM MDM MDM Narrative Medical decision making narrative: 76-year-old male dog bite on his right lower leg. With a laceration of the skin that he had the proximal Achilles. May have a proximal Achilles puncture wound. Wound will be cleaned, explored and suturing.. He will be started on antibiotics. I will do the best I can to evaluate the Achilles tendon if I can see it. Right posterior calf 3 cm wound. Was cleaned. Suture repaired. I did dorsi and plantarflexion of his foot I think he has a small puncture wound in the muscle belly but I do not feel any obvious injury to the Achilles. Foot is neurovascularly intact. He will be placed on Augmentin twice daily for 7 days. Watch for any signs of infection. Walking boot or crutches whenever he tolerates best. Tylenol and Motrin for pain. And follow-up to have the suture removed in 10 days. Return if worsening pain, swelling or signs of infection. Procedures Lacerations Right calf laceration: Length: 1.18 in Depth: Sub Q Shape: Linear Prep: Betadine and Shure-Clens Laceration repair: Irrigated, Lidocaine, Local, Skin sutures and Wound explored Number of Sutures/Martita: 3 Suture Information: Ethilon, Simple and 4-0 Comment: Right posterior mid to lower calf laceration. Involves the skin, subcu tissue and it may be a small puncture wound to the muscle belly. I do not feel any obvious deformity of the Achilles tendon but explained to the patient I could not really visualize Achilles well. He does have dorsi and plantar flexion both passively and actively. Wound was cleaned using iodine and Shur- Clens copiously irrigated explored. Local anesthetized with lidocaine and closed using 3 simple interrupted 4-0 Ethilon sutures. Proper hemostasis wound closure is obtained. He was instructed on wound care. Suture removal in 10 days. Any signs of infection or return. Any loss of function such as an Achilles tear he will need to follow-up with orthopedics. Discharge Plan Triage Chief Complaint: Bite ED Provider: Hudson Perez Dx/Rx/DC Orders Clinical Impression: Laceration of lower extremity Instructions: ED Laceration: All Closures Prescriptions: New amoxicillin-pot clavulanate 875-125 mg tablet 1 tab PO BID 7 Days Qty: 14 0RF No Action diphenoxylate-atropine [Lomotil] 2.5-0.025 mg tablet 1 tab PO DAILY Qty: 20 0RF Rx Instructions: 1 tablet 2 hours before meal. pravastatin 20 MG tablet 20 mg PO DAILY potassium chloride 20 mEq tablet extended release 20 meq PO TID ferrous sulfate [Iron (ferrous sulfate)] 325 mg (65 mg iron) tablet 325 mg PO BID finasteride 5 mg tablet 5 mg PO DAILY omeprazole 20 MG tablet,delayed release (DR/EC) 20 mg PO BID colestipol 1 gram tablet 2 g PO BID Qty: 180 5RF Primary Care Provider: Rohini Gonzales Referrals: Rohini Gonzales MD [Primary Care Provider] - 10 Day for suture removal Activity Restrictions/Additional Instructions: Ice and elevate today and the more decrease pain and swelling. Tylenol for pain. Augmentin twice a day which is antibiotic to prevent infection. 1 pill twice a day for 7 days Stitches out in 10 days. If you see any signs of infection such as pus, redness, swelling or streaks or fever return. If you lose inability to push down with your foot for that is concern for possible Achilles tendon laceration or complete tear of the muscle that would need further evaluation to be repaired. From exam it looks like you have a small puncture of the distal muscle but no obvious tear of the Achilles. Increase activity as tolerated. Weightbearing as tolerated. Disposition Disposition: Home, Self Care
[2022-03-30] MEDS: Amox/Clavulanate 875 MG Tablet PO (15:47)
[2022-03-30 16:03] VITALS: BP 132/72; PULSE 58; RESP 15; O2SAT 100
[2022-03-30] MEDS: Lidocaine 1% (20 ml mdv) 20 ML Vial 10 ML INFILT (16:46)
[2022-03-30 17:15] VITALS: PULSE 82; RESP 16; O2SAT 98
== END 2022-03-30 17:16 | disposition home or self-care (01) ==
PROVIDERS: Emergency Provider Emergency Medicine; PCP Internal Medicine; Visit Provider Emergency Medicine
DX: S81.851A Open bite, right lower leg, initial encounter (principal); N18.30 Chronic kidney disease, stage 3 unspecified; S81.831A Puncture wound without foreign body, right lower leg, initial encounter; W54.0XXA Bitten by dog, initial encounter; I12.9 Hypertensive chronic kidney disease with stage 1 through stage 4 chronic kidney disease, or unspecified chronic kidney disease; E78.00 Pure hypercholesterolemia, unspecified; E78.5 Hyperlipidemia, unspecified; Z79.899 Other long term (current) drug therapy
CPT/HCPCS: 12002; 99282

== ENCOUNTER → 2022-04-05 | Outpatient (CLI) | payer MEDICARE, SELFPAY | END | disposition home or self-care (01) | PROVIDERS: PCP Internal Medicine; Visit Provider Nurse Practitioner Adult Health | DX: R19.7 Diarrhea, unspecified (principal); R10.31 Right lower quadrant pain ==

== ENCOUNTER → 2022-04-21 | Outpatient (CLI) | payer MEDICARE, SELFPAY ==
--- NOTE | 2022-04-21 16:04 | CT_ITS ---
STUDY: CT ABDOMEN AND PELVIS WITH CONTRAST REASON FOR EXAM: Male, 76 years old. enteritis, duodenal stricture -- enterography RADIATION DOSAGE (If Supplied By Facility): CTDIvol = ( 12.72 ) mGy, DLP = ( 699.12 ) mGycm TECHNIQUE: Transaxial images were obtained from the dome of the diaphragm to the symphysis pubis with oral contrast. Oral and amp;amp; IV BREEZA NEUTRAL and amp;amp; 100mL Isovue-370 was administered. Sagittal and coronal images were reconstructed. Individualized dose optimization techniques were used for this CT. COMPARISON: None. FINDINGS: Calcified right lung base nodule. The visualized portions of the heart are within normal limits. Small cysts in the right lobe of liver measuring 5.8 mm. Otherwise, unremarkable liver. Normal gallbladder and extrahepatic biliary system. Normal spleen. There is diffuse atrophy of the pancreas. Normal bilateral adrenal glands. Normal right kidney. Normal left kidney. Distended stomach with air-fluid level. Normal small intestine. There are multiple colonic diverticula consistent with diverticulosis. There are surgical clips in the region of the appendix consistent with a prior appendectomy. Prominent fecal retention throughout the right colon Normal abdominal aorta. Normal inferior vena cava. Normal retroperitoneum. Normal urinary bladder. There is enlargement of the prostate gland. There is a right-sided inguinal hernia containing adipose tissue. Normal osseous structures. CT/Abdomen/Pelvis WITH Contrast IMPRESSION: Prominent distention of the stomach with air-fluid level. No evidence of colitis. No evidence of fistula. In the region of the duodenum, there is a transition point to more normal and less dilated small bowel. No discrete CT findings of abnormality. Possibly related to gastroparesis and/or stricture of the duodenum. Consider endoscopy to further evaluate. Status post cholecystectomy. Electronically Signed: Chris Parmar DO at 5:05 EDT ,
[2022-04-21 18:00] LABS: Absolute Lymphocyte Count 3.44 X10^3/uL (0.83-4.51); Absolute Neutrophil Count 5.3 X10^3/uL (2.0-7.7); Basophil# 0.05 X10^3/uL; Basophil% 0.5 % (0-1); Eosinophil# 0.07 X10^3/uL; Eosinophils% 0.7 % (0-5); Hematocrit 38.1 % (40-54); Lymphocyte # 3.44 X10^3/ul (0.83-4.51); Lymphocyte % 35.8 % (19-41); Mean Corp Hgb Conc 34.1 g/dL (32-36); Mean Corpuscular Hgb 31.6 pg (27.0-32.0); Mean Corpuscular Volume 92.7 fL (80-94); Mean Platelet Vol. 10.9 fl (6.2-12.0); Monocyte# 0.71 X10^3/uL; Monocyte% 7.4 % (0-10); NRBC Flagged by Analyzer 0 % (0-5); Neutrophil # 5.33 X10^3/uL (2.7-7.7); Neutrophil % 55.4 % (47-70); Platelet Count 263 K/mm3 (150-450); RBC Distribution Width CV 12.6 % (11.6-14.6); Red Blood Count 4.11 M/mm3 (4.6-6.2); White Blood Count 9.6 K/mm3 (4.4-11.0)
[2022-04-21 18:29] LABS: ALB/GLOB Ratio 1.2 RATIO (0.9-2.4); AST(SGOT) 18 U/L (15-37); Alanine Aminotransfer ALT/SGPT 34 U/L (16-61); Albumin, Serum 4.5 g/dL (3.2-5.0); Alkaline Phosphatase 107 U/L (45-117); Anion Gap 6 (5-15); BUN 47 mg/dL (7-18); BUN/Creat Ratio 18.7 RATIO (10-20); Calcium,Total 9.4 mg/dL (8.5-10.1); Chloride 103 mmol/L (98-107); Creatinine, Serum 2.52 mg/dL (0.70-1.30); EST Glomerular Filtration Rate 26 mL/min (>60); Est Glom Filt Rate - Afr Amer 32 mL/min (>60); Globulin 3.6 g/dL (2.2-4.2); Glucose 115 mg/dL (74-106); Potassium 3.8 mmol/L (3.5-5.1); Protein, Total 8.1 g/dL (6.4-8.2); Sodium Level 135 mmol/L (136-145)
== END | disposition home or self-care (01) ==
LOC: CT 15:12
PROVIDERS: Physician Assistant; PCP Internal Medicine; Visit Provider Nurse Practitioner Adult Health
DX: K52.9 Noninfective gastroenteritis and colitis, unspecified (principal); E87.6 Hypokalemia; I10 Essential (primary) hypertension; R19.7 Diarrhea, unspecified; K52.832 Lymphocytic colitis; K21.9 Gastro-esophageal reflux disease without esophagitis
CPT/HCPCS: 36415; 74177; 80053; 85025; 87635; Q9967; U0003; U0005

== ENCOUNTER 2022-04-27 09:36 | Outpatient (RCR) | payer MEDICARE, SELFPAY ==
[2022-04-27 11:59] LABS: Bacteria 0 SEEN /hpf (None Seen); Mucous, Urine 0 SEEN /hpf (<or=2+); Red Blood Cells-Urine 0 SEEN /hpf (0-5); Squamous Epithelial Cells - UA 0 SEEN /hpf (0-5)
[2022-04-27 12:04] LABS: Hematocrit 34.4 % (40-54); Hemoglobin 11.6 g/dL (13.0-16.5); Mean Corp Hgb Conc 33.7 g/dL (32-36); Mean Corpuscular Hgb 31.4 pg (27.0-32.0); Mean Corpuscular Volume 93.2 fL (80-94); Mean Platelet Vol. 11.3 fl (6.2-12.0); Platelet Count 231 K/mm3 (150-450); RBC Distribution Width CV 12.4 % (11.6-14.6); RBC Distribution Width SD 42.5 fl (35.1-43.9); Red Blood Count 3.69 M/mm3 (4.6-6.2); White Blood Count 8.4 K/mm3 (4.4-11.0)
[2022-04-27 12:09] LABS: Color, Urine Yellow (Yellow); Glucose, Dipstick Normal (Normal); Ketone-Dipstick Negative (Negative); Leukocyte Esterase-Dipstick 100 /ul (Negative); Nitrite-Dipstick Negative (Negative); Occult Blood-Urine Negative /ul (Negative); Protein-Dipstick Negative (Negative); Specific Gravity, Urine 1.015 (1.002-1.030); Urine Bilirubin Dipstick Negative (Negative); Urine Clarity Clear (Clear); Urine Urobilinogen Normal (Normal)
[2022-04-27 12:22] LABS: Albumin, Serum 3.9 g/dL (3.2-5.0); BUN 36 mg/dL (7-18); BUN/Creat Ratio 18.2 RATIO (10-20); Calcium,Total 9.1 mg/dL (8.5-10.1); Chloride 99 mmol/L (98-107); Creatinine, Serum 1.98 mg/dL (0.70-1.30); EST Glomerular Filtration Rate 35 mL/min (>60); Est Glom Filt Rate - Afr Amer 42 mL/min (>60); Glucose 98 mg/dL (74-106); Phosphorus 2.7 mg/dL (2.5-4.9); Potassium 3.6 mmol/L (3.5-5.1); Sodium Level 134 mmol/L (136-145)
[2022-04-27 12:25] LABS: White Blood Cells 0-5 SEEN /hpf (0-5)
== END 2022-05-09 23:59 ==
LOC: BIMLAB 09:36
PROVIDERS: PCP Internal Medicine; Visit Provider Internal Medicine Nephrology
DX: N18.32 Chronic kidney disease, stage 3b (principal); D50.9 Iron deficiency anemia, unspecified
CPT/HCPCS: 36415; 80069; 81001; 85027

== ENCOUNTER → 2022-05-13 | Outpatient (CLI) | payer MEDICARE, SELFPAY ==
--- NOTE | 2022-05-13 12:51 | NM_ITS ---
INDICATION: gastric distension on CT -- wakes up with vomiting and diarehhea EXAMINATION: NUCLEAR MEDICINE GASTRIC EMPTYING - NM Gastric Emptying Study (solid, liquid or both) TECHNIQUE: A nuclear medicine Gastric Emptying Scan was obtained following oral administration of 1.0 mCi of sulfur colloid contained in 4 ounces of egg substitute with one piece of toast with jelly and water. Axial images in the anterior and posterior projections were obtained at 1 minute frames for 60 minutes. The percentage of gastric emptying was calculated. COMPARISON: None. FINDINGS: At 30 minutes the there is 56% emptying of the stomach. At 60 minutes there is 75% emptying of the stomach. NM/Gastric Emptying Study IMPRESSION: There is no evidence of delayed gastric emptying. 60 minutes (normal = 10-63%) 120 minutes (normal = 40-70%) 240 minutes (normal = 90-100%) Electronically Signed: Johnson Serna MD at 16:25 EDT ,
== END | disposition home or self-care (01) ==
PROVIDERS: PCP Internal Medicine; Referring Provider Nurse Practitioner Adult Health; Visit Provider Nurse Practitioner Adult Health
DX: K31.89 Other diseases of stomach and duodenum (principal)
CPT/HCPCS: 78264; A9541

== ENCOUNTER → 2022-05-19 | Outpatient (CLI) | payer MEDICARE, SELFPAY ==
--- NOTE | 2022-05-19 07:50 | RAD_ITS ---
PROCEDURE: Air contrast Upper GI with Small Bowel Follow Through DATE OF EXAMINATION: 05/19/2022.. INDICATION: Male, 77 years old. Abdominal pain with vomiting and diarrhea. FLUOROSCOPY TIME (if supplied): (1:20) minutes/seconds. 23 images were obtained. TECHNIQUE: Radiographic and fluoroscopic images of the distal esophagus, stomach, and entire small intestine were obtained following the oral ingestion of barium. COMPARISON: None. FINDINGS: The car coupler film of the abdomen demonstrates a normal bowel gas pattern. There are no abnormal calcifications or organomegaly demonstrated. There are degenerative changes of the visualized thoracic spine. There is evidence of a calcified azygos lymph node. The esophagus is unremarkable. There is no evidence of a esophageal obstruction. No mass lesions present. No evidence of gastroesophageal reflux. The stomach and duodenum are unremarkable. There is no evidence of ulceration. No mass lesion is seen. A single contrast small bowel follow through exam demonstrates the small bowel to have no evidence for stricture, ulceration or mass. The transit time is normal at 40 minutes. RAD/Upper GI/w Small Bowel IMPRESSION: 1. Unremarkable air contrast upper GI and small bowel follow-through examination. Electronically Signed: Lonny Fong MD at 12:15 EDT ,
== END | disposition home or self-care (01) ==
PROVIDERS: PCP Internal Medicine; Referring Provider Internal Medicine Gastroenterology; Visit Provider Internal Medicine Gastroenterology
DX: R10.9 Unspecified abdominal pain (principal)
CPT/HCPCS: 74246; 74248

== ENCOUNTER 2022-05-25 09:46 | Outpatient (RCR) | payer MEDICARE, SELFPAY ==
[2022-05-25 12:42] LABS: Hematocrit 34.9 % (40-54); Hemoglobin 11.5 g/dL (13.0-16.5); Mean Corpuscular Hgb 31.7 pg (27.0-32.0); Mean Corpuscular Volume 96.1 fL (80-94); Platelet Count 224 K/mm3 (150-450); RBC Distribution Width CV 12.5 % (11.6-14.6); RBC Distribution Width SD 44.1 fl (35.1-43.9); Red Blood Count 3.63 M/mm3 (4.6-6.2); White Blood Count 7.3 K/mm3 (4.4-11.0)
[2022-05-25 12:56] LABS: Albumin, Serum 3.9 g/dL (3.2-5.0); BUN 28 mg/dL (7-18); BUN/Creat Ratio 15.1 RATIO (10-20); Calcium,Total 9.3 mg/dL (8.5-10.1); Chloride 105 mmol/L (98-107); Creatinine, Serum 1.85 mg/dL (0.70-1.30); EST Glomerular Filtration Rate 38 mL/min (>60); Est Glom Filt Rate - Afr Amer 46 mL/min (>60); Ferritin 33 ng/mL (26-388); Glucose 94 mg/dL (74-106); Iron 72 ug/dL (65-175); Iron Binding Capacity,Total 303 ug/dL (250-450); PERCENT IRON SATURATION 23.8 % (15.0-55.0); Phosphorus 3.7 mg/dL (2.5-4.9); Potassium 3.9 mmol/L (3.5-5.1); Sodium Level 139 mmol/L (136-145)
== END 2022-06-09 23:59 ==
LOC: BIMLAB 09:46
PROVIDERS: PCP Internal Medicine; Referring Provider Internal Medicine Nephrology; Visit Provider Internal Medicine Nephrology
DX: N18.32 Chronic kidney disease, stage 3b (principal); D50.9 Iron deficiency anemia, unspecified
CPT/HCPCS: 36415; 80069; 82728; 83540; 83550; 85027

== ENCOUNTER → 2022-09-14 | Outpatient (CLI) | payer MEDICARE, SELFPAY ==
[2022-09-14 18:21] LABS: Albumin, Serum 4.1 g/dL (3.2-5.0); BUN 38 mg/dL (7-18); BUN/Creat Ratio 17.8 RATIO (10-20); Calcium,Total 8.9 mg/dL (8.5-10.1); Chloride 102 mmol/L (98-107); Creatinine, Serum 2.13 mg/dL (0.70-1.30); EST Glomerular Filtration Rate 32 mL/min (>60); Est Glom Filt Rate - Afr Amer 39 mL/min (>60); Glucose 105 mg/dL (74-106); Phosphorus 4.8 mg/dL (2.5-4.9); Potassium 3.3 mmol/L (3.5-5.1); Sodium Level 137 mmol/L (136-145)
== END | disposition home or self-care (01) ==
PROVIDERS: PCP Internal Medicine; Visit Provider Internal Medicine Nephrology
DX: N18.32 Chronic kidney disease, stage 3b (principal)
CPT/HCPCS: 36415; 80069

== ENCOUNTER → 2022-10-13 | Outpatient (CLI) | payer MEDICARE, SELFPAY ==
[2022-10-13 18:41] LABS: Albumin, Serum 4.1 g/dL (3.2-5.0); BUN 29 mg/dL (7-18); BUN/Creat Ratio 15.1 RATIO (10-20); Calcium,Total 9.2 mg/dL (8.5-10.1); Chloride 107 mmol/L (98-107); Creatinine, Serum 1.92 mg/dL (0.70-1.30); EST Glomerular Filtration Rate 36 mL/min (>60); Est Glom Filt Rate - Afr Amer 44 mL/min (>60); Glucose 104 mg/dL (74-106); Phosphorus 4.1 mg/dL (2.5-4.9); Potassium 4.2 mmol/L (3.5-5.1); Sodium Level 140 mmol/L (136-145)
== END | disposition home or self-care (01) ==
PROVIDERS: PCP Internal Medicine; Visit Provider Internal Medicine Nephrology
DX: N18.32 Chronic kidney disease, stage 3b (principal); E87.6 Hypokalemia
CPT/HCPCS: 36415; 80069

== ENCOUNTER → 2022-10-27 | Outpatient (CLI) | payer MEDICARE, SELFPAY ==
[2022-10-27 09:43] LABS: Absolute Lymphocyte Count 3.44 X10^3/uL (0.83-4.51); Absolute Neutrophil Count 5.4 X10^3/uL (2.0-7.7); Basophil# 0.02 X10^3/uL; Basophil% 0.2 % (0-1); Eosinophil# 0.07 X10^3/uL; Eosinophils% 0.7 % (0-5); Hematocrit 39.2 % (40-54); Hemoglobin 12.8 g/dL (13.0-16.5); Lymphocyte # 3.44 X10^3/ul (0.83-4.51); Lymphocyte % 35.2 % (19-41); Mean Corp Hgb Conc 32.7 g/dL (32-36); Mean Corpuscular Hgb 30.4 pg (27.0-32.0); Mean Corpuscular Volume 93.1 fL (80-94); Mean Platelet Vol. 10.9 fl (6.2-12.0); Monocyte# 0.82 X10^3/uL; Monocyte% 8.4 % (0-10); NRBC Flagged by Analyzer 0 % (0-5); Neutrophil % 55.2 % (47-70); Platelet Count 227 K/mm3 (150-450); RBC Distribution Width CV 13.2 % (11.6-14.6); RBC Distribution Width SD 45.1 fl (35.1-43.9); Red Blood Count 4.21 M/mm3 (4.6-6.2); White Blood Count 9.8 K/mm3 (4.4-11.0)
[2022-10-27 10:23] LABS: Vitamin D,25 Hydroxy 42.6 ng/mL
[2022-10-27 10:32] LABS: ALB/GLOB Ratio 1.2 RATIO (0.9-2.4); AST(SGOT) 17 U/L (15-37); Alanine Aminotransfer ALT/SGPT 38 U/L (16-61); Albumin, Serum 4.3 g/dL (3.2-5.0); Alkaline Phosphatase 88 U/L (45-117); Anion Gap 7 (5-15); BUN 26 mg/dL (7-18); BUN/Creat Ratio 11.1 RATIO (10-20); Calcium,Total 9.1 mg/dL (8.5-10.1); Chloride 106 mmol/L (98-107); Cholesterol 160 mg/dL (200); Creatinine, Serum 2.34 mg/dL (0.70-1.30); EST Glomerular Filtration Rate 29 mL/min (>60); Est Glom Filt Rate - Afr Amer 35 mL/min (>60); Globulin 3.6 g/dL (2.2-4.2); Glucose 83 mg/dL (74-106); High Density Lipoprotein 43 mg/dL; PSA,Total - Annual Screen 4.35 ng/mL (0.00-4.00); Potassium 3.9 mmol/L (3.5-5.1); Protein, Total 7.9 g/dL (6.4-8.2); Sodium Level 140 mmol/L (136-145); Thyroid Stim Hormone (TSH) 2.56 uIU/mL (0.358-3.74); Triglycerides 157 mg/dL; Very Low Density Lipoprotein 31 mg/dL (5-40)
== END | disposition home or self-care (01) ==
LOC: LAB 09:12
PROVIDERS: PCP Internal Medicine; Referring Provider Internal Medicine; Visit Provider Internal Medicine
DX: I12.9 Hypertensive chronic kidney disease with stage 1 through stage 4 chronic kidney disease, or unspecified chronic kidney disease (principal); N18.30 Chronic kidney disease, stage 3 unspecified; K21.9 Gastro-esophageal reflux disease without esophagitis; E87.6 Hypokalemia; D64.9 Anemia, unspecified; G47.33 Obstructive sleep apnea (adult) (pediatric); E78.5 Hyperlipidemia, unspecified; Z12.5 Encounter for screening for malignant neoplasm of prostate; R33.9 Retention of urine, unspecified; E55.9 Vitamin D deficiency, unspecified
CPT/HCPCS: 36415; 80053; 80061; 82306; 84153; 84443; 85025; G0103

== ENCOUNTER 2022-12-19 14:01 | Emergency (ER) | payer MEDICARE, SELFPAY ==
[2022-12-19 14:01] VITALS: BP 157/91; PULSE 56; RESP 18; TEMP 37.1; O2SAT 95
--- NOTE | 2022-12-19 14:37 | ED.RN ---
LAST TIME FAMILY SAW PATIENT WAS 1210 TODAY AFTER AMISH. PER FAMILY PATIENT WAS FINE THEN. PATIENT REMEMBERS DRIVING HOME AND WHAT ROAD HE TOOK BUT THEN DOES NOT REMEMBER AFTER THAT. PER FAMILY MEMBER WHEN HE GOT TO PATIENTS HOUSE A LITTLE AFTER 1 PATIENT WAS ON THE COUCH. PATIENT WAS COVERED IN BLOOD BUT DID NOT KNOW HOW IT GOT THERE. FAMILY MEMBER STATES THAT IT APPEARED THOUGH THE PATIENT WAS GOING OUTSIDE TO SWEEP THE PATIO. THERE WAS BLOOD ON THE CEMENT PATIO WITH BROOM AND PATIENTS HAT. THERE IS ABOUT 45 TO 60 MINUTE PERIOD WHERE THE PATIENT DOES NOT REMEMBER ANYTHING.
[2022-12-19 14:40] VITALS: BMI 25.6
[2022-12-19 14:51] LABS: Bedside Glucose 105 mg/dL (74-106)
--- NOTE | 2022-12-19 14:58 | CT_ITS ---
INDICATION: Trauma, fall EXAMINATION: CT BRAIN - CT Head or Brain W/O Contrast Injection TECHNIQUE: Multiple axial images were obtained of the head without intravenous contrast. A radiation dose optimization technique was used for this scan. IV Contrast dosage and agent: None. COMPARISON: 08/05/2018 FINDINGS: BRAIN PARENCHYMA: No intra- or extra-axial hemorrhage. No evidence of acute infarct. No intracranial mass or mass effect. Posterior fossa structures are unremarkable. Volume loss with low attenuation of the periventricular white matter typical of chronic small vessel disease. CSF SPACES: Appropriate for age. No hydrocephalus. Basal cisterns are patent. CALVARIUM, SKULL BASE, PARANASAL SINUSES AND MASTOID AIR CELLS: Small fluid level left maxillary sinus. No acute fracture. Soft tissue edema lateral to the left orbit. CT/Brain/Head without Contrast IMPRESSION: Volume loss with chronic white matter changes. No acute intracranial findings. Possible acute left maxillary sinusitis. Electronically Signed: Omar Weinstein MD at 17:07 EDT ,
--- NOTE | 2022-12-19 14:58 | EKG12_ITS ---
Test Reason : Blood Pressure : / mmHG Vent. Rate : 063 BPM Atrial Rate : 063 BPM P-R Int : 154 ms QRS Dur : 078 ms QT Int : 386 ms P-R-T Axes : 023 045 044 degrees QTc Int : 395 ms Normal sinus rhythm Minimal voltage criteria for LVH, may be normal variant ( Sokolow-Stokes ) Nonspecific ST abnormality Abnormal ECG Confirmed by JUANCHO BLANTON, VINCENZO ([id number]), metropolitan editor NAZIA ROSENBAUM ([id number]) on 12/20/2022 1:56:06 PM Referred By: LOWELL Confirmed By:VINCENZO DAWKINS MD
--- NOTE | 2022-12-19 14:58 | CT_ITS ---
INDICATION: Trauma, fell down steps, left upper quadrant guarding EXAMINATION: CT ABDOMEN AND PELVIS WITH CONTRAST - CT Abdomen And Pelvis W/ Contrast Injection TECHNIQUE: Helically acquired images were obtained of the abdomen and pelvis following IV contrast. A radiation dose optimization technique was used for this scan. IV Contrast dosage and agent: 100 cc Isovue-370 Oral contrast: None. COMPARISON: 04/21/2022 FINDINGS: LOWER CHEST: Bibasilar dependent changes. No cardiomegaly or pericardial effusion. LIVER: Homogeneous. No mass or hematoma. GALLBLADDER AND BILIARY TREE: No calcified gallstones. No gallbladder distension or wall edema. No intra- or extrahepatic biliary ductal dilation. PANCREAS: No focal cystic or solid mass. SPLEEN: No laceration or hematoma. ADRENAL GLANDS: No nodules. KIDNEYS AND URETERS: Normal renal size and position. No hydronephrosis. PERITONEUM: No ascites or free air. BOWEL: Prior appendectomy. No stomach or bowel distension. No focal inflammatory change. LYMPH NODES: No enlarged mesenteric or retroperitoneal lymph nodes. VESSELS: Aorta is non-dilated. URINARY BLADDER: Unremarkable. REPRODUCTIVE ORGANS: Prostate hypertrophy. ABDOMINAL WALL: Bilateral fat-containing inguinal hernias. BONES: Minimally displaced fracture left 10th rib posterolaterally. CT/Abdomen/Pelvis WITH Contrast IMPRESSION: Fracture left 10th rib posterolaterally. No acute findings in the abdomen or pelvis. Electronically Signed: Omar Weinstein MD at 17:01 EDT ,
--- NOTE | 2022-12-19 14:59 | CT_ITS ---
INDICATION: Trauma, fall, facial injury EXAMINATION: CT FACIAL BONES - CT Maxillofacial W/O Contrast Injection TECHNIQUE: Helically acquired images were obtained of the facial bones. A radiation dose optimization technique was used for this scan. IV Contrast dosage and agent: None. COMPARISON: 08/05/2018 FINDINGS: SOFT TISSUES: Soft tissue edema and minimal subcutaneous emphysema lateral to the left orbit. No discrete fluid collections. VISUALIZED PARANASAL SINUSES: Small fluid level left maxillary sinus. VISUALIZED MASTOID AIR CELLS: Clear. FACIAL BONES, MANDIBLE AND TMJs: No displaced facial bone fracture. No lytic or blastic abnormality. VISUALIZED DENTITION: No periodontal osseous erosion. ORBITAL CONTENTS: Both globes, extraocular muscles and retrobulbar fat appear unremarkable. CT/Sinus/Facial Bone IMPRESSION: No acute fracture of the maxillofacial bones. Possible acute left maxillary sinusitis. Electronically Signed: Omar Weinstein MD at 17:12 EDT ,
[2022-12-19] MEDS: Ondansetron 4 MG/2 ML Vial IV ×2 (15:08→16:22)
[2022-12-19] MEDS: Morphine 4 MG/ML Syringe IV ×2 (15:08→16:22)
[2022-12-19 15:20] VITALS: BP 175/77; PULSE 57; RESP 16; O2SAT 99
[2022-12-19 15:24] LABS: Absolute Neutrophil Count 9.3 X10^3/uL (2.0-7.7); Basophil# 0.04 X10^3/uL; Basophil% 0.3 % (0-1); Eosinophil# 0.07 X10^3/uL; Eosinophils% 0.6 % (0-5); Hematocrit 35.6 % (40-54); Hemoglobin 12.1 g/dL (13.0-16.5); Lymphocyte % 20.7 % (19-41); Mean Corpuscular Hgb 31.7 pg (27.0-32.0); Mean Corpuscular Volume 93.2 fL (80-94); Mean Platelet Vol. 11.2 fl (6.2-12.0); Monocyte# 0.53 X10^3/uL; Monocyte% 4.2 % (0-10); NRBC Flagged by Analyzer 0 % (0-5); Neutrophil # 9.27 X10^3/uL (2.7-7.7); Neutrophil % 73.6 % (47-70); Platelet Count 207 K/mm3 (150-450); RBC Distribution Width CV 12.7 % (11.6-14.6); RBC Distribution Width SD 43.4 fl (35.1-43.9); Red Blood Count 3.82 M/mm3 (4.6-6.2); White Blood Count 12.6 K/mm3 (4.4-11.0)
--- NOTE | 2022-12-19 15:32 | EX.ED.GENINJ ---
HPI History of Present Illness Chief Complaint: Fall Detail of Chief Complaint: Fell down a step or 2 onto concrete Informant: patient, spouse/S.O. and family Onset/Context/Timing Onset: Hours (Patient could have potentially been on the ground for 30 to 45 minutes.) Mechanism/Context: Blunt Injury, Fall (1 or 2 steps) and Slip (He believes. He does not recall.) Location of pain/injuries: Left wrist Location: Head, face, chest, flank and left-sided abdomen also left wrist pain Current Severity: Mild Maximum Severity: Severe Worsened by: Palpation of chest, flank and abdomen Relieved by: Nothing Associated Symptoms Associated Symptoms: Positive for Loss of consciousness and Amnesia; Negative for Parasthesias, Weakness, Loss of function or Inability to ambulate Length of loss of consciousness: Unknown Narrative Narrative: Patient is a 77-year-old male with history of chronic kidney disease stage III, hypertension, obstructive sleep apnea, hyperlipidemia, essential hypertension and GERD. He apparently was sweeping the steps at the entrance of his home. He may have been on the ground for 30 to 45 minutes. He does not recall what happened. He believes he fell. Son has a video of the area. He fell down 1 or 2 steps onto concrete. There is blood noted on the concrete. According to family last tetanus was 1 year ago. Patient complains of headache. He complains of photophobia. He denies ringing's ears decreased hearing. He does complain of left-sided facial and head pain as well. He denies dental trauma. He was unaware that he bit his tongue. He denies neck pain. He does report left flank pain as well as low back pain. He denies paresthesia, anesthesia or motor weakness upper or lower extremity presently or when he awoke. He was brought in by family. Tetanus Immunization: <5 years Prior similar symptoms: No Recent Illness/Hospitalization: No [facility] Medical History Acute appendicitis Acute viral syndrome ADHD Benign hypertension Broken back Cancer Cardiology follow-up encounter CKD (chronic kidney disease) stage 3, GFR 30-59 ml/min COVID-19 vaccine dose declined CPAP (continuous positive airway pressure) dependence Diastasis, muscle Eosinophilic esophagitis Excessive bleeding Exposure to tobacco smoke at work Azul catheter in place Gastric reflux High cholesterol History of rheumatic fever History of stress test HTN (hypertension) Hyperlipidemia Hypoxia Inguinal hernia of right side without obstruction or gangrene Microscopic colitis Non-smoker ANTIONE (obstructive sleep apnea) Right lower quadrant abdominal pain Sleep apnea Home Medications pravastatin 20 mg tablet 20 mg PO DAILY CHOLESTEROL 12/23/14 [History Last Taken 12/29/21] tamsulosin 0.4 mg capsule 0.4 mg PO DAILY 04/21/22 [History Last Taken Unknown] ferrous sulfate 325 mg (65 mg iron) tablet (Iron (ferrous sulfate)) 325 mg PO DAILY supplement 07/05/22 [History Last Taken Unknown] omeprazole 20 mg tablet,delayed release 20 mg PO QAM GERD 07/05/22 [History Last Taken Unknown] potassium chloride 20 mEq tablet,extended release 20 meq PO BID supplement #180 tabs 08/13/22 [Rx Last Taken Unknown] FOCUS PO 1XD 10/27/22 [History Last Taken Unknown] PREVAGEN PO 1XD 10/27/22 [History Last Taken Unknown] PROBIOTIC PO 10/27/22 [History Last Taken Unknown] atenolol 25 mg tablet 25 mg PO DAILY 10/27/22 [History Last Taken Unknown] ipratropium bromide 21 mcg (0.03 %) nasal spray 2 spray intranasal BID-TID PRN runny nose #30 mL 11/03/22 [Rx Last Taken Unknown] oxycodone-acetaminophen 5 mg-325 mg tablet 1 tab PO Q6H PRN PRN pain 7 days #28 TABLETS 12/19/22 [Rx Last Taken Unknown] Allergy/AdvReac Type Severity Reaction Status Date / Time No Known Allergies Allergy Verified 12/19/22 14:04 Family History Mother Hypertension Father , at age 61 secondary to brain tumor Cancer Surgical History H/O hand surgery History of appendectomy History of cardiac catheterization History of esophagogastroduodenoscopy (EGD) History of laparoscopic appendectomy History of tonsillectomy Social History household members: none Smoking Status: Never smoker alcohol intake: never substance use type: does not use ROS ROS ED Constitutional Constitutional ED: Denies chills or fever(s) Eyes Eyes: Reports other Details: Photophobia ; Denies blurry vision or change in vision ENT ENT ED: Denies ear pain, rhinorrhea or sore throat Cardiovascular Cardiovascular: Denies chest pain, palpitations or racing heartbeat Respiratory/Chest Respiratory/Chest: Denies cough, dyspnea or dyspnea on exertion Gastrointestinal Gastrointestinal: Denies abdominal pain, diarrhea or vomiting Genitourinary Genitourinary ED: Denies dysuria, hematuria or urinary frequency Musculoskeletal Musculoskeletal: Reports back pain; Denies arthralgias, myalgias or neck pain Integumentary Reports Abrasions and other Details: There is a lot of clotted blood which will need to be cleaned to determine if patient has an abrasion or laceration left side of his face/head. ; Denies abscess Neurologic Neurologic: Reports headache(s); Denies paresthesias or weakness Endocrine Endocrinology: Reports cold intolerance and heat intolerance Hematologic/Lymphatic Hematologic/Lymphatic: Denies easy bleeding or easy bruising EXAM Physical Exam Const Vital Signs: 12/19/22 14:01 12/19/22 14:40 12/19/22 15:20 Temperature 98.7 F Temperature Source Oral Pulse Rate 56 L 57 L Respiratory Rate 18 16 Respiratory Effort Normal Respiratory Depth Normal Respiratory Pattern Normal Blood Pressure 157/91 H 175/77 H Blood Pressure Mean 113 109 Pulse Ox 95 99 Oxygen Delivery Method Room Air Room Air 12/19/22 16:21 12/19/22 17:09 Temperature Temperature Source Pulse Rate 70 71 Respiratory Rate 16 18 Respiratory Effort Respiratory Depth Respiratory Pattern Blood Pressure 163/78 H 156/73 H Blood Pressure Mean 106 100 Pulse Ox 97 97 Oxygen Delivery Method Room Air Room Air Positive well nourished and well developed Constitutional Narrative: Patient does not appear in distress. He states his eyes are closed because he is eyes are sensitive to light. He has blood noted left temporal parietal area and over the left side of the face. General Appearance ED: well developed HEENT HEENT Narrative: There is no palpable depression. There is no CSF otorrhea or rhinorrhea. There is no hemotympanum. There is no burgess sign or raccoon sign. There is pain ovation over the left zygomatic arch and left maxillary region. There is no appreciable step-off of the infraorbital rim. There is no hyperesthesia infraorbital nerve. Patient does have evidence of trauma to his tongue on the left side. There is no obvious dental trauma noted. There is no septal deviation hematoma noted. Nose: Negative for septum abnormal Eyes PERRL and EOMs intact bilaterally General Eye ED: Yes other Other Details: There is no subconjunctival hemorrhage. There is no diplopia with central gaze. There is no evidence of entrapment. Neck full ROM Neck Narrative: There is no pain no patient posterior midline. He has full active range of motion without difficulty i.e. grimacing hesitation etc. He denies pain in his neck with movement. Chest Wall inspection of chest normal and palpation of chest normal Chest Narrative: He has pain ovation over the left thoracic area anterior axillary line to posterior midclavicular line. There is no crepitus or subcutaneous air noted. Resp normal respiratory effort and clear to auscultation bilaterally Cardio regular rhythm, S1 normal heart sound, S2 normal heart sound and no murmurs Rate: regular rate GI non-distended and no masses; Negative for non-tender GI Narrative: Patient's abdomen is firm. He has guarding left upper quadrant. He attributes his firm abdomen to weight loss. He has significant tenderness to palpation. Inspection: Negative for abdominal distention Auscultation: Negative for normoactive bowel sounds Palpation: Negative for soft Narrative: Pelvis is nontender. is unremarkable. Back/Spine Negative for normal to inspection Back/Spine Narrative: There is perilumbar discomfort. There is also left flank pain. There is no midline pain over the dorsal or lumbar vertebrae. General Back: CVA tenderness left Extremity normal to inspection and full ROM Extremity Narrative: Patient complains of pain over the distal radius and ulna. Median, radial and ulnar function intact. Radial pulses palpable. There is no pain the patient over the lateral medial epicondyles. There is no pain the patient olecranon process or radial head. No pain the patient over the proximal humerus. He apparently landed on his left side. He denies pain in the right upper extremity, right or left lower extremity. Exam of those extremities are unremarkable Neuro oriented x3, CN's II-XII intact bilaterally, moves all extremities, no focal motor deficits and no sensory deficits noted Serge Coma Scale: document GCS findings Spontaneous Obeys Commands Oriented 15 Sensorium / Orientation: Negative for alert Deep Tendon Reflexes: Rt Patellar (L4): 2+, Lt Patellar (L4): 2+, Rt Ankle (S1): 2+ and Lt Ankle (S1): 2+ Deep Tendon Reflexes Back: Rt Patellar (L4): 2+, Lt Patellar (L4): 2+, Rt Ankle (S1): 2+ and Lt Ankle (S1): 2+ Plantar Reflex: Downgoing: left and Upgoing (positive Babinski): right (Family states there is no history of stroke.) Psych mental status grossly normal Skin No no rashes or lesions noted, No no wounds, No skin turgor normal and no jaundice MDM MDM MDM Narrative Medical decision making narrative: Patient's prior records were reviewed. His most recent blood work indicates he has a GFR of 29. Office record authored by Dr. Rohini Gonzales dated October 27, 2022 was reviewed. According to his records GFR is 30-59. This is not what was noted on computer. Also reviewed medical record authored by nurse practitioner Bess Moran. He was seen for 2-month follow-up for nausea, vomiting and lymphocytic colitis related to diarrhea. He apparently lost 35 pounds because of this. Per the [place] CT head rule since patient is greater than age 65 had loss of conscious amnestic CT of the head is required. Imaging of the neck was not obtained since he has no neck pain and cleared per Nexus criteria since he is alert oriented x3. Because of the left flank pain with significant rib pain to palpation and a firm abdomen with guarding left upper quadrant and concern for splenic injury CT of the abdomen and pelvis with IV contrast was ordered. Plan is to hydrate once he returns from CAT scan. We will have his nurse cleaned up his head face and reevaluate for any lacerations which may require repair. EKG was obtained to rule out any dysrhythmia or evidence of ischemia. History & Record Review Discussion w/independent historian: Patient, Family and Significant other Additional record(s) reviewed:: Prior inpatient record, Prior outpatient record and Prior labs Lab Data Attestation: I reviewed the patient's lab results. Lab results narrative: CBC reveals elevated white count of 12.6. There is mild anemia with a H&H of 12.1 and 35.6. Blood sugar is normal. Creatinine has improved since prior and GFR is 36. Blood sugar is elevated 141 with a normal CO2 and anion gap. Electrolytes are normal. Labs: Laboratory Results - last 24 hr 12/19/22 12/19/22 12/19/22 14:25 14:25 14:26 WBC 12.6 H RBC 3.82 L Hgb 12.1 L Hct 35.6 L MCV 93.2 MCH 31.7 MCHC 34.0 RDW Std Deviation 43.4 RDW Coeff of Moiz 12.7 Plt Count 207 MPV 11.2 Immature Gran % (Auto) 0.600 Neut % (Auto) 73.6 H Lymph % (Auto) 20.7 [place] % (Auto) 4.2 Eos % (Auto) 0.6 Baso % (Auto) 0.3 Absolute Neuts (auto) 9.3 H Absolute Lymphs (auto) 2.60 Nucleated RBC % 0 Sodium 139 Potassium 3.6 Chloride 106 Carbon Dioxide 25.0 Anion Gap 8 BUN 25 H Creatinine 1.93 H Estim Creat Clear Calc 25.99 Est GFR (MDRD) Af Amer 43 L Est GFR (MDRD) Non-Af 36 L BUN/Creatinine Ratio 13.0 Glucose 141 H Calcium 8.9 POC Glucose 105 Radiography Chest X-Ray - ED: Read by ED Physician (Three-view x-ray of the left wrist was performed and independently interpreted by me at 1548 as negative for any acute pathology. There is no fracture, subluxation or dislocation. There is no volar fat pad noted.) Diagnostic Testing: Clinical Impression(s) from Imaging Studies Abdomen/Pelvis CT 12/19/22 14:58 IMPRESSION: Fracture left 10th rib posterolaterally. No acute findings in the abdomen or pelvis. Electronically Signed: Omar Weinstein MD at 17:01 EDT , Brain CT 12/19/22 14:58 IMPRESSION: Volume loss with chronic white matter changes. No acute intracranial findings. Possible acute left maxillary sinusitis. Electronically Signed: Omar Weinstein MD at 17:07 EDT , Facial/Sinus 12/19/22 14:59 IMPRESSION: No acute fracture of the maxillofacial bones. Possible acute left maxillary sinusitis. Electronically Signed: Omar Weinstein MD at 17:12 EDT , Wrist X-Ray 12/19/22 15:33 IMPRESSION: No acute bony injury. Electronically Signed: Omar Weinstein MD at 16:33 EDT , EKG Initial EKG: Attestation: I personally reviewed and interpreted this EKG as follows: Interpretation: Sinus Rhythm (Rate of 63. There is evidence of LVH. WI interval is 154 ms. History 78 ms. QT duration 386 ms. [place] is normal. This is unchanged from EKG that was performed December 30, 2021.) Comments: The brain was reviewed by me at 1603. There is no evidence of subdural, epidural, traumatic subarachnoid hemorrhage or intraparenchymal contusion. There is air-fluid level right maxillary sinus. There is evidence of chronic sinus disease involving the ethmoids and maxillary sinus. Facial CT was reviewed by me. There is no fracture that I saw. There is evidence of sinus disease. CT of the abdomen reveals no evidence of hepatic or splenic or renal injury. There is no evidence of pneumo thorax or pneumoperitoneum. Awaiting formal read by radiologist. The radiology report was read. There is 1/10 left fractured rib. This is where patient has maximal tenderness. More importantly there is no evidence of renal contusion or injury and there is no evidence of pneumothorax or splenic injury. Treatment and Re-Evaluation Narrative: Patient was reassessed again at 1740. He states the dose of morphine has helped significantly. Will discharge patient to home with son with appropriate home-going structures, incentive spirometer and Percocet. Critical Care Time Critical Care Time: Yes Critical care time (excluding procedures): 30-74 minutes (30 minutes), Including time spent: (History, physical, documentation, review of prior records and labs, history from son and and review of video of accident.), Discussing w/Patient &/or Family/Senior Account Manager, Performing Direct Patient Care at Bedside and - (Trauma work-up) Discharge Plan Triage Chief Complaint: Fall ED Provider: Chevy Mendes Dx/Rx/DC Orders Clinical Impression: Closed head injury with loss of consciousness of unknown duration, CKD (chronic kidney disease) stage 3, GFR 30-59 ml/min, HTN (hypertension), Left rib fracture, Contusion of scalp, face, and neck, excluding eyes, Abrasion, face without infection, Fall down stairs Instructions: ED Facial Contusion, ED Rib Fracture, ED Head Injury (Adult) Prescriptions: New oxycodone-acetaminophen [oxycodone-acetaminophen] 5-325 mg tablet 1 tab PO Q6H PRN PRN (Reason: pain) 7 Days Qty: 28 0RF No Action omeprazole 20 mg tablet,delayed release (DR/EC) 20 mg PO QAM ferrous sulfate [Iron (ferrous sulfate)] 325 mg (65 mg iron) tablet 325 mg PO DAILY tamsulosin 0.4 mg capsule 0.4 mg PO DAILY atenolol 25 mg tablet 25 mg PO DAILY Rx Instructions: TAKES 1/2 TP EQUEAL 12.5 PROBIOTIC PO PREVAGEN PO 1XD FOCUS PO 1XD pravastatin 20 MG tablet 20 mg PO DAILY potassium chloride 20 mEq tablet extended release 20 meq PO BID Qty: 180 3RF ipratropium bromide 21 mcg (0.03 %) spray,non-aerosol 2 spray intranasal BID-TID PRN (Reason: runny nose) Qty: 30 1RF Rx Instructions: administer into each nostril Primary Care Provider: Rohini Gonzales Referrals: Rohini Gonzales MD [Primary Care Provider] - 5-7 Days Activity Restrictions/Additional Instructions: 1. Apply bacitracin ointment 3 times a day to your facial abrasions 2. You will feel worse over the next 24 to 48 hours 3. Use incentive spirometer every hour while awake for the next 5 to 7 days 4. You will hurt in more places and you presently do 5. You may hurt for 1 week and potentially longer. Disposition Disposition: Home, Self Care
--- NOTE | 2022-12-19 15:33 | RAD_ITS ---
INDICATION: Trauma, injury, pain EXAMINATION/TECHNIQUE: X-RAY - LEFT XR Wrist Min 3 Views 3 VIEWS COMPARISON: None. FINDINGS: SOFT TISSUES: No soft tissue swelling or gas. No radiopaque foreign body. BONES/JOINTS: No acute fracture. Joint spaces anatomically aligned. Degenerative changes at the first carpal-metacarpal junction. No sclerotic or destructive changes observed. RAD/Wrist min 3 Views IMPRESSION: No acute bony injury. Electronically Signed: Omar Weinstein MD at 16:33 EDT ,
[2022-12-19 15:38] LABS: Anion Gap 8 (5-15); BUN 25 mg/dL (7-18); Calcium,Total 8.9 mg/dL (8.5-10.1); Chloride 106 mmol/L (98-107); Creatinine, Serum 1.93 mg/dL (0.70-1.30); EST Glomerular Filtration Rate 36 mL/min (>60); Est Glom Filt Rate - Afr Amer 43 mL/min (>60); Estimated Creatinine Clearance 25.99 ml/min; Glucose 141 mg/dL (74-106); Potassium 3.6 mmol/L (3.5-5.1); Sodium Level 139 mmol/L (136-145)
[2022-12-19 16:21] VITALS: BP 163/78; PULSE 70; RESP 16; O2SAT 97
[2022-12-19 17:09] VITALS: BP 156/73; PULSE 71; RESP 18; O2SAT 97
[2022-12-19 17:22] LABS: Bacteria 0 SEEN /hpf (None Seen); Mucous, Urine 0 SEEN /hpf (<or=2+); Squamous Epithelial Cells - UA 0 SEEN /hpf (0-5)
[2022-12-19 17:41] LABS: Color, Urine Yellow (Yellow); Glucose, Dipstick Normal (Normal); Ketone-Dipstick Negative (Negative); Leukocyte Esterase-Dipstick Negative /ul (Negative); Nitrite-Dipstick Negative (Negative); Occult Blood-Urine 10 /ul (Negative); Protein-Dipstick 30 mg/dl (Negative); Urine Bilirubin Dipstick Negative (Negative); Urine Clarity Clear (Clear); Urine Urobilinogen Normal (Normal); Urine pH 6.5 (5.0 - 8.0)
[2022-12-19 17:47] LABS: Red Blood Cells-Urine 0-5 SEEN /hpf (0-5); White Blood Cells 0-5 SEEN /hpf (0-5)
[2022-12-19 18:13] VITALS: BP 152/74; PULSE 73; RESP 16; O2SAT 99
== END 2022-12-19 19:18 | disposition home or self-care (01) ==
PROVIDERS: Emergency Provider Emergency Medicine; PCP Internal Medicine; Visit Provider Emergency Medicine
DX: S06.9X9A Unspecified intracranial injury with loss of consciousness of unspecified duration, initial encounter (principal); N18.30 Chronic kidney disease, stage 3 unspecified; E78.00 Pure hypercholesterolemia, unspecified; S22.32XA Fracture of one rib, left side, initial encounter for closed fracture; I12.9 Hypertensive chronic kidney disease with stage 1 through stage 4 chronic kidney disease, or unspecified chronic kidney disease; M25.532 Pain in left wrist; Z79.899 Other long term (current) drug therapy; W10.9XXA Fall (on) (from) unspecified stairs and steps, initial encounter
CPT/HCPCS: 70450; 70486; 73110; 74177; 80048; 81001; 82962; 85025; 93005; 96374; 96375; 96376; 99283; J7030; Q9967; A4216; J2405

== ENCOUNTER 2023-02-09 15:49 | Emergency (ER) | payer MEDICARE, OTHER, SELFPAY ==
[2023-02-09 15:51] VITALS: BP 147/107; PULSE 76; RESP 18; TEMP 36.9; O2SAT 99; BMI 23.5
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
[2023-02-09 17:50] VITALS: RESP 14
[2023-02-09 19:00] VITALS: O2SAT 97
[2023-02-09] MEDS: Lidocaine 1% (20 ml mdv) 20 ML Vial 5 ML INFILT (19:31)
[2023-02-09 19:36] VITALS: PULSE 88; RESP 16; O2SAT 99
== END 2023-02-09 20:19 | disposition home or self-care (01) ==
PROVIDERS: Emergency Provider Emergency Medicine; PCP Internal Medicine; Visit Provider Emergency Medicine
DX: S32.039A Unspecified fracture of third lumbar vertebra, initial encounter for closed fracture (principal); S32.049A Unspecified fracture of fourth lumbar vertebra, initial encounter for closed fracture; S09.90XA Unspecified injury of head, initial encounter; V68.5XXA Driver of heavy transport vehicle injured in noncollision transport accident in traffic accident, initial encounter; Y99.0 Civilian activity done for income or pay; J44.9 Chronic obstructive pulmonary disease, unspecified; I12.9 Hypertensive chronic kidney disease with stage 1 through stage 4 chronic kidney disease, or unspecified chronic kidney disease; N18.30 Chronic kidney disease, stage 3 unspecified; E78.00 Pure hypercholesterolemia, unspecified; K21.9 Gastro-esophageal reflux disease without esophagitis; G47.33 Obstructive sleep apnea (adult) (pediatric); Z79.899 Other long term (current) drug therapy
CPT/HCPCS: 70450; 71250; 72125; 74176; 99284

== ENCOUNTER → 2023-03-23 | Outpatient (CLI) | payer MEDICARE, SELFPAY ==
[2023-03-23 12:09] LABS: BUN 27 mg/dL (7-18); BUN/Creat Ratio 13.9 RATIO (10-20); Chloride 104 mmol/L (98-107); Creatinine, Serum 1.94 mg/dL (0.70-1.30); EST Glomerular Filtration Rate 36 mL/min (>60); Est Glom Filt Rate - Afr Amer 43 mL/min (>60); Glucose 100 mg/dL (74-106); Phosphorus 3.1 mg/dL (2.5-4.9); Potassium 3.8 mmol/L (3.5-5.1); Sodium Level 138 mmol/L (136-145)
== END | disposition home or self-care (01) ==
LOC: LAB 11:17
PROVIDERS: PCP Internal Medicine; Referring Provider Internal Medicine Nephrology; Visit Provider Internal Medicine Nephrology
DX: N18.32 Chronic kidney disease, stage 3b (principal)
CPT/HCPCS: 36415; 80069

== ENCOUNTER → 2023-09-28 | Outpatient (CLI) | payer MEDICARE, SELFPAY ==
[2023-09-28 16:21] LABS: Bacteria 0 SEEN /hpf (None Seen); Mucous, Urine 0 SEEN /hpf (<or=2+); Red Blood Cells-Urine 0 SEEN /hpf (0-5); Squamous Epithelial Cells - UA 0 SEEN /hpf (0-5); White Blood Cells 0 SEEN /hpf (0-5)
[2023-09-28 16:46] LABS: Glucose, Dipstick Normal (Normal); Ketone-Dipstick Negative (Negative); Leukocyte Esterase-Dipstick Negative /ul (Negative); Nitrite-Dipstick Negative (Negative); Occult Blood-Urine 10 /ul (Negative); Protein-Dipstick 30 mg/dl (Negative); Specific Gravity, Urine 1.015 (1.002-1.030); Urine Bilirubin Dipstick Negative (Negative); Urine Urobilinogen Normal (Normal)
[2023-09-28 16:50] LABS: Color, Urine Yellow (Yellow); Urine Clarity Clear (Clear)
== END | disposition home or self-care (01) ==
LOC: LABSPEC 16:17
PROVIDERS: PCP Internal Medicine; Referring Provider Internal Medicine; Visit Provider Internal Medicine
DX: N39.0 Urinary tract infection, site not specified (principal)
CPT/HCPCS: 81001; 87086

== ENCOUNTER → 2023-11-03 | Outpatient (CLI) | payer MEDICARE, SELFPAY ==
[2023-11-03 16:28] LABS: Hematocrit 32.1 % (40-54); Hemoglobin 10.9 g/dL (13.0-16.5); Mean Corpuscular Hgb 31.4 pg (27.0-32.0); Mean Corpuscular Volume 92.5 fL (80-94); Mean Platelet Vol. 10.2 fl (6.2-12.0); Platelet Count 185 K/mm3 (150-450); RBC Distribution Width CV 13.6 % (11.6-14.6); RBC Distribution Width SD 45.9 fl (35.1-43.9); Red Blood Count 3.47 M/mm3 (4.6-6.2); White Blood Count 7.9 K/mm3 (4.4-11.0)
--- OUTSIDE RECORDS SUMMARY | 2023-11-03 16:31 | XMS RPT_ITS | CCD ---
Author Name Unknown Address [address] [place] [address] Organization [facility] Care Team Providers Care City Editor Name Role Phone SHEA GREENE Attending Unavailable *SELF, REFERRED Primary Care Unavailable SHEA GREENE Attending Unavailable SHEA GREENE Referring Unavailable *SELF, REFERRED Primary Care Unavailable Unavailable Primary Care Provider Unavailabl e Unavailable Primary Care Provider Unavaildail e ROSA RAZO Referring Unavailable YUAN MURO Referring Unavailable YUAN MURO Referring Unavailable Medications Completed/Discontinued Medications Medication Drug Class(es) Dates Sig (Normalized) Sig (Original) ascorbic acid 500 mg oral tablet (4 sources) Vitamin C Start: 05-17-2018 take 1 tablet by mouth once daily ascorbic acid, vitamin C, (VITAMIN C) 500 mg tablet Take 1 tablet by mouth once daily. 0 05/17/2018 Active Problems Active Problems Problem Classification Problem Date Documented Da te Episodic/Chronic Coronary atherosclerosis and other heart disease (4 sources) Coronary arteriosclerosis; Translations: [Atherosclerotic heart disease of [place] coronary artery without angina pectoris] Onset: 12-20-2013 10-05-2021 Chronic Disorders of lipid metabolism (4 sources) Hyperlipidemia; Translations: [Hyperlipidemia, unspecified] Onset: 12-02-2005 07-28-2015 Chronic Essential hypertension (4 sources) Benign essential hypertension; Translations: [Essential (primary) hypertension] Onset: 12-02-2005 12-02-2005 Chronic Hyperplasia of prostate (4 sources) Benign prostatic hyperplasia; Translations: [Benign prostatic hyperplasia without lower urinary tract symptoms] Onset: 05-17-2018 05-17-2018 Chronic Miscellaneous mental health disorders (4 sources) Psychosexual dysfunction; Translations: [Unspecified sexual dysfunction not due to a substance or known physiological condition] Onset: 12-12-2006 05-17-2018 Chronic Open wounds of extremities (1 source) Dog bite of lower leg; Translations: [Open bite, right lower leg, initial encounter] Episodic Other injuries and conditions due to external causes (1 source) Injury of Achilles tendon; Translations: [Unspecified injury of right Achilles tendon, initial encounter] Episodic Other male genital disorders (4 sources) Male erectile dysfunction, unspecified; Translations: [Impotence of organic origin] Onset: 10-28-2014 10-28-2014 Chronic Other upper respiratory infections (2 sources) Acute upper respiratory infection; Translations: [Acute upper respiratory infection, unspecified] Onset: 06-29-2023 06-29-2023 Episodic Residual codes; unclassified (4 sources) Obstructive sleep apnea syndrome; Translations: [Obstructive sleep apnea (adult) (pediatric)] Onset: 11-02-2011 11-02-2011 Chronic Unclassified (1 source) Acute cough; Translations: [Acute cough] Onset: 09-27-2023 Past or Other Problems Problem Classification Problem Date Documented Da te Episodic/Chronic Esophageal disorders (4 sources) Esophagitis; Translations: [Esophagitis, unspecified] Onset: 01-24-2006 01-24-2006 Episodic Gastritis and duodenitis (4 sources) Acute gastritis; Translations: [Acute gastritis without bleeding] Onset: 01-24-2006 05-17-2018 Episodic Gastrointestinal hemorrhage (4 sources) Hemorrhage of rectum and anus; Translations: [Hemorrhage of anus and rectum] Onset: 12-26-2006 12-26-2006 Episodic Genitourinary symptoms and ill-defined conditions (4 sources) Slowing of urinary stream; Translations: [Other difficulties with micturition] Onset: 12-12-2006 10-05-2021 Episodic Other gastrointestinal disorders (4 sources) Dysphagia, unspecified; Translations: [Dysphagia, unspecified] Onset: 06-18-2008 06-18-2008 Episodic Other screening for suspected conditions (not mental disorders or infectious disease) (4 sources) Raised prostate specific antigen; Translations: [Elevated prostate specific antigen [PSA]] Onset: 10-28-2014 10-05-2021 Episodic Residual codes; unclassified (4 sources) Rectum finding; Translations: [Other general symptoms and signs] Onset: 10-28-2014 10-28-2014 Episodic Results Test Name Value Interpretation Reference Range Facil ity Vital Signs Date Time Vital Sign Value Performing Clinician Faci lity 06-29-2023 13:07-0400 Body temperature 98.4 [degF] Yuan Athy PA-C Work Phone: [facility] 06-29-2023 13:07-0400 Body weight 64.86 kg Yuan Athy PA-C Work Phone: [facility] 06-29-2023 13:07-0400 Diastolic blood pressure 82 mm[Hg] Yuan Athy PA-C Work Phone: [facility] 06-29-2023 13:07-0400 Heart rate 55 /min Yuan Athy PA-C Work Phone: [facility] 06-29-2023 13:07-0400 Respiratory rate 21 /min Yuan Athy PA-C Work Phone: [facility] 06-29-2023 13:07-0400 SaO2% (BldA) [Mass fraction] 98 % Yuan Athy PA-C Work Phone: [facility] 06-29-2023 13:07-0400 Systolic blood pressure 142 mm[Hg] Yuan Athy PA-C Work Phone: [facility] Encounters Encounter Date Encounter Type Care Provider Facility Start: 09-27-2023 End: 09-27-2023 ambulatory ROSA RAZO Facility:[facility] Start: 06-29-2023 End: 06-29-2023 ambulatory YUAN R ATHY Facility:[facility] Start: 06-29-2023 End: 06-29-2023 ambulatory YUAN R ATHY Facility:[facility] Start: 06-29-2023 End: 06-29-2023 Subsequent hospital visit by physician En[facility] Keith Burroughs Work Phone: Radiology Procedures Date Procedure Procedure Detail Performing Clinician Start: 06-29-2023 Radiologic exam ches t 2 views Yuan R Athy PA-C Work Phone: Start: 05-17-2018 Adult depression screening assessment Andrew Guillen APRN.CNP Work Phone: Plan of Treatment Date Care Activity Detail Author Start: 08-10-2030 Urine microalbumin profile [facility] Start: 06-10-2023 Covid-19 Vaccine ( season) Covid-19 Vaccine ( season) [facility] Start: 06-10-2023 Influenza [facility] Start: 11-16-2022 BP CONTROLLED (<130/80) BP CONTROLLED (<130/80) [facility] in Start: 10-10-2022 Advance Directive Discussion Advance Directive Discussion [facility] Start: 10-10-2022 Depression Assessment Depression Assessment [facility] Start: 06-10-2022 Influenza vaccination [facility]ZA ([facility] Ended[facility] Start: 02-14-2022 COVID-19 VACCINE (4 - Booster for Pfizer series) COVID-19 VACCINE (4 - Booster for Pfizer series) [facility] Start: 12-12-2021 Covid-19 Vaccine (4 - Pfizer series) Covid-19 Vaccine (4 - Pfizer series) [facility] Start: 10-10-2021 ADVANCE DIRECTIVE DISCUSSION ADVANCE DIRECTIVE DISCUSSION [facility] Start: 05-17-2021 DIABETES SCREEN DIABETES SCREEN [facility] Start: 05-17-2021 Diabetes Screening Diabetes Screening [facility] Start: 05-17-2019 Adult depression screening assessment DEPRESSION SCREENING [facility] Start: 05-17-2019 ANNUAL PCP TEAM CHRONIC DISEASE VISIT ANNUAL PCP TEAM CHRONIC DISEASE VISIT [facility] Start: 05-17-2019 BP Controlled (<130/80) BP Controlled (<130/80) [facility] Start: 05-17-2019 Hepatitis B surface antibody level LDL CHOLESTEROL [facility] Start: 2003 RSV Vaccine (1 - 1-dose 60+ series) RSV Vaccine (1 - 1-dose 60+ series) [facility] Start: 1993 SHINGRIX VACCINE (1 of 2) SHINGRIX VACCINE (1 of 2) [facility] Start: 1961 Annual PCP Team Chronic Disease Visit Annual PCP Team Chronic Disease Visit [facility] Start: 1961 HEPATITIS C SCREENING HEPATITIS C SCREENING [facility] Influenza virus A an d B RNA and SARS-CoV-2 (COVID-19) N gene panel - Respiratory specimen by CLAUDE with probe detection COVID & INFLUENZA A/B NAAT, ROUTINE Microbiology Routine URI, acute 06/29/2023 1:52 PM EDT [facility] Work Phone: Immunizations Immunization Date Immunization Notes Care Provider Chery corbett 08-10-2020 tetanus toxoid, redu lucrecia diphtheria toxoid, and acellular pertussis vaccine, adsorbed Andrew Wilmer RADIO SPORTSCASTER.DIESEL DINKEY ENGINEER Work Phone: [facility] Work Phone: 07-19-2018 influenza virus vacc ine, unspecified formulation Yuan Muro PA-C Work Phone: [facility] 09-08-2015 pneumococcal conjuga te vaccine, 13 valent Andrew Wilmer RADIO SPORTSCASTER.DIESEL DINKEY ENGINEER Work Phone: [facility] Work Phone: 07-28-2015 influenza, high dose seasonal, preservative-free Andrew Wilmer RADIO SPORTSCASTER.DIESEL DINKEY ENGINEER Work Phone: [facility] 07-29-2014 influenza, seasonal, injectable Andrew Wilmer RADIO SPORTSCASTER.DIESEL DINKEY ENGINEER Work Phone: [facility] 07-29-2014 tetanus toxoid, redu lucrecia diphtheria toxoid, and acellular pertussis vaccine, adsorbed Andrew Wilmer RADIO SPORTSCASTER.DIESEL DINKEY ENGINEER Work Phone: [facility] 06-18-2008 pneumococcal polysaccharide vaccine, 23 valent Andrew Wilmer RADIO SPORTSCASTER.DIESEL DINKEY ENGINEER Work Phone: [facility] 12-02-2005 tetanus and diphther ia toxoids, adsorbed, preservative free, for adult use (2 Lf of tetanus toxoid and 2 Lf of diphtheria toxoid) Andrew Wilmer RADIO SPORTSCASTER.DIESEL DINKEY ENGINEER Work Phone: [facility] Work Phone: Payers Date Payer Category Payer Unknown [id number] 2022 Unknown [employer] S AND BLUE [employer] ANTHEM MEDIARELIUE O [id number] 2022-Present [phone] [address] [place] [address] [facility] [id number] 2021 Medicare HUMANA MEDICARE HUMANA MEDICARE PPO [id number] 2021-Present [phone] [address] [address] [place] [address] PPO [id number] 1945 Unknown [id number] 1945 Unknown [id number] Private Health Insurance [id number] Social History Date Type Detail Facility Start: 06-29-2023 [facility] Work Phone: Start: 03-30-2022 End: 06-29-2023 Alcohol intake Current non-drinker of alcohol (finding) [facility] Start: 1945 Sex Assigned At Not on file [facility] Start: 03-20-2022 End: 03-30-2022 Exposure to SARS-CoV-2 (event) Not sure [facility] Start: 06-29-2023 Tobacco use and exposure Smokeless tobacco non-user [facility] Start: 09-14-2020 End: 06-29-2023 History of Social function [facility] Start: 09-14-2020 End: 06-29-2023 Tobacco use panel [facility] Adult Depression Screening Assessment 0 [facility] Progress note 09-27-2023 Note Date & Type Note Facility 09-27-2023 Note HNO ID: [id number] Author: Francisco Galvan RT(Manuel) Service: ? Author Type: Technologist Type: Progress Notes Filed: 09/27/2023 10:05 AM Note Text: Radiology Service Progress Note PATIENT NAME: Nick Alvares DATE OF SERVICE: September 27, 2023 TIME: 9:59 AM PATIENT IDENTITY VERIFICATION COMPLETED USING TWO (2) IDENTIFIERS: Name and Date of confirmed by patient verbally. FALL SCREENING: Has the patient had 2 falls in the last year or 1 fall with injury or currently using an Ambulatory Assistive Device (Walker, Cane, Wheelchair, Crutches, etc.)? No PATIENT GENDER DATA: Male PATIENT RELEVANT IMPLANT DATA REVIEWED: Not Applicable RADIOLOGY DEPARTMENT: General X-ray: Exam(s) Completed: Chest X-Ray PERIPHERAL IV DATA: Not applicable SIGNED BY: Francisco Galvan, RT(R) September 27, 2023 9:59 AM [facility] Progress note 09-27-2023 Note Date & Type Note Facility 09-27-2023 Note HNO ID: [id number] Author: Rosa Razo PA-C Service: ? Author Type: Physician Aoc Director Intelligence Officer Type: Progress Notes Filed: 09/27/2023 12:08 PM Note Text: 09/27/2023 Patient presents with: Sore Throat: ST, congestion and DISLA x1 day SUBJECTIVE: This is a 78 year old that is here today for Complaint(s) of cough and congestion x 2 days. Overall feeling fatigued. Notes mild SOB, no wheezing. Denies chest pain. Associated DISLA and sore throat. Denies worst DISLA of life . No difficutly swallowing. Denies vomiting, diarrhea. PAST MEDICAL HISTORY Diagnosis Date Acute gastritis without mention of hemorrhage Blood in stool Coronary artery disease Esophagitis, unspecified Essential hypertension, benign Other and unspecified hyperlipidemia Snoring ALLERGIES Patient has no known allergies. MEDICATIONS Current Outpatient Medications Medication Sig benzonatate (TESSALON PERLES) 100 mg capsule Take 2 capsules by mouth three times daily as needed. ferrous sulfate 325 mg (65 mg iron) tablet Take 325 mg by mouth daily with breakfast. Lactobac no.41/Bifidobact no.7 (PROBIOTIC-10 ORAL) Take by mouth. atorvastatin (LIPITOR) 40 mg tablet Take 1 tablet by mouth daily at bedtime. For cholesterol. hydroCHLOROthiazide (HYDRODIURIL, ESIDRIX) 25 mg tablet Take 1 tablet by mouth once daily. omeprazole (PRILOSEC) 20 mg capsule TAKE 1 CAPSULE ONE TIME DAILY ON AN EMPTY STOMACH tamsulosin ER (FLOMAX) 0.4 mg cap Take 1 capsule by mouth daily at bedtime. atenolol (TENORMIN) 25 mg tablet Take 1 tablet by mouth once daily. potassium chloride SR (MICRO-K) 10 mEq CR capsule Take 1 capsule by mouth once daily. ascorbic acid, vitamin C, (VITAMIN C) 500 mg tablet Take 1 tablet by mouth once daily. Tadalafil (CIALIS) 20 mg tablet Take 1 tablet by mouth. As directed HERBAL DRUGS CAP Triple Action Virility Support twice daily Bismuth Subsalicylate (PEPTO-BISMOL) 262 mg tab Take by mouth. (Patient not taking: Reported on 06/29/2023) loperamide (IMODIUM A-D) 2 mg cap(s) Take 1 capsule by mouth four times daily as needed for diarrhea for up to 8 days. Ubidecarenone-Madison 3-Vit E (CO E-59-EINFECZ E-FISH OIL) 25-150-200 mg-mg-unit cap Take 1 tablet by mouth once daily. (Patient not taking: Reported on 06/29/2023) m-17/nettle/pumpk/saw palmet(PROSTATE THERAPY CAP) Take one(1) tablet two(2) times daily. (Patient not taking: Reported on 06/29/2023) prasterone (dhea)(DHEA 25 MG TAB) Take one(1) tablet daily. (Patient not taking: Reported on 06/29/2023) No current facility-administered medications for this visit. SOCIAL HISTORY Social History Tobacco Use Smoking status: Never Smokeless tobacco: Never Substance Use Topics Alcohol use: No Drug use: No REVIEW OF SYSTEMS See HPI OBJECTIVE: BP 128/78 Pulse 76 Temp (!) 38 ?C (100.4 ?F) (Tympanic) Resp 16 Wt 67 kg (147 lb 12.8 oz) SpO2 97% BMI 25.37 kg/m? APPEARANCE Well appearing, alert, in no acute distress, well-hydrated, well nourished. EYES PERRLA, conjunctiva and sclera normal. EARS External ears normal, canals clear. TMs normal JAMILA NOSE/SINUS Nares normal. Septum midline. Mucosa normal. No drainage or sinus tenderness. THROAT normal, no erythema NECK Supple, no adenopathy; HEART RRR with normal S1 and S2 LUNG clear to auscultation, No wheezing, rhonchi, rales. ASSESSMENT/PLAN: 1. Acute cough - ICD9: 786.2, ICD10: R05.1 Supportive care with fluids and rest Rapid flu negative R/o COVID CXR with no obvious consolidate. F/u in 5-7 days if not improving, sooner if worsening Reviewed red flags and when to seek care sooner. - XR CHEST 2V FRONTAL/LAT - INFLUENZA AANDB MOLECULAR (POC) - COVID NAAT, UPPER RESPIRATORY, ROUTINE The patient indicates understanding of these issues and agrees with the plan. Rosa Razo PA-C [facility]23 Telephone Encounter - Una Lema MA - 06/29/2023 4:20 PM EDTTelephone Encounter - Yuan Muro PA-C - 06/29/2023 3:20 PM EDT Note Date & Type Note Facility 06-29-2023 Miscellaneous Notes Formattin g of this note might be different from the original. Pt was notified of the results. Pt verbalized understanding. Una Lema MA Please call and let patient know his chest x-ray was normal. Continue cough medicine as needed. If not improving over the next 3 to 5 days follow-up with PCP. We will let him know about the COVID test results. documented in this encounter [facility] Progress note 06-29-2023 Note Date & Type Note Facility 06-29-2023 Note HNO ID: [id number] Author: Cheli Esparza RT(R) Service: Radiology Author Type: Technologist Type: Progress Notes Filed: 06/29/2023 2:22 PM Note Text: Radiology Service Progress Note PATIENT NAME: Nick Alvares DATE OF SERVICE: June 29, 2023 TIME: 2:17 PM PATIENT IDENTITY VERIFICATION COMPLETED USING TWO (2) IDENTIFIERS: Name and Date of confirmed by patient verbally. FALL SCREENING: Has the patient had 2 falls in the last year or 1 fall with injury or currently using an Ambulatory Assistive Device (Walker, Cane, Wheelchair, Crutches, etc.)? No PATIENT GENDER DATA: Male PATIENT RELEVANT IMPLANT DATA REVIEWED: Yes RADIOLOGY DEPARTMENT: General X-ray: Exam(s) Completed: Chest X-Ray PERIPHERAL IV DATA: Not applicable SIGNED BY: Cheli Esparza, RT(R) June 29, 2023 2:17 PM [facility] Progress note 06-29-2023 Note Date & Type Note Facility 06-29-2023 Note HNO ID: [id number] Author: Yuan Muro PA-C Service: ? Author Type: Physician Aoc Director Intelligence Officer Type: Progress Notes Filed: 06/29/2023 2:20 PM Note Text: This note was created using [employer] me to the [employer]. Subjective Nick Alvares is a 78 year old male. HPI Presents with a chief complaint of cough, congestion over the past 5 days. No fever. Has had fatigue though. When he walks he feels very fatigued. No chest pain or shortness of breath. He tried some throat lozenges and cough syrup [id number] which seemed to help some. States he just was not getting over it so came in for evaluation. No home COVID test done. Denies sick contacts. Review of Systems Constitutional: Positive for fatigue. Negative for fever. HENT: Positive for congestion, rhinorrhea and sore throat. Negative for ear pain. Respiratory: Positive for cough. Negative for shortness of breath and wheezing. Cardiovascular: Negative. Gastrointestinal: Negative. Genitourinary: Negative. Musculoskeletal: Negative. All other systems reviewed and are negative. PAST MEDICAL HISTORY Diagnosis Date Acute gastritis without mention of hemorrhage Blood in stool Coronary artery disease Esophagitis, unspecified Essential hypertension, benign Other and unspecified hyperlipidemia Snoring Current Outpatient Medications Medication Sig Dispense Refill ferrous sulfate 325 mg (65 mg iron) tablet Take 325 mg by mouth daily with breakfast. Lactobac no.41/Bifidobact no.7 (PROBIOTIC-10 ORAL) Take by mouth. atorvastatin (LIPITOR) 40 mg tablet Take 1 tablet by mouth daily at bedtime. For cholesterol. 30 tablet 3 hydroCHLOROthiazide (HYDRODIURIL, ESIDRIX) 25 mg tablet Take 1 tablet by mouth once daily. 90 tablet 1 omeprazole (PRILOSEC) 20 mg capsule TAKE 1 CAPSULE ONE TIME DAILY ON AN EMPTY STOMACH 90 capsule 1 tamsulosin ER (FLOMAX) 0.4 mg cap Take 1 capsule by mouth daily at bedtime. 90 capsule 1 atenolol (TENORMIN) 25 mg tablet Take 1 tablet by mouth once daily. 90 tablet 1 potassium chloride SR (MICRO-K) 10 mEq CR capsule Take 1 capsule by mouth once daily. 90 capsule 1 ascorbic acid, vitamin C, (VITAMIN C) 500 mg tablet Take 1 tablet by mouth once daily. Tadalafil (CIALIS) 20 mg tablet Take 1 tablet by mouth. As directed 3 tablet 5 HERBAL DRUGS CAP Triple Action Virility Support twice daily 0 0 benzonatate (TESSALON PERLES) 100 mg capsule Take 2 capsules by mouth three times daily as needed. 30 capsule 0 Bismuth Subsalicylate (PEPTO-BISMOL) 262 mg tab Take by mouth. (Patient not taking: Reported on 06/29/2023) loperamide (IMODIUM A-D) 2 mg cap(s) Take 1 capsule by mouth four times daily as needed for diarrhea for up to 8 days. 30 capsule 0 Ubidecarenone-Madison 3-Vit E (CO L-16-YEXMLIN E-FISH OIL) 25-150-200 mg-mg-unit cap Take 1 tablet by mouth once daily. (Patient not taking: Reported on 06/29/2023) m-17/nettle/pumpk/saw palmet(PROSTATE THERAPY CAP) Take one(1) tablet two(2) times daily. (Patient not taking: Reported on 06/29/2023) 0 0 prasterone (dhea)(DHEA 25 MG TAB) Take one(1) tablet daily. (Patient not taking: Reported on 06/29/2023) 0 0 No current facility-administered medications for this visit. PAST SURGICAL HISTORY Procedure Laterality Date COLONOSCOPY FLX DX W/COLLJ SPEC WHEN PFRMD 01/17/07 Minimal internal hemorrhoids COLONOSCOPY FLX DX W/COLLJ SPEC WHEN PFRMD 03/23/2017 Colonoscopy ESOPHAGOGASTRODUODENOSCOPY TRANSORAL DIAGNOSTIC 01/24/2006 EGD ESOPHAGOGASTRODUODENOSCOPY TRANSORAL DIAGNOSTIC 03/23/2017 EGD TONSILLECTOMY PRIMARY/SECONDARY Tonsillectomy FAMILY HISTORY Problem Relation Age of Onset Hypertension Mother Cancer Father brain tumor 63 Social History Tobacco Use Smoking status: Never Smokeless tobacco: Never Substance Use Topics Alcohol use: No Drug use: No Objective BP 142/82 Pulse (!) 55 Temp 36.9 ?C (98.4 ?F) Resp 21 Wt 64.9 kg (143 lb) SpO2 98% BMI 24.55 kg/m? Physical Exam Vitals reviewed. Constitutional: Appearance: Normal appearance. HENT: Head: Normocephalic and atraumatic. Right Ear: Tympanic membrane, ear canal and external ear normal. Left Ear: Tympanic membrane, ear canal and external ear normal. Nose: Congestion present. Mouth/Throat: Mouth: Mucous membranes are moist. Pharynx: Oropharynx is clear. Cardiovascular: Rate and Rhythm: Normal rate and regular rhythm. Heart sounds: Normal heart sounds. Pulmonary: Effort: Pulmonary effort is normal. Breath sounds: Normal breath sounds. Musculoskeletal: Cervical back: Neck supple. Skin: General: Skin is warm and dry. Neurological: Mental Status: He is alert. Assessment and Plan ASSESSMENT/PLAN: 1. URI, acute - ICD9: 465.9, ICD10: J06.9 - Discussed viral etiology and rationale for treatment. - Symptomatic treatment with prn analgesia - Supportive care with fluids and rest -X-rays down here at our building, patient will go to the [facility] (more content not included)... [facility] History of Present illness Narrative 06-29-2023 Cheli Esaprza RT(R) - 06/29/2023 2:20 PM EDT Note Date & Type Note Facility 06-29-2023 History of Presen t illness Narrative Radiology Service Progress Note PATIENT NAME: Nick Alvares DATE OF SERVICE: June 29, 2023 TIME: 2:17 PM PATIENT IDENTITY VERIFICATION COMPLETED USING TWO (2) IDENTIFIERS: Name and Date of confirmed by patient verbally. FALL SCREENING: Has the patient had 2 falls in the last year or 1 fall with injury or currently using an Ambulatory Assistive Device (Walker, Cane, Wheelchair, Crutches, etc.)? No PATIENT GENDER DATA: Male PATIENT RELEVANT IMPLANT DATA REVIEWED: Yes RADIOLOGY DEPARTMENT: General X-ray: Exam(s) Completed: Chest X-Ray PERIPHERAL IV DATA: Not applicable SIGNED BY: RT Samir(R) June 29, 2023 2:17 PM documented in this encounter [facility] History of Present illness Narrative 06-29-2023 Yuan Muro PA-C - 06/29/2023 2:18 PM EDT Note Date & Type Note Facility 06-29-2023 History of Presen t illness Narrative This note was created using [employer]. Subjective Nick Alvares is a 78 year old male. HPI Presents with a chief complaint of cough, congestion over the past 5 days. No fever. Has had fatigue though. When he walks he feels very fatigued. No chest pain or shortness of breath. He tried some throat lozenges and cough syrup [id number] which seemed to help some. States he just was not getting over it so came in for evaluation. No home COVID test done. Denies sick contacts. Review of Systems Constitutional: Positive for fatigue. Negative for fever. HENT: Positive for congestion, rhinorrhea and sore throat. Negative for ear pain. Respiratory: Positive for cough. Negative for shortness of breath and wheezing. Cardiovascular: Negative. Gastrointestinal: Negative. Genitourinary: Negative. Musculoskeletal: Negative. All other systems reviewed and are negative. PAST MEDICAL HISTORY Diagnosis Date Acute gastritis without mention of hemorrhage Blood in stool Coronary artery disease Esophagitis, unspecified Essential hypertension, benign Other and unspecified hyperlipidemia Snoring Current Outpatient Medications Medication Sig Dispense Refill ferrous sulfate 325 mg (65 mg iron) tablet Take 325 mg by mouth daily with breakfast. Lactobac no.41/Bifidobact no.7 (PROBIOTIC-10 ORAL) Take by mouth. atorvastatin (LIPITOR) 40 mg tablet Take 1 tablet by mouth daily at bedtime. For cholesterol. 30 tablet 3 hydroCHLOROthiazide (HYDRODIURIL, ESIDRIX) 25 mg tablet Take 1 tablet by mouth once daily. 90 tablet 1 omeprazole (PRILOSEC) 20 mg capsule TAKE 1 CAPSULE ONE TIME DAILY ON AN EMPTY STOMACH 90 capsule 1 tamsulosin ER (FLOMAX) 0.4 mg cap Take 1 capsule by mouth daily at bedtime. 90 capsule 1 atenolol (TENORMIN) 25 mg tablet Take 1 tablet by mouth once daily. 90 tablet 1 potassium chloride SR (MICRO-K) 10 mEq CR capsule Take 1 capsule by mouth once daily. 90 capsule 1 ascorbic acid, vitamin C, (VITAMIN C) 500 mg tablet Take 1 tablet by mouth once daily. Tadalafil (CIALIS) 20 mg tablet Take 1 tablet by mouth. As directed 3 tablet 5 HERBAL DRUGS CAP Triple Action Virility Support twice daily 0 0 benzonatate (TESSALON PERLES) 100 mg capsule Take 2 capsules by mouth three times daily as needed. 30 capsule 0 Bismuth Subsalicylate (PEPTO-BISMOL) 262 mg tab Take by mouth. (Patient not taking: Reported on 06/29/2023) loperamide (IMODIUM A-D) 2 mg cap(s) Take 1 capsule by mouth four times daily as needed for diarrhea for up to 8 days. 30 capsule 0 Ubidecarenone-[place] 3-Vit E (CO H-88-SSUNMVQ E-FISH OIL) 25-150-200 mg-mg-unit cap Take 1 tablet by mouth once daily. (Patient not taking: Reported on 06/29/2023) m-17/nettle/pumpk/saw palmet(PROSTATE THERAPY CAP) Take one(1) tablet two(2) times daily. (Patient not taking: Reported on 06/29/2023) 0 0 prasterone (dhea)(DHEA 25 MG TAB) Take one(1) tablet daily. (Patient not taking: Reported on 06/29/2023) 0 0 No current facility-administered medications for this visit. PAST SURGICAL HISTORY Procedure Laterality Date COLONOSCOPY FLX DX W/COLLJ SPEC WHEN PFRMD 01/17/07 Minimal internal hemorrhoids COLONOSCOPY FLX DX W/COLLJ SPEC WHEN PFRMD 03/23/2017 Colonoscopy ESOPHAGOGASTRODUODENOSCOPY TRANSORAL DIAGNOSTIC 01/24/2006 EGD ESOPHAGOGASTRODUODENOSCOPY TRANSORAL DIAGNOSTIC 03/23/2017 EGD TONSILLECTOMY PRIMARY/SECONDARY <AGE 10 Tonsillectomy FAMILY HISTORY Problem Relation Age of Onset Hypertension Mother Cancer Father brain tumor 63 Social History Tobacco Use Smoking status: Never Smokeless tobacco: Never Substance Use Topics Alcohol use: No Drug use: No Objective BP 142/82 Pulse (!) 55 Temp 36.9 C (98.4 F) Resp 21 Wt 64.9 kg (143 lb) SpO2 98% BMI 24.55 kg/m Physical Exam Vitals reviewed. Constitutional: Appearance: Normal appearance. HENT: Head: Normocephalic and atraumatic. Right Ear: Tympanic membrane, ear canal and external ear normal. Left Ear: Tympanic membrane, ear canal and external ear normal. Nose: Congestion present. Mouth/Throat: Mouth: Mucous membranes are moist. Pharynx: Oropharynx is clear. Cardiovascular: Rate and Rhythm: Normal rate and regular rhythm. Heart sounds: Normal heart sounds. Pulmonary: Effort: Pulmonary effort is normal. Breath sounds: Normal breath sounds. Musculoskeletal: Cervical back: Neck supple. Skin: General: Skin is warm and dry. Neurological: Mental Status: He is alert. Assessment and Plan ASSESSMENT/PLAN: 1. URI, acute - ICD9: 465.9, ICD10: J06.9 - Discussed viral etiology and rationale for treatment. - Symptomatic treatment with prn analgesia - Supportive care with fluids and rest -X-rays down here at our building, patient will go to the [facility] to have x-rays of his chest done. If these are negative I feel this is viral. Given Tessalon for cough. COVID testing pending. Otherwise patient appears well. - XR CHEST 2V FRONTAL/LAT - COVID & INFLUENZA A/B NAAT, ROUTINE Yuan Muro PA-C documented in this encounter [facility] History of Present illness Narrative 03-30-2022 Andrew Guillen APRN.MIRYAM - 03/30/2022 2:48 PM EDT Note Date & Type Note Facility 03-30-2022 History of Presen t illness Narrative Patient triaged at [facility]. Here today with dog bite of right leg, laceration over right achillis tendon with severe pain of lower leg. I will refer to ER, family to drive pov. 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 Expl anation Advance Directive(s) 03/23/2017 6:29 AM Additional Source Comments (unrecognized sect ion and content) No Status Records FoundNo Status Records Found INFORMATION SOURCE (unrecogn ized section and content) DATE CREATED AUTHOR AUTHOR'S MATILDE HEAD 09/28/2023 [facility] Source Comments (unrecognize d section and content) In the event this informatio n is protected by the Federal Confidentiality of Alcohol and Drug Abuse Patient Records regulations: The Federal rules restrict any use of the information to criminally investigate or prosecute any alcohol or drug abuse patient.[facility] the event this information is protected by the Federal Confidentiality of Alcohol and Drug Abuse Patient Records regulations: The Federal rules restrict any use of the information to criminally investigate or prosecute any alcohol or drug abuse patient.[facility] the event this information is protected by the Federal Confidentiality of Alcohol and Drug Abuse Patient Records regulations: The Federal rules restrict any use of the information to criminally investigate or prosecute any alcohol or drug abuse patient.[facility] the event this information is protected by the Federal Confidentiality of Alcohol and Drug Abuse Patient Records regulations: The Federal rules restrict any use of the information to criminally investigate or prosecute any alcohol or drug abuse patient.[facility] Reason for Visit (unrecogniz ed section and content) Reason Comments Sore Throat Cough, DISLA x 6 days Reason Comments Results FOR RECORDS PERTAINING TO PATIENTS WHO ARE OR HAVE BEEN ENROLLED IN A CHEMICAL DEPENDENCY/SUBSTANCEABUSE PROGRAM, SOME INFORMATION MAY BE OMITTED. This clinical summary was aggregated from multiple sources. Caution should be exercised in using it in the provision of clinical care. This summary normalizes information from multiple sources, and as a consequence, information in this document may materially change the coding, format and clinical context of patient data. In addition, data may be omitted in some cases. CLINICAL DECISIONS SHOULD BE BASED ON THE PRIMARY CLINICAL RECORDS. [facility]. provides no warranty or guarantee of the accuracy or completeness of information in this document.
[2023-11-03 16:43] LABS: BUN 28 mg/dL (7-18); BUN/Creat Ratio 12.8 RATIO (10-20); Calcium,Total 8.8 mg/dL (8.5-10.1); Chloride 105 mmol/L (98-107); Creatinine, Serum 2.18 mg/dL (0.70-1.30); EST Glomerular Filtration Rate 31 mL/min (>60); Est Glom Filt Rate - Afr Amer 38 mL/min (>60); Glucose 107 mg/dL (74-106); Phosphorus 3.5 mg/dL (2.5-4.9); Potassium 3.4 mmol/L (3.5-5.1); Sodium Level 139 mmol/L (136-145)
== END | disposition home or self-care (01) ==
LOC: LAB 16:10
PROVIDERS: PCP Internal Medicine; Referring Provider Internal Medicine Nephrology; Visit Provider Internal Medicine Nephrology
DX: N18.32 Chronic kidney disease, stage 3b (principal)
CPT/HCPCS: 36415; 80069; 85027

== ENCOUNTER 2023-12-19 18:30 | Observation (INO) | payer MEDICARE, SELFPAY ==
[2023-12-19] VITALS (28 sets, daily range): BP systolic 138–172; BP diastolic 62–119; PULSE 46–79; RESP 12–25; TEMP 36.6–36.7; O2SAT 97–100; BMI 24.7
--- NOTE | 2023-12-19 19:41 | EKG12_ITS ---
Test Reason : DYSRHYTHMIA Blood Pressure : / mmHG Vent. Rate : 050 BPM Atrial Rate : 050 BPM P-R Int : 196 ms QRS Dur : 094 ms QT Int : 416 ms P-R-T Axes : 053 028 042 degrees QTc Int : 379 ms Sinus bradycardia Otherwise normal ECG Confirmed by Mathieu Vidales ([id number]), editor managing director LUCINA ANNA ([id number]) on 12/20/2023 11:21:01 AM Referred By: PATRICIA Confirmed By:Mathieu Vidales
--- NOTE | 2023-12-19 19:41 | CT_ITS ---
EXAM: CT ANGIOGRAPHY HEAD AND NECK WITHOUT AND WITH INTRAVENOUS CONTRAST CLINICAL INDICATION: Weakness TECHNIQUE: [place]/head and neck CT angiography protocol performed without and with intravenous contrast. This CT exam was performed using one or more of the following dose reduction techniques: automated exposure control, adjustment of the mA and/or kV according to patient size, and/or use of iterative reconstruction technique. MIP reconstructed images were created and reviewed. CONTRAST: IV 100mL [id number] COMPARISON: No relevant prior studies available. FINDINGS: HEAD: RIGHT ANTERIOR CEREBRAL ARTERY: No significant abnormality. No occlusion or significant stenosis. Anterior communicating artery is present. No aneurysm. RIGHT MIDDLE CEREBRAL ARTERY: No significant abnormality. No occlusion or significant stenosis. No aneurysm. RIGHT POSTERIOR CEREBRAL ARTERY: No significant abnormality. No occlusion or significant stenosis. No aneurysm. RIGHT INTRACRANIAL INTERNAL CAROTID ARTERY: Arteriosclerosis of the cavernous and supracavernous right internal carotid artery without significant stenosis. No dissection or occlusion. RIGHT INTRACRANIAL VERTEBRAL ARTERY: Mild arteriosclerosis of the V4 intradural segment of the right vertebral artery without significant stenosis. No dissection or occlusion. LEFT ANTERIOR CEREBRAL ARTERY: No significant abnormality. No occlusion or significant stenosis. No aneurysm. LEFT MIDDLE CEREBRAL ARTERY: No significant abnormality. No occlusion or significant stenosis. No aneurysm. LEFT POSTERIOR CEREBRAL ARTERY: No significant abnormality. No occlusion or significant stenosis. No aneurysm. LEFT INTRACRANIAL INTERNAL CAROTID ARTERY: Arteriosclerosis of the cavernous and supracavernous left internal carotid artery without significant stenosis. No dissection or occlusion. LEFT INTRACRANIAL VERTEBRAL ARTERY: Mild arteriosclerosis of the distal V4 intradural segment of the left vertebral artery without significant stenosis. No dissection or occlusion. BASILAR ARTERY: No significant abnormality. No occlusion or significant stenosis. No aneurysm. OTHER VASCULATURE: No vascular malformation. BRAIN AND EXTRA-AXIAL SPACES: There is non-specific periventricular hypoattenuation which is most commonly related to chronic microvascular ischemic disease in a patient of this age. There is no mass, mass-effect, or shift of the midline structures. No evidence of acute infarct or acute intracranial hemorrhage. There is no evidence of pathologic extra-axial fluid. There is no hydrocephalus. Patent basal cisterns. Posterior fossa structures are unremarkable. SINUSES: Normal as visualized. Clear. MASTOID AIR CELLS: Normal as visualized. Clear. ORBITS: Visualized globes, extraocular muscles, optic nerves and retrobulbar fat appear unremarkable. NECK: RIGHT COMMON CAROTID ARTERY: No significant abnormality. No significant stenosis. No dissection or occlusion. RIGHT EXTRACRANIAL INTERNAL CAROTID ARTERY: Atherosclerosis of the right carotid bifurcation and carotid bulb with less than 50% stenosis of the right internal carotid artery by NASCET criteria. No dissection or occlusion. RIGHT EXTERNAL CAROTID ARTERY: No significant abnormality. No occlusion. RIGHT EXTRACRANIAL VERTEBRAL ARTERY: No significant abnormality. No significant stenosis. No dissection or occlusion. LEFT COMMON CAROTID ARTERY: No significant abnormality. No significant stenosis. No dissection or occlusion. LEFT EXTRACRANIAL INTERNAL CAROTID ARTERY: Mild atheroma of the left carotid bifurcation and carotid bulb with less than 50% stenosis of the left internal carotid artery by NASCET criteria. No dissection or occlusion. LEFT EXTERNAL CAROTID ARTERY: No significant abnormality. No occlusion. LEFT EXTRACRANIAL VERTEBRAL ARTERY: No significant abnormality. No significant stenosis. No dissection or occlusion. BRACHIOCEPHALIC AND SUBCLAVIAN ARTERIES: Normal as visualized. No occlusion or significant stenosis. AORTA: 4.4 cm ascending aortic ectasia. Atherosclerosis of the aorta without dissection. LUNG APICES: Normal as visualized. HEAD and NECK: BONES/JOINTS: Degenerative changes in the spine. No discrete lytic or blastic abnormalities. SOFT TISSUES: No significant abnormality. CAROTID STENOSIS REFERENCE USING NASCET CRITERIA: % ICA stenosis = (1 - narrowest ICA diameter/diameter of distal cervical ICA) x 100. Mild - <50% stenosis. Moderate - 50-69% stenosis. Severe - 70-94% stenosis. Near occlusion - 95-99% stenosis. Occluded - 100% stenosis. CT/CTA Head AND Neck W/ Contrast IMPRESSION: 1. 4.4 cm ascending aortic ectasia. 2. Chronic microvascular ischemic changes. Noncontrast CT is otherwise negative for acute infarct or hemorrhage. 3. Mild atherosclerosis of the carotid arteries in the neck with less than 50% stenosis of the internal carotid arteries in the neck. 4. Mild arteriosclerosis of the cavernous and supracavernous internal carotid arteries and the V4 segments of the bilateral vertebral arteries without significant stenosis. 5. No large vessel occlusion or critical arterial stenosis in the head or neck. Electronically Signed: Catrachito Schulz DO at 21:01 EDT ,
[2023-12-19 20:17] LABS: Absolute Lymphocyte Count 2.76 X10^3/uL (0.83-4.51); Absolute Neutrophil Count 3.6 X10^3/uL (2.0-7.7); Basophil# 0.03 X10^3/uL; Basophil% 0.4 % (0-1); Eosinophil# 0.08 X10^3/uL; Eosinophils% 1.1 % (0-5); Hematocrit 30.5 % (40-54); Hemoglobin 10.3 g/dL (13.0-16.5); Lymphocyte # 2.76 X10^3/ul (0.83-4.51); Lymphocyte % 39.1 % (19-41); Mean Corp Hgb Conc 33.8 g/dL (32-36); Mean Corpuscular Hgb 31.6 pg (27.0-32.0); Mean Corpuscular Volume 93.6 fL (80-94); Mean Platelet Vol. 10.7 fl (6.2-12.0); Monocyte# 0.54 X10^3/uL; Monocyte% 7.6 % (0-10); NRBC Flagged by Analyzer 0 % (0-5); Neutrophil # 3.63 X10^3/uL (2.7-7.7); Neutrophil % 51.5 % (47-70); Platelet Count 166 K/mm3 (150-450); RBC Distribution Width CV 13.6 % (11.6-14.6); RBC Distribution Width SD 46.5 fl (35.1-43.9); Red Blood Count 3.26 M/mm3 (4.6-6.2); White Blood Count 7.1 K/mm3 (4.4-11.0)
[2023-12-19 20:25] LABS: International Normalized Ratio 1.1; Prothrombin Time (Protime)PT. 14.1 SECONDS (11.7-14.9)
--- NOTE | 2023-12-19 20:25 | RAD_ITS ---
EXAM: XR CHEST, 1 VIEW CLINICAL INDICATION: Neuro deficit, acute, stroke suspected TECHNIQUE: Frontal view of the chest. COMPARISON: No relevant prior studies available. FINDINGS: LUNGS AND PLEURAL SPACES: No significant abnormality. No consolidation or edema. No pneumothorax. No effusion. HEART: No significant abnormality. Cardiac silhouette not enlarged. MEDIASTINUM: Mediastinal and right hilar granulomas. No mediastinal widening. BONES/JOINTS: Degenerative changes in the spine and shoulders. No acute fracture. SOFT TISSUES: No significant abnormality. VASCULATURE: Atherosclerosis. RAD/Chest 1 View IMPRESSION: No acute findings in the chest. Electronically Signed: Catrachito Schulz DO at 20:49 EDT ,
[2023-12-19 20:26] LABS: Partial Thromboplast Time 31.9 Seconds (24.1-36.2)
[2023-12-19 20:39] LABS: Anion Gap 5 (5-15); BUN 26 mg/dL (7-18); BUN/Creat Ratio 11.9 RATIO (10-20); Calcium,Total 8.9 mg/dL (8.5-10.1); Chloride 108 mmol/L (98-107); Creatinine, Serum 2.18 mg/dL (0.70-1.30); EST Glomerular Filtration Rate 31 mL/min (>60); Est Glom Filt Rate - Afr Amer 38 mL/min (>60); Glucose 101 mg/dL (74-106); Potassium 4.3 mmol/L (3.5-5.1); Sodium Level 139 mmol/L (136-145); Troponin-I HS 6 pg/mL (3.0-78.0)
[2023-12-19] MEDS: 0.9% Normal Saline (1000mL) 1,000 ML 999 ML IV (20:53)
--- NOTE | 2023-12-19 20:56 | EDS_ITS ---
HPI <Dahlia Bruce RN - Last Filed: 12/19/23 21:17> History of Present Illness Chief Complaint: Neuro S/Sx Detail of Chief Complaint: Left mouth numbness, left upper extremity weakness Informant: patient Onset/Context/Timing Onset: Today and - (1700) Context: Sudden Onset Timing: Continuous Quality and Location: Positive for Left Face Parasthesia, Left Arm Parasthesia and Left Arm Weakness; Negative for Left Leg Parasthesia, Left Leg Weakness, Slurred Speech, Expressive Aphasia, Receptive Aphasia or Difficulty with Ambulation Onset: 1700 Current Severity: 0/10 Maximum Severity: Mild Worsened by: Nothing Relieved by: Nothing Associated Symptoms Associated Symptoms: Negative for Headache, Nausea, Vomiting or Chest Pain Narrative Narrative: Patient is an 78-year-old male who presents to the ED with his son for numbness to the left side of his mouth, and left arm weakness with numbness from the elbow to the hand. Patient reports symptoms began at 1700 today and resolved within 20 to 30 minutes. Upon arrival to the ED, patient is asymptomatic. Patient reports he was holding a glass of water in his left hand when his arm suddenly became weak. He did not drop the glass of water as he reports he thinks he was able to grab it with his right hand. He denies left leg weakness. Patient denies slurred speech. He denies any injuries. He denies prior history of CVA/TIA. No family history of CVA. Denies alcohol and tobacco use. He does have a history of hypertension and hyperlipidemia. 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 Prior similar symptoms: No Recent Illness/Hospitalization: No PFSH <Dahlia Bruce RN - Last Filed: 12/19/23 21:17> PFSH Medical History Acute appendicitis Acute viral syndrome ADHD Benign hypertension Broken back Cancer Cardiology follow-up encounter CKD (chronic kidney disease) stage 3, GFR 30-59 ml/min COVID-19 vaccine dose declined CPAP (continuous positive airway pressure) dependence Diastasis, muscle Eosinophilic esophagitis Excessive bleeding Exposure to tobacco smoke at work Azul catheter in place Gastric reflux High cholesterol History of rheumatic fever History of stress test HTN (hypertension) Hyperlipidemia Hypoxia Inguinal hernia of right side without obstruction or gangrene Microscopic colitis Non-smoker ANTIONE (obstructive sleep apnea) Right lower quadrant abdominal pain Sleep apnea Home Medications FOCUS PO 1XD 10/27/22 [History Last Taken Unknown] PREVAGEN PO 1XD 10/27/22 [History Last Taken Unknown] PROBIOTIC PO 10/27/22 [History Last Taken Unknown] ferrous sulfate 325 mg (65 mg iron) tablet (Iron (ferrous sulfate)) 325 mg PO DAILY supplement #90 tabs 12/27/22 [Rx Last Taken Unknown] atenolol 25 mg tablet See Rx Instructions PO DAILY #90 tabs 01/04/23 [Rx Last Taken Unknown] ipratropium bromide 21 mcg (0.03 %) nasal spray 2 spray intranasal BID-TID PRN runny nose #30 mL 01/06/23 [Rx Last Taken Unknown] potassium chloride 20 mEq tablet,extended release 20 meq PO BID supplement #180 tabs 09/19/23 [Rx Last Taken Unknown] omeprazole 20 mg capsule,delayed release 20 mg PO DAILY #90 caps 11/10/23 [Rx Last Taken Unknown] pravastatin 20 mg tablet 20 mg PO DAILY CHOLESTEROL #90 tabs 11/10/23 [Rx Last Taken Unknown] tamsulosin 0.4 mg capsule 0.4 mg PO DAILY #90 caps 11/10/23 [Rx Last Taken Unknown] hydrochlorothiazide 12.5 mg tablet 12.5 mg PO DAILY 12/02/23 [History Last Taken Unknown] Allergy/AdvReac Type Severity Reaction Status Date / Time No Known Allergies Allergy Verified 12/19/23 19:14 Family History Mother Hypertension Father , at age 61 secondary to brain tumor Cancer Surgical History H/O hand surgery History of appendectomy History of cardiac catheterization History of esophagogastroduodenoscopy (EGD) History of laparoscopic appendectomy History of tonsillectomy Social History household members: none Smoking Status: Never smoker alcohol intake: never substance use type: does not use ROS <Dahlia Bruce RN - Last Filed: 12/19/23 21:17> ROS ED Constitutional Constitutional ED: Denies chills, fever(s) or sweats Eyes Eyes: Denies blurry vision, change in vision or diplopia ENT ENT ED: Denies rhinorrhea or sore throat Cardiovascular Cardiovascular: Denies chest pain, palpitations or racing heartbeat Respiratory/Chest Respiratory/Chest: Denies cough or dyspnea Gastrointestinal Gastrointestinal: Denies abdominal pain, constipation, diarrhea, nausea or vomiting Genitourinary Genitourinary ED: Denies dysuria, hematuria or urinary frequency Musculoskeletal Musculoskeletal: Denies arthralgias, back pain, myalgias or neck pain Neurologic Neurologic: Denies headache(s), paresthesias or weakness Psychiatric Psychiatric: Denies anxiety or depression Endocrine Endocrinology: Denies polydipsia, polyphagia or polyuria EXAM <Dahlia Bruce RN - Last Filed: 12/19/23 21:17> Physical Exam Narrative Exam Narrative: Patient awake, alert, well-kept. Son at bedside. Const Vital Signs: 12/19/23 18:33 12/19/23 19:18 12/19/23 19:20 Temperature 97.8 F Temperature Source Temporal Pulse Rate 51 L 49 L Respiratory Rate 14 13 Respiratory Effort Normal Non-Labored Respiratory Pattern Normal Blood Pressure 157/103 H 168/82 H Blood Pressure Mean 121 110 Pulse Ox 99 98 Oxygen Delivery Method Room Air Room Air 12/19/23 19:41 12/19/23 19:50 12/19/23 20:11 Temperature Temperature Source Pulse Rate 49 L 50 L Respiratory Rate 19 H 16 Respiratory Effort Respiratory Pattern Blood Pressure 155/84 H 160/103 H Blood Pressure Mean 107 122 Pulse Ox 98 99 99 Oxygen Delivery Method Room Air Room Air Room Air 12/19/23 20:30 Temperature Temperature Source Pulse Rate 79 Respiratory Rate 16 Respiratory Effort Respiratory Pattern Blood Pressure 158/77 H Blood Pressure Mean 104 Pulse Ox 99 Oxygen Delivery Method Room Air Positive well nourished and well developed General Appearance ED: well developed and NAD HEENT Reports moist mucous membranes atraumatic Eyes PERRL and EOMs intact bilaterally Neck no lymphadenopathy, supple and no JVD Chest Wall inspection of chest normal and palpation of chest normal Resp normal respiratory effort and clear to auscultation bilaterally Auscultation: Negative for rales, rhonchi or wheezes Cardio no murmurs Rate: regular rate Rhythm: regular rhythm Heart Sounds: S1 normal and S2 normal GI normal to inspection, nondistended, normoactive bowel sounds, soft to palpation and non-tender Extremity normal to inspection General Extremety ED: Negative for deformity, edema or tenderness General Extremity: Negative for deformity or edema Neuro oriented x3 and CN's II-XII intact bilaterally Neuro Narrative: NIH 0 [place] Coma Scale: document GCS findings Spontaneous Obeys Commands Oriented 15 Sensorium / Orientation: alert, oriented to person, oriented to place and oriented to time Speech: speech normal Gait (Neuro): normal gait Motor Exam: strength 5/5 throughout Psych mental status grossly normal Skin no wounds Lesions: no lesions Rashes: no rashes <Dr. Ellyn Neville MD - Last Filed: 12/19/23 21:33> Physical Exam Const Vital Signs: 12/19/23 18:33 12/19/23 19:18 12/19/23 19:20 Temperature 97.8 F Temperature Source Temporal Pulse Rate 51 L 49 L Respiratory Rate 14 13 Respiratory Effort Normal Non-Labored Respiratory Pattern Normal Blood Pressure 157/103 H 168/82 H Blood Pressure Mean 121 110 Pulse Ox 99 98 Oxygen Delivery Method Room Air Room Air 12/19/23 19:41 12/19/23 19:50 12/19/23 20:11 Temperature Temperature Source Pulse Rate 49 L 50 L Respiratory Rate 19 H 16 Respiratory Effort Respiratory Pattern Blood Pressure 155/84 H 160/103 H Blood Pressure Mean 107 122 Pulse Ox 98 99 99 Oxygen Delivery Method Room Air Room Air Room Air 12/19/23 20:30 Temperature Temperature Source Pulse Rate 79 Respiratory Rate 16 Respiratory Effort Respiratory Pattern Blood Pressure 158/77 H Blood Pressure Mean 104 Pulse Ox 99 Oxygen Delivery Method Room Air Neuro [place] Coma Scale: document GCS findings 15 MDM <Dahlia Bruce RN - Last Filed: 12/19/23 21:17> [facility] MDM Narrative Medical decision making narrative: Patient placed on desk monitor. IV line initiated. Labwork obtained to evaluate for leukocytosis, anemia, and electrolyte derangement. EKG obtained to evaluate for cardiac arrhythmia/ischemia. Chest x-ray obtained to evaluate for acute lung pathology, cardiac size, or mediastinal abnormality. CTA head and neck obtained to evaluate for ischemic stroke. History & Record Review Discussion w/independent historian: Patient and Family Lab Data Attestation: I reviewed the patient's lab results. Labs: Laboratory Results - last 24 hr 12/19/23 20:00 WBC 7.1 RBC 3.26 L Hgb 10.3 L Hct 30.5 L MCV 93.6 MCH 31.6 MCHC 33.8 RDW Std Deviation 46.5 H RDW Coeff of Moiz 13.6 Plt Count 166 MPV 10.7 Immature Gran % (Auto) 0.300 Neut % (Auto) 51.5 Lymph % (Auto) 39.1 [place] % (Auto) 7.6 Eos % (Auto) 1.1 Baso % (Auto) 0.4 Absolute Neuts (auto) 3.6 Absolute Lymphs (auto) 2.76 Nucleated RBC % 0 PT 14.1 INR 1.1 APTT 31.9 Sodium 139 Potassium 4.3 Chloride 108 H Carbon Dioxide 26.0 Anion Gap 5 BUN 26 H Creatinine 2.18 H Est GFR (MDRD) Af Amer 38 L Est GFR (MDRD) Non-Af 31 L BUN/Creatinine Ratio 11.9 Glucose 101 Calcium 8.9 Troponin I High Sens 6 Radiography Chest X-Ray - ED: 1 View and No Acute Disease Diagnostic Testing: Clinical Impression(s) from Imaging Studies Head/Neck CTA 12/19/23 19:41 IMPRESSION: 1. 4.4 cm ascending aortic ectasia. 2. Chronic microvascular ischemic changes. Noncontrast CT is otherwise negative for acute infarct or hemorrhage. 3. Mild atherosclerosis of the carotid arteries in the neck with less than 50% stenosis of the internal carotid arteries in the neck. 4. Mild arteriosclerosis of the cavernous and supracavernous internal carotid arteries and the V4 segments of the bilateral vertebral arteries without significant stenosis. 5. No large vessel occlusion or critical arterial stenosis in the head or neck. Electronically Signed: Catrachito HwangDO samuel at 21:01 EDT , Chest X-Ray 12/19/23 20:25 IMPRESSION: No acute findings in the chest. Electronically Signed: Catrachito HwangDO samuel at 20:49 EDT , EKG Initial EKG: Attestation: I personally reviewed and interpreted this EKG as follows: Interpretation: No Acute Injury Pattern and Sinus Bradycardia Comments: Sinus bradycardia with heart rate of 50. No ischemia or dysrhythmia noted. Differential Diagnosis Differential Diagnosis: Ischemic stroke Differential Diagnosis: TIA Management Discussion w/another healthcare provider: Other (Dr. Neville, ED provider) Treatment and Re-Evaluation Narrative: Lab work and imaging reviewed. CBC shows a normal white blood cell count of 7.1 with neutrophils 51.5%. Hemoglobin is 10.3 which is patient baseline. Platelets are 166. Coagulation studies are unremarkable. Chemistries show sli ghtly elevated chloride at 108, BUN elevated 26, creatinine 2.18 which is patient baseline. High-sensitivity troponin is negative at 6. Chest x-ray is negative for acute cardiopulmonary process. CTA is negative for large vessel occlusion or critical arterial stenosis in head or neck. Patient was given normal saline 1 L due to low GFR and patient receiving IV contrast. Lab work and imaging reviewed with patient and son. Patient and son agreeable for admission for continued workup of stroke symptoms. <Dr. Ellyn Neville MD - Last Filed: 12/19/23 21:33> [facility] Lab Data Labs: Laboratory Results - last 24 hr 12/19/23 20:00 WBC 7.1 RBC 3.26 L Hgb 10.3 L Hct 30.5 L MCV 93.6 MCH 31.6 MCHC 33.8 RDW Std Deviation 46.5 H RDW Coeff of Moiz 13.6 Plt Count 166 MPV 10.7 Immature Gran % (Auto) 0.300 Neut % (Auto) 51.5 Lymph % (Auto) 39.1 [place] % (Auto) 7.6 Eos % (Auto) 1.1 Baso % (Auto) 0.4 Absolute Neuts (auto) 3.6 Absolute Lymphs (auto) 2.76 Nucleated RBC % 0 PT 14.1 INR 1.1 APTT 31.9 Sodium 139 Potassium 4.3 Chloride 108 H Carbon Dioxide 26.0 Anion Gap 5 BUN 26 H Creatinine 2.18 H Est GFR (MDRD) Af Amer 38 L Est GFR (MDRD) Non-Af 31 L BUN/Creatinine Ratio 11.9 Glucose 101 Calcium 8.9 Troponin I High Sens 6 Radiography Diagnostic Testing: Clinical Impression(s) from Imaging Studies Head/Neck CTA 12/19/23 19:41 IMPRESSION: 1. 4.4 cm ascending aortic ectasia. 2. Chronic microvascular ischemic changes. Noncontrast CT is otherwise negative for acute infarct or hemorrhage. 3. Mild atherosclerosis of the carotid arteries in the neck with less than 50% stenosis of the internal carotid arteries in the neck. 4. Mild arteriosclerosis of the cavernous and supracavernous internal carotid arteries and the V4 segments of the bilateral vertebral arteries without significant stenosis. 5. No large vessel occlusion or critical arterial stenosis in the head or neck. Electronically Signed: Catrachito Schulz DO at 21:01 EDT , Chest X-Ray 12/19/23 20:25 IMPRESSION: No acute findings in the chest. Electronically Signed: Catrachito Schulz DO at 20:49 EDT , Treatment and Re-Evaluation Narrative: Lab work and imaging reviewed. CBC shows a normal white blood cell count of 7.1 with neutrophils 51.5%. Hemoglobin is 10.3 which is patient baseline. Platelets are 166. Coagulation studies are unremarkable. Chemistries show slightly elevated chloride at 108, BUN elevated 26, creatinine 2.18 which is patient baseline. High-sensitivity troponin is negative at 6. Chest x-ray is negative for acute cardiopulmonary process. CTA is negative for large vessel occlusion or critical arterial stenosis in head or neck. Patient was given normal saline 1 L due to low GFR and patient receiving IV contrast. Lab work and imaging reviewed with patient and son. Patient and son agreeable for admission for continued workup of stroke symptoms. Patient seen and evaluated with ELOISA student. I personally interviewed and examined the patient. I was involved in all aspects of patient's orders, interpretation of results, and treatment. Patient presents due to concern for stroke. He states at 5 PM this evening he was holding a glass of water when he suddenly got weakness and paresthesias in his left upper extremity. He also notes having some paresthesias on the left side of his face. He looked in the mirror and thought he did have a left facial droop. Symptoms lasted for approximately 30 minutes and then resolved. After speaking to some friends and family members he came in due to concern for possible stroke. Patient denies history of prior stroke or TIA. He is not on anticoagulants. Has had no recent fall or trauma. Patient sitting upright in bed no acute distress. Head and neck examination unremarkable. Heart is regular rate and rhythm. Lung sounds are clear. Abdomen is soft and nontender. Neuro exam at this time is unremarkable. His NIH score is 0. Lab work obtained and reveals normal white count at 7.1 with a hemoglobin of 10.3. Chemistry studies reveal a BUN of 26 and a creatinine of 2.18. This does appear to be consistent with his baseline. His troponin is normal at 6. His EKG is sinus bradycardia at 50 bpm with no acute ischemia. CTA of the head and neck obtained and reveals microvascular changes. Mild atherosclerosis is noted in the carotid arteries with less than 50% stenosis. No large vessel occlusion. Noncontrast portion of the CT is unremarkable. I did discuss with the patient that I do believe he has had a TIA. Current recommendations are to keep the patient for observation for further testing including MRI and echocardiogram. Patient agrees with this and I will speak with hospitalist. Discharge Plan Dx/Rx/DC Orders Clinical Impression: Hx-TIA (transient ischemic attack) Disposition Disposition: Acute Care Hospital [facility]
--- NOTE | 2023-12-19 22:20 | PCM.HP.STD ---
[facility] - General General Date of Admission: 12/19/23 Date of Service: 12/19/23 Chief Complaint: Transient Left-sided weakness and mouth numbness. HPI Narrative NICK ALVARES, is a 78 M with a past medical history of essential hypertension, hyperlipidemia, ANTIONE; on CPAP, history of rheumatic fever, history of eosinophilic esophagitis, CKD; stage III, ADHD, history of appendicitis; s/p appendectomy, BPH, GERD and OA; with history of back fracture without intervention (2016) who presents to [facility] ER complaining of transient Left-sided weakness and mouth numbness. Mr. Alvares reports his symptoms began approximately 5:00 PM earlier today when he had a sudden-onset of numbness of the Left side of his mouth along with weakness and numbness of the Left arm from the elbow to the hand that resolved spontaneously after ~20-30 minutes. He further explained that he was holding a glass of water with his Left hand when his arm suddenly became weak so he had to grab it with his right hand before he dropped it. He denies associated headache, Left leg weakness/numbness, slurred speech, recent traumatic injury or known history of TIA/CVA. He also denies related EtOH or tobacco abuse. 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 He has no neurologic deficits at this time with only residual numbness near his previous scar on the Left side of his mouth with chronic numbness that is unchanged. In the ER he was diagnosed with TIA vs CVA and he was then admitted to the CDU under observation status for ongoing care for a stay that is expected to be less than 48 hours. [facility] Medical History Acute appendicitis Acute viral syndrome ADHD Benign hypertension Broken back Cancer Cardiology follow-up encounter CKD (chronic kidney disease) stage 3, GFR 30-59 ml/min COVID-19 vaccine dose declined CPAP (continuous positive airway pressure) dependence Diastasis, muscle Eosinophilic esophagitis Excessive bleeding Exposure to tobacco smoke at work Azul catheter in place Gastric reflux High cholesterol History of rheumatic fever History of stress test HTN (hypertension) Hyperlipidemia Hypoxia Inguinal hernia of right side without obstruction or gangrene Microscopic colitis Non-smoker ANTIONE (obstructive sleep apnea) Right lower quadrant abdominal pain Sleep apnea Home Medications PROBIOTIC PO 10/27/22 [History Last Taken Unknown] ferrous sulfate 325 mg (65 mg iron) tablet (Iron (ferrous sulfate)) 325 mg PO DAILY supplement #90 tabs 12/27/22 [Rx Last Taken Unknown] atenolol 25 mg tablet See Rx Instructions PO DAILY #90 tabs 01/04/23 [Rx Last Taken Unknown] ipratropium bromide 21 mcg (0.03 %) nasal spray 2 spray intranasal BID-TID PRN runny nose #30 mL 01/06/23 [Rx Last Taken Unknown] potassium chloride 20 mEq tablet,extended release 20 meq PO BID supplement #180 tabs 09/19/23 [Rx Last Taken Unknown] omeprazole 20 mg capsule,delayed release 20 mg PO DAILY #90 caps 11/10/23 [Rx Last Taken Unknown] pravastatin 20 mg tablet 20 mg PO DAILY CHOLESTEROL #90 tabs 11/10/23 [Rx Last Taken Unknown] tamsulosin 0.4 mg capsule 0.4 mg PO DAILY #90 caps 11/10/23 [Rx Last Taken Unknown] hydrochlorothiazide 12.5 mg tablet 12.5 mg PO DAILY 12/02/23 [History Last Taken Unknown] Allergy/AdvReac Type Severity Reaction Status Date / Time No Known Allergies Allergy Verified 12/19/23 19:14 Family History Mother Hypertension Father , at age 61 secondary to brain tumor Cancer Surgical History H/O hand surgery History of appendectomy History of cardiac catheterization History of esophagogastroduodenoscopy (EGD) History of laparoscopic appendectomy History of tonsillectomy Social History household members: none Smoking Status: Never smoker alcohol intake: never substance use type: does not use ROS ROS Narrative Review of systems: Constitutional: Patient denies fever or chills. Eyes: Patient denies changes in vision or discharge from eyes. ENT: Patient denies sore throat, runny nose or ear pain. Resp: Patient denies SOB or cough CV: Patient denies chest pain, palpitations or heart racing. GI: Patient denies abdominal pain, nausea or vomiting. : Patient denies dysuria, hematuria or urinary frequency. MSK: Patient denies arthralgias or myalgias. Skin: Patient denies rash. Neuro: Patient admits to LUE and Left perioral numbness as per HPI. He denies LLE numbness or weakness. Hematology: Patient denies easy bleeding or easy bruisability. Allergy: Patient denies lip swelling, tongue swelling or urticaria. Psych: Patient denies uncontrolled depression or anxiety. 14 point ROS otherwise negative except for positives noted above. Vital Signs Vital Signs Vital Signs: 12/19/23 18:33 12/19/23 19:18 12/19/23 19:20 Temperature 97.8 F Temperature Source Temporal Pulse Rate 51 L 49 L Respiratory Rate 14 13 Respiratory Effort Normal Non-Labored Respiratory Pattern Normal Blood Pressure 157/103 H 168/82 H Blood Pressure Mean 121 110 Pulse Ox 99 98 Oxygen Delivery Method Room Air Room Air 12/19/23 19:41 12/19/23 19:50 12/19/23 20:11 Temperature Temperature Source Pulse Rate 49 L 50 L Respiratory Rate 19 H 16 Respiratory Effort Respiratory Pattern Blood Pressure 155/84 H 160/103 H Blood Pressure Mean 107 122 Pulse Ox 98 99 99 Oxygen Delivery Method Room Air Room Air Room Air 12/19/23 20:30 12/19/23 21:00 12/19/23 21:30 Temperature 98.1 F Temperature Source Temporal Pulse Rate 79 49 L 49 L Respiratory Rate 16 17 20 H Respiratory Effort Respiratory Pattern Blood Pressure 158/77 H 172/73 H 154/78 H Blood Pressure Mean 104 106 103 Pulse Ox 99 99 97 Oxygen Delivery Method Room Air Room Air 12/19/23 22:00 12/19/23 21:30 12/19/23 21:06 Temperature 98.1 F Temperature Source Pulse Rate 55 L 49 L 51 L Respiratory Rate 19 H 20 H 17 Respiratory Effort Respiratory Pattern Blood Pressure 159/119 H 154/78 H Blood Pressure Mean 132 103 Pulse Ox 98 97 Oxygen Delivery Method Room Air 12/19/23 21:10 12/19/23 21:15 12/19/23 21:20 Temperature Temperature Source Pulse Rate 53 L 49 L 49 L Respiratory Rate 18 17 14 Respiratory Effort Respiratory Pattern Blood Pressure 172/73 H Blood Pressure Mean 101 Pulse Ox 99 Oxygen Delivery Method Room Air 12/19/23 21:30 12/19/23 21:40 12/19/23 21:50 Temperature 98.1 F Temperature Source Temporal Pulse Rate 49 L 60 51 L Respiratory Rate 20 H 14 20 H Respiratory Effort Respiratory Pattern Blood Pressure 154/78 H Blood Pressure Mean 103 Pulse Ox 97 Oxygen Delivery Method Room Air Physical Exam Const alert, oriented x3, no apparent distress, average body habitus, healthy appearing and well nourished General Appearance: cooperative HEENT normocephalic, head/scalp atraumatic, hearing grossly normal bilaterally and moist oral mucous membranes HEENT Narrative: Patient has a vertical well-healed scar just the Left side of his upper lip. Eyes PERRL and EOMs intact bilaterally Neck no lymphadenopathy and supple Resp normal respiratory effort, no retractions, no use of accessory muscles and clear to auscultation bilaterally Cardio regular rate and regular rhythm GI normal to inspection, nondistended, normoactive bowel sounds, soft to palpation, non-tender and non-distended Extremity normal to inspection, full ROM and no clubbing, cyanosis or edema Skin Skin Narrative: Patient has reddish discoloration of the skin over his Right lateral eyebrow. Neuro oriented x3, CN's II-XII intact bilaterally, moves all extremities and no focal motor deficits Sensorium / Orientation: awake, alert, oriented to person, oriented to place and oriented to time Speech: speech normal Motor Exam: strength 5/5 throughout Psych affect normal Results Medical Records Data Attestation: I reviewed the patient's medical records Lab / Micro Data Attestation: I reviewed the patient's lab results. 12/19/23 20:00 12/19/23 20:00 Labs: Laboratory Results - last 24 hr 12/19/23 20:00: WBC 7.1, RBC 3.26 L, Hgb 10.3 L, Hct 30.5 L, MCV 93.6, MCH 31.6, MCHC 33.8, RDW Std Deviation 46.5 H, RDW Coeff of Moiz 13.6, Plt Count 166, MPV 10.7, Immature Gran % (Auto) 0.300, Neut % (Auto) 51.5, Lymph % (Auto) 39.1, [place] % (Auto) 7.6, Eos % (Auto) 1.1, Baso % (Auto) 0.4, Absolute Neuts (auto) 3.6, Absolute Lymphs (auto) 2.76, Nucleated RBC % 0, PT 14.1, INR 1.1, APTT 31.9, Sodium 139, Potassium 4.3, Chloride 108 H, Carbon Dioxide 26.0, Anion Gap 5, BUN 26 H, Creatinine 2.18 H, Est GFR (MDRD) Af Amer 38 L, Est GFR (MDRD) Non-Af 31 L, BUN/Creatinine Ratio 11.9, Glucose 101, Calcium 8.9, Troponin I High Sens 6 Imaging Radiology Impression Head/Neck CTA 12/19/23 19:41 IMPRESSION: 1. 4.4 cm ascending aortic ectasia. 2. Chronic microvascular ischemic changes. Noncontrast CT is otherwise negative for acute infarct or hemorrhage. 3. Mild atherosclerosis of the carotid arteries in the neck with less than 50% stenosis of the internal carotid arteries in the neck. 4. Mild arteriosclerosis of the cavernous and supracavernous internal carotid arteries and the V4 segments of the bilateral vertebral arteries without significant stenosis. 5. No large vessel occlusion or critical arterial stenosis in the head or neck. Electronically Signed: Catrachito SchulzDO at 21:01 EDT , Chest X-Ray 12/19/23 20:25 IMPRESSION: No acute findings in the chest. Electronically Signed: Catrachito Schulz at 20:49 EDT , Assessment & Plan Assessment/Plan (1) Hx-TIA (transient ischemic attack): (2) Essential hypertension: (3) Hyperlipemia: PLAN: Plan 1. TIA vs CVA with transient Left-sided mouth numbness with and transient numbness and weakness of the Left arm - Admit to CDU under observation status. Check MRI of the brain to confirm suspicion of possible CVA. Check carotid doppler to evaluate for stenosis. Check echocardiogram to evaluate LVEF. Continue ECASA. Finally, we will consult [facility] to see this patient on-rounds in the AM for further recommendations with help appreciated in advance. 2. Essential hypertension - Hold scheduled antihypertensives to allow for 'permissive hypertension' until CVA definitively ruled out. 3. Hyperlipemia - Continue statin and check Lipid Profile in light of #1. 4. ANTIONE; on CPAP - Resume CPAP as previous. 5. History of rheumatic fever - Noted with echocardiogram pending for #1. 6. History of eosinophilic esophagitis - Apparently stable at this time. 7. CKD; stage III - Stable. Check daily BMP to ensure continued stability. 8. ADHD - Noted. 9. History of appendicitis; s/p appendectomy - Noted. 10. BPH - Stable. Continue Tamsulosin as previous. 11. GERD - Resume PPI. 12. OA; with history of back fracture without intervention (2016) - Stable. 13. DVT prophylaxis - Heparin 5,000 units sq TID. Total time: Approximately 45 minutes. Charges/Coding Visit Charges OBSV E&M: 34131 Observ/hosp same date L1
--- OUTSIDE RECORDS SUMMARY | 2023-12-19 22:29 | XMS RPT_ITS | CCD ---
Author Name Unknown Address [address] [place] [address] Organization [facility] Care Team Providers Care Fire Safety Director Name Role Phone SHEA GREENE Attending Unavailable *SELF, REFERRED Primary Care Unavailable SHEA GREENE Attending Unavailable SHEA RGEENE Referring Unavailable *SELF, REFERRED Primary Care Unavailable Unavailable Primary Care Provider Unavailabl e Unavailable Primary Care Provider Unavaildali e ROSA RAZO Referring Unavailable YUAN MURO [...] Coronary arteriosclerosis; Translations: [Atherosclerotic heart disease of [place] coronary artery without angina pectoris] Onset: 12-20-2013 [...] 98.4 [degF] Yuan Athy PA-C Work Phone: [facility] 06-29-2023 13:07-0400 Body weight 64.86 kg Yuan Athy PA-C Work Phone: [facility] 06-29-2023 13:07-0400 Diastolic blood pressure 82 mm[Hg] Yuan Athy PA-C Work Phone: [facility] 06-29-2023 13:07-0400 Heart rate 55 /min Uyan Athy PA-C Work Phone: [facility] 06-29-2023 13:07-0400 Respiratory rate 21 /min Yuan Athy PA-C Work Phone: [facility] 06-29-2023 13:07-0400 SaO2% (BldA) [Mass fraction] 98 % Yuan Athy PA-C Work Phone: [facility] 06-29-2023 13:07-0400 Systolic blood pressure 142 mm[Hg] Yuan Athy PA-C Work Phone: [facility] Encounters Encounter Date Encounter Type Care Provider Facility Start: 09-27-2023 End: 09-27-2023 ambulatory ROSA RAZO Facility:[facility] Start: 06-29-2023 End: 06-29-2023 ambulatory YUAN R ATHY Facility:[facility] Start: 06-29-2023 End: 06-29-2023 ambulatory YUAN R ATHY Facility:[facility] Start: 06-29-2023 End: 06-29-2023 Subsequent hospital visit by physician Enoc [facility] Keith Burroughs Work Phone: Radiology Procedures Date Procedure Procedure Detail Performing Clinician Start: 06-29-2023 Radiologic exam ches t 2 views Yuan R Athy PA-C Work Phone: Start: 05-17-2018 Adult depression screening assessment Andrew Guillen APRN.CNP Work Phone: Plan of Treatment Date Care Activity Detail Author Start: 08-10-2030 Urine microalbumin profile [facility] Start: 06-10-2023 Covid-19 Vaccine ( season) Covid-19 Vaccine ( season) [facility] Start: 06-10-2023 [facility] Start: 11-16-2022 BP CONTROLLED (<130/80) BP CONTROLLED (<130/80) [facility] Start: 10-10-2022 Advance Directive Discussion Advance Directive Discussion [facility] Start: 10-10-2022 Depression Assessment Depression Assessment [facility] Start: 06-10-2022 Influenza [facility] Start: 02-14-2022 COVID-19 VACCINE (4 - Booster for Pfizer series) COVID-19 VACCINE (4 - Booster for Pfizer series) [facility] Start: 12-12-2021 Covid-19 Vaccine (4 - Pfizer series) Covid-19 Vaccine (4 - Pfizer series) [facility] Start: 10-10-2021 ADVANCE DIRECTIVE DISCUSSION ADVANCE DIRECTIVE DISCUSSION [facility] Start: 05-17-2021 DIABETES SCREEN DIABETES SCREEN [facility] Start: 05-17-2021 Diabetes Screening Diabetes Screening [facility] Start: 05-17-2019 Adult depression screening assessment DEPRESSION SCREENING [facility] Start: 05-17-2019 ANNUAL PCP TEAM CHRONIC DISEASE VISIT ANNUAL PCP TEAM CHRONIC DISEASE VISIT [facility] Start: 05-17-2019 BP Controlled (<130/80) BP Controlled (<130/80) [facility] Start: 05-17-2019 Hepatitis B surface antibody level LDL CHOLESTEROL [facility] Start: 2003 RSV Vaccine (1 - 1-dose 60+ series) RSV Vaccine (1 - 1-dose 60+ series) [facility] Start: 1993 SHINGRIX VACCINE (1 of 2) SHINGRIX VACCINE (1 of 2) [facility] Start: 1961 Annual PCP Team Chronic Disease Visit Annual PCP Team Chronic Disease Visit [facility] Start: 1961 HEPATITIS C SCREENING HEPATITIS C SCREENING [facility] Influenza virus A an d B RNA and SARS-CoV-2 (COVID-19) N gene panel - Respiratory specimen by CLAUDE with probe detection COVID & INFLUENZA A/B NAAT, ROUTINE Microbiology Routine URI, acute 06/29/2023 1:52 PM EDT [facility] Work Phone: Immunizations Immunization Date Immunization Notes Care Provider Chery corbett 08-10-2020 tetanus toxoid, redu lucrecia diphtheria toxoid, and acellular pertussis vaccine, adsorbed Andrew Wilmer MULTIGRAPHER.POURED WALL FOREMAN Work Phone: [facility] Work Phone: 07-19-2018 influenza virus vacc ine, unspecified formulation Yuan Muro PA-C Work Phone: [facility] 09-08-2015 pneumococcal conjuga te vaccine, 13 valent Andrew Wilmer MULTIGRAPHER.POURED WALL FOREMAN Work Phone: [facility] Work Phone: 07-28-2015 influenza, high dose seasonal, preservative-free Andrew Wilmer MULTIGRAPHER.POURED WALL FOREMAN Work Phone: [facility] 07-29-2014 influenza, seasonal, injectable Andrew Wilmer MULTIGRAPHER.POURED WALL FOREMAN Work Phone: [facility] 07-29-2014 tetanus toxoid, redu lucrecia diphtheria toxoid, and acellular pertussis vaccine, adsorbed Andrew Wilmer MULTIGRAPHER.POURED WALL FOREMAN Work Phone: [facility] 06-18-2008 pneumococcal polysaccharide vaccine, 23 valent Andrew Wilmer MULTIGRAPHER.POURED WALL FOREMAN Work Phone: [facility] 12-02-2005 tetanus and diphther ia toxoids, adsorbed, preservative free, for adult use (2 Lf of tetanus toxoid and 2 Lf of diphtheria toxoid) Andrew Wilmer MULTIGRAPHER.POURED WALL FOREMAN Work Phone: [facility] Work Phone: Payers Date Payer Category Payer Unknown [id number] 2022 Unknown ANTHEM BLUE CR[employer] S AND BLUE SHIELD AN[employer]M MEDIBL[employer] O [id number] 2022-Present [phone] [address] [place] [address] [facility] [id number] 2021 Medicare HUMANA MEDICARE HU[employer]NA MEDICARE PPO [id number] 2021-Present [phone] [address] [address] [place] [address] PPO [id number] 1943 Unknown [id number] 1945 Unknown [id number] Private Health Insurance [id number] Social History Date Type Detail Facility Start: 06-29-2023 Tobacco smoking stat [facility] Never smoked tobacco [facility] Work Phone: Start: 03-30-2022 End: 06-29-2023 Alcohol intake Current non-drinker of alcohol (finding) [facility] Start: 1945 Sex Assigned At Not on file [facility] Start: 03-20-2022 End: 03-30-2022 Exposure to SARS-CoV-2 (event) Not sure [facility] Start: 06-29-2023 Tobacco use and exposure Smokeless tobacco non-user [facility] Start: 09-14-2020 End: 06-29-2023 History of Social function [facility] Start: 09-14-2020 End: 06-29-2023 Tobacco use panel [facility] Adult Depression Screening Assessment 0 [facility] Progress note 09-27-2023 Note Date & Type Note Facility 09-27-2023 Note HNO ID: [id number] Author: Francisco Galvan RT(R) Service: ? Author Type: Technologist Type: Progress [...] IV DATA: Not applicable SIGNED BY: Francisco Galvan RT(R) September 27, 2023 9:59 AM [facility] Progress note 09-27-2023 Note Date & Type Note Facility 09-27-2023 Note HNO ID: [id number] Author: Rsoa Razo PA-C Service: ? Author Type: Physician Sanitation Truck Driver Type: Progress Notes Filed: 09/27/2023 12:08 PM Note Text: 09/27/2023 Patient presents with: Sore Throat: ST, congestion and DISAL x1 day SUBJECTIVE: This is a 78 [...] for diarrhea for up to 8 days. Ubidecarenone-[place] 3-Vit E (CO [id number] E-FISH OIL) 25-150-200 mg-mg-unit cap Take 1 [...] agrees with the plan. Rosa Razo PA-C [facility] Note 06-29-2023 Telephone Encounter - Una Lema [...] COVID test results. documented in this encounter [facility] Progress note 06-29-2023 Note Date & Type Note Facility 06-29-2023 Note HNO ID: [id number] Author: Cheli Esparza RT(R) Service: Radiology Author [...] Esparza, RT(R) June 29, 2023 2:17 PM [facility] Progress note 06-29-2023 Note Date & Type Note Facility 06-29-2023 Note HNO ID: [id number] Author: Yuan Muro PA-C Service: ? Author Type: Physician Sanitation Truck Driver Type: Progress Notes Filed: 06/29/2023 2:20 PM Note Text: This note was created using [employer]. Subjective Nick Alvares is a 78 year old male. HPI Presents with a chief complaint of cough, congestion over the past 5 days. No fever. Has had fatigue though. When he walks he feels very fatigued. No chest pain or shortness of breath. He tried some throat lozenges and cough syrup [id number]-[id number] which seemed to help some. States he [...] up to 8 days. 30 capsule 0 Ubidecarenone-[place] 3-Vit E (CO [id number]-[id number] E-FISH OIL) 25-150-200 mg-mg-unit cap Take 1 [...] our building, patient will go to the [facility] (more content not included)... [facility] History of Present illness Narrative 06-29-2023 Cheli Esparza RT(R) - 06/29/2023 2:20 PM EDT Note [...] 2023 2:17 PM documented in this encounter [facility] History of Present illness Narrative 06-29-2023 Yuan Muro PA-C - 06/29/2023 2:18 PM EDT Note Date & Type Note Facility 06-29-2023 History of Presen t illness Narrative This note was created using [employer]. Subjective Nick Alvares is a 78 year old male. HPI Presents with a chief complaint of cough, congestion over the past 5 days. No fever. Has had fatigue though. When he walks he feels very fatigued. No chest pain or shortness of breath. He tried some throat lozenges and cough syrup [id number]-yoj-[id number] which seemed to help some. States he [...] up to 8 days. 30 capsule 0 Ubidecarenone-[place] 3-Vit E (CO M-[id number] E-FISH OIL) 25-150-200 mg-mg-unit cap Take 1 [...] our building, patient will go to the [facility] to have x-rays of his chest done. If these are negative I feel this is viral. Given Tessalon for cough. COVID testing pending. Otherwise patient appears well. - XR CHEST 2V FRONTAL/LAT - COVID & INFLUENZA A/B NAAT, ROUTINE Yuan Muro PA-C documented in this encounter [facility] History of Present illness Narrative 03-30-2022 Andrew Guillen APRN.MIRYAM - 03/30/2022 2:48 PM EDT Note Date & Type Note Facility 03-30-2022 History of Presen t illness Narrative Patient triaged at [facility]. Here today with dog bite of right leg, laceration over right achillis tendon with severe pain of lower leg. I will refer to ER, family to drive pov. 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 Advance Directive(s) 03/23/2017 6:29 AM Additional Source Comments (unrecognized sect ion and content) No Status Records FoundNo Status Records Found INFORMATION SOURCE (unrecogn ized section and content) DATE CREATED AUTHOR AUTHOR'S MATILDE ATION 09/28/2023 [facility] Source Comments (unrecognize d section and content) In the event this informatio n is protected by the Federal Confidentiality of Alcohol and Drug Abuse Patient Records regulations: The Federal rules restrict any use of the information to criminally investigate or prosecute any alcohol or drug abuse patient.[facility] the event this information is protected by the Federal Confidentiality of Alcohol and Drug Abuse Patient Records regulations: The Federal rules restrict any use of the information to criminally investigate or prosecute any alcohol or drug abuse patient.[facility] the event this information is protected by the Federal Confidentiality of Alcohol and Drug Abuse Patient Records regulations: The Federal rules restrict any use of the information to criminally investigate or prosecute any alcohol or drug abuse patient.[facility] the event this information is protected by the Federal Confidentiality of Alcohol and Drug Abuse Patient Records regulations: The Federal rules restrict any use of the information to criminally investigate or prosecute any alcohol or drug abuse patient.[facility] Reason for Visit (unrecogniz ed section and [...] BE BASED ON THE PRIMARY CLINICAL RECORDS. [facility]. provides no warranty or guarantee of the accuracy or completeness of information in this document.
--- NOTE | 2023-12-19 22:43 | ECHOD_ITS ---
Reason For Study: TIA/STROKE Procedure This was a 2D Doppler, Color Flow transthoracic echocardiogram. Exam performed portable in patient room. Left Ventricle Normal LV size. The estimated ejection fraction is 65 %. No evidence for diastolic dysfunction. No regional wall motion abnormalities noted. Right Ventricle Normal RV size. Normal systolic function. Atria The left and right atria are normal. No doppler evidence for ASD. Bubble contrast study negative for right to left interatrial shunt. Mitral Valve There is no mitral valve stenosis. Mild-Moderate (1-2+) mitral valve insufficiency. Tricuspid Valve There is no tricuspid stenosis. Trivial tricuspid valve insufficiency. Unable to estimate RV systolic pressure due to insufficient tricuspid regurgitant envelope. Aortic Valve Trisinus/trileaflet aortic valve. There is no aortic stenosis. Trivial aortic valve insufficiency. Pulmonic Valve There is no pulmonic valvular stenosis. No pulmonic valve insufficiency. Great Vessels Normal aortic root. Pericardium/Pleural No pericardial effusion. Medication Performed a rapid injection of agitated mix of 9 cc saline and 1cc air to assess for atrial septal defect. MMode/2D Measurements & Calculations LVIDd: 4.5 cm IVSd: 1.0 cm LVOT diam: 2.0 cm LVIDs: 3.1 cm LVPWd: 0.94 cm RVDd: 4.0 cm FS: 31.1 % LVOT area: 3.2 cm2 LAV(MOD-bp): 40.1 ml LVAd ap4: 29.3 cm2 SV(MOD-sp4): 49.8 ml LAV(MOD-bp) Indexed: 23.8 ml/m2 LVLd ap4: 8.5 cm LAV(MOD-sp2): 37.1 ml EDV(MOD-sp4): 82.2 ml LAV(MOD-sp4): 39.7 ml EDV(sp4-el): 85.7 ml LVAs ap4: 16.7 cm2 LVLs ap4: 7.2 cm ESV(MOD-sp4): 32.4 ml ESV(sp4-el): 32.7 ml EF(MOD-sp4): 60.6 % EF(sp4-el): 61.9 % SV(sp4-el): 53.0 ml LA A4 area: 16.2 cm2 RA A4 area: 15.7 cm2 TAPSE: 2.8 cm Time Measurements MV dec time: 0.20 sec Doppler Measurements & Calculations MV E max elmer: 89.2 cm/sec Lat Peak E' Elmer: 8.9 cm/sec Med Peak E' Elmer: 11.4 cm/sec MV A max elmer: 77.8 cm/sec E/E' lat: 10.1 E/E' med: 7.8 MV E/A: 1.1 Ao V2 max: 135.4 cm/sec LV V1 max: 117.6 cm/sec PA V2 max: 92.5 cm/sec Ao max P.3 mmHg LV V1 max P.5 mmHg SURESH(V,D): 2.7 cm2 TR max elmer: 259.8 cm/sec TR max P.0 mmHg ECHO/Echo Complete Interpretation Summary The estimated ejection fraction is 65 %. No evidence for diastolic dysfunction. Mild-Moderate (1-2+) mitral valve insufficiency. Trivial aortic valve insufficiency. Ordering Physician: Gregor Alarcon Referring Physician: EUGENIA RETANA Performed By: Lyudmila Bernabe RDCS
--- OUTSIDE RECORDS SUMMARY | 2023-12-19 22:49 | XMS RPT_ITS | CCD ---
Author Name Unknown Address [address] [place] [address] Organization [facility] Care Team Providers Care Scheduling Manager Name Role Phone SHEA GREENE Attending Unavailable *SELF, REFERRED Primary Care Unavailable SHEA GREENE Attending Unavailable SHEA GREENE Referring Unavailable *SELF, REFERRED Primary Care Unavailable Unavailable Primary Care Provider Unavailabl e Unavailable Primary Care Provider Unavaildali e RSOA RAZO Referring Unavailable YUAN MURO Referring Unavailable [...] Coronary arteriosclerosis; Translations: [Atherosclerotic heart disease of [place] coronary artery without angina pectoris] Onset: 12-20-2013 [...] 98.4 [degF] Yuan Athy PA-C Work Phone: [facility] 06-29-2023 13:07-0400 Body weight 64.86 kg Yuan Athy PA-C Work Phone: [facility] 06-29-2023 13:07-0400 Diastolic blood pressure 82 mm[Hg] Yuan Athy PA-C Work Phone: [facility] 06-29-2023 13:07-0400 Heart rate 55 /min Yuan Athy PA-C Work Phone: [facility] 06-29-2023 13:07-0400 Respiratory rate 21 /min Yuan Athy PA-C Work Phone: [facility] 06-29-2023 13:07-0400 SaO2% (BldA) [Mass fraction] 98 % Yuan Athy PA-C Work Phone: [facility] 06-29-2023 13:07-0400 Systolic blood pressure 142 mm[Hg] Yuan Athy PA-C Work Phone: [facility] Encounters Encounter Date Encounter Type Care Provider Facility Start: 09-27-2023 End: 09-27-2023 ambulatory ROSA RAZO Facility:[facility] Start: 06-29-2023 End: 06-29-2023 ambulatory YUAN R ATHY Facility:[facility] Start: 06-29-2023 End: 06-29-2023 ambulatory YUAN R ATHY Facility:[facility] Start: 06-29-2023 End: 06-29-2023 Subsequent hospital visit by physician Enoc [facility] Work Phone: Radiology Procedures Date Procedure Procedure Detail Performing Clinician Start: 06-29-2023 Radiologic exam ches t 2 views Yuan R Athy PA-C Work Phone: Start: 05-17-2018 Adult depression screening assessment Andrew Guillen APRN.CNP Work Phone: Plan of Treatment Date Care Activity Detail Author Start: 08-10-2030 Urine microalbumin profile [facility] Start: 06-10-2023 Covid-19 Vaccine ( season) Covid-19 Vaccine ( season) [facility] Start: 06-10-2023 Influenza [facility] Start: 11-16-2022 BP CONTROLLED (<130/80) BP CONTROLLED (<130/80) [facility] Start: 10-10-2022 Advance Directive Discussion Advance Directive Discussion [facility] Start: 10-10-2022 Depression Assessment Depression Assessment [facility] Start: 06-10-2022 Influenza [facility]ed[facility] Start: 02-14-2022 COVID-19 VACCINE (4 - Booster for Pfizer series) COVID-19 VACCINE (4 - Booster for Pfizer series) [facility] Start: 12-12-2021 Covid-19 Vaccine (4 - Pfizer series) Covid-19 Vaccine (4 - Pfizer series) [facility] Start: 10-10-2021 ADVANCE DIRECTIVE DISCUSSION ADVANCE DIRECTIVE DISCUSSION [facility] Start: 05-17-2021 DIABETES SCREEN DIABETES SCREEN [facility] Start: 05-17-2021 Diabetes Screening Diabetes Screening [facility] Start: 05-17-2019 Adult depression screening assessment DEPRESSION SCREENING [facility] Start: 05-17-2019 ANNUAL PCP TEAM CHRONIC DISEASE VISIT ANNUAL PCP TEAM CHRONIC DISEASE VISIT [facility] Start: 05-17-2019 BP Controlled (<130/80) BP Controlled (<130/80) [facility] Start: 05-17-2019 Hepatitis B surface antibody level LDL CHOLESTEROL [facility] Start: 2003 RSV Vaccine (1 - 1-dose 60+ series) RSV Vaccine (1 - 1-dose 60+ series) [facility] Start: 1993 SHINGRIX VACCINE (1 of 2) SHINGRIX VACCINE (1 of 2) [facility] Start: 1961 Annual PCP Team Chronic Disease Visit Annual PCP Team Chronic Disease Visit [facility] Start: 1961 HEPATITIS C SCREENING HEPATITIS C SCREENING [facility] Influenza virus A an d B RNA and SARS-CoV-2 (COVID-19) N gene panel - Respiratory specimen by CLAUDE with probe detection COVID & INFLUENZA A/B NAAT, ROUTINE Microbiology Routine URI, acute 06/29/2023 1:52 PM EDT [facility] Work Phone: Immunizations Immunization Date Immunization Notes Care Provider Chery corbett 08-10-2020 tetanus toxoid, redu lucrecia diphtheria toxoid, and acellular pertussis vaccine, adsorbed Andrew Wilmer TURNSTILE ATTENDANT.RENEWALS SPECIALIST Work Phone: [facility] Work Phone: 07-19-2018 influenza virus vacc ine, unspecified formulation Yuan Muro PA-C Work Phone: [facility] 09-08-2015 pneumococcal conjuga te vaccine, 13 valent Andrew Wilmer TURNSTILE ATTENDANT.RENEWALS SPECIALIST Work Phone: [facility] Work Phone: 07-28-2015 influenza, high dose seasonal, preservative-free Andrew Wilmer TURNSTILE ATTENDANT.RENEWALS SPECIALIST Work Phone: [facility] 07-29-2014 influenza, seasonal, injectable Andrew Wilmer TURNSTILE ATTENDANT.RENEWALS SPECIALIST Work Phone: [facility] 07-29-2014 tetanus toxoid, redu lucrecia diphtheria toxoid, and acellular pertussis vaccine, adsorbed Andrew Wilmer TURNSTILE ATTENDANT.RENEWALS SPECIALIST Work Phone: [facility] 06-18-2008 pneumococcal polysaccharide vaccine, 23 valent Andrew Wilmer TURNSTILE ATTENDANT.RENEWALS SPECIALIST Work Phone: [facility] 12-02-2005 tetanus and diphther ia toxoids, adsorbed, preservative free, for adult use (2 Lf of tetanus toxoid and 2 Lf of diphtheria toxoid) Andrew Wilmer TURNSTILE ATTENDANT.RENEWALS SPECIALIST Work Phone: [facility] Work Phone: Payers Date Payer Category Payer Unknown [id number] 2022 Unknown ANTHEM BLUE CROS S AND BLUE SHIELD ANTHEM MEDIBLUE O [id number] 2022-Present [phone] [address] [place] [address] [facility] [place] [facility] [place] [id number] 2021 Medicare HUMANA MEDICARE HU[employer]NA MEDICARE PPO [id number] 2021-Present [phone] [address] [address] [place] [address] PPO [id number] 1945 Unknown [id number] 1945 Unknown [id number] Private Health Insurance [id number] Social History Date Type Detail Facility Start: 06-29-2023 Tobacco smoking stat [facility] Never smoked tobacco [facility] Work Phone: Start: 03-30-2022 End: 06-29-2023 Alcohol intake Current non-drinker of alcohol (finding) [facility] Start: 1945 Sex Assigned At Not on file C [facility] Start: 03-20-2022 End: 03-30-2022 Exposure to SARS-CoV-2 (event) Not sure [facility] Start: 06-29-2023 Tobacco use and exposure Smokeless tobacco non-user [facility] Start: 09-14-2020 End: 06-29-2023 History of Social function [facility] Start: 09-14-2020 End: 06-29-2023 Tobacco use panel [facility] Adult Depression Screening Assessment 0 [facility] Progress note 09-27-2023 Note Date & Type Note Facility 09-27-2023 Note HNO ID: [id number] Author: Francisco Galvan RT(R) Service: ? Author [...] Galvan RT(R) September 27, 2023 9:59 AM [facility] Progress note 09-27-2023 Note Date & Type Note Facility 09-27-2023 Note HNO ID: [id number] Author: Rosa Razo PA-C Service: ? Author Type: Physician Psychiatric Np Type: Progress Notes Filed: 09/27/2023 12:08 PM [...] for diarrhea for up to 8 days. Ubidecarenone-Glasford 3-Vit E (CO [id number] E-FISH OIL) 25-150-200 mg-mg-unit cap Take 1 [...] agrees with the plan. Rosa [facility]azo [facility] 06-29-2023 Telephone Encounter - Una Lema MA - 06/29/2023 4:20 PM EDTTelephone Encounter - Yuna Muro PA-C - 06/29/2023 3:20 PM EDT [...] COVID test results. documented in this encounter [facility] Progress note 06-29-2023 Note Date & Type Note Facility 06-29-2023 Note HNO ID: [id number] Author: Cheli Esparza RT(R) Service: Radiology Author [...] Esparza, RT(R) June 29, 2023 2:17 PM [facility] Progress note 06-29-2023 Note Date & Type Note Facility 06-29-2023 Note HNO ID: [id number] Author: Yuan Muro PA-C Service: ? Author Type: Physician Psychiatric Np Type: Progress Notes Filed: 06/29/2023 2:20 PM Note Text: This note was created using Supertecriter. Subjective Nick Alvares is a 78 year old male. HPI Presents with a chief complaint of cough, congestion over the past 5 days. No fever. Has had fatigue though. When he walks he feels very fatigued. No chest pain or shortness of breath. He tried some throat lozenges and cough syrup [id number] which seemed to help some. States he [...] up to 8 days. 30 capsule 0 Ubidecarenone-Glasford 3-Vit E (CO G-[id number] E-FISH OIL) 25-150-200 mg-mg-unit cap Take 1 [...] our building, patient will go to the [facility] (more content not included)... [facility] History of Present illness Narrative 06-29-2023 [...] 2023 2:17 PM documented in this encounter [facility] History of Present illness Narrative 06-29-2023 Yuan Muro PA-C - 06/29/2023 2:18 PM EDT Note Date & Type Note Facility 06-29-2023 History of Presen t illness Narrative This note was created using Supertecriter. Subjective Nick Alvares is a 78 year old male. HPI Presents with a chief complaint of cough, congestion over the past 5 days. No fever. Has had fatigue though. When he walks he feels very fatigued. No chest pain or shortness of breath. He tried some throat lozenges and cough syrup [id number] which seemed to help some. States he [...] up to 8 days. 30 capsule 0 Ubidecarenone-Glasford 3-Vit E (CO G-[id number] E-FISH OIL) 25-150-200 mg-mg-unit cap Take 1 [...] our building, patient will go to the [facility] to have x-rays of his chest done. If these are negative I feel this is viral. Given Tessalon for cough. COVID testing pending. Otherwise patient appears well. - XR CHEST 2V FRONTAL/LAT - COVID & INFLUENZA A/B NAAT, ROUTINE Yuan Muro PA-C documented in this encounter [facility] History of Present illness Narrative 03-30-2022 Andrew Guillen APRN.MIRYAM - 03/30/2022 2:48 PM EDT Note Date & Type Note Facility 03-30-2022 History of Presen t illness Narrative Patient triaged at [facility]. Here today with dog bite of right leg, laceration over right achillis tendon with severe pain of lower leg. I will refer to ER, family to drive pov. documented in this encounter [facility] Evaluation note Note Date & Type Note Facility documented in this encounter [facility] Evaluation note Note Date & Type Note Facility documented in this encounter [facility] Summary Purpose Family History No Family History Records FoundNo Family History Records Found Advance Directives No Advanced Directives Records FoundDocuments on File Type Date Recorded Patient Tailings Man Expl anation Advance Directive(s) 03/23/2017 6:29 AM Additional Source Comments (unrecognized sect ion and content) No Status Records FoundNo Status Records Found INFORMATION SOURCE (unrecogn ized section and content) DATE CREATED AUTHOR AUTHOR'S MATILDE ATION 09/28/2023 [facility] Source Comments (unrecognize d section and content) In the event this informatio n is protected by the Federal Confidentiality of Alcohol and Drug Abuse Patient Records regulations: The Federal rules restrict any use of the information to criminally investigate or prosecute any alcohol or drug abuse patient.[facility] the event this information is protected by the Federal Confidentiality of Alcohol and Drug Abuse Patient Records regulations: The Federal rules restrict any use of the information to criminally investigate or prosecute any alcohol or drug abuse patient.[facility] the event this information is protected by the Federal Confidentiality of Alcohol and Drug Abuse Patient Records regulations: The Federal rules restrict any use of the information to criminally investigate or prosecute any alcohol or drug abuse patient.[facility] the event this information is protected by the Federal Confidentiality of Alcohol and Drug Abuse Patient Records regulations: The Federal rules restrict any use of the information to criminally investigate or prosecute any alcohol or drug abuse patient.[facility] Reason for Visit (unrecogniz ed section and [...] BE BASED ON THE PRIMARY CLINICAL RECORDS. [facility]. provides no warranty or guarantee of the accuracy or completeness of information in this document.
[2023-12-19 23:08] LABS: Thyroid Stim Hormone (TSH) 3.51 uIU/mL (0.358-3.74)
[2023-12-20] VITALS (10 sets, daily range): BP systolic 118–177; BP diastolic 67–79; PULSE 46–59; RESP 14–18; TEMP 36.6–36.8; O2SAT 94–99; BMI 26.6; BMI 24.7
[2023-12-20] MEDS: 0.9% Normal Saline (1000mL) 1,000 ML 50 ML IV (01:04)
[2023-12-20 08:17] LABS: Cholesterol 151 mg/dL (200); High Density Lipoprotein 36 mg/dL; Triglycerides 162 mg/dL; Very Low Density Lipoprotein 32 mg/dL (5-40)
[2023-12-20] MEDS: Ferrous Sulfate 325 MG Tablet PO (08:17)
[2023-12-20] MEDS: Tamsulosin HCl 0.4 MG Capsule 0.400000000000000022 MG PO (08:17)
[2023-12-20] MEDS: Potassium Chloride Oral Tablet 20 MEQ PO (08:17)
[2023-12-20] MEDS: Pantoprazole Sodium 20 MG Tablet PO (08:17)
[2023-12-20] MEDS: Aspirin 81 MG TAB.CHEW PO (08:17)
--- NOTE | 2023-12-20 09:00 | MRI_ITS ---
STUDY: MRI BRAIN WITHOUT CONTRAST REASON FOR EXAM: Male, 78 years old. TIA vs CVA. TECHNIQUE: Standardized multiplanar fat and water weighted pulse sequences were obtained. COMPARISON: Head CT dated December 19, 2023 FINDINGS: Normal size of the ventricles and extra-axial spaces for the patient''s age. There are multiple white matter hyperintensities, distributed throughout the deep white matter tracts of the cerebral hemispheres, consistent with mild to moderate chronic white matter ischemic changes. Normal T2* images of the brain without demonstrated susceptibility artifact. There is no demonstrated hemosiderin stain. Normal bilateral basal ganglia. Normal thalami. There is no extra-axial fluid accumulation. Normal flow voids within the major intracranial circulation suggesting patency by spin echo criteria. Normal sella turcica, pituitary gland, infundibular stalk, optic chiasm and hypothalamus. Normal tectal plate and pineal gland. Normal midbrain, pippa and medulla. Normal cerebellum. Normal basal cisterns. Normal bilateral temporal bones. Normal bilateral internal auditory canals. No demonstrated orbital abnormality, within the constraints of a routine brain study. Normal visualized paranasal sinuses. Normal calvarium and skull base. Normal visualized soft tissue structures. Normal visualized upper cervical spine. MRI/Brain without Contrast IMPRESSION: 1. Involutional changes of the brain, as described above. Electronically Signed: Darryn Valdez MD at 11:05 EDT ,
--- NOTE | 2023-12-20 09:03 | PCM.PN.HOSP ---
Reason for Visit Reason for Visit: Diagnoses Hyperlipidemia, unspecified (12/19/23) Essential (primary) hypertension (12/19/23) Personal history of transient ischemic attack (TIA), and cerebral infarction without residual deficits (12/19/23) Objective Data Objective Data Vital Signs: Vital Signs Temp Pulse Resp BP Pulse Ox O2 Del Method FiO2 98 F 54 L 18 158/73 H 98 Room Air 21 12/20/23 08:12 12/20/23 08:12 12/20/23 08:12 12/20/23 08:12 12/20/23 08:12 12/20/23 08:12 12/20/23 02:00 Oxygen Delivery Method Room Air Weight: 144 lb 2.917 oz Body Mass Index (BMI) 24.7 Intake & Output: Intake and Output for Last 24 Hours 12/18/23 12/19/23 12/20/23 23:59 23:59 23:59 Intake Total 1000 / 1000 Balance 1000 / 1000 Lab / Micro Data 12/19/23 20:00 12/19/23 20:00 Labs: Laboratory Results - last 24 hr 12/19/23 20:00: WBC 7.1, RBC 3.26 L, Hgb 10.3 L, Hct 30.5 L, MCV 93.6, MCH 31.6, MCHC 33.8, RDW Std Deviation 46.5 H, RDW Coeff of Moiz 13.6, Plt Count 166, MPV 10.7, Immature Gran % (Auto) 0.300, Neut % (Auto) 51.5, Lymph % (Auto) 39.1, Bremer % (Auto) 7.6, Eos % (Auto) 1.1, Baso % (Auto) 0.4, Absolute Neuts (auto) 3.6, Absolute Lymphs (auto) 2.76, Nucleated RBC % 0, PT 14.1, INR 1.1, APTT 31.9, Sodium 139, Potassium 4.3, Chloride 108 H, Carbon Dioxide 26.0, Anion Gap 5, BUN 26 H, Creatinine 2.18 H, Est GFR (MDRD) Af Amer 38 L, Est GFR (MDRD) Non-Af 31 L, BUN/Creatinine Ratio 11.9, Glucose 101, Calcium 8.9, Troponin I High Sens 6, TSH 3.51 12/20/23 07:00: Triglycerides 162, Cholesterol 151, LDL Cholesterol 83, VLDL Cholesterol 32, HDL Cholesterol 36 L Radiography Diagnostic Testing: Radiology Impression Head/Neck CTA 12/19/23 19:41 IMPRESSION: 1. 4.4 cm ascending aortic ectasia. 2. Chronic microvascular ischemic changes. Noncontrast CT is otherwise negative for acute infarct or hemorrhage. 3. Mild atherosclerosis of the carotid arteries in the neck with less than 50% stenosis of the internal carotid arteries in the neck. 4. Mild arteriosclerosis of the cavernous and supracavernous internal carotid arteries and the V4 segments of the bilateral vertebral arteries without significant stenosis. 5. No large vessel occlusion or critical arterial stenosis in the head or neck. Electronically Signed: Catrachito HwangDO samuel at 21:01 EDT , Chest X-Ray 12/19/23 20:25 IMPRESSION: No acute findings in the chest. Electronically Signed: Catrachito StuartHarris Schulz DO at 20:49 EDT , Assessment & Plan Assessment/Plan (1) Hx-TIA (transient ischemic attack): (2) Essential hypertension: (3) Hyperlipemia: PLAN: Plan 78-year-old gentleman was admitted for numbness of the left side of the mouth, left arm weakness noticed while holding glass of water and numbness from elbow to hand started about 1700 on day of admission and resolved within 20 to 30 minutes. Patient asymptomatic on arrival to ED. No family history of CVA 1. TIA vs CVA with transient Left-sided mouth numbness with and transient numbness and weakness of the Left arm - Admit to CDU under observation status. Check MRI of the brain to confirm suspicion of possible CVA. Check carotid doppler to evaluate for stenosis. Check echocardiogram to evaluate LVEF. Continue ECASA. Finally, we will consult [facility] to see this patient on-rounds in the AM for further recommendations with help appreciated in advance. 2. Essential hypertension - Hold scheduled antihypertensives to allow for 'permissive hypertension' until CVA definitively ruled out. 3. Hyperlipemia - Continue statin and check Lipid Profile in light of #1. 4. ANTIONE; on CPAP - Resume CPAP as previous. 5. History of rheumatic fever - Noted with echocardiogram pending for #1. 6. History of eosinophilic esophagitis - Apparently stable at this time. 7. CKD; stage III - Stable. Check daily BMP to ensure continued stability. 8. ADHD - Noted. 9. History of appendicitis; s/p appendectomy - Noted. 10. BPH - Stable. Continue Tamsulosin as previous. 11. GERD - Resume PPI. 12. OA; with history of back fracture without intervention (2016) - Stable. 13. DVT prophylaxis - Heparin 5,000 units sq TID. Total time: Approximately 45 minutes.
--- NOTE | 2023-12-20 11:28 | DCINST_ITS ---
Discharge Instructions Diet Discharge Diet: Low fat / Low cholesterol and 2000 mg Sodium Diet Activity Discharge Activity: Return to Normal Activity Weight Bearing Status: Weight bearing as tolerated Dressing / Incision Call your doctor if you observe: Fever of 101 or Higher, Coldness, Increased Pain, Numbness or Tingling, Change in Color, Inability to urinate, Inability to have a bowel movement, Shortness of breath, Dizziness, Fainting spells, Swelling in the ankles, Chest pain, Prolonged hiccupping, Increased palpitations (irregular heartbeat) and Calf discomfort Follow Up Care When: IN 2 WEEKS Test Results: Test results from this visit will be discussed in further detail at your follow- up appointment, if applicable. Discharge Plan Admission Admit Date/Time: 12/19/23 22:38 Primary Reason for Your Visit: tia Attending Provider: Jamal Delacruz Primary Care Provider: Rohini Gonzales Consulting Providers: Attial Weaver; Lauro Casas; Alexandra Farmer; Frances Dover; Linda Voss; Yoseph Elizabeth; Zhane Dotson; Cody Crandall; Anselmo Langley; Donna Parikh; Gomez Hutchison; Kendra Abreu; Sahra Hernandes; Rebecca El; Kali Sahu; Black Olmos; José Manuel Oliver; Ramona Covington; Rhona Becerra; Gregor Alarcon Discharge Orders/Prescriptions Prescriptions: New aspirin 81 mg Tablet,Chewable 81 mg PO BREAKFAST Qty: 30 4RF rosuvastatin 20 mg tablet 20 mg PO DAILY Qty: 30 2RF clopidogrel [Plavix] 75 mg tablet 75 mg PO DAILY 21 Days Qty: 21 0RF Continued PROBIOTIC PO hydrochlorothiazide 12.5 mg tablet 12.5 mg PO DAILY ferrous sulfate [Iron (ferrous sulfate)] 325 mg (65 mg iron) tablet 325 mg PO DAILY Qty: 90 3RF Patient Comments: on hold atenolol 25 mg tablet See Rx Instructions PO DAILY Qty: 90 3RF Rx Instructions: 1/2 tab orally daily to equal 12.5mg daily ipratropium bromide 21 mcg (0.03 %) spray,non-aerosol 2 spray intranasal BID-TID PRN (Reason: runny nose) Qty: 30 1RF Rx Instructions: administer into each nostril potassium chloride 20 mEq tablet extended release 20 meq PO BID Qty: 180 3RF omeprazole 20 mg capsule,delayed release(DR/EC) 20 mg PO DAILY Qty: 90 3RF tamsulosin 0.4 mg capsule 0.4 mg PO DAILY Qty: 90 3RF Discontinued pravastatin 20 mg tablet 20 mg PO DAILY Qty: 90 3RF Other Ambulatory Orders: 30 Day Event Recorder Preventi (Urgent) Timeframe: 1 Day Facility: [facility] - Location: Cardiovascular Services Ordered By: Dr. Jamal Delacruz Referrals / Follow Up: Rohini Gonzales MD [Primary Care Provider] - Robert Odell MD [Non-Staff -Ordering Privileges] - Within 1 Month Disposition Disposition (needs filled in before D/C Order can be placed): Home, Self Care
--- NOTE | 2023-12-20 11:30 | PCM.DC.SUM ---
Providers Date of Admission: 12/19/23 Primary Care Physician: Dr. Rohini Gonzales MD Consultations 12/20/23 00:52 Consult: Tele-Neurology Routine Consulting Provider: [facility] Reason for Consult: Acute Ischemic Stroke/TIA EMERGENT Consult: No MD Notified: Yes Date Notified: 12/20/23 Time Notified: 01:32 Method of Notification: Answering Service Method of Consult:: Telemedicine Nursing Unit Staff Notify [facility] of Tele-Neurology Consult: Yes Reason For Visit: TIA VS CVA Diagnosis Discharge Diagnosis (1) Hx-TIA (transient ischemic attack): Status: Acute Code(s): Z86.73 - Personal history of transient ischemic attack (TIA), and cerebral infarction without residual deficits (2) Essential hypertension: Status: Acute Code(s): I10 - Essential (primary) hypertension (3) Hyperlipemia: Status: Acute Code(s): E78.5 - Hyperlipidemia, unspecified Plan 78-year-old gentleman was admitted for numbness of the left side of the mouth, left arm weakness noticed while holding glass of water and numbness from elbow to hand started about 1700 on day of admission and resolved within 20 to 30 minutes. Patient asymptomatic on arrival to ED. No family history of CVA 1. TIA with transient Left-sided mouth numbness with and transient numbness and weakness of the Left arm - Admit to CDU under observation status. MRI was done and does not show acute intracranial abnormality. CTA head and neck shows mild plaque less than 50% bilateral ICA. 2D echo discussed with the reflow operator. Mild to moderate MR but no PFO. Neurology consult was done. Patient is discharged on baby aspirin indefinitely, Plavix for 3 weeks and rosuvastatin 20 mg daily. Fasting profile shows decreased HDL therefore pravastatin changed to rosuvastatin. Patient was evaluated by neurologist and discharged on 30-day event monitor.Neurology follow-up in 1 month. 2. Essential hypertension - Hold scheduled antihypertensives to allow for 'permissive hypertension' until CVA definitively ruled out. 3. Hyperlipemia -as mentioned above 4. ANTIONE; on CPAP - Resume CPAP as previous. 5. History of rheumatic fever -as mentioned above 6. History of eosinophilic esophagitis - Apparently stable at this time. 7. CKD; stage III - Stable. Check daily BMP to ensure continued stability. 8. ADHD - Noted. 9. History of appendicitis; s/p appendectomy - Noted. 10. BPH - Stable. Continue Tamsulosin as previous. 11. GERD - Resume PPI. 12. OA; with history of back fracture without intervention (2015) - Stable. 13. DVT prophylaxis - Heparin 5,000 units sq TID. Discharge medication reconciliation done. Discharge follow-up instructions completed. Discharge process discussed with the patient and all questions were answered to patient's satisfaction. Follow with PCP in 1 to 2 weeks Total time spent, exact 35 minutes on discharge meds reconciliation, examination, coordination of care with nurses and ancillary staff, review of imaging and blood test and discussion with the patient on follow-up instructions. Medications at Discharge Home Medications PROBIOTIC PO 10/27/22 ferrous sulfate 325 mg (65 mg iron) tablet (Iron (ferrous sulfate)) 325 mg PO DAILY supplement #90 tabs 12/27/22 atenolol 25 mg tablet See Rx Instructions PO DAILY #90 tabs 01/04/23 ipratropium bromide 21 mcg (0.03 %) nasal spray 2 spray intranasal BID-TID PRN runny nose #30 mL 01/06/23 potassium chloride 20 mEq tablet,extended release 20 meq PO BID supplement #180 tabs 09/19/23 omeprazole 20 mg capsule,delayed release 20 mg PO DAILY #90 caps 11/10/23 tamsulosin 0.4 mg capsule 0.4 mg PO DAILY #90 caps 11/10/23 hydrochlorothiazide 12.5 mg tablet 12.5 mg PO DAILY 12/02/23 aspirin 81 mg chewable tablet 81 mg PO BREAKFAST #30 tabs 12/20/23 clopidogrel 75 mg tablet (Plavix) 75 mg PO DAILY 3 weeks #21 tabs 12/20/23 rosuvastatin 20 mg tablet 20 mg PO DAILY #30 tabs 12/20/23 Physical Exam Narrative Seen and examined. Patient admitted with transient left hand numbness and weakness. Symptoms resolved by the time patient arrived to the ED. No a speech abnormality. No dysarthria or dysphagia or visual abnormality. telemetry monitor shows sinus rhythm Physical exam General: Alert, Oriented x3, Cooperative HEENT: Atraumatic, PERRLA, EOMI, Normocephalic Oral: No Gingival or Mucosal Lesions/ Ulcerations Neck: Supple, No JVD, Negative Carotid Bruits Chest wall/Lungs: Air entry diminished in bilateral lung bases. No crepitation/rhonchi Cardiovascular: Regular rate, Regular Rhythm, Normal S1, Normal S2, subtle systolic murmur over cardiac apex. Abdomen: Bowel Sounds Present, Soft, Non Tender, Non-Distended : No dysuria. No renal angle tenderness. No suprapubic tenderness. Extremities: No edema, Capillary Refill Less than 3 Seconds Skin: No rashes, No breakdown Musculoskeletal: No Tenderness to Palpation of Joints or Extremities Neurological: Cranial nerves II-XII grossly intact, DTR 2+/4. No acute focal neurological deficit. Psych/Mental Status: Normal Affect, Appropriate. Weight / BMI Weight Weight: 144 lb 2.917 oz Body Mass Index (BMI) 24.7 ABG / Lab / Microbiology Data 12/19/23 20:00 12/19/23 20:00 Laboratory: Laboratory Results - last 24 hr 12/19/23 20:00: WBC 7.1, RBC 3.26 L, Hgb 10.3 L, Hct 30.5 L, MCV 93.6, MCH 31.6, MCHC 33.8, RDW Std Deviation 46.5 H, RDW Coeff of Moiz 13.6, Plt Count 166, MPV 10.7, Immature Gran % (Auto) 0.300, Neut % (Auto) 51.5, Lymph % (Auto) 39.1, [place] % (Auto) 7.6, Eos % (Auto) 1.1, Baso % (Auto) 0.4, Absolute Neuts (auto) 3.6, Absolute Lymphs (auto) 2.76, Nucleated RBC % 0, PT 14.1, INR 1.1, APTT 31.9, Sodium 139, Potassium 4.3, Chloride 108 H, Carbon Dioxide 26.0, Anion Gap 5, BUN 26 H, Creatinine 2.18 H, Est GFR (MDRD) Af Amer 38 L, Est GFR (MDRD) Non-Af 31 L, BUN/Creatinine Ratio 11.9, Glucose 101, Calcium 8.9, Troponin I High Sens 6, TSH 3.51 12/20/23 07:00: Triglycerides 162, Cholesterol 151, LDL Cholesterol 83, VLDL Cholesterol 32, HDL Cholesterol 36 L Radiography Diagnostic Testing: Radiology Impression Head/Neck CTA 12/19/23 19:41 IMPRESSION: 1. 4.4 cm ascending aortic ectasia. 2. Chronic microvascular ischemic changes. Noncontrast CT is otherwise negative for acute infarct or hemorrhage. 3. Mild atherosclerosis of the carotid arteries in the neck with less than 50% stenosis of the internal carotid arteries in the neck. 4. Mild arteriosclerosis of the cavernous and supracavernous internal carotid arteries and the V4 segments of the bilateral vertebral arteries without significant stenosis. 5. No large vessel occlusion or critical arterial stenosis in the head or neck. Electronically Signed: Catrachito VHarris Schulz DO at 21:01 EDT , Chest X-Ray 12/19/23 20:25 IMPRESSION: No acute findings in the chest. Electronically Signed: Catrachitoadryan Schulz DO at 20:49 EDT , Brain MRI 12/20/23 09:00 IMPRESSION: 1. Involutional changes of the brain, as described above. Electronically Signed: Darryn Valdez MD at 11:05 EDT , D/C Instructions Discharge Diet: Low fat / Low cholesterol and 2000 mg Sodium Diet Weight Bearing Status: Weight bearing as tolerated Call your doctor if you observe: Fever of 101 or Higher, Coldness, Increased Pain, Numbness or Tingling, Change in Color, Inability to urinate, Inability to have a bowel movement, Shortness of breath, Dizziness, Fainting spells, Swelling in the ankles, Chest pain, Prolonged hiccupping, Increased palpitations (irregular heartbeat) and Calf discomfort When: IN 2 WEEKS Meaningful Use Info Meaningful Use Diagnoses (Choose all that apply): None applicable Discharge Plan Admission Admit Date/Time: 12/19/23 22:38 Primary Reason for Your Visit: tia Attending Provider: Jamal Delacruz Primary Care Provider: Rohini Gonzales Consulting Providers: Attila Weaver; Lauro Casas; Alexandra Farmer; Frances Dover; Linda Voss; Yoseph Elizabeth; Zhane Dotson; Cody Crandall; Anselmo Langley; Donna Parikh; Gomez Hutchison; Kendra Abreu; Sahra Hernandes; Rebecca El; Kali Sahu; Black Olmos; José Manuel Oliver; Ramona Covington; Rhona Becerra; Gregor Alarcon Discharge Orders/Prescriptions Prescriptions: New aspirin 81 mg Tablet,Chewable 81 mg PO BREAKFAST Qty: 30 4RF rosuvastatin 20 mg tablet 20 mg PO DAILY Qty: 30 2RF clopidogrel [Plavix] 75 mg tablet 75 mg PO DAILY 21 Days Qty: 21 0RF Continued PROBIOTIC PO hydrochlorothiazide 12.5 mg tablet 12.5 mg PO DAILY ferrous sulfate [Iron (ferrous sulfate)] 325 mg (65 mg iron) tablet 325 mg PO DAILY Qty: 90 3RF Patient Comments: on hold atenolol 25 mg tablet See Rx Instructions PO DAILY Qty: 90 3RF Rx Instructions: 1/2 tab orally daily to equal 12.5mg daily ipratropium bromide 21 mcg (0.03 %) spray,non-aerosol 2 spray intranasal BID-TID PRN (Reason: runny nose) Qty: 30 1RF Rx Instructions: administer into each nostril potassium chloride 20 mEq tablet extended release 20 meq PO BID Qty: 180 3RF omeprazole 20 mg capsule,delayed release(DR/EC) 20 mg PO DAILY Qty: 90 3RF tamsulosin 0.4 mg capsule 0.4 mg PO DAILY Qty: 90 3RF Discontinued pravastatin 20 mg tablet 20 mg PO DAILY Qty: 90 3RF Other Ambulatory Orders: 30 Day Event Recorder Preventi (Urgent) Timeframe: 1 Day Facility: [facility] - Location: Cardiovascular Services Ordered By: Dr. Jamal Delacruz Referrals / Follow Up: Rohini Gonzales MD [Primary Care Provider] - Robert Odell MD [Non-Staff -Ordering Privileges] - Within 1 Month Disposition Disposition (needs filled in before D/C Order can be placed): Home, Self Care Charges/Coding Visit Charges Inpatient E&M: 85747 Disch Hosp >30min
[2023-12-20 11:49] LABS: Hemoglobin A1c 5.3 % (3.8-5.6)
--- NOTE | 2023-12-20 15:30 | CASEMGMT ---
SW completed a PHQ 9 with patient and he scored a 3 which indicates minimal depression. Patient denied any need for counseling resources. Kayy Galvez MSW ELIZA
--- NOTE | 2023-12-20 15:50 | CASEMGMT ---
Patient has order for discharge. RN CM in to discuss needs at discharge. Patient and family deny needs or help at discharge. Patient had no further questions or concerns at this time.
--- NOTE | 2023-12-20 16:51 | CON.PCM.NE_ITS ---
Assessment and Plan: Neuro Assessment/Plan NICK EASTON is a 78 M with a past medical history of HTN, HLD, ANTIONE on CPAP, esophagitis, CKD with LKW at 12/19/23 at 05:00 PM, presented with transient episode of facial droop, L arm numbness and hand weakness. Symptoms resolved in 20-30 min. CTH was negative for acute bleed. CTA with no LVO, brain MRI was negative for acute infarction. Teleneurology was consulted Diagnosis: TIA Plan: 1. ASA and Plavix per CHANCE trial for 21 days (if no contraindication for DAPT) then single antiplatelet afterward 2. LDL level, then statin for secondary stroke prevention if LDL >70 3. TTE, +/- 30 days event monitoring if TTE is unrevealing 4. Normotension is the goal 5. PT/OT/LOAD OUT WORKER evaluation 6. Stroke education and Vascular risk factors modification 7. Follow up in stroke clinic in 4-6 weeks after discharge I personally attended this patient and spent a total time of 70 minutes e valuating this patient including clinical assessment, review of chart, medical history imaging, and determining appropriate treatment and workup. HPI Consult Data Date of Consult: 12/20/23 HPI Narrative HPI Narrative: NICK EASTON, is a 78 M with a hx of HTN, HLD, ANTIONE on CPAP, esophagitis, CKD with LKW at 12/19/23 at 05:00 PM, he had an acute onset of left facial numbness/droop with left arm numbness and weakness. Per patent, he has a known facial asymmetry due to facial surgery for skin cancer. Symptoms lasted for about 20-30 min then resolved. At that time, patient noticed an episode of left hand weakness while he was holding a glass. CTH was negative for acute bleed. CTA with no LVO, admitted to [place] and Teleneurology was consulted [facility] Medical History Acute appendicitis Acute viral syndrome ADHD Benign hypertension Broken back Cancer Cardiology follow-up encounter CKD (chronic kidney disease) stage 3, GFR 30-59 ml/min COVID-19 vaccine dose declined CPAP (continuous positive airway pressure) dependence Diastasis, muscle Eosinophilic esophagitis Excessive bleeding Exposure to tobacco smoke at work Azul catheter in place Gastric reflux High cholesterol History of rheumatic fever History of stress test HTN (hypertension) Hyperlipidemia Hypoxia Inguinal hernia of right side without obstruction or gangrene Microscopic colitis Non-smoker ANTIONE (obstructive sleep apnea) Right lower quadrant abdominal pain Sleep apnea Home Medications PROBIOTIC PO 10/27/22 [History Last Taken Unknown] ferrous sulfate 325 mg (65 mg iron) tablet (Iron (ferrous sulfate)) 325 mg PO DAILY supplement #90 tabs 12/27/22 [Rx Last Taken Unknown] atenolol 25 mg tablet See Rx Instructions PO DAILY #90 tabs 01/04/23 [Rx Last Taken Unknown] ipratropium bromide 21 mcg (0.03 %) nasal spray 2 spray intranasal BID-TID PRN runny nose #30 mL 01/06/23 [Rx Last Taken Unknown] potassium chloride 20 mEq tablet,extended release 20 meq PO BID supplement #180 tabs 09/19/23 [Rx Last Taken Unknown] omeprazole 20 mg capsule,delayed release 20 mg PO DAILY #90 caps 11/10/23 [Rx Last Taken Unknown] tamsulosin 0.4 mg capsule 0.4 mg PO DAILY #90 caps 11/10/23 [Rx Last Taken Unknown] hydrochlorothiazide 12.5 mg tablet 12.5 mg PO DAILY 12/02/23 [History Last Taken Unknown] aspirin 81 mg chewable tablet 81 mg PO BREAKFAST #30 tabs 12/20/23 [Rx Last Taken Unknown] clopidogrel 75 mg tablet (Plavix) 75 mg PO DAILY 3 weeks #21 tabs 12/20/23 [Rx Last Taken Unknown] rosuvastatin 20 mg tablet 20 mg PO DAILY #30 tabs 12/20/23 [Rx Last Taken Unknown] Allergy/AdvReac Type Severity Reaction Status Date / Time No Known Allergies Allergy Verified 12/19/23 19:14 Family History Mother Hypertension Father , at age 61 secondary to brain tumor Cancer Surgical History H/O hand surgery History of appendectomy History of cardiac catheterization History of esophagogastroduodenoscopy (EGD) History of laparoscopic appendectomy History of tonsillectomy Social History household members: none Smoking Status: Never smoker alcohol intake: never substance use type: does not use Vital Signs Vital Signs Vital Signs: 12/19/23 18:33 12/19/23 19:18 12/19/23 19:20 Temperature 97.8 F Temperature Source Temporal Pulse Rate 51 L 49 L Pulse Strength Respiratory Rate 14 13 Respiratory Effort Normal Non-Labored Respiratory Depth Respiratory Pattern Normal Blood Pressure 157/103 H 168/82 H Blood Pressure Mean 121 110 Blood Pressure Source Blood Pressure Position Blood Pressure Location Pulse Ox 99 98 Oxygen Delivery Method Room Air Room Air Fraction of Inspired Oxygen (FIO2) 12/19/23 19:41 12/19/23 19:50 12/19/23 20:11 Temperature Temperature Source Pulse Rate 49 L 50 L Pulse Strength Respiratory Rate 19 H 16 Respiratory Effort Respiratory Depth Respiratory Pattern Blood Pressure 155/84 H 160/103 H Blood Pressure Mean 107 122 Blood Pressure Source Blood Pressure Position Blood Pressure Location Pulse Ox 98 99 99 Oxygen Delivery Method Room Air Room Air Room Air Fraction of Inspired Oxygen (FIO2) 12/19/23 20:30 12/19/23 21:00 12/19/23 21:30 Temperature 98.1 F Temperature Source Temporal Pulse Rate 79 49 L 49 L Pulse Strength Respiratory Rate 16 17 20 H Respiratory Effort Respiratory Depth Respiratory Pattern Blood Pressure 158/77 H 172/73 H 154/78 H Blood Pressure Mean 104 106 103 Blood Pressure Source Blood Pressure Position Blood Pressure Location Pulse Ox 99 99 97 Oxygen Delivery Method Room Air Room Air Fraction of Inspired Oxygen (FIO2) 12/19/23 22:00 12/19/23 21:30 12/19/23 22:30 Temperature 98.1 F Temperature Source Pulse Rate 55 L 49 L 52 L Pulse Strength Respiratory Rate 19 H 20 H 19 H Respiratory Effort Respiratory Depth Respiratory Pattern Blood Pressure 159/119 H 154/78 H 146/81 H Blood Pressure Mean 132 103 102 Blood Pressure Source Blood Pressure Position Blood Pressure Location Pulse Ox 98 97 97 Oxygen Delivery Method Room Air Room Air Fraction of Inspired Oxygen (FIO2) 12/19/23 21:06 12/19/23 21:10 12/19/23 21:15 Temperature Temperature Source Pulse Rate 51 L 53 L 49 L Pulse Strength Respiratory Rate 17 18 17 Respiratory Effort Respiratory Depth Respiratory Pattern Blood Pressure 172/73 H Blood Pressure Mean 101 Blood Pressure Source Blood Pressure Position Blood Pressure Location Pulse Ox 99 Oxygen Delivery Method Room Air Fraction of Inspired Oxygen (FIO2) 12/19/23 21:20 12/19/23 21:30 12/19/23 21:40 Temperature 98.1 F Temperature Source Temporal Pulse Rate 49 L 49 L 60 Pulse Strength Respiratory Rate 14 20 H 14 Respiratory Effort Respiratory Depth Respiratory Pattern Blood Pressure 154/78 H Blood Pressure Mean 103 Blood Pressure Source Blood Pressure Position Blood Pressure Location Pulse Ox 97 Oxygen Delivery Method Room Air Fraction of Inspired Oxygen (FIO2) 12/19/23 21:50 12/19/23 23:00 12/19/23 23:30 Temperature Temperature Source Pulse Rate 51 L 48 L 50 L Pulse Strength Respiratory Rate 20 H 14 16 Respiratory Effort Respiratory Depth Respiratory Pattern Blood Pressure 138/62 H 144/66 H Blood Pressure Mean 87 92 Blood Pressure Source Blood Pressure Position Blood Pressure Location Pulse Ox 100 98 Oxygen Delivery Method Room Air Room Air Fraction of Inspired Oxygen (FIO2) 12/20/23 00:00 12/20/23 00:30 12/19/23 22:00 Temperature Temperature Source Pulse Rate 48 L 46 L 70 Pulse Strength Respiratory Rate 16 14 16 Respiratory Effort Respiratory Depth Respiratory Pattern Blood Pressure 177/71 H 160/79 H 159/119 H Blood Pressure Mean 106 106 131 Blood Pressure Source Blood Pressure Position Blood Pressure Location Pulse Ox 95 98 Oxygen Delivery Method Room Air Fraction of Inspired Oxygen (FIO2) 12/19/23 22:10 12/19/23 22:20 12/19/23 22:30 Temperature Temperature Source Pulse Rate 54 L 55 L 51 L Pulse Strength Respiratory Rate 17 25 H 24 H Respiratory Effort Respiratory Depth Respiratory Pattern Blood Pressure Blood Pressure Mean Blood Pressure Source Blood Pressure Position Blood Pressure Location Pulse Ox Oxygen Delivery Method Fraction of Inspired Oxygen (FIO2) 12/19/23 22:38 12/19/23 22:40 12/19/23 22:45 Temperature Temperature Source Pulse Rate 51 L 61 50 L Pulse Strength Respiratory Rate 20 H 23 H 17 Respiratory Effort Respiratory Depth Respiratory Pattern Blood Pressure 146/81 H 138/62 H Blood Pressure Mean 100 84 Blood Pressure Source Blood Pressure Position Blood Pressure Location Pulse Ox Oxygen Delivery Method Fraction of Inspired Oxygen (FIO2) 12/19/23 22:50 12/19/23 23:00 12/19/23 23:10 Temperature Temperature Source Pulse Rate 50 L 48 L 50 L Pulse Strength Respiratory Rate 14 14 18 Respiratory Effort Respiratory Depth Respiratory Pattern Blood Pressure Blood Pressure Mean Blood Pressure Source Blood Pressure Position Blood Pressure Location Pulse Ox 100 Oxygen Delivery Method Room Air Fraction of Inspired Oxygen (FIO2) 12/19/23 23:20 12/19/23 23:30 12/19/23 23:40 Temperature Temperature Source Pulse Rate 49 L 50 L 46 L Pulse Strength Respiratory Rate 19 H 16 18 Respiratory Effort Respiratory Depth Respiratory Pattern Blood Pressure 144/66 H Blood Pressure Mean 87 Blood Pressure Source Blood Pressure Position Blood Pressure Location Pulse Ox 98 Oxygen Delivery Method Room Air Fraction of Inspired Oxygen (FIO2) 12/19/23 23:50 12/20/23 01:15 12/20/23 01:15 Temperature 98.2 F Temperature Source Oral Pulse Rate 49 L 54 L Pulse Strength Respiratory Rate 12 16 Respiratory Effort Normal Non-Labored Respiratory Depth Normal Respiratory Pattern Normal Blood Pressure 164/67 H Blood Pressure Mean 99 Blood Pressure Source Monitor Blood Pressure Position Supine Blood Pressure Location Right Arm Pulse Ox 99 Oxygen Delivery Method Room Air Room Air Fraction of Inspired Oxygen (FIO2) 12/20/23 01:57 12/20/23 02:00 12/20/23 05:15 Temperature 98.2 F Temperature Source Oral Pulse Rate 48 L 53 L Pulse Strength Respiratory Rate 18 18 Respiratory Effort Respiratory Depth Respiratory Pattern Normal Blood Pressure 156/73 H Blood Pressure Mean 100 Blood Pressure Source Monitor Blood Pressure Position Supine Blood Pressure Location Left Arm Pulse Ox 99 99 96 Oxygen Delivery Method Room Air CPAP Fraction of Inspired Oxygen (FIO2) 21 12/20/23 07:55 12/20/23 08:07 12/20/23 08:12 Temperature 98 F Temperature Source Temporal Pulse Rate 54 L Pulse Strength Normal (2+) Respiratory Rate 18 Respiratory Effort Normal Non-Labored Respiratory Depth Normal Respiratory Pattern Normal Blood Pressure 158/73 H Blood Pressure Mean 101 Blood Pressure Source Monitor Blood Pressure Position Semi-Fowlers Blood Pressure Location Right Arm Pulse Ox 98 Oxygen Delivery Method Room Air Room Air Fraction of Inspired Oxygen (FIO2) 12/20/23 08:42 12/20/23 12:15 12/20/23 15:05 Temperature 97.9 F 97.8 F Temperature Source Temporal Temporal Pulse Rate 57 L 59 L Pulse Strength Respiratory Rate 17 18 Respiratory Effort Respiratory Depth Respiratory Pattern Blood Pressure 145/78 H 118/72 Blood Pressure Mean 100 87 Blood Pressure Source Monitor Monitor Blood Pressure Position Semi-Fowlers Semi-Fowlers Blood Pressure Location Right Arm Right Arm Pulse Ox 98 94 96 Oxygen Delivery Method Room Air Room Air Room Air Fraction of Inspired Oxygen (FIO2) Weight Weight: 65.4 kg Body Mass Index (BMI) 24.7 NIHSS NIHSS Nursing Documentation NIHSS Nursing Documentation: NIH Stroke Scale Start: 12/19/23 19:19 Freq: Status: Discharge Protocol: Activity Type Activity Date Activity User E-sign Co-sign Detail Recorded Client Recorded Date Recorded By Document 12/19/23 19:19 DK Desktop 12/19/23 19:20 DK 12/19/23 19:19 NIH Stroke Scale [NIHSS] A score of 0 is normal or asymptomatic . Total possible score is 42. Inpatient: RN or Physician to activate a stroke alert for onset of new stroke symptoms or with NIHSS increase >/= 3 points. Following change in neurological status, NIHSS will be performed per physician order or more frequently PRN. -1a. Level of Consciousness Alert; keenly responsive -1b. LOC Questions Answers BOTH questions correctly. -1c. LOC Commands Performs both tasks correctly . -2. Best Gaze Normal -3. Visual No visual loss -4. Facial Palsy Normal symmetrical movements -5a. Left Arm No drift; arm holds 90 (or 45 ) degrees for full 10 seconds -5b. Right Arm No drift; arm holds 90 (or 45 ) degrees for full 10 seconds -6a. Left Leg No drift; leg holds 30-degree position for full 5 seconds -6b. Right Leg No drift; leg holds 30-degree position for full 5 seconds -7. Limb Ataxia Absent -8. Sensory Normal; no sensory loss -9. Best Language No aphasia; normal -10. Dysarthria Normal -11. Extinction and Inattention No abnormality -Total 0 Query Text:A score of 0 is normal or asymptomatic. Total possible score is 42 . ED: Notify Physician for NIHSS increase by > / = 3 points. Inpatient: RN or Physician to activate a stroke alert for NIHSS increase of > / = 3 points. NIHSS: Ischemic Stroke/TIA Start: 12/20/23 00:52 Text: For ICU Patients: NIH sroke scale at Status: Complete presentation and every 2 hours or with change in RN caregiver Freq: [id number] Protocol: Activity Type Activity Date Activity User E-sign Co-sign Detail Recorded Client Recorded Date Recorded By Document 12/20/23 12:15 Desktop 12/20/23 15:48 12/20/23 12:15 -1a. Level of Consciousness Alert; keenly responsive -1b. LOC Questions Answers BOTH questions correctly. -1c. LOC Commands Performs both tasks correctly . -2. Best Gaze Normal -3. Visual No visual loss -4. Facial Palsy Normal symmetrical movements -5a. Left Arm No drift; arm holds 90 (or 45 ) degrees for full 10 seconds -5b. Right Arm No drift; arm holds 90 (or 45 ) degrees for full 10 seconds -6a. Left Leg No drift; leg holds 30-degree position for full 5 seconds -6b. Right Leg No drift; leg holds 30-degree position for full 5 seconds -7. Limb Ataxia Absent -8. Sensory Normal; no sensory loss -9. Best Language No aphasia; normal -10. Dysarthria Normal -11. Extinction and Inattention No abnormality -Total 0 Query Text:A score of 0 is normal or asymptomatic. Total possible score is 42 . ED: Notify Physician for NIHSS increase by > / = 3 points. Inpatient: RN or Physician to activate a stroke alert for NIHSS increase of > / = 3 points. Coma Scale [Assess] -Eye Opening Spontaneous -Motor Obeys Commands -Verbal Oriented [Total] -Coma Scale Total 15 NIHSS 1a. Level of Consciousness: Alert; keenly responsive 1b. LOC Questions: Answers BOTH questions correctly. 1c. LOC Commands: Performs both tasks correctly. 2. Best Gaze: Normal 3. Visual: No visual loss 4. Facial Palsy: Minor paralysis (flattened nasolabial fold, asymmetry on smiling) 5a. Left Arm: No drift; arm holds 90 (or 45) degrees for full 10 seconds 5b. Right Arm: No drift; arm holds 90 (or 45) degrees for full 10 seconds 6a. Left Leg: No drift; leg holds 30-degree position for full 5 seconds 6b. Right Leg: No drift; leg holds 30-degree position for full 5 seconds 7. Limb Ataxia: Absent 8. Sensory: Normal; no sensory loss 9. Best Language: No aphasia; normal 10. Dysarthria: Normal 11. Extinction and Inattention: No abnormality Total: 1 Physical Exam Narrative Patient is awake and alert, follows commands, in no acute distress, minimal facial asymmetry, no drifts, sensation intact. No ataxia, no aphasia, no dysarthria Lab / Micro Data 12/19/23 20:00 12/19/23 20:00 Labs: Laboratory Results - last 24 hr 03/11/24 20:00: WBC 7.1, RBC 3.26 L, Hgb 10.3 L, Hct 30.5 L, MCV 93.6, MCH 31.6, MCHC 33.8, RDW Std Deviation 46.5 H, RDW Coeff of Moiz 13.6, Plt Count 166, MPV 10.7, Immature Gran % (Auto) 0.300, Neut % (Auto) 51.5, Lymph % (Auto) 39.1, [place] % (Auto) 7.6, Eos % (Auto) 1.1, Baso % (Auto) 0.4, Absolute Neuts (auto) 3.6, Absolute Lymphs (auto) 2.76, Nucleated RBC % 0, PT 14.1, INR 1.1, APTT 31.9, Sodium 139, Potassium 4.3, Chloride 108 H, Carbon Dioxide 26.0, Anion Gap 5, BUN 26 H, Creatinine 2.18 H, Est GFR (MDRD) Af Amer 38 L, Est GFR (MDRD) Non- Af 31 L, BUN/Creatinine Ratio 11.9, Glucose 101, Calcium 8.9, Troponin I High Sens 6, TSH 3.51 12/20/23 07:00: Hemoglobin A1c 5.3, Triglycerides 162, Cholesterol 151, LDL Cholesterol 83, VLDL Cholesterol 32, HDL Cholesterol 36 L Imaging Radiology Impression Head/Neck CTA 12/19/23 19:41 IMPRESSION: 1. 4.4 cm ascending aortic ectasia. 2. Chronic microvascular ischemic changes. Noncontrast CT is otherwise negative for acute infarct or hemorrhage. 3. Mild atherosclerosis of the carotid arteries in the neck with less than 50% stenosis of the internal carotid arteries in the neck. 4. Mild arteriosclerosis of the cavernous and supracavernous internal carotid arteries and the V4 segments of the bilateral vertebral arteries without significant stenosis. 5. No large vessel occlusion or critical arterial stenosis in the head or neck. Electronically Signed: Catrachito Schulz DO at 21:01 EDT , Chest X-Ray 12/19/23 20:25 IMPRESSION: No acute findings in the chest. Electronically Signed: Catrachito SadeHarris Schulz DO at 20:49 EDT , Brain MRI 12/20/23 09:00 IMPRESSION: 1. Involutional changes of the brain, as described above. Electronically Signed: Darrny Valdez MD at 11:05 EDT , Active Medications Active Medications Active Medications: Current Medications Generic Name Dose Route Start Last Admin Trade Name Freq PRN Reason Stop Dose Admin Acetaminophen 650 mg 12/20/23 00:52 Acetaminophen 325 Mg Tablet PO Q4H PRN PRN Pain 1-10 Or Fever>99.6 Aspirin 81 mg 12/20/23 08:00 12/20/23 08:17 Aspirin 81 Mg Tab.Chew PO 81 mg BREAKFAST JAISON Administration Ferrous Sulfate 325 mg 12/20/23 08:00 12/20/23 08:17 Ferrous Sulfate 325 Mg Tablet PO 325 mg DAILYCM JAISON Administration Heparin Sodium (Porcine) 5,000 unit 12/20/23 11:00 12/20/23 12:00 Heparin Injection (Vial) 5,000 Unit/Ml Vial SC Not Given Q12 JAISON Hydralazine HCl 5 mg 12/20/23 00:52 Hydralazine 20 Mg/Ml Vial IV Q30M PRN to maintain BP goals Sodium Chloride 1,000 mls @ 50 mls/hr 12/20/23 00:52 12/20/23 01:04 IV 50 mls/hr .Q20H JAISON Administration Sodium Chloride 250 mls @ 15 mls/hr 12/20/23 01:00 IV .[id number] PRN Additional IVPB Infusion Sodium Chloride 250 mls @ 15 mls/hr 12/20/23 01:00 IV .[id number] PRN Saline Flush Ipratropium Parnell 2 spray 12/20/23 01:00 Ipratropium Parnell 0.06% Nasal [place] NASAL TID PRN PRN runny nose Pantoprazole Sodium 20 mg 12/20/23 10:00 12/20/23 08:17 Pantoprazole Sodium 20 Mg Tablet PO 20 mg DAILY JAISON Administration Potassium Chloride 20 meq 12/20/23 10:00 12/20/23 08:17 Potassium Chloride Oral Tablet 20 Meq PO 20 meq BID JAISON Administration Pravastatin Sodium 40 mg 12/20/23 22:00 Pravastatin 40 Mg Tablet PO QHS JAISON Sodium Chloride 10 - 40 ml 12/20/23 01:00 0.9% Saline Lock 10 Ml Syringe IV UD PRN SALINE FLUSH Tamsulosin HCl 0.4 mg 12/20/23 10:00 12/20/23 08:17 Tamsulosin Hcl 0.4 Mg Capsule PO 0.4 mg DAILY JAISON Administration
== END 2023-12-20 15:44 | disposition home or self-care (01) ==
LOC: ED 21:38 → PCU 22:47
PROVIDERS: Admitting Provider Internal Medicine; Emergency Provider Emergency Medicine; PCP Internal Medicine; Visit Provider Internal Medicine
DX: G45.9 Transient cerebral ischemic attack, unspecified (principal); N18.30 Chronic kidney disease, stage 3 unspecified; R53.1 Weakness; I12.9 Hypertensive chronic kidney disease with stage 1 through stage 4 chronic kidney disease, or unspecified chronic kidney disease; E78.00 Pure hypercholesterolemia, unspecified; R20.0 Anesthesia of skin; G47.33 Obstructive sleep apnea (adult) (pediatric); Z79.899 Other long term (current) drug therapy; K21.9 Gastro-esophageal reflux disease without esophagitis; M19.90 Unspecified osteoarthritis, unspecified site; N40.0 Benign prostatic hyperplasia without lower urinary tract symptoms
CPT/HCPCS: 36415; 70496; 70498; 70551; 71045; 80048; 80061; 83036; 84443; 84484; 85025; 85610; 85730; 93005; 93306; 94660; 94762; 96360; 99221; 99285; J7030; Q9967; G0378

== ENCOUNTER 2024-02-13 07:47 | Day surgery (SDC) | payer MEDICARE, SELFPAY ==
[2024-02-13] VITALS (7 sets, daily range): BP systolic 115–144; BP diastolic 55–88; PULSE 52–55; RESP 16; TEMP 36.4–36.6; O2SAT 92–97; BMI 24.5
[2024-02-13] MEDS: Lactated Ringers 1,000 ML 15 ML IV (08:17)
--- NOTE | 2024-02-13 08:57 | PCM.HP.BLA ---
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: No Is patient in pain?: No Allergies No Known Allergies Allergy (Verified 02/09/24 07:37) Medications PROBIOTIC PO 10/27/22 [History Confirmed 02/09/24] ferrous sulfate 325 mg (65 mg iron) tablet (Iron (ferrous sulfate)) 325 mg PO DAILY supplement #90 tabs 12/27/22 [Rx Confirmed 02/09/24] atenolol 25 mg tablet See Rx Instructions PO DAILY #90 tabs 01/04/23 [Rx Confirmed 02/09/24] ipratropium bromide 21 mcg (0.03 %) nasal spray 2 spray intranasal BID-TID PRN runny nose #30 mL 01/06/23 [Rx Confirmed 02/09/24] potassium chloride 20 mEq tablet,extended release 20 meq PO BID supplement #180 tabs 09/19/23 [Rx Confirmed 02/09/24] omeprazole 20 mg capsule,delayed release 20 mg PO DAILY #90 caps 11/10/23 [Rx Confirmed 02/09/24] tamsulosin 0.4 mg capsule 0.4 mg PO DAILY #90 caps 11/10/23 [Rx Confirmed 02/09/24] hydrochlorothiazide 12.5 mg tablet 12.5 mg PO DAILY 12/02/23 [History Confirmed 02/09/24] aspirin 81 mg chewable tablet 81 mg PO BREAKFAST #30 tabs 12/20/23 [Rx Confirmed 02/09/24] clopidogrel 75 mg tablet (Plavix) 75 mg PO DAILY 3 weeks #21 tabs 12/20/23 [Rx Confirmed 02/09/24] pravastatin 20 mg tablet 20 mg PO QDAY 02/09/24 [History Confirmed 02/09/24] PFSH Medical History Acute appendicitis Acute viral syndrome ADHD Benign hypertension Broken back Cancer Cardiology follow-up encounter CKD (chronic kidney disease) stage 3, GFR 30-59 ml/min COVID-19 vaccine dose declined CPAP (continuous positive airway pressure) dependence Diastasis, muscle Eosinophilic esophagitis Essential hypertension Excessive bleeding Exposure to tobacco smoke at work Azul catheter in place Gastric reflux High cholesterol History of rheumatic fever History of stress test HTN (hypertension) Hx-TIA (transient ischemic attack) Hyperlipemia Hyperlipidemia Hypoxia Inguinal hernia of right side without obstruction or gangrene Microscopic colitis Non-smoker ANTIONE (obstructive sleep apnea) Right lower quadrant abdominal pain Sleep apnea Surgical History H/O hand surgery History of appendectomy History of cardiac catheterization History of esophagogastroduodenoscopy (EGD) History of laparoscopic appendectomy History of tonsillectomy Family History Mother HypertensionFather , at age 61 secondary to brain tumor Cancer Social History household members: none Smoking Status: Never smoker alcohol intake: never substance use type: does not use HPI HPI HPI: 78-year-old gentleman is rather urgently being referred by Dr. Rohini Gonzales for surgical consultation regarding esophageal dysphagia. A written copy my surgical consult and recommendations will return to him. The patient is complaining of food getting stuck seemingly in the mid esophagus with some food passing and some food requiring regurgitation. By report this is a new process. It is of note that December 10, [address] Clayton Friend the patient had an upper endoscopy. A nonobstructing Schatzki ring was found in the lower third of the esophagus. Patchy white plaques was found in the lower third of the esophagus and mucosal changes including ringed esophagus small caliber esophagus. Findings were felt to be's consistent with eosinophilic esophagitis and Nara esophagitis. If his note that prior to that on November 27, 2021 I had performed an upper endoscopy for the patient. Duodenal biopsies were nonspecific inflammation. Chronic gastritis. Distal esophageal biopsies consistent with reflux esophagitis and eosinophilic esophagitis with no Garrett's. Mid esophageal biopsies were not remarkable. Random colonic biopsies done at that time showed lymphocytic colitis. The patient had initially seen me because of intractable diarrhea. Then he had trouble voiding and had to have a Azul catheter inserted Dr Brooks and had a perform a TURP. The patient's diarrhea became so severe he had to be hospitalized and was put on an octreotide drip. Because of anemia he had a capsule endoscopy March 09, [address] Clayton Friend. There is felt to be a possible stricture in the duodenum. Simple small tongue contagious with mild enteritis. April 21, [address] abdomen pelvis at the correct request of Bess PICHARDOC and Dr. Clayton Friend. Prominent distention the stomach with air-fluid level no evidence of colitis. No evidence of fistula. There is felt to be a transition point in the duodenum. Possibly related to gastroparesis or stricture. A gastric emptying study was obtained on May 13, 2022. There was not felt to be any delayed gastric emptying. A contrast upper GI study was obtained on May 19, 2022. There was not felt to be any remarkable findings regarding the esophagus. The stomach and duodenum were felt to be unremarkable. More recently December 19, 2022 the patient had trauma and fell and had a CT scan of the abdomen pelvis done through the [facility] emergency room. Send fracture left 10th rib. No acute abdomen pelvic findings. February 09, 2023 the patient had a chest CT abdomen pelvis CT without contrast because of trauma. 4.5 cm caliber ascending aorta. Multiple healing left rib fractures. Abdomen was felt to be unremarkable. There is a left L3 and L4 transverse process fracture. More recently patient's had TIAs. On December 19, 2023 through the emergency room he had a CTA of the head and neck. 4.4 cm ascending aortic ectasia. Microvascular ischemic changes of the brain. Less than 50% carotid stenosis. Mild atherosclerosis of the cavernous and supra cavernous internal carotid arteries. No large vessel occlusion. Brain MRI was performed on December 20, 2023 showing involutional changes of the brain. The patient was consulted on by neurology on December 20, 2023 because of episode of facial droop left arm numbness and hand weakness resolving after 20 to 30 minutes. It was recommended the patient be treated with aspirin and Plavix for 21 days and then converted to single antiplatelet drug. I have most recently seen this patient December 02, 2023 that was in consultation for a right greater than left inguinal hernia. It was offered to him a laparoscopic bilateral inguinal hernia repair. There is felt to be bladder involvement in the right inguinal hernia. It is of note that among his recent medications included aspirin and clopidogrel and iron sulfate and omeprazole 20 mg daily and tamsulosin. The patient presents today stating that for years he has had intermittent problems with food esophageal obstructions. That would be when he would run out of his medication. More recently though he states that he has been maintained on his omeprazole and has had 2 serious episodes of food obstruction 1 was with cauliflower and 1 was with apple he has to try to vomit it back. He feels like it is mid chest. He goes on to describe his TIA episode that lasted 15 minutes. That is ongoing evaluation waiting for Holter monitor I did question him about his previous diagnosis of eosinophilic esophagitis and his previous care with Dr. Clayton Friend. The patient is very nondescript regarding ongoing chronic recommendations. He talks about medications that he was on but now his prescriptions ran out. Rather vague on details. ROS General General: No weight change, appetite, fatigue, colon cancer, breast cancer or weakness HEENT HEENT: Yes difficulty swallowing; No eye injury, eye surgery, swollen glands or hoarseness Endo Endocrine: No thyroid disease, diabetes mellitus, thyroid cancer, Hair loss, heat intolerance or cold intolerance Skin Skin: No rash or changing moles Breast Breast: No left breast lump, right breast lump, nipple discharge, breast pain, abnormal mammogram, abnormal US or breast enlargement Musc Musculoskeletal: No back problems, arthritis, rheumatoid arthritis, gout or joint pain Cardio Cardiovascular: Yes high blood pressure; No murmur, pacemaker, heart disease, atrial fibrillation, heart attack, heart stent, palpitations, shortness of breat with exertion or chest pain Psych Psychiatric: No depression, anxiety or hearing voices Resp Respiratory: No shortness of breath, No sleep apnea, No cough, No COPD, No asthma, No emphysema and No wheezing Gastro Gastrointestinal: No abdominal pain, No nausea or vomiting, No diarrhea, No constipation, No blood in stool, Yes acid reflux, No hemorrhoids, No ulcers, No gallbladder problem and No black,tarry stools Fabien Hematologic: No blood thinners, No blood disorders, No bleeding, No anemia and No blood clots Neuro Neurologic: No system reviewed and no additional complaints, except as documented, No as per HPI, No abnormal gait, No abnormal hearing, No abnormal movements, No abnormal speech, No behavioral changes, No burning sensations, No confusion, No convulsions, No disequilibrium, No dizziness, No localized weakness, No frequent falls, No headache(s), No lack of coordination, No loss of vision, No memory loss, No numbness, No other visual disturbances, No radicular pain, No restless legs, No sensory deficit, No syncope, No tingling, No tremor(s), No weakness and No other Exam Const General: cooperative, comfortable and no acute distress Nutritional Appearance: average body habitus Orientation: alert, awake and oriented x3 HENMT Head: normal to inspection Eyes General: appearance normal, both eyes and all related structures Neck Neck: normal visual inspection Chest Chest palpation & inspection: normal inspection of the chest Resp Effort & Inspection: normal respiratory effort Auscultation: clear to auscultation bilaterally Cardio Rate: regular rate Rhythm: regular rhythm GI Other: Soft, nontender, no hepatosplenomegaly Musc Cervical Spine: normal cervical lordosis Skin General: no rashes or lesions noted Neuro General: patient alert, patient awake and patient oriented x3 Extrem General: no calf tenderness Psych Appearance: grossly normal Assessment and Plan Assessment and Plan (1) Dysphagia: Status: Acute Qualifiers: Dysphagia type: esophageal phase Qualified Code(s): R13.19 - Other dysphagia (2) TIA (transient ischemic attack): Status: Acute (3) Bilateral inguinal hernia without obstruction or gangrene: Status: Acute Qualifiers: Recurrence: non-recurrent Qualified Code(s): K40.20 - Bilateral inguinal hernia, without obstruction or gangrene, not specified as recurrent (4) GERD (gastroesophageal reflux disease): Status: Chronic Qualifiers: Esophagitis presence: with esophagitis Esophagitis bleeding: without hemorrhage Qualified Code(s): K21.00 - Gastro-esophageal reflux disease with esophagitis, without bleeding Plan: I discussed with the patient his suspected esophageal intermittent obstructions. He has had a history of eosinophilic esophagitis as well as a Schatzki ring and chronic reflux disease. There was previous great concern that he had duodenal stenosis and outlet obstruction. I propose for him an esophagogastroduodenoscopy. I instructed him that if he has a Schatzki rings stricturing that I would feel comfortable dilating that. If he has more diffuse eosinophilic esophagitis then I would likely be less comfortable and dilating that. He is aware that because of his recent TIA that he is at increased risk for recurrent TIA or stroke. He is to remain on his aspirin therapy. He has already completed his clopidogrel. Regarding his bilateral inguinal hernias I instructed him that at this point Dr. Conroy would prefer that we not schedule her pursue intervention in light of his recent TIA. The patient's had an opportunity to ask and have questions answered. He is aware that this procedure comes with increased risk over typical EGD. He very much however feels that because of the severity of the episodes that he would like to proceed with investigation. We will try to schedule and expedite his care. If findings dictated he is aware I may need to refer him back to Dr. Almanzar. Copy: Dr. Rohini Elliott M.D., F.A.C.S. I have examined the patient and the H&P has been reviewed. There are no clinical changes since date of exam. Jorge Elliott M.D., F.A.C.S.
--- NOTE | 2024-02-13 09:00 | EGD_PTH ---
PATIENT: NICK EASTON LOC: [facility] U#:[id number] AGE/SX: 78/M ROOM: RE02/13/[address]: Dr. Jorge Elliott MD : 1945 BED: DIS: 02/13/2024 SPEC #: [id number] RECD: 02/13/24 13:07 STATUS: OTIS RUI #: [id number] REBECCA: 02/13/24 09:[address]: oJrge Elliott DEPT: SURGICAL PATHOLOGY RECD BY: Patricia Aguero ENTERED: 02/13/24 14:07 SP TYPE: EGD BIOPSY OT DR: Dr. Rohini Gonzales MD Tissues: A - Duodenum, NOS B - Gastric mucous membrane C - Esophagus, NOS D - Esophagus, NOS E - Esophagus, NOS Procedures: Special Stain Group II Surgery Specimen Level IV Alcian Blue/PAS (control) HEADER OPERATION: EGD with biopsy PRE-OP DIAGNOSIS: Dysphagia TISSUE SUBMITTED: A- Duodenum biopsy, B- Antrum biopsy, C- Distal esophagus biopsy, D- Mid esophagus biopsy, E- Proximal esophagus biopsy MICROSCOPIC DIAGNOSIS A. Duodenum, biopsy: Fragments of duodenal mucosa, no pathologic diagnosis. B. Antrum, biopsy: Mild gastritis. See microscopic description and comment. C. Distal esophagus, biopsy: Fragments of squamous epithelium with mild chronic inflammation. A minute fragment of benign gastric epithelium. Intestinal metaplasia (goblet cell metaplasia) not identified. Fragments of food particle. See comment. D. Mid esophagus, biopsy: Fragments of benign squamous epithelium. See comment. E. Proximal esophagus, biopsy: Fragments of benign squamous epithelium. See comment. SOTO/ 02/14/24 COMMENT B. The results of immunohistochemistry for Helicobacter pylori will be reported separately ([id number]). C. Alcian blue/PAS stain with matched control is used in the evaluation of the specimen. Special stain for fungi is positive for organisms (yeast and pseudohyphae) consistent with Nara species; matched control is appropriate. D & E. Increased number of eosinophils consistent eosinophilic esophagitis are not seen. MICROSCOPIC DESCRIPTION Slides are reviewed. B. The specimen shows fragments of gastric mucosa with chronic inflammatory cell infiltrates in the lamina propria consisting of lymphocytes and plasma cells, consistent with mild chronic gastritis. GROSS DESCRIPTION A. Received in fixative is one container labeled with the patient's name and designated Duodenum biopsy. The specimen consists of one irregular fragment of light arrington soft tissue that measures 0.5 x 0.5 x 0.2 cm. The specimen is totally submitted in one cassette. B. Received in fixative is one container labeled with the patient's name and designated Antrum biopsy. The specimen consists of one irregular fragment of light arrington soft tissue that measures 0.5 x 0.5 x 0.2 cm. The specimen is totally submitted in one cassette. C. Received in fixative is one container labeled with the patient's name and designated Distal esophagus biopsy. The specimen consists of multiple irregular fragments of light arrington soft tissue that in aggregate measure 1.0 x 0.5 x 0.2 cm. The specimen is totally submitted in one cassette. D. Received in fixative is one container labeled with the patient's name and designated Mid esophagus biopsy. The specimen consists of multiple irregular fragments of light arrington soft tissue that in aggregate measure 1.5 x 0.2 x 0.2 cm. The specimen is totally submitted in one cassette. E. Received in fixative is one container labeled with the patient's name and designated Proximal esophagus biopsy. The specimen consists of multiple irregular fragments of light arrington soft tissue that in aggregate measure 1.0 x 0.2 x 0.2 cm. The specimen is totally submitted in one cassette. Ian 02/13/24 TC:3 [facility]:[id number]
--- NOTE | 2024-02-13 09:00 | IMM_PTH ---
PATIENT: NICK EASTON LOC: [facility] U#:[id number] AGE/SX: 78/M ROOM: RE02/13/[address]: Dr. Jorge Elliott MD : 1945 BED: DIS: 02/13/2024 SPEC #: [id number] RECD: 02/14/24 08:29 STATUS: OTIS REDelroy #: [id number] REBECCA: 02/13/24 09:[address]: Jorge Elliott DEPT: IMMUNOHISTOCHEMISTRY RECD BY: Adrián Corbin ENTERED: 02/14/24 08:29 SP TYPE: IMMUNO OTHR DR: Dr. Rohini Gonzales MD Tissues: B - Stomach, NOS Procedures: H Pylori (initial) PHYSICIAN & INSTITUTION [place] [id number] SPECIMEN INFORMATION: Tissue Source: B- Antrum biopsy Clinical Info: Dysphagia Specimen Number: [id number] CPT code: 66548 METHODOLOGY: Deparaffinized sections of prefer/formalin-fixed tissue or PAP/DQ stained slides are incubated with monoclonal/polyclonal antibodies/oligonucleotide probes. Localization is made via biotin free immunoperoxidase method. Appropriate controls are performed and reacted as expected. Results on target cell population are indicated in the following table: RESULTS: ANTIBODY / CLONE RESULT Block B H Pylori (polyclonal) negative These tests were developed and their performance characteristics determined by [facility]. They may not have been cleared or approved by the U.S. Food and Drug Administration. The FDA has determined that such clearance or approval is not necessary. The above immunohistochemical/dualISH markers are ordered and reviewed by the Pathologist. INTERPRETATION: B. Antrum, biopsy: Negative for Helicobacter pylori organisms. SOTO/ 02/14/24
--- NOTE | 2024-02-13 09:46 | OP.CCLET_ITS ---
02/13/2024 Rohini Gonzales [facility] [address] [place] [address] Re : Upper GI endoscopy procedure for Juan Diego Alvares Dear Dr. Gonzales This procedure was performed on Tuesday, February 13, 2024. My impressions and recommendations are as follows: Impressions : - Esophageal mucosal changes suggestive of eosinophilic esophagitis. Biopsied. - Normal gastroesophageal junction. Biopsied. - Normal stomach. Biopsied. - Erythematous duodenopathy. Biopsied. Will await pathology. Possible candidiasis. Possible eosinophilic esophagitis. The patient might be a candidate for esophageal manometry. Path pending. Recommendations : - Discharge patient to home. - Resume previous diet. - Continue present medications. - Telephone my office for pathology results in 1 week. My findings are described in the full procedure note, which is enclosed. If I can be of further assistance, please feel free to contact me at Doctor phone number(s): Work: . Sincerely, Jorge Elliott MD 02/13/2024 9:46:17 AM This report has been signed electronically.
--- NOTE | 2024-02-13 09:46 | OP.EGD_ITS ---
Patient Name: Juan Diego Alvares Procedure Date: 02/13/2024 8:35 AM Date of : 1945 Age: 78 Procedure: Upper GI endoscopy Indications: Dysphagia Providers: Jorge Elliott MD Referring MD: Rohini Gonzales Medicines: See the Anesthesia note for documentation of the administered medications Complications: No immediate complications. Procedure: Pre-Anesthesia Assessment: - Prior to the procedure, a History and Physical was performed, and patient medications and allergies were reviewed. The patient's tolerance of previous anesthesia was also reviewed. The risks and benefits of the procedure and the sedation options and risks were discussed with the patient. All questions were answered, and informed consent was obtained. Prior Anticoagulants: The patient has taken no anticoagulant or antiplatelet agents. ASA Grade Assessment: III - A patient with severe systemic disease. After reviewing the risks and benefits, the patient was deemed in satisfactory condition to undergo the procedure. After obtaining informed consent, the endoscope was passed under direct vision. Throughout the procedure, the patient's blood pressure, pulse, and oxygen saturations were monitored continuously. The Endoscope was introduced through the mouth, and advanced to the second part of duodenum. The upper GI endoscopy was accomplished without difficulty. The patient tolerated the procedure well. Scope In: 9:27:24 AM Scope Out: 9:36:40 AM Total Procedure Duration Time 0 hours 9 minutes 16 seconds Findings: Mucosal changes including ringed esophagus and white plaques were found in the entire esophagus. Biopsies were taken with a cold forceps for histology. Biopsies were obtained of the proximal and mid and distal esophagus. Slight ring formation identified. The esophagus was widely patent with no focal areas of stricture or stenosis. Small hiatal hernia identified. The gastroesophageal junction was normal. Biopsies were taken with a cold forceps for histology. The pylorus was carefully inspected. No suggestion of pyloric stenosis. The entire examined stomach was normal. Biopsies were taken with a cold forceps for histology. Diffuse mildly erythematous mucosa without active bleeding and with no stigmata of bleeding was found in the duodenal bulb. Biopsies were taken with a cold forceps for histology. No evidence suggest duodenal stenosis. Impression: - Esophageal mucosal changes suggestive of eosinophilic esophagitis. Biopsied. - Normal gastroesophageal junction. Biopsied. - Normal stomach. Biopsied. - Erythematous duodenopathy. Biopsied. Will await pathology. Possible candidiasis. Possible eosinophilic esophagitis. The patient might be a candidate for esophageal manometry. Path pending. Recommendation: - Discharge patient to home. - Resume previous diet. - Continue present medications. - Telephone my office for pathology results in 1 week. Procedure Code(s): --- Professional --- 89172, Esophagogastroduodenoscopy, flexible, transoral; with biopsy, single or multiple Diagnosis Code(s): --- Professional --- K22.89, Other specified disease of esophagus K31.89, Other diseases of stomach and duodenum R13.10, Dysphagia, unspecified CPT copyright 2021 [employer]. All rights reserved. The codes documented in this report are preliminary and upon child welfare social worker review may be revised to meet current compliance requirements. Jorge Elliott MD 02/13/2024 9:46:17 AM This report has been signed electronically. Number of Addenda: 0 Note Initiated On: 02/13/2024 8:35 AM
== END 2024-02-13 10:52 | disposition home or self-care (01) ==
LOC: EN 07:48 → AC 07:49
PROVIDERS: PCP Internal Medicine; Referring Provider Internal Medicine; Visit Provider Surgery
PROC: 0DJ08ZZ Inspection of Upper Intestinal Tract, Via Natural or Artificial Opening Endoscopic (ICD-10-PCS; CPT 43235; principal; 2024-02-13 08:55)
DX: K21.00 Gastro-esophageal reflux disease with esophagitis, without bleeding (principal); N18.30 Chronic kidney disease, stage 3 unspecified; E78.00 Pure hypercholesterolemia, unspecified; I12.9 Hypertensive chronic kidney disease with stage 1 through stage 4 chronic kidney disease, or unspecified chronic kidney disease; K40.20 Bilateral inguinal hernia, without obstruction or gangrene, not specified as recurrent; Z79.82 Long term (current) use of aspirin; Z79.899 Other long term (current) drug therapy; K44.9 Diaphragmatic hernia without obstruction or gangrene; K31.1 Adult hypertrophic pyloric stenosis; K31.5 Obstruction of duodenum; K29.70 Gastritis, unspecified, without bleeding
CPT/HCPCS: 43239; 88305; 88313; 88342; J7120; J2405

== ENCOUNTER → 2024-04-25 | Outpatient (CLI) | payer MEDICARE, SELFPAY ==
[2024-04-25 18:04] LABS: Hematocrit 34.9 % (40-54); Hemoglobin 11.5 g/dL (13.0-16.5); Mean Corpuscular Volume 94.1 fL (80-94); Mean Platelet Vol. 10.1 fl (6.2-12.0); Platelet Count 191 K/mm3 (150-450); RBC Distribution Width CV 12.9 % (11.6-14.6); RBC Distribution Width SD 44.4 fl (35.1-43.9); Red Blood Count 3.71 M/mm3 (4.6-6.2); White Blood Count 7.5 K/mm3 (4.4-11.0)
[2024-04-25 19:01] LABS: Vitamin D,25 Hydroxy 42.8 ng/mL
[2024-04-25 19:07] LABS: Albumin, Serum 4.1 g/dL (3.2-5.0); BUN 32 mg/dL (7-18); Calcium,Total 9.1 mg/dL (8.5-10.1); Chloride 106 mmol/L (98-107); Cholesterol 224 mg/dL (200); Creatinine, Serum 2.28 mg/dL (0.70-1.30); EST Glomerular Filtration Rate 29 mL/min (>60); Est Glom Filt Rate - Afr Amer 36 mL/min (>60); Glucose 97 mg/dL (74-106); High Density Lipoprotein 41 mg/dL; PSA,Total - Annual Screen 4.63 ng/mL (0.00-4.00); Phosphorus 3.9 mg/dL (2.5-4.9); Potassium 3.9 mmol/L (3.5-5.1); Sodium Level 140 mmol/L (136-145); Thyroid Stim Hormone (TSH) 4.58 uIU/mL (0.358-3.74); Triglycerides 201 mg/dL; Very Low Density Lipoprotein 40 mg/dL (5-40)
[2024-04-26 09:08] LABS: Free T3 2.4 pg/mL (2.18-3.98); T4 Free Direct 0.86 ng/dL (0.76-1.46)
== END | disposition home or self-care (01) ==
PROVIDERS: PCP Internal Medicine; Referring Provider Internal Medicine Nephrology; Visit Provider Internal Medicine Nephrology
DX: I12.9 Hypertensive chronic kidney disease with stage 1 through stage 4 chronic kidney disease, or unspecified chronic kidney disease (principal); N18.32 Chronic kidney disease, stage 3b; D64.9 Anemia, unspecified; Z12.5 Encounter for screening for malignant neoplasm of prostate; Z13.220 Encounter for screening for lipoid disorders; E55.9 Vitamin D deficiency, unspecified; R79.89 Other specified abnormal findings of blood chemistry
CPT/HCPCS: 36415; 80061; 80069; 82306; 84153; 84439; 84443; 84481; 85027; G0103

== ENCOUNTER → 2024-06-14 | Outpatient (CLI) | payer MEDICARE, SELFPAY ==
--- NOTE | 2024-06-14 10:24 | STRESSREP ---
Stress Test Report Exercise myocardial perfusion stress test. 79-year-old man for preoperative cardiovascular surgery for hernia surgery Stress protocol: Resting EKG demonstrates sinus bradycardia with a rate of 53 bpm resting blood pressure is 160/68 mmHg. The patient exercised according to the regular Jerzy protocol for a total duration of 5 minutes and 46 seconds attaining a maximum heart rate of 146 bpm which was 105% of maximum predicted heart rate; the maximum workload was 7 metabolic equivalents. At rest there were no ST or T wave changes noted to suggest ischemia and at peak exercise up to [address] depression was noted in the lateral leads suggestive of ischemia. No clinical angina was noted the test was terminated due to the target heart rate being achieved/fatigue. The peak blood pressure was 210/82 mmHg. this was a hypertensive response to exercise rate-pressure product was 29,000. Myocardial perfusion protocol. 11.3 mCi of technetium 99m sestamibi was injected at rest. The patient exercised according to regular Jerzy protocol for total duration of 5 minutes and 46 seconds and at peak exercise 33.7 mCi of technetium 99m sestamibi was injected stress images were obtained stress and rest images were reconstructed in comparing the short axis vertical long and horizontal long axis. Gated images were also obtained. Perfusion SPECT analysis: Review of the stress images demonstrate normal uptake of tracer noted in all areas of the myocardium. The resting images similarly demonstrate normal uptake of tracer noted in all areas of the myocardium. No areas of reversibility are noted to suggest ischemia no previous infarct was noted. Gated SPECT analysis: The gated ejection fraction is 70%. Conclusion: Abnormal exercise myocardial perfusion stress test at a moderate workload. No perfusion defect is seen but significant EKG changes are noted with a hypertensive response to exercise Preserved ejection fraction.
== END | disposition home or self-care (01) ==
PROVIDERS: PCP Internal Medicine; Referring Provider Internal Medicine Cardiovascular Disease; Visit Provider Internal Medicine Cardiovascular Disease
DX: Z01.810 Encounter for preprocedural cardiovascular examination (principal); I25.10 Atherosclerotic heart disease of native coronary artery without angina pectoris
CPT/HCPCS: 78452; 93017; A9500; A4216

== ENCOUNTER → 2024-06-20 | Outpatient (CLI) | payer MEDICARE, SELFPAY ==
[2024-06-20 13:40] LABS: Absolute Lymphocyte Count 2.37 X10^3/uL (0.83-4.51); Absolute Neutrophil Count 4.4 X10^3/uL (2.0-7.7); Basophil# 0.05 X10^3/uL; Basophil% 0.7 % (0-1); Eosinophil# 0.13 X10^3/uL; Eosinophils% 1.7 % (0-5); Hematocrit 34.8 % (40-54); Hemoglobin 11.3 g/dL (13.0-16.5); Lymphocyte # 2.37 X10^3/ul (0.83-4.51); Lymphocyte % 31.1 % (19-41); Mean Corp Hgb Conc 32.5 g/dL (32-36); Mean Corpuscular Hgb 30.6 pg (27.0-32.0); Mean Corpuscular Volume 94.3 fL (80-94); Mean Platelet Vol. 10.5 fl (6.2-12.0); Monocyte# 0.68 X10^3/uL; Monocyte% 8.9 % (0-10); NRBC Flagged by Analyzer 0 % (0-5); Neutrophil # 4.37 X10^3/uL (2.7-7.7); Neutrophil % 57.2 % (47-70); Platelet Count 176 K/mm3 (150-450); RBC Distribution Width CV 12.8 % (11.6-14.6); RBC Distribution Width SD 43.6 fl (35.1-43.9); Red Blood Count 3.69 M/mm3 (4.6-6.2); White Blood Count 7.6 K/mm3 (4.4-11.0)
[2024-06-20 14:30] LABS: Anion Gap 6 (5-15); BUN 29 mg/dL (7-18); BUN/Creat Ratio 12.1 RATIO (10-20); Chloride 108 mmol/L (98-107); EST Glomerular Filtration Rate 28 mL/min (>60); Est Glom Filt Rate - Afr Amer 34 mL/min (>60); Free T3 2.2 pg/mL (2.18-3.98); Glucose 110 mg/dL (74-106); Potassium 4.6 mmol/L (3.5-5.1); Sodium Level 138 mmol/L (136-145); T4 Free Direct 0.78 ng/dL (0.76-1.46)
== END | disposition home or self-care (01) ==
PROVIDERS: Nurse Practitioner Family; PCP Internal Medicine; Referring Provider Internal Medicine; Visit Provider Internal Medicine
DX: Z01.810 Encounter for preprocedural cardiovascular examination (principal); N18.30 Chronic kidney disease, stage 3 unspecified; I12.9 Hypertensive chronic kidney disease with stage 1 through stage 4 chronic kidney disease, or unspecified chronic kidney disease; N13.8 Other obstructive and reflux uropathy; N40.1 Benign prostatic hyperplasia with lower urinary tract symptoms; R79.89 Other specified abnormal findings of blood chemistry; R94.39 Abnormal result of other cardiovascular function study
CPT/HCPCS: 36415; 80048; 84439; 84443; 84481; 85025

== ENCOUNTER 2024-07-09 06:59 | Day surgery (SDC) | payer MEDICARE, SELFPAY ==
--- NOTE | 2024-07-04 15:46 | HP.PCM_ITS ---
History and Physical Date of Admission: 07/09/24 79-year-old man with a previous cardiac history suggestive of a transient ischemic attack in December of this year. She had presented to the hospital with left-sided mouth numbness and transient numbness and weakness of the left arm. He underwent a CT of the head and neck which demonstrated plaque disease of less than 50% bilaterally and an echocardiogram which demonstrated an ejection fraction of 65% with mild to moderate mitral regurgitation and trivial aortic regurgitation. Neurology was consulted and recommended aspirin indefinitely, Plavix for 3 weeks and rosuvastatin daily. The patient was then discharged on a 30-day event monitor. A 14-day event monitor was eventually performed and demonstrated predominantly sinus rhythm with occasional premature atrial and ventricular complexes noted. He also tells me that he was scheduled for hernia surgery prior to all of this and that has been postponed indefinitely pending further cardiac evaluation. He denies any chest pain or shortness of breath or paroxysmal nocturnal dyspnea or pedal edema. His physical exam is unremarkable. He proceeded with stress test on 06/14/2024 that was abnormal. He underwent a stress test on 06/14/2024 that showed significant EKG changes and hypertensive response to exercise at a moderate workload. Ejection fraction was noted be preserved. On account of ECG changes, he will proceed with heart catheterization. 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 Required: No Is patient in pain?: No Allergies No Known Allergies Allergy (Verified 05/16/24 14:16) Medications: See EMR Have you fallen in the past year?: No FOR[facility]LY [facility], [facility] Medical History Preop cardiovascular exam Elevated TSH Dysphagia TIA (transient ischemic attack) Essential hypertension Hx-TIA (transient ischemic attack) Osteoarthritis Bilateral inguinal hernia without obstruction or gangrene Vitamin D deficiency GERD (gastroesophageal reflux disease) CKD (chronic kidney disease) stage 3, GFR 30-59 ml/min Microscopic colitis Anemia BPH with obstruction/lower urinary tract symptoms Eosinophilic esophagitis Cancer Excessive bleeding Gastric reflux CPAP (continuous positive airway pressure) dependence History of rheumatic fever Broken back Inguinal hernia of right side without obstruction or gangrene Diastasis, muscle ADHD ANTIONE (obstructive sleep apnea) HTN (hypertension) Hypoxia Hyperlipidemia Surgical History History of transurethral resection of prostate H/O hand surgery History of esophagogastroduodenoscopy (EGD) History of appendectomy History of cardiac catheterization History of tonsillectomy History of laparoscopic appendectomy Family History Mother HypertensionFather , at age 61 secondary to brain tumor Cancer Social History household members: none Smoking Status: Never smoker alcohol intake: never substance use type: does not use ROS Const Const: Positive for fatigue; Negative for weakness, headache(s), daytime sleepiness or difficulty sleeping ENT ENT: Negative for headache(s), dizziness or Nosebleed/epistaxis Cardio Chest Pain: No Palpitations: No Edema: Bilateral (BLE trace at times) Resp Respiratory: Negative for SOB with activity, SOB at rest, SOB orthopnea\SOB lying down or Cough GI GI: Negative nausea, vomiting or heartburn Neuro Neuro: Negative for dizziness, lightheadedness, near syncope, headache(s) or weakness Endo Endo: Positive for fatigue Cardiology Exam Const Appearance: cooperative, healthy appearing, no acute distress, well developed and well groomed Nutritional Appearance: average body habitus and well nourished Orientation: alert, awake and oriented x3 Head Head: normal to inspection, normocephalic and atraumatic Ears: hearing grossly normal bilaterally and external ears normal Nose: external nose normal, nares normal, nasal mucous membranes and turbinates normal, septum normal and no nasal discharge Face and Sinus: face symmetric Mouth: oral mucosae normal, tongue normal, oropharynx normal and moist mucous membranes Teeth and gingiva: dentition normal Throat: posterior oropharynx normal, tonsils normal and uvula midline Eyes General: appearance normal, both eyes and all related structures Eyelids: eyelids normal Conjunctivae: conjunctivae normal Pupils: PERRL, normal by confrontation and accommodation normal EOM: EOM intact bilaterally Neck Neck: normal visual inspection, trachea midline and no JVD JVD: +5 Carotids: normal carotid upstroke and bounding pulses Chest Chest inspection: normal inspection of the chest, symmetric chest movement and normal respiratory effort Auscultation: Bilateral: Clear to Auscultation Cardio Palpation: normal PMI Rate: regular rate Rhythm: regular rhythm Heart sounds: S1 normal, S2 normal and normal, physiologic split S2; Negative rub, gallop or murmur GI GI: normal to inspection, soft, no hepatosplenomegaly and bowel sounds present Neuro General: patient alert, patient awake, patient oriented x3, gait normal, moves all extremities and no focal sensory deficit Skin Skin: no rashes or lesions noted Extremities Pulses: Normal: Right Femoral Pulse, Left Femoral Pulse, Right Dorsalis Pedis Pulse, Left Dorsalis Pedis Pulse, Right Posterior Tibial Pulse, Left Posterior Tibial Pulse, Right Radial Pulse and Left Radial Pulse Lower Extremity Edema: None: Bilateral Musculoskel Musculoskeletal: No joint tenderness Psych Psychological: normal affect Supplemental Info Supplemental Information Echocardiogram 12/19/23 Interpretation Summary The estimated ejection fraction is 65 %. No evidence for diastolic dysfunction. Mild-Moderate (1-2+) mitral valve insufficiency. Trivial aortic valve insufficiency. 14 Day Holter Report 12/30/23 Findings Predominant rhythm was sinus. The max HR was 158 bpm, min HR was 46 bpm, avg HR was 63 bpm. There was 1 VE beat with a burden of <1%. There were 796 SVE beats with a burden of <1%. There were 22 occurrences of supraventricular tachycardia with the fastest episode 158 bpm and the longest episode 14 sec There were [address] Chest, Abd, Pelvis 02/09/23 IMPRESSION: L3 and L4 left transverse process fractures. Multiple healing left rib fractures. 4.5 cm caliber ascending aortic aneurysm is not significantly changed compared to 08/10/2020. No acute abnormal finding in the chest or pelvis. CTA Head and Neck 12/19/23 IMPRESSION: 1. 4.4 cm ascending aortic ectasia. 2. Chronic microvascular ischemic changes. Noncontrast CT is otherwise negative for acute infarct or hemorrhage. 3. Mild atherosclerosis of the carotid arteries in the neck with less than 50% stenosis of the internal carotid arteries in the neck. 4. Mild arteriosclerosis of the cavernous and supracavernous internal carotid arteries and the V4 segments of the bilateral vertebral arteries without significant stenosis. 5. No large vessel occlusion or critical arterial stenosis in the head or neck. Stress test from 06/14/2024: Conclusion: Abnormal exercise myocardial perfusion stress test at a moderate workload. No perfusion defect is seen but significant EKG changes are noted with a hypertensive response to exercise Preserved ejection fraction. Assessment and Plan Assessment and Plan (1) Preop cardiovascular exam: Status: Acute Plan: He does have evidence of atherosclerotic cardiovascular disease as evidenced by his transient ischemic attack. On account of such, he underwent a stress test that was abnormal. Due to abnormal stress test, he will proceed with heart catheterization. Depending on results, further recommendation be made.
[2024-07-09 07:27] VITALS: BMI 25.2
--- NOTE | 2024-07-09 09:30 | CL.D_ITS ---
Patient Name: NICK EASTON Study Date: 07/09/2024 Performing: Jordin Contreras MD Ht: 64 inches 162.56 cm : 1945 Wt: 147 lbs 66.68 kg Age: 79 Gender: male BSA: 1.72 PROCEDURE(S) PERFORMED DC02-(24026)[facility] CLINICAL PROFILE AND INDICATIONS Indications: Suspected CAD Heart Failure: None Stress/Imaging Date: 06/14/24 CAD Presentations: Symptom unlikely to be ischemic. CONCLUSIONS Mild CAD with no high-grade stenosis. Preserved ejection fraction by echocardiogram. RECOMMENDATIONS Aggressive treatment of blood pressure. DESCRIPTION OF PROCEDURE The patient arrived to the procedure lab. The risks and benefits of the procedure as well as a full description of our services here and current unavailability of surgical backup were fully explained to the patient and/or their significant other prior to the catheterization. The Timeout was completed, verifying the correct patient and procedure. The patient's procedural site was prepped and draped in the usual fashion. Local anesthetic was given subcutaneously to right radial region with Lidocaine 2%. Using a modified Seldinger technique, arterial access was obtained via the right radial artery, a 6Fr sheath was inserted. Left Coronary Artery selective angiography was performed in multiple views using a 5 Fr. 4.0 Snelling catheter. Right Coronary Artery selective angiography was then performed in multiple views using a 5 Fr. JR 5 catheter.The arterial sheath was pulled and a TR Band was applied for hemostasis-12 cc air CORONARY ANGIOGRAPHY DOMINANCE: Right Dominant LEFT HEART ASSESSMENT Left Ventricular Ejection Fraction: by Echo 65 % Normal LV wall motion Normal Left Ventricular systolic function LEFT MAIN: Angiographically normal LEFT ANTERIOR DESCENDING ARTERY: Mild luminal irregularities less than 30% CIRCUMFLEX ARTERY: Mild luminal irregularities less than 30% RIGHT CORONARY ARTERY: Mild luminal irregularities less than 30% COMPLICATIONS No Complications PROCEDURE MEDICATIONS Fentanyl 50 mcg IV Versed 1 mg IV Oxygen: 2 L/min via nasal cannula Heparin given IA 07/09/2024 08:46:53 Verapamil 2.5mg, Ntg 100mcgs, 3000 units of Heparin given IA 07/09/2024 08:46:53 IV Fluids: .9 NaCl IV started @ 100 ml/hr 07/09/2024 07:38:02 SUMMARY OF HEMODYNAMIC DATA Time AIR REST ECG 07:37:31 ECG 08:30:42 AO 140/60 (90) SA 09:14:41 09:38:02 Signed By Jordin Contreras MD On 07/09/2024 09:50:54 Jordin Contreras MD
== END 2024-07-09 11:25 | disposition home or self-care (01) ==
PROVIDERS: PCP Internal Medicine; Referring Provider Internal Medicine Cardiovascular Disease; Visit Provider Internal Medicine Cardiovascular Disease
DX: I25.10 Atherosclerotic heart disease of native coronary artery without angina pectoris (principal); N18.30 Chronic kidney disease, stage 3 unspecified; I12.9 Hypertensive chronic kidney disease with stage 1 through stage 4 chronic kidney disease, or unspecified chronic kidney disease; E78.5 Hyperlipidemia, unspecified; K21.9 Gastro-esophageal reflux disease without esophagitis; E55.9 Vitamin D deficiency, unspecified; N40.1 Benign prostatic hyperplasia with lower urinary tract symptoms; M19.90 Unspecified osteoarthritis, unspecified site; G47.33 Obstructive sleep apnea (adult) (pediatric); Z86.73 Personal history of transient ischemic attack (TIA), and cerebral infarction without residual deficits; Z79.899 Other long term (current) drug therapy
CPT/HCPCS: 93454; 99152; 99153; J7040; Q9967; C1769; C1894

== ENCOUNTER 2024-09-21 10:56 | Day surgery (SDC) | payer MEDICARE, SELFPAY ==
[2024-09-13 14:59] LABS: Hematocrit 34.5 % (40-54); Hemoglobin 11.5 g/dL (13.0-16.5); Mean Corp Hgb Conc 33.3 g/dL (32-36); Mean Corpuscular Hgb 31.2 pg (27.0-32.0); Mean Corpuscular Volume 93.5 fL (80-94); Mean Platelet Vol. 9.8 fl (6.2-12.0); Platelet Count 203 K/mm3 (150-450); RBC Distribution Width CV 13.2 % (11.6-14.6); RBC Distribution Width SD 45.1 fl (35.1-43.9); Red Blood Count 3.69 M/mm3 (4.6-6.2); White Blood Count 8.5 K/mm3 (4.4-11.0)
[2024-09-13 15:56] LABS: Anion Gap 7 (5-15); BUN 28 mg/dL (7-18); BUN/Creat Ratio 11.6 RATIO (10-20); Calcium,Total 9.4 mg/dL (8.5-10.1); Chloride 109 mmol/L (98-107); Creatinine, Serum 2.42 mg/dL (0.70-1.30); EST Glomerular Filtration Rate 28 mL/min (>60); Est Glom Filt Rate - Afr Amer 33 mL/min (>60); Glucose 107 mg/dL (74-106); Sodium Level 139 mmol/L (136-145)
[2024-09-21] VITALS (12 sets, daily range): BP systolic 126–149; BP diastolic 65–92; PULSE 51–74; RESP 16; TEMP 36.5–37.1; O2SAT 92–99; BMI 26.1
[2024-09-21] MEDS: 0.9% Normal Saline (1000mL) 1,000 ML 15 ML IV (11:29)
--- NOTE | 2024-09-21 11:52 | PRE.ANES_ITS ---
ASA Classification* ASA Classification ASA Classification: 3 Assessment & Plan Anesthesia* Anesthesia Assessment Anesthesia Assessment: Discussed sedation and/or anesthesia options, risks, benefits, and alternatives with patient/parents/legal guardian/POA. Questions invited. The patient/parents/legal guardian/POA seems to understand and agrees to proceed with anesthesia plan. Reviewed the physical assessment, medical history, allergy history and patient home medications list prior to surgery/procedure/anesthetic and documented any changes. Performed airway and anesthesia risk assessments. Anesthesia Type Anesthesia Type: General Anesthesia Focused Assessment* Temperature: 98.3 F Pulse Rate: 51 Blood Pressure: 142/70 Respiratory Rate: 16 Pulse Ox: 99 Airway Assessment Mouth opens: >3 cm Mallampati Score: II Focused Labs Anesthesia Preop lab: CBC WBC 8.5 K/mm3 (4.4-11.0) 09/13/24 14:46 RBC 3.69 M/mm3 (4.6-6.2) L 09/13/24 14:46 Hgb 11.5 g/dL (13.0-16.5) L 09/13/24 14:46 Hct 34.5 % (40-54) L 09/13/24 14:46 Plt Count 203 K/mm3 (150-450) 09/13/24 14:46 CHEMISTRY Potassium 4.0 mmol/L (3.5-5.1) 09/13/24 14:46 Sodium 139 mmol/L (136-145) 09/13/24 14:46 Magnesium 1.4 mg/dL (1.6-2.6) L 02/17/22 08:04 Phosphorus 3.9 mg/dL (2.5-4.9) 04/25/24 17:49 BUN 28 mg/dL (7-18) H 09/13/24 14:46 Creatinine 2.42 mg/dL (0.70-1.30) H 09/13/24 14:46 Glucose 107 mg/dL (74-106) H 09/13/24 14:46 POC Glucose 105 mg/dL (74-106) 12/19/22 14:26 TSH 3.470 uIU/mL (0.358-3.740) 06/20/24 13:09 COAG PT 14.1 SECONDS (11.7-14.9) 12/19/23 20:00 Pre-Assessment Diagnosis/Proposed Procedure Planned Operative Procedure(s): ROBOTIC BILAT INGUINAL HERNIA WITH MESH Anesthesia History Anesthesia History - taker off drying kiln: Anesthesia History - taker off drying kiln Hx Hospitalization No 09/13/24 14:11 Any Problems With Anesthesia Yes: SLOW TO AWAKEN 09/13/24 14:11 Cholinesterase deficiency No 09/13/24 14:11 You/Your Family Experience No 09/13/24 14:11 fever (hyperthermia) with Relationship Recent Exposure to Contagious No 09/21/24 11:19 Disease Does patient have nerve No 09/13/24 14:11 stimulator Patient instructed to have device shut off --Does patient have Pacemaker No 09/21/24 11:19 or ICD? When Was Last Pacemaker Check QUESTION #4 FULL TEXT: You/Your Family Experience fever (hyperthermia) with Anesthesia Last Oral Intake Last Oral intake: Last Oral Intake NPO since 22:00 09/21/24 11:19 Meds taken in AM with sips of water? Meds patient instructed to take am of surgery PONV PONV - taker off drying kiln: PONV - taker off drying kiln Female No 09/13/24 14:11 HX of Motion Sickness No 09/13/24 14:11 HX of N/V After Surgery No 09/13/24 14:11 Non-Smoker Yes 09/13/24 14:11 Duration of Surgery greater Yes 09/13/24 14:11 than 60 minutes Number of Risk Factors 2 09/13/24 14:11 PONV Score Moderate Risk 09/13/24 14:11 Height & Weight Height & Weight: Anesthesia: Height & Weight Height 5 ft 4 in 09/21/24 11:19 Weight: 69 kg 09/21/24 11:19 Body Mass Index (BMI) 26.1 09/21/24 11:19 Respiratory Assessment Respiratory Assessment - taker off drying kiln: Respiratory Tract Infection Hx - taker off drying kiln Hx Respiratory Tract Infection No 09/13/24 14:11 STOP Sleep Apnea STOP Sleep Apnea - taker off drying kiln: STOP Sleep Apnea - taker off drying kiln Hx Hypertension Yes: CONTROLLED ON MED 09/13/24 14:11 Hx Sleep Apnea Yes 09/13/24 14:11 CPAP Yes 09/13/24 14:11 BIPAP No 09/13/24 14:11 Do you snore loudly (louder than talking or can be heard Do you often feel tired/ fatigued/ sleepy during daytime? Has anyone observed you stop breathing during sleep? STOP Results Positive 09/13/24 14:11 QUESTION #5 FULL TEXT : Do you snore loudly (louder than talking or can be heard through closed doors)? Tobacco Use History Tobacco Use History - taker off drying kiln: Tobacco Use History - taker off drying kiln Tobacco Use Secondhand 02/07/24 08:50 Smoking Status Never smoker 09/13/24 14:11 Hx Tobacco Use No 09/13/24 14:11 Years Smoking Packs Smoked per Day Smoking Cessation Date was within the last 15 years Hx Smoking Cessation Date Hx Smoking Cessation Counseling Hematologic Medial History Hematologic Hx - taker off drying kiln: Hematologic Medical Hx - typewriter aligner Hx of Blood Transfusion No 09/13/24 14:11 Hx of Transfusion in last 3 No 09/13/24 14:11 Months Date of Last Transfusion (if within last 3 months) Ever experience any problems No 09/13/24 14:11 with transfusion(s)? Specify any problems Hx of Preganancy in last 3 N/A 09/13/24 14:11 Months Nurse Filling Out Transfusion DSCHRIBER 09/13/24 14:11 & Questions: Date: 09/13/24 09/13/24 14:11 Time: 14:13 09/13/24 14:11 Patient unable to answer at this time (ie. confused, unrespo /Reproduction History /Reproductive History - taker off drying kiln: /Reproductive Hx- taker off drying kiln Hx Now No 09/13/24 14:11 Gestational Age (in weeks): EDC: Hx Hx Para Hx Section SAB No 09/13/24 14:11 Active Medications Active Medications: Current Medications Generic Name Dose Route Start Last Admin Trade Name Freq PRN Reason Stop Dose Admin Cefazolin Sodium 2 gm/ N/A 20 mls @ 400 mls/hr 09/21/24 13:30 IV 09/21/24 13:32 PREOP ONE Sodium Chloride 1,000 mls @ 15 mls/hr 09/21/24 11:05 09/21/24 11:29 IV 09/27/24 00:24 15 mls/hr .Q48H JAISON Administration Protocol PFSH Medical History Arthritis History of renal disease Low iron Non-smoker Leg cramps History of stress test Cardiology follow-up encounter Elevated TSH Dysphagia Essential hypertension Hx-TIA (transient ischemic attack) Osteoarthritis Bilateral inguinal hernia without obstruction or gangrene Vitamin D deficiency CKD (chronic kidney disease) stage 3, GFR 30-59 ml/min Microscopic colitis Anemia BPH with obstruction/lower urinary tract symptoms Eosinophilic esophagitis Cancer Gastric reflux CPAP (continuous positive airway pressure) dependence History of rheumatic fever Broken back Inguinal hernia of right side without obstruction or gangrene Diastasis, muscle ADHD ANTIONE (obstructive sleep apnea) HTN (hypertension) Hypoxia Hyperlipidemia Home Medications ?Medication ?Instructions ?Recorded ?Last Taken ?Type aspirin 81 mg chewable tablet 81 mg PO BREAKFAST #30 tabs 12/20/23 09/16/24 Rx omeprazole 20 mg capsule,delayed 20 mg PO BID #180 caps 03/01/24 09/21/24 Rx release amlodipine 5 mg tablet 5 mg PO QDAY #90 tabs 07/09/24 09/21/24 Rx ferrous sulfate 325 mg (65 mg 325 mg PO DAILY supplement #90 tabs 08/10/24 Unknown Rx iron) tablet (Iron (ferrous sulfate)) potassium chloride 20 mEq 20 meq PO BID supplement #180 tabs 08/10/24 Unknown Rx tablet,extended release atenolol 25 mg tablet 25 mg PO DAILY #90 tabs 08/28/24 09/21/24 Rx pravastatin 20 mg tablet 20 mg PO QHS 09/13/24 Unknown History tamsulosin 0.4 mg capsule 0.4 mg PO QHS 09/13/24 Unknown History Allergy/AdvReac Type Severity Reaction Status Date / Time No Known Allergies Allergy Verified 09/21/24 11:18 Family History Mother Hypertension Father , at age 61 secondary to brain tumor Cancer Surgical History History of transurethral resection of prostate H/O hand surgery History of esophagogastroduodenoscopy (EGD) History of appendectomy History of cardiac catheterization History of tonsillectomy History of laparoscopic appendectomy Social History household members: none Smoking Status: Never smoker alcohol intake: never substance use type: does not use Review of Systems (Anesthesia) ROS Narrative System reviewed and no additional complaints, except as documented.
--- NOTE | 2024-09-21 12:19 | HP.PCM_ITS ---
History and Physical Date of Admission: 09/21/24 Date of Service: 08/31/24 MR#: [id number] Acct: [id number] Name: NICK EASTON Rep #: [id number] : 1945 Provider: Dr. Lucy Meraz MD Age/Sex: 79/M Location: [facility] Status: Signed Intake Vital Signs 07/09/2407:36 08/31/2413:50 Height 5 ft 4 in 5 ft 4 in Weight: 147 lb 152 lb BMI 26.1 BP 135/73 H Blood Pressure Location Rt brachial Position Sitting Respiration 17 Pulse 61 Pulse Source Monitor Temp 96.7 F L Temp Source Temporal Pulse Oximetry (%) 100 Oxygen Delivery Method room air Intake Visit Reasons: Hernia, RC TRANSFER Chief Complaint: hernia Is patient in pain?: No Allergies No Known Allergies Allergy (Verified 08/31/24 13:51) Medications ?Medication ?Instructions ?Recorded ?Confirmed ?Type aspirin 81 mg chewable tablet 81 mg PO BREAKFAST #30 tabs 12/20/23 08/31/24 Rx omeprazole 20 mg capsule,delayed 20 mg PO BID #180 caps 03/01/24 08/31/24 Rx release amlodipine 5 mg tablet 5 mg PO QDAY #90 tabs 07/09/24 08/31/24 Rx ferrous sulfate 325 mg (65 mg 325 mg PO DAILY supplement #90 tabs 08/10/24 08/31/24 Rx iron) tablet (Iron (ferrous sulfate)) potassium chloride 20 mEq 20 meq PO BID supplement #180 tabs 08/10/24 08/31/24 Rx tablet,extended release tamsulosin 0.4 mg capsule 0.4 mg PO DAILY #90 caps 08/10/24 08/31/24 Rx atenolol 25 mg tablet 25 mg PO DAILY #90 tabs 08/28/24 08/31/24 Rx pravastatin 20 mg tablet 20 mg PO QDAY #90 tabs 08/28/24 08/31/24 Rx Have you fallen in the past year?: No PFSH Medical History (Updated 09/03/24 @ 10:[address] Lucy Meraz MD) Abnormal stress test Preop cardiovascular exam Elevated TSH Dysphagia TIA (transient ischemic attack) Essential hypertension Hx-TIA (transient ischemic attack) Osteoarthritis Bilateral inguinal hernia without obstruction or gangrene Vitamin D deficiency GERD (gastroesophageal reflux disease) CKD (chronic kidney disease) stage 3, GFR 30-59 ml/min Microscopic colitis Anemia BPH with obstruction/lower urinary tract symptoms Eosinophilic esophagitis Cancer Excessive bleeding Gastric reflux CPAP (continuous positive airway pressure) dependence History of rheumatic fever Broken back Inguinal hernia of right side without obstruction or gangrene Diastasis, muscle ADHD ANTIONE (obstructive sleep apnea) HTN (hypertension) Hypoxia Hyperlipidemia Surgical History History of transurethral resection of prostate H/O hand surgery History of esophagogastroduodenoscopy (EGD) History of appendectomy History of cardiac catheterization History of tonsillectomy History of laparoscopic appendectomy Family History Mother HypertensionFather , at age 61 secondary to brain tumor Cancer Social History household members: none Smoking Status: Never smoker alcohol intake: never substance use type: does not use HPI HPI HPI: 79-year-old male presents due to bilateral inguinal hernias. Patient was previously seeing Dr. Elliott who did offer laparoscopic repair however at that time patient had a recent TIA in December she had weakness in the left arm which did resolve. Patient states he does get some discomfort actually points to the left side more than the right inguinal hernia. The right is a larger inguinal hernia. Patient's thinks that they may have increased in size. Patient is currently on a baby aspirin due to his previous TIA. Patient's only abdominal surgery is laparoscopic appendectomy. ROS General General: No weight change, appetite, fatigue, colon cancer or breast cancer HEENT HEENT: Yes difficulty swallowing; No eye injury, eye surgery, swollen glands or hoarseness Endo Endocrine: No thyroid disease, diabetes mellitus, thyroid cancer, Hair loss, heat intolerance or cold intolerance Skin Skin: No rash or changing moles Musc Musculoskeletal: No back problems, arthritis, rheumatoid arthritis, gout or joint pain Cardio Cardiovascular: Yes high blood pressure; No murmur, pacemaker, heart disease, atrial fibrillation, heart attack, heart stent, palpitations, shortness of breat with exertion or chest pain Psych Psychiatric: No depression, anxiety or hearing voices Resp Respiratory: No shortness of breath, Yes sleep apnea, No cough, No COPD, No asthma, No emphysema and No wheezing Gastro Gastrointestinal: No abdominal pain, No nausea or vomiting, No diarrhea, No constipation, No blood in stool, Yes acid reflux, No hemorrhoids, No ulcers, No gallbladder problem and No black,tarry stools Fabien Hematologic: No blood thinners, No blood disorders, No bleeding, No anemia and No blood clots Neuro Neurologic: No numbness and No tingling Exam Const General: cooperative, healthy appearing, comfortable and no acute distress HENMT Head: normocephalic and atraumatic Neck Neck: supple Resp Effort & Inspection: normal respiratory effort Cardio Rate: regular rate GI Inspection: non-distended Palpation: soft, no hernias and nontender Other: Bilateral inguinal hernias right larger than left, reducible Skin General: no rashes or lesions noted Neuro General: CN's II-XI intact bilaterally Extrem General: normal to inspection Psych Mental Status: mental status grossly normal Attitude: cooperative Assessment and Plan Assessment and Plan (1) Inguinal hernia bilateral, non-recurrent: Status: Acute Plan Will have patient stop his 81 mg aspirin if okay. Will plan for bilateral robotic inguinal hernia repair with mesh. Reviewed the procedure with the patient including the risks, including but not limited to infection, bleeding, paresthesia, chronic pain, injury to small bowel or contents of the spermatic cord, and recurrence. All questions were answered. Lucy Meraz M.D. Pager: [phone] [facility] [address] [place] [address], [address] [place] [id number] Office: [phone] Coding Level of Care Code Off vis,est,level 3 Diagnoses Inguinal hernia bilateral, non-recurrent K40.20 Clinical Quality Measures Falls Risk Screening/Assistive Devices Have you fallen in the past year?: No 09/03/24 1017 <Electronically signed by Lucy Meraz MD> Date Lucy Meraz MD
[2024-09-21] MEDS: Cefazolin 2 GM in Syringe IV (12:55)
[2024-09-21] MEDS: Bupivacaine Mpf 0.5% 30 ML VIAL (13:20)
--- NOTE | 2024-09-21 14:52 | PCM.POST.ANE ---
Anesthesia: Postop Eval I Current Vital Signs Temperature: 97.7 F Pulse Rate: 74 Blood Pressure: 149/92 Respiratory Rate: 16 Pulse Ox: 99 Oxygen Delivery Method: Room Air Assessment Airway patent: Yes Spontaneous unlabored respirations: Yes Mental status: Asleep nausea: No Vomiting: No Anesthesia Complication: No Fluid Hydration Crystalloid volume administer (ml): 800 Total IV fluid infused: 800 Progress Note Anesthesia document: Postop Eval 1 completed: Yes
--- NOTE | 2024-09-21 15:01 | PCM.OPRPT ---
Operative Report (Standard) Operative Information Date of Procedure: 09/21/24 Pre-Operative Diagnosis: Bilateral groin hernias Post-Operative Diagnosis: Left indirect hernia, right direct hernia Surgery/Procedure Performed: Robotic bilateral inguinal hernia repairs with mesh clinical biochemical geneticist: Yes Replenishment Specialist: [place] Vee Tasks completed by first aid teacher: Opening & closing Type of Anesthesia: General/Supplemental RN Documented Start/Stop Times: Operation Date: 09/21/24 13:30 Case Time Into Pre-Op 09/21/24 11:03 Out of Pre-Op 09/21/24 12:47 Anesthesia Start 09/21/24 12:49 Into Room 09/21/24 12:49 Procedure Start 09/21/24 13:10 Procedure End 09/21/24 14:44 Anesthesia End 09/21/24 14:46 Out of Room 09/21/24 14:46 Into Recovery 09/21/24 14:50 Out of Recovery 09/21/24 15:50 Into Phase II Recovery 09/21/24 15:51 Out of Phase II 09/21/24 21:10 Procedure Start Time: 13:10 Procedure Stop Time: 14:44 Select all DRAINS/GRAFTS/IMPLANTS that apply: Prosthetic device Prosthetic device details: Left 3D max mid Lot [id number] ref [id number]; right 3D max mid Lot [id number] ref [id number] Estimated Blood Loss: <10 cc Specimen collected: No Description of surgery: Indications: 79-year-old male presented with bilateral symptomatic inguinal hernias. Robotic bilateral inguinal hernia repairs with mesh were elected elected patient was agreeable. Description of procedure: Patient was brought to operating room placed supine operative table. Timeout was completed verifying correct patient, procedure, site, positioning, special, prior to beginning procedure. General anesthesia was induced. Patient's arms were tucked and padded appropriately. Visiport was used to make the incision at Powers's point in the left upper quadrant. Entry into the abdomen was confirmed visually. Laparoscope was placed. Verifying no injury during initial trocar placement. Patient was placed in Trendelenburg position. Two 8 mm trochars were placed along the horizontal line in the midline and in the right upper quadrant. The initial 5 mm trocar was upsized to an 8 mm well under direct visualization. Both the inguinal regions were inspected and left indirect and right direct hernias were seen. Both procedures done similarly. The median umbilical ligament was divided sharply with electrocautery. Peritoneum was incised with the endoscopic scissors along a line 2 cm above the superior edge of the hernia defect extending from the median umbilical ligament to anterior superior iliac spine. Peritoneal flap was mobilized inferiorly using blunt and sharp/cautery dissection. The inferior epigastric vessels were exposed and symphysis pubis and identified. The left indirect hernia sac was inverted and dissected. Cord structures were visualized and protected. A large size Bard 3D max mid mesh left and right were used. The mesh was rolled longitudinally into a compact cylinder and passed through the trocar. The cylinder was placed along the inferior aspect of the working space and unrolled into place to completely cover the direct, indirect and femoral spaces. The mesh was secured in place medially to Tenzin's ligament using the 3-0 Vicryl suture. Care was taken to avoid the inferolateral triangle containing iliac vessels and genital nerves. The peritoneal flap was closed over mesh and secured with 3-0 V-Loc suture. After ensuring adequate hemostasis, the trochars were removed and pneumoperitoneum allowed to escape. The skin was closed with 4-0 Monocryl interrupted sutures and Steri-Strips. Patient's testicles are also confirmed in the scrotum bilaterally. Patient tolerated procedure well was taken to the postanesthesia care unit in stable condition. Surgical Findings: Left indirect hernia, right direct hernia Complications Complications: No
--- NOTE | 2024-09-21 15:08 | DCINST_ITS ---
Discharge Instructions Diet Discharge Diet: Light diet - advance as tolerated Activity Discharge Activity: May Not Drive (while taking narcotic pain medications.) May shower in (days): 1 Lifting Restrictions: no lifting >20 lbs x 2 wks, no strenuous exercise for 4 wks Additional Activity Instructions:: Recommend wearing scrotal support?boxer briefs or briefs for about 2 weeks Dressing / Incision Call your doctor if your incision/area has: Continuous Slow Oozing, Sudden Increased Bleeding, Increased Pain/ Swelling, Increased Redness, Foul Smelling Discharge and Swelling at the incision site Call your doctor if you observe: Fever of 101 or Higher Remove Dressing in: 2 days Cleanse incision/area with: Soap & Water Additional Dressing/Incision Instructions:: Steri-Strips will fall off in 7 to 10 days, if they do not fall off okay to remove after 10 days. Follow Up Care Please Follow Up With: Lucy Meraz MD When: Call the office for a follow-up appointment 2 weeks; after 5 PM and on the weekends call [phone] with any concerns. Test Results: Test results from this visit will be discussed in further detail at your follow- up appointment, if applicable. Discharge Plan Admission Attending Provider: Lucy Mearz Primary Care Provider: Rohini Gonzales Instructions Additional Instructions / Restrictions: Okay to take ibuprofen 400-600 mg PO q6hr PRN and Tylenol 650 to 1000 mg p.o. every 6 hours as needed along with the oxycodone. Take all pain meds with food. Oxycodone can cause constipation recommend taking daily stool softener (i.e. Colace/docusate) while taking the pain meds. Recommend starting some MiraLAX in 1 to 2 days if no bowel movement. If still no bowel movement the following day recommend taking additional MiraLAX versus magnesium citrate half the bottle and waiting 4-6 hours if still no results take the other half the bottle. Print Language: Hungarian Discharge Orders/Prescriptions Prescriptions: New tramadol 50 mg tablet 50 mg PO Q6H PRN (Reason: pain) 3 Days Qty: 5 0RF Continued omeprazole 20 mg capsule,delayed release(DR/EC) 20 mg PO BID Qty: 180 1RF tamsulosin 0.4 mg capsule 0.4 mg PO QHS pravastatin 20 mg tablet 20 mg PO QHS aspirin 81 mg Tablet,Chewable 81 mg PO BREAKFAST Qty: 30 4RF amlodipine 5 mg tablet 5 mg PO QDAY Qty: 90 3RF ferrous sulfate [Iron (ferrous sulfate)] 325 mg (65 mg iron) tablet 325 mg PO DAILY Qty: 90 3RF potassium chloride 20 mEq tablet extended release 20 meq PO BID Qty: 180 3RF atenolol 25 mg tablet 25 mg PO DAILY Qty: 90 3RF Referrals / Follow Up: Rohini Gonzales MD [Primary Care Provider] - Disposition Disposition (needs filled in before D/C Order can be placed): Home, Self Care
[2024-09-21] MEDS: traMADol 50 MG Tablet PO (16:17)
--- NOTE | 2024-09-21 16:29 | POSTOPAN2_ITS ---
Anesthesia Postop Eval I Sum Postop Eval Completion status Anesthesia document: Postop Eval 1 completed: Yes Anesthesia Postop Eval I Summary Anesthesia Postop Eval I Summary: Anesthesia Postop Eval I: Assessment Summary Airway patent Yes 09/21/24 14:53 [email or web address] Spontaneous unlabored Yes 09/21/24 14:53 RED [email or web address] respirations Mental status Asleep 09/21/24 14:53 RED [email or web address] nausea No 09/21/24 14:53 RED CAP.[email or web address] Vomiting No 09/21/24 14:53 RED CAP.[email or web address] Anesthesia Postop Eval I: Fluid Summary Crystalloid volume administer 800 09/21/24 14:53 RED CAP.[email or web address] (ml) Colloids volume administered ( ml) Blood Product volume administered (ml) Total IV fluid infused 800 09/21/24 14:53 RED [email or web address] Anesthesia Postop Eval I: Summary Notes Anesthesia Complication No 09/21/24 14:53 RED CAP.[email or web address] Anesthesia Complication Comment: Post-operative progress note Anesthesia: Postop Eval II Evaluation Mental status: Calm Pain Level: 2 nausea: No Vomiting: No Complications Anesthesia Complication: No
--- NOTE | 2024-09-21 16:29 | PCM.POSTANE2 ---
Anesthesia Postop Eval I Sum Postop Eval Completion status Anesthesia document: Postop Eval 1 completed: Yes Anesthesia Postop Eval I Summary Anesthesia Postop Eval I Summary: Anesthesia Postop Eval I: Assessment Summary Airway patent Yes 09/21/24 14:53 [email or web address] Spontaneous unlabored Yes 09/21/24 14:53 STAIN [email or web address] respirations Mental status Asleep 09/21/24 14:53 STAIN [email or web address] nausea No 09/21/24 14:53 STAIN [email or web address] Vomiting No 09/21/24 14:53 STAIN [email or web address] Anesthesia Postop Eval I: Fluid Summary Crystalloid volume administer 800 09/21/24 14:53 STAIN [email or web address] (ml) Colloids volume administered ( ml) Blood Product volume administered (ml) Total IV fluid infused 800 09/21/24 14:53 STAIN [email or web address] Anesthesia Postop Eval I: Summary Notes Anesthesia Complication No 09/21/24 14:53 STAIN [email or web address] Anesthesia Complication Comment: Post-operative progress note Anesthesia: Postop Eval II Evaluation Mental status: Calm Pain Level: 2 nausea: No Vomiting: No Complications Anesthesia Complication: No
[2024-09-21] MEDS: Acetaminophen 325 MG Tablet 650 MG PO (17:12)
--- NOTE | 2024-09-21 20:17 | SUR.PHASEI ---
KATERINA per dr armstrong, place catheter and send pt home with catheter. pt can take catheter out tuesday morning or tuesday morning, if no void after 6 hrs page
== END 2024-09-21 21:10 | disposition home or self-care (01) ==
LOC: SDC 11:01 → AC 11:02
PROVIDERS: Anesthesiology; PCP Internal Medicine; Referring Provider Surgery; Visit Provider Surgery
PROC: (CPT 49650; principal; 2024-09-21 13:15)
DX: K40.20 Bilateral inguinal hernia, without obstruction or gangrene, not specified as recurrent (principal); N18.30 Chronic kidney disease, stage 3 unspecified; I12.9 Hypertensive chronic kidney disease with stage 1 through stage 4 chronic kidney disease, or unspecified chronic kidney disease; K21.9 Gastro-esophageal reflux disease without esophagitis; E78.5 Hyperlipidemia, unspecified; Z86.73 Personal history of transient ischemic attack (TIA), and cerebral infarction without residual deficits; Z79.82 Long term (current) use of aspirin; Z79.899 Other long term (current) drug therapy
CPT/HCPCS: 49650; S2900; 00840; 36415; 80048; 85027; J2405

== ENCOUNTER → 2024-11-14 | Outpatient (CLI) | payer MEDICARE, SELFPAY ==
[2024-11-14 17:05] LABS: Albumin, Serum 3.9 g/dL (3.2-5.0); BUN 22 mg/dL (7-18); BUN/Creat Ratio 9.2 RATIO (10-20); Calcium,Total 9.1 mg/dL (8.5-10.1); Chloride 109 mmol/L (98-107); Creatinine, Serum 2.39 mg/dL (0.70-1.30); EST Glomerular Filtration Rate 28 mL/min (>60); Est Glom Filt Rate - Afr Amer 34 mL/min (>60); Glucose 144 mg/dL (74-106); Potassium 4.1 mmol/L (3.5-5.1); Sodium Level 138 mmol/L (136-145)
== END | disposition home or self-care (01) ==
LOC: LAB 15:37
PROVIDERS: PCP Internal Medicine; Referring Provider Internal Medicine Nephrology; Visit Provider Internal Medicine Nephrology
DX: N18.32 Chronic kidney disease, stage 3b (principal)
CPT/HCPCS: 36415; 80069

== ENCOUNTER → 2025-01-09 | Outpatient (CLI) | payer MEDICARE, SELFPAY ==
--- NOTE | 2025-01-09 08:25 | US_ITS ---
PROCEDURE: . normal gallbladder. 01/09/2025 REASON FOR EXAM: NAUSEA AND VOMITING COMPARISON: CT chest, abdomen and pelvis of 12/20/2019 FINDINGS: Liver: Normal echogenicity. Normal length of 13.3 cm. No intrahepatic or extrahepatic biliary ductal dilatation. Normal hepatopetal flow in the main portal vein Gallbladder: Normal. Wall thickness is 1.8 mm. Common bile duct diameter is 3 mm. Pancreas: Unremarkable Other: US/Gallbladder IMPRESSION: No ultrasound evidence of acute abdominal process. Normal gallbladder. Reading [facility]
--- NOTE | 2025-01-09 08:25 | NM_ITS ---
PROCEDURE: HEPATOBILLIARY IMG W/PHARM INT 01/09/2025 REASON FOR EXAM: NAUSEA AND VOMITING TECHNIQUE: Intravenous Choletec with planar imaging of the abdomen. 1.3 mcg Kinevac intravenously approximately 60 minutes after the radiopharmaceutical with additional anterior imaging and a region of interest drawn around the gallbladder to calculate a time-activity curve. RADIOPHARMACEUTICAL: 5.6 mCi of Tc labeled mebrofenin COMPARISON: Comparison is made with prior sonogram done earlier in the day. FINDINGS: There is good uptake of the radiopharmaceutical by the liver. Normal gallbladder visualization with the gallbladder identified by 30 minutes. Gallbladder Ejection Fraction: 0 % (Normal is >35%) NM/Hepatobilliary Img w/Pharm Int IMPRESSION: Abnormal gallbladder ejection fraction. Reading Location: [place] [id number]
== END | disposition home or self-care (01) ==
LOC: NM 08:23
PROVIDERS: PCP Internal Medicine; Referring Provider Internal Medicine; Visit Provider Internal Medicine
DX: R11.2 Nausea with vomiting, unspecified (principal)
CPT/HCPCS: 76705; 78227; A9537; J2805

== ENCOUNTER 2025-01-17 08:41 | Day surgery (SDC) | payer MEDICARE, SELFPAY ==
--- NOTE | 2025-01-15 21:15 | PAT.ANESEVAL ---
Pre-Assessment Diagnosis/Proposed Procedure Planned Operative Procedure(s): ROBOTIC LAP OFELIA WITH POSSIBLE GRAMS Anesthesia History Anesthesia History - channel marketing specialist: Anesthesia History - channel marketing specialist Hx Hospitalization No 01/15/25 08:37 Any Problems With Anesthesia Yes: SLOW TO AWAKEN 01/15/25 08:37 Cholinesterase deficiency No 01/15/25 08:37 You/Your Family Experience No 01/15/25 08:37 fever (hyperthermia) with Relationship Recent Exposure to Contagious No 09/21/24 11:19 Disease Does patient have nerve No 01/15/25 08:37 stimulator Patient instructed to have device shut off --Does patient have Pacemaker or ICD? When Was Last Pacemaker Check QUESTION #4 FULL TEXT: You/Your Family Experience fever (hyperthermia) with Anesthesia Last Oral Intake Last Oral intake: Last Oral Intake NPO since Meds taken in AM with sips of water? Meds patient instructed to take am of surgery PONV PONV - channel marketing specialist: PONV - channel marketing specialist Female No 01/15/25 08:37 HX of Motion Sickness No 01/15/25 08:37 HX of N/V After Surgery No 01/15/25 08:37 Non-Smoker Yes 01/15/25 08:37 Duration of Surgery greater Yes 01/15/25 08:37 than 60 minutes Number of Risk Factors 2 01/15/25 08:37 PONV Score Moderate Risk 01/15/25 08:37 Height & Weight Height & Weight: Anesthesia: Height & Weight Height 5 ft 4 in 01/10/25 08:38 Respiratory Assessment Respiratory Assessment - channel marketing specialist: Respiratory Tract Infection Hx - channel marketing specialist Hx Respiratory Tract Infection No 01/15/25 08:37 STOP Sleep Apnea STOP Sleep Apnea - channel marketing specialist: STOP Sleep Apnea - channel marketing specialist Hx Hypertension Yes: CONTROLLED ON MED 01/15/25 08:37 Hx Sleep Apnea Yes 01/15/25 08:37 CPAP Yes 01/15/25 08:37 BIPAP No 01/15/25 08:37 Do you snore loudly (louder than talking or can be heard Do you often feel tired/ fatigued/ sleepy during daytime? Has anyone observed you stop breathing during sleep? STOP Results Positive 01/15/25 08:37 QUESTION #5 FULL TEXT : Do you snore loudly (louder than talking or can be heard through closed doors)? Tobacco Use History Tobacco Use History - channel marketing specialist: Tobacco Use History - channel marketing specialist Tobacco Use Secondhand 02/07/24 08:50 Smoking Status Never smoker 01/15/25 08:37 Hx Tobacco Use No 01/15/25 08:37 Years Smoking Packs Smoked per Day Smoking Cessation Date was within the last 15 years Hx Smoking Cessation Date Hx Smoking Cessation Counseling Hematologic Medial History Hematologic Hx - channel marketing specialist: Hematologic Medical Hx - inspector production plastic parts Hx of Blood Transfusion No 01/15/25 08:37 Hx of Transfusion in last 3 No 01/15/25 08:37 Months Date of Last Transfusion (if within last 3 months) Ever experience any problems No 01/15/25 08:37 with transfusion(s)? Specify any problems Hx of Preganancy in last 3 N/A 01/15/25 08:37 Months Nurse Filling Out Transfusion NBUCHER 01/15/25 08:37 & Questions: Date: 01/15/25 01/15/25 08:37 Time: 08:38 01/15/25 08:37 Patient unable to answer at this time (ie. confused, unrespo /Reproduction History /Reproductive History - channel marketing specialist: /Reproductive Hx- channel marketing specialist Hx Now Gestational Age (in weeks): EDC: Hx Hx Para Hx Section SAB No 01/15/25 08:37 Active Medications Active Medications: Current Medications Generic Name Dose Route Start Last Admin Trade Name Freq PRN Reason Stop Dose Admin Indocyanine Green 3.75 mg/ N/A 1.5 mls @ 999 mls/hr 01/17/25 09:15 IV 01/17/25 09:16 PREOP ONE PFS Medical History Abnormal biliary HIDA scan Nausea & vomiting Inguinal hernia bilateral, non-recurrent Arthritis History of renal disease Low iron Non-smoker Leg cramps History of stress test Cardiology follow-up encounter Elevated TSH Dysphagia Essential hypertension Hx-TIA (transient ischemic attack) Osteoarthritis Bilateral inguinal hernia without obstruction or gangrene Vitamin D deficiency CKD (chronic kidney disease) stage 3, GFR 30-59 ml/min Microscopic colitis Anemia BPH with obstruction/lower urinary tract symptoms Eosinophilic esophagitis Cancer Gastric reflux CPAP (continuous positive airway pressure) dependence History of rheumatic fever Broken back Inguinal hernia of right side without obstruction or gangrene Diastasis, muscle ADHD ANTIONE (obstructive sleep apnea) HTN (hypertension) Hypoxia Hyperlipidemia Home Medications ?Medication ?Instructions ?Recorded ?Last Taken ?Type aspirin 81 mg chewable tablet 81 mg PO BREAKFAST #30 tabs 12/20/23 09/16/24 Rx omeprazole 20 mg capsule,delayed 20 mg PO BID #180 caps 03/01/24 09/21/24 Rx release amlodipine 5 mg tablet 5 mg PO QDAY #90 tabs 07/09/24 09/21/24 Rx ferrous sulfate 325 mg (65 mg 325 mg PO DAILY supplement #90 tabs 08/10/24 Unknown Rx iron) tablet (Iron (ferrous sulfate)) potassium chloride 20 mEq 20 meq PO BID supplement #180 tabs 08/10/24 Unknown Rx tablet,extended release atenolol 25 mg tablet 25 mg PO DAILY #90 tabs 08/28/24 09/21/24 Rx tamsulosin 0.4 mg capsule 0.4 mg PO QHS 09/13/24 Unknown History pravastatin 20 mg tablet 20 mg PO QHS #90 tabs 10/04/24 Unknown Rx Allergy/AdvReac Type Severity Reaction Status Date / Time Opioids - Morphine Analogues AdvReac Mild Other Verified 01/15/25 08:35 Family History Mother Hypertension Father , at age 61 secondary to brain tumor Cancer Surgical History S/P bilateral inguinal hernia repair History of transurethral resection of prostate H/O hand surgery History of esophagogastroduodenoscopy (EGD) History of appendectomy History of cardiac catheterization History of tonsillectomy History of laparoscopic appendectomy Social History household members: none Smoking Status: Never smoker alcohol intake: never substance use type: does not use Audit: Pertinent Findings Pertinent Findings EKG Perinent findings: May 16, 2024. Sinus rhythm within normal limits. Stress test pertinent findings: June 14, 2024. Ejection fraction 70%. No areas of reversibility noted to suggest ischemia. No previous infarct. Echo (EF%) pertinent findings: December 20, 2023. No aortic stenosis. Ejection fraction 65%. Heart catheterization pertinent findings: July 09, 2024. Mild coronary artery disease with no high-grade stenosis. Ejection fraction 65%. Recommend aggressive treatment of blood pressure. Consult pertinent findings: May 16, 2024. Dr. Contreras. 1. Preop cardiovascular exam?acute-repeat stress test (see above) prior to making further recommendations. Additional pertinent findings: Holter December 30, 2023. Predominant finding was sinus rhythm Recommendation Anesthesia Recommendation Anesthesia recommendation: OPTIMIZED for anesthesia
[2025-01-16 09:59] LABS: Hemoglobin 11.4 g/dL (13.0-16.5); Mean Corp Hgb Conc 34.5 g/dL (32-36); Mean Corpuscular Hgb 32.3 pg (27.0-32.0); Mean Corpuscular Volume 93.5 fL (80-94); Mean Platelet Vol. 10.2 fl (6.2-12.0); Platelet Count 200 K/mm3 (150-450); RBC Distribution Width CV 13.2 % (11.6-14.6); RBC Distribution Width SD 45.5 fl (35.1-43.9); Red Blood Count 3.53 M/mm3 (4.6-6.2); White Blood Count 7.3 K/mm3 (4.4-11.0)
[2025-01-17] VITALS (10 sets, daily range): BP systolic 133–145; BP diastolic 65–72; PULSE 58–75; RESP 14–18; TEMP 36.2–37.2; O2SAT 93–100; BMI 25.3
--- NOTE | 2025-01-17 08:51 | EKG12_ITS ---
Test Reason : PREOP Blood Pressure : */* mmHG Vent. Rate : 57 BPM Atrial Rate : 57 BPM P-R Int : 186 ms QRS Dur : 84 ms QT Int : 400 ms P-R-T Axes : 0 33 50 degrees QTcB Int : 389 ms Sinus bradycardia Otherwise normal ECG When compared with ECG of 19-Dec-2023 19:23, No significant change was found Confirmed by JUANCHO BLANTON, VINCENZO ([id number]), map editor NAZIA ROSENBAUM ([id number]) on 01/18/2025 2:00:15 PM Referred By: Lucy Meraz Confirmed By: VINCENZO DAWKINS MD
--- NOTE | 2025-01-17 09:03 | HP.PCM_ITS ---
History and Physical Date of Admission: 01/17/25 Date of Service: 01/10/25 MR#: [id number] Acct: [id number] Name: NICK EASTON Rep #: [id number] : 1945 Provider: Dr. Lucy Meraz MD Age/Sex: 79/M Location: [facility] Status: Signed Intake Vital Signs 12/26/2514:06 01/11/2508:38 Height 5 ft 4 in 5 ft 4 in Weight: 150 lb 2 oz 151 lb BMI 25.7 25.9 BP 138/78 H 146/74 H Blood Pressure Location Lt brachial Rt brachial Position Sitting Sitting Respiration 16 18 Pulse 65 61 Pulse Source Monitor Monitor Temp 98.6 F 97.5 F L Temp Source Temporal Temporal Pulse Oximetry (%) 93 96 Oxygen Delivery Method room air room air Intake Visit Reasons: ABNORMAL HIDA Chief Complaint: Nausea/vomiting/Abnormal HIDA Scan Paper Folder Required: No Accompanied by: Son Is patient in pain?: No Allergies Opioids - Morphine Analogues Adverse Reaction (Mild, Verified 01/15/25 08:35) Other Medications ?Medication ?Instructions ?Recorded ?Confirmed ?Type aspirin 81 mg chewable tablet 81 mg PO BREAKFAST #30 tabs 12/20/2306/03 Rx omeprazole 20 mg capsule,delayed 20 mg PO BID #180 caps 03/01/24 01/15/25 Rx release amlodipine 5 mg tablet 5 mg PO QDAY #90 tabs 07/09/24 01/15/25 Rx ferrous sulfate 325 mg (65 mg 325 mg PO DAILY supplement #90 tabs 11/0201/15/25 Rx iron) tablet (Iron (ferrous sulfate)) potassium chloride 20 mEq 20 meq PO BID supplement #180 tabs 08/1001/15/25 Rx tablet,extended release atenolol 25 mg tablet 25 mg PO DAILY #90 tabs 08/28/24 5 Rx tamsulosin 0.4 mg capsule 0.4 mg PO QHS 09/13/24 01/15/25 History pravastatin 20 mg tablet 20 mg PO QHS #90 tabs 10/04/24 01/15/25 Rx Have you fallen in the past year?: No [facility] Medical History Abnormal biliary HIDA scan Nausea & vomiting Inguinal hernia bilateral, non-recurrent Arthritis History of renal disease Low iron Non-smoker Leg cramps History of stress test Cardiology follow-up encounter Elevated TSH Dysphagia Essential hypertension Hx-TIA (transient ischemic attack) Osteoarthritis Bilateral inguinal hernia without obstruction or gangrene Vitamin D deficiency CKD (chronic kidney disease) stage 3, GFR 30-59 ml/min Microscopic colitis Anemia BPH with obstruction/lower urinary tract symptoms Eosinophilic esophagitis Cancer Gastric reflux CPAP (continuous positive airway pressure) dependence History of rheumatic fever Broken back Inguinal hernia of right side without obstruction or gangrene Diastasis, muscle ADHD ANTIONE (obstructive sleep apnea) HTN (hypertension) Hypoxia Hyperlipidemia Surgical History S/P bilateral inguinal hernia repair History of transurethral resection of prostate H/O hand surgery History of esophagogastroduodenoscopy (EGD) History of appendectomy History of cardiac catheterization History of tonsillectomy History of laparoscopic appendectomy Family History Mother HypertensionFather , at age 61 secondary to brain tumor Cancer Social History household members: none Smoking Status: Never smoker alcohol intake: never substance use type: does not use HPI HPI HPI: 79-year-old male presents due to abnormal HIDA scan with delayed dyskinesia. Patient's HIDA scan showed a 0% ejection fraction. Patient has been having some recurrent nausea and vomiting. Patient did initially see GI which had a nega tive gastric emptying study and upper and lower scopes. Patient states his pain is shortly after eating or towards the end of the meal. ROS General General: No weight change, appetite, fatigue, colon cancer or breast cancer HEENT HEENT: Yes difficulty swallowing; No eye injury, eye surgery, swollen glands or hoarseness Endo Endocrine: No thyroid disease, diabetes mellitus, thyroid cancer, Hair loss, heat intolerance or cold intolerance Skin Skin: No rash or changing moles Musc Musculoskeletal: No back problems, arthritis, rheumatoid arthritis, gout or joint pain Cardio Cardiovascular: Yes high blood pressure; No murmur, pacemaker, heart disease, atrial fibrillation, heart attack, heart stent, palpitations, shortness of breath with exertion or chest pain Psych Psychiatric: No depression, anxiety or hearing voices Resp Respiratory: No shortness of breath, Yes sleep apnea, No cough, No COPD, No asthma, No emphysema and No wheezing Gastro Gastrointestinal: No abdominal pain, No nausea or vomiting, No diarrhea, No constipation, No blood in stool, Yes acid reflux, No hemorrhoids, No ulcers, No gallbladder problem and No black,tarry stools Fabien Hematologic: No blood thinners, No blood disorders, No bleeding, No anemia and No blood clots Neuro Neurologic: No numbness and No tingling Exam Const General: cooperative, healthy appearing, comfortable and no acute distress [facility] Head: normocephalic and atraumatic Neck Neck: supple Resp Effort & Inspection: normal respiratory effort Cardio Rate: regular rate GI Inspection: non-distended Palpation: soft, no hernias and nontender Skin General: no rashes or lesions noted Neuro General: CN's II-XI intact bilaterally Extrem General: normal to inspection Psych Mental Status: mental status grossly normal Attitude: cooperative Assessment and Plan Assessment and Plan (1) Abnormal biliary HIDA scan: Status: Acute Plan Reviewed the anatomy with the patient and discussed the procedure: Robotic cholecystectomy with possible cholangiograms, possible open. Review risks including but not limited to bleeding, infection, hernia, bile leak, retained gallstones requiring another procedure ERCP- Endoscopic Retrograde Cholangiopancreatography, injury to another organ (bile ducts, common bile duct, small bowel, etc.) and conversion to an open procedure. Patient no further question this time. Did recommend avoiding fatty or greasy foods until surgery. Lucy Meraz M.D. Pager: [phone] [facility] [address] [place] [address], [address] [place] [address] Office: [phone] Coding Level of Care Code Off vis,est,level 4 Diagnoses Abnormal biliary HIDA scan R94.8 Clinical Quality Measures Falls Risk Screening/Assistive Devices Have you fallen in the past year?: No 01/15/25 1005 <Electronically signed by Lucy Meraz MD> Date Lucy Meraz MD
[2025-01-17] MEDS: 0.9% Normal Saline (1000mL) 1,000 ML 15 ML IV (09:05)
[2025-01-17] MEDS: INDOCYANINE GREEN 3.75 MG in Syringe 1.5 ML 999 MG IV (09:10)
--- NOTE | 2025-01-17 09:29 | PRE.ANES_ITS ---
ASA Classification* ASA Classification ASA Classification: 3 Assessment & Plan Anesthesia* Anesthesia Assessment Anesthesia Assessment: Discussed sedation and/or anesthesia options, risks, benefits, and alternatives with patient/parents/legal guardian/POA. Questions invited. The patient/parents/legal guardian/POA seems to understand and agrees to proceed with anesthesia plan. Reviewed the physical assessment, medical history, allergy history and patient home medications list prior to surgery/procedure/anesthetic and documented any changes. Performed airway and anesthesia risk assessments. Anesthesia Type Anesthesia Type: General (Will have pharmacy send a atenolol 25 mg. Monitor to make sure patient does not miss any beta-batool doses.) History Source History Obtained from:: Patient and Chart Anesthesia Focused Assessment* Temperature: 98.1 F Pulse Rate: 58 Blood Pressure: 143/70 Respiratory Rate: 18 Pulse Ox: 99 Oxygen Delivery Method: Room Air Airway Assessment Mouth opens: >3 cm Mallampati Score: I Teeth Condition: Intact Neck Range of motion (ROM): Limited ROM (slight decrease in extension) Focused Labs Anesthesia Preop lab: CBC WBC 7.3 K/mm3 (4.4-11.0) 01/16/25 09:43 01/16/25 RBC 3.53 M/mm3 (4.6-6.2) L 01/16/25 09:43 01/16/25 Hgb 11.4 g/dL (13.0-16.5) L 01/16/25 09:43 5 Hct 33.0 % (40-54) L 01/16/25 09:43 01/16/25 Plt Count 200 K/mm3 (150-450) 01/16/25 09:43 01/16/25 CHEMISTRY Potassium 4.1 mmol/L (3.5-5.1) 11/14/24 15:52 11/14/24 Sodium 138 mmol/L (136-145) 11/14/24 15:52 11/14/24 Magnesium 1.4 mg/dL (1.6-2.6) L 02/17/22 08:04 02/17/22 Phosphorus 3.0 mg/dL (2.5-4.9) 11/14/24 15:52 11/14/24 BUN 22 mg/dL (7-18) H 11/14/24 15:52 11/14/24 Creatinine 2.39 mg/dL (0.70-1.30) H 11/14/24 15:52 Glucose 144 mg/dL (74-106) H 11/14/24 15:52 11/14/24 POC Glucose 105 mg/dL (74-106) 12/19/22 14:26 12/19/22 TSH 3.470 uIU/mL (0.358-3.740) 06/20/24 13:09 06/10 11/02 COAG PT 14.1 SECONDS (11.7-14.9) 12/19/23 20:00 Pre-Assessment Diagnosis/Proposed Procedure Planned Operative Procedure(s): ROBOTIC LAP OFELIA WITH POSSIBLE GRAMS Anesthesia History Anesthesia History - senior digital designer: Anesthesia History - senior digital designer Hx Hospitalization No 01/15/25 08:37 Any Problems With Anesthesia Yes: SLOW TO AWAKEN 01/15/25 08:37 Cholinesterase deficiency No 01/15/25 08:37 You/Your Family Experience No 01/15/25 08:37 fever (hyperthermia) with Relationship Recent Exposure to Contagious No 01/17/25 09:05 Disease Does patient have nerve No 01/15/25 08:37 stimulator Patient instructed to have device shut off --Does patient have Pacemaker No 01/17/25 09:05 or ICD? When Was Last Pacemaker Check QUESTION #4 FULL TEXT: You/Your Family Experience fever (hyperthermia) with Anesthesia Last Oral Intake Last Oral intake: Last Oral Intake NPO since 19:30 01/17/25 09:05 Meds taken in AM with sips of No 01/17/25 09:05 water? Meds patient instructed to take am of surgery Any additional information?: Yes Meds taken in AM with sips of water?: No PONV PONV - senior digital designer: PONV - senior digital designer Female No 01/15/25 08:37 HX of Motion Sickness No 01/15/25 08:37 HX of N/V After Surgery No 01/15/25 08:37 Non-Smoker Yes 01/15/25 08:37 Duration of Surgery greater Yes 01/15/25 08:37 than 60 minutes Number of Risk Factors 2 01/15/25 08:37 PONV Score Moderate Risk 01/15/25 08:37 Height & Weight Height & Weight: Anesthesia: Height & Weight Height 5 ft 4 in 01/17/25 09:05 Weight: 67 kg 01/17/25 09:05 Body Mass Index (BMI) 25.3 01/17/25 09:05 Respiratory Assessment Respiratory Assessment - senior digital designer: Respiratory Tract Infection Hx - senior digital designer Hx Respiratory Tract Infection No 01/15/25 08:37 STOP Sleep Apnea STOP Sleep Apnea - senior digital designer: STOP Sleep Apnea - senior digital designer Hx Hypertension Yes: CONTROLLED ON MED 01/15/25 08:37 Hx Sleep Apnea Yes 01/15/25 08:37 CPAP Yes 01/15/25 08:37 BIPAP No 01/15/25 08:37 Do you snore loudly (louder than talking or can be heard Do you often feel tired/ fatigued/ sleepy during daytime? Has anyone observed you stop breathing during sleep? STOP Results Positive 01/15/25 08:37 QUESTION #5 FULL TEXT : Do you snore loudly (louder than talking or can be heard through closed doors)? Tobacco Use History Tobacco Use History - senior digital designer: Tobacco Use History - senior digital designer Tobacco Use Secondhand 02/07/24 08:50 Smoking Status Never smoker 01/15/25 08:37 Hx Tobacco Use No 01/15/25 08:37 Years Smoking Packs Smoked per Day Smoking Cessation Date was within the last 15 years Hx Smoking Cessation Date Hx Smoking Cessation Counseling Hematologic Medial History Hematologic Hx - senior digital designer: Hematologic Medical Hx - management trainee marketing Hx of Blood Transfusion No 01/15/25 08:37 Hx of Transfusion in last 3 No 01/15/25 08:37 Months Date of Last Transfusion (if within last 3 months) Ever experience any problems No 01/15/25 08:37 with transfusion(s)? Specify any problems Hx of Preganancy in last 3 N/A 01/15/25 08:37 Months Nurse Filling Out Transfusion NBUCHER 01/15/25 08:37 & Questions: Date: 01/15/25 01/15/25 08:37 Time: 08:38 01/15/25 08:37 Patient unable to answer at this time (ie. confused, unrespo /Reproduction History /Reproductive History - senior digital designer: /Reproductive Hx- senior digital designer Hx Now Gestational Age (in weeks): EDC: Hx Hx Para Hx Section SAB No 01/15/25 08:37 Active Medications Active Medications: Current Medications Generic Name Dose Route Start Last Admin Trade Name Luisana PRN Reason Stop Dose Admin Cefazolin Sodium 2 gm/ N/A 20 mls @ 400 mls/hr 01/17/25 10:00 IV 01/17/25 10:02 PREOP ONE Sodium Chloride 1,000 mls @ 15 mls/hr 01/17/25 08:50 01/17/25 09:05 IV 15 mls/hr .Q48H JAISON Administration PFSH Medical History Abnormal biliary HIDA scan Nausea & vomiting Inguinal hernia bilateral, non-recurrent Arthritis History of renal disease Low iron Non-smoker Leg cramps History of stress test Cardiology follow-up encounter Elevated TSH Dysphagia Essential hypertension Hx-TIA (transient ischemic attack) Osteoarthritis Bilateral inguinal hernia without obstruction or gangrene Vitamin D deficiency CKD (chronic kidney disease) stage 3, GFR 30-59 ml/min Microscopic colitis Anemia BPH with obstruction/lower urinary tract symptoms Eosinophilic esophagitis Cancer Gastric reflux CPAP (continuous positive airway pressure) dependence History of rheumatic fever Broken back Inguinal hernia of right side without obstruction or gangrene Diastasis, muscle ADHD ANTIONE (obstructive sleep apnea) HTN (hypertension) Hypoxia Hyperlipidemia Home Medications ?Medication ?Instructions ?Recorded ?Last Taken ?Type aspirin 81 mg chewable tablet 81 mg PO BREAKFAST #30 t abs 12/20/23 09/16/24 Rx omeprazole 20 mg capsule,delayed 20 mg PO BID #180 cap s 03/01/24 09/21/24 Rx release amlodipine 5 mg tablet 5 mg PO QDAY #90 tabs 09/21/24 Rx ferrous sulfate 325 mg (65 mg 325 mg PO DAILY suppleme nt #90 tabs 08/10/24 Unknown Rx iron) tablet (Iron (ferrous sulfate)) potassium chloride 20 mEq 20 meq PO BID supplement #18 0 tabs 08/10/24 Unknown Rx tablet,extended release atenolol 25 mg tablet 25 mg PO DAILY #90 tabs 08/1009/21/24 Rx tamsulosin 0.4 mg capsule 0.4 mg PO QHS 09/13/24 Unkno wn History pravastatin 20 mg tablet 20 mg PO QHS #90 tabs Unknown Rx Allergy/AdvReac Type Severity Reaction Status Date / Time Opioids - Morphine Analogues AdvReac Mild Other Verified 01/17/25 09:11 Family History Mother Hypertension Father , at age 61 secondary to brain tumor Cancer Surgical History S/P bilateral inguinal hernia repair History of transurethral resection of prostate H/O hand surgery History of esophagogastroduodenoscopy (EGD) History of appendectomy History of cardiac catheterization History of tonsillectomy History of laparoscopic appendectomy Social History household members: none Smoking Status: Never smoker alcohol intake: never substance use type: does not use Review of Systems (Anesthesia) ROS Narrative System reviewed and no additional complaints, except as documented.
[2025-01-17] MEDS: Atenolol 25 MG Tablet PO (09:50)
--- NOTE | 2025-01-17 10:00 | GALL_PTH ---
PATIENT: NICK EASTON LOC: [facility] U#:[id number] AGE/SX: 79/M ROOM: RE01/17/[address]: Dr. Lucy Meraz MD : 1945 BED: DIS: 01/17/2025 SPEC #: [id number] RECD: 01/17/25 13:35 STATUS: OTIS REQ #: [id number] REBECCA: 01/17/25 10:[address]: Lucy Meraz DEPT: SURGICAL PATHOLOGY RECD BY: Adrián Corbin ENTERED: 01/17/25 13:36 SP TYPE: CRISTI GARAY DR: MD Dr. Rohini Singh MD Tissues: A - Gallbladder, NOS Procedures: Surgery Specimen Level III HEADER OPERATION: Robotic cholecystectomy PRE-OP DIAGNOSIS: Abnormal biliary HIDA scan TISSUE SUBMITTED: A- Gallbladder and contents MICROSCOPIC DIAGNOSIS A. Gallbladder, cholecystectomy: * Mild chronic cholecystitis MICROSCOPIC DESCRIPTION Slides are reviewed. GROSS DESCRIPTION A. Received in formalin in a container labeled with the patient's name, date of , and gallbladder and contents is a 6.0 x 2.4 x 2.4 cm intact cholecystectomy specimen. The clamped cystic duct margin is 0.6 cm in length by 0.6 cm in diameter (inked black). The serosa is within normal limits. The specimen is opened to reveal thick brown bile with no stones identified in the specimen or in the container. The mucosa is red-arrington, predominantly velvety, and somewhat denuded. There is an average wall thickness of 0.2 cm. Manufacturing Sr Engineer sections:A1. Cystic duct margin, en face with full-thickness sections [facility] 01/18/2025 CCPT:[id number]
[2025-01-17] MEDS: Cefazolin 2 GM in Syringe IV (10:05)
[2025-01-17] MEDS: Bupiv/Epi 0.25% 30 ML Vial (11:29)
--- NOTE | 2025-01-17 11:41 | OP.PCM_ITS ---
Operative Report (Standard) Operative Information Date of Procedure: 01/17/25 Pre-Operative Diagnosis: Biliary dyskinesia Post-Operative Diagnosis: Same Surgery/Procedure Performed: Robotic cholecystectomy with ICG advertising campaign manager: Yes Instructional Services Librarian: Breonna Healy Tasks completed by healthcare administrative assistant: Opening & closing Additional janitorial assistant?: No Type of Anesthesia: General/Supplemental RN Documented Start/Stop Times: Operation Date: 01/17/25 10:00 Case Time Into Pre-Op 01/17/25 08:45 Anesthesia Start 01/17/25 09:59 Into Room 01/17/25 09:59 Procedure Start 01/17/25 10:16 Procedure End 01/17/25 11:35 Anesthesia End 01/17/25 11:41 Out of Room 01/17/25 11:41 Into Recovery 01/17/25 11:45 Procedure Start Time: 10:16 Procedure Stop Time: 11:35 Select all DRAINS/GRAFTS/IMPLANTS that apply: None Special Medications: Ancef 2 g IV x 1 Estimated Blood Loss: < 10 cc Specimen collected: Yes Description of specimen(s) removed: Gallbladder Description of surgery: Indications: this is a 79 year-old male who developed abdominal pain/nausea/vomiting and on workup was found to have biliary dyskinesia, with a normal common bile duct. Laparoscopic cholecystectomy was elected. Description procedure: The patient was placed on operating table in supine position. A timeout was completed verifying correct patient, procedure, site, position and special equipment prior to beginning procedure. General Anesthesia was induced. The abdomen was prepped and draped in usual sterile fashion. An incision was made in the natural skin line below the umbilicus. The fascia was elevated and incised. The peritoneum was elevated and incised. Entry into the peritoneum was confirmed visually and no bowel was noted in the vicinity of the incision. Conn trocar was placed. The abdomen was insufflated with carbon dioxide to a pressure of 12-15 mmHg. Patient tolerated insufflation well. The laparoscope was then inserted and abdomen inspected. No injuries from initial trocar placement were noted. Additional trochars were then inserted in the following locations 8 mm trocar left upper quadrant and 2 more 8 mm trochars in right lower quadrant and left lower quadrant. The abdomen was inspected and the gallbladder was noted to be flipped with the fundus on the left side of the falciform but the neck tracking to the right side. The table is placed in reverse Trendelenburg position with the right side up. Robot was docked. The adhesions between the gallbladder and omentum were taken down carefully. The dome of the gallbladder was grasped with atraumatic grasper passed through the lateral port and retracted over the dome of the liver. Infundibulum was then grasped with atraumatic grasper through the midclavicular port and retracted to the left lower quadrant. This maneuver exposed Calot's triangle. The peritoneum overlying the gallbladder infundibulum was then incised and cystic duct and artery identified and circumferentially dissected. ICG was used to visualize the cystic duct. The cystic duct and artery were then doubly clipped and divided close to the gallbladder. The gallbladder then dissected from its peritoneal attachments by electrocautery. Hemostasis was checked and the gallbladder was removed using the endoscopic retrieval bag through the umbilical port. The gallbladder is passed off table as specimen. The gallbladder fossa was irrigated with saline and hemostasis obtained. There is no evidence of bleeding from the gallbladder fossa or cystic artery leakage of bile from the cystic duct stump. Secondary trochars removed under direct vision. No bleeding was noted the trocar sites. The laparoscope was withdrawn and umbilical trocar removed. The abdomen was allowed to collapse. The fascia of the 12 mm trocar was closed with a [id number] 0 Vicryl suture. The skin was closed with sutures of 4-0 Monocryl and Steri-Strips. The patient was extubated. The patient tolerated procedure well and was taken to the postanesthesia care unit in stable condition. Surgical Findings: See operative report Complications Complications: No
--- NOTE | 2025-01-17 11:44 | EX.PCM.DISCH ---
Discharge Instructions Diet Discharge Diet: Light diet - advance as tolerated Activity Discharge Activity: May Not Drive (while taking narcotic pain medications.) May shower in (days): 1 Lifting Restrictions: no lifting >20 lbs x 2 wks, no strenuous exercise for 4 wks Dressing / Incision Call your doctor if your incision/area has: Continuous Slow Oozing, Sudden Increased Bleeding, Increased Pain/ Swelling, Increased Redness, Foul Smelling Discharge and Swelling at the incision site Call your doctor if you observe: Fever of 101 or Higher Remove Dressing in: 2 days Cleanse incision/area with: Soap & Water Additional Dressing/Incision Instructions:: Steri-Strips will fall off in 7 to 10 days, if they do not fall off okay to remove after 10 days. Follow Up Care Please Follow Up With: Lucy Meraz MD When: Call the office for a follow-up appointment 2 weeks; after 5 PM and on the weekends call [phone] with any concerns. Test Results: Test results from this visit will be discussed in further detail at your follow-up appointment, if applicable. Discharge Plan Admission Attending Provider: Lucy Meraz Primary Care Provider: Rohini Gonzales Consulting Providers: Tavaers Oliva Instructions Print Language: Anguillan Discharge Orders/Prescriptions Prescriptions: New tramadol 50 mg tablet 50 mg PO Q6H PRN (Reason: pain) Qty: 7 0RF Continued omeprazole 20 mg capsule,delayed release(DR/EC) 20 mg PO BID Qty: 180 1RF tamsulosin 0.4 mg capsule 0.4 mg PO QHS amlodipine 5 mg tablet 5 mg PO QDAY Qty: 90 3RF ferrous sulfate [Iron (ferrous sulfate)] 325 mg (65 mg iron) tablet 325 mg PO DAILY Qty: 90 3RF potassium chloride 20 mEq tablet extended release 20 meq PO BID Qty: 180 3RF atenolol 25 mg tablet 25 mg PO DAILY Qty: 90 3RF pravastatin 20 mg tablet 20 mg PO QHS Qty: 90 3RF Held aspirin 81 mg Tablet,Chewable 81 mg PO BREAKFAST Qty: 30 4RF Hold Instructions: Resume on 01/18/25. Referrals / Follow Up: Rohini Gonzales MD [Primary Care Provider] - Disposition Disposition (needs filled in before D/C Order can be placed): Home, Self Care
--- NOTE | 2025-01-17 11:54 | PCM.POST.ANE ---
Anesthesia: Postop Eval I Current Vital Signs Temperature: 97.2 F Pulse Rate: 68 Blood Pressure: 140/72 Respiratory Rate: 16 Pulse Ox: 100 Oxygen Delivery Method: Simple Mask Oxygen Flow Rate (L/min): 6 Assessment Airway patent: Yes Spontaneous unlabored respirations: Yes Mental status: Awake and Calm nausea: No Vomiting: No Anesthesia Complication: No Fluid Hydration Crystalloid volume administer (ml): 1,000 Total IV fluid infused: 1,000 Progress Note Anesthesia document: Postop Eval 1 completed: Yes
[2025-01-17] MEDS: traMADol 50 MG Tablet PO (13:43)
--- NOTE | 2025-01-17 19:11 | POSTOPAN2_ITS ---
Anesthesia Postop Eval I Sum Postop Eval Completion status Anesthesia document: Postop Eval 1 completed: Yes Anesthesia Postop Eval I Summary Anesthesia Postop Eval I Summary: Anesthesia Postop Eval I: Assessment Summary Airway patent Yes 01/17/25 11:55 EVP BUSINESS DEVELOPMENT.SKOBY Spontaneous unlabored Yes 01/17/25 11:55 EVP BUSINESS DEVELOPMENT.POOJA respirations Mental status Awake,Calm 01/17/25 11:55 EVP BUSINESS DEVELOPMENT.SKOBY nausea No 01/17/25 11:55 EVP BUSINESS DEVELOPMENT.SKOBY Vomiting No 01/17/25 11:55 EVP BUSINESS DEVELOPMENT.STEPHANIEOBElroy Anesthesia Postop Eval I: Fluid Summary Crystalloid volume administer 1,000 01/17/25 11:55 EVP BUSINESS DEVELOPMENT.SKOBY (ml) Colloids volume administered ( ml) Blood Product volume administered (ml) Total IV fluid infused 1,000 01/17/25 11:55 EVP BUSINESS DEVELOPMENT.STEPHANIEOBElroy Anesthesia Postop Eval I: Summary Notes Anesthesia Complication No 01/17/25 11:55 EVP BUSINESS DEVELOPMENT.POOJA Anesthesia Complication Comment: Post-operative progress note Anesthesia: Postop Eval II Evaluation Mental status: Awake and Calm Pain Level: 0 nausea: No Vomiting: No Complications Anesthesia Complication: No
--- NOTE | 2025-01-17 19:11 | PCM.POSTANE2 ---
Anesthesia Postop Eval I Sum Postop Eval Completion status Anesthesia document: Postop Eval 1 completed: Yes Anesthesia Postop Eval I Summary Anesthesia Postop Eval I Summary: Anesthesia Postop Eval I: Assessment Summary Airway patent Yes 01/17/25 11:55 [email or web address] Spontaneous unlabored Yes 01/17/25 11:55 [employer][email or web address] respirations Mental status Awake,Calm 01/17/25 11:55 [email or web address] nausea No 01/17/25 11:55 [employer][email or web address] Vomiting No 01/17/25 11:55 [employer].[email or web address] Anesthesia Postop Eval I: Fluid Summary Crystalloid volume administer 1,000 01/17/25 11:55 [email or web address][email or web address] (ml) Colloids volume administered ( ml) Blood Product volume administered (ml) Total IV fluid infused 1,000 01/17/25 11:55 [employer].[email or web address] Anesthesia Postop Eval I: Summary Notes Anesthesia Complication No 01/17/25 11:55 [employer][email or web address] Anesthesia Complication Comment: Post-operative progress note Anesthesia: Postop Eval II Evaluation Mental status: Awake and Calm Pain Level: 0 nausea: No Vomiting: No Complications Anesthesia Complication: No
== END 2025-01-17 16:10 | disposition home or self-care (01) ==
LOC: SDC 08:44 → AC 08:45
PROVIDERS: Anesthesiology; PCP Internal Medicine; Referring Provider Surgery; Visit Provider Surgery
PROC: 0FT44ZZ Resection of Gallbladder, Percutaneous Endoscopic Approach (ICD-10-PCS; CPT 47562; principal; 2025-01-17 09:45)
DX: K81.1 Chronic cholecystitis (principal); N18.30 Chronic kidney disease, stage 3 unspecified; I12.9 Hypertensive chronic kidney disease with stage 1 through stage 4 chronic kidney disease, or unspecified chronic kidney disease; E78.2 Mixed hyperlipidemia; G47.33 Obstructive sleep apnea (adult) (pediatric); Z79.82 Long term (current) use of aspirin; Z79.899 Other long term (current) drug therapy
CPT/HCPCS: 47563; S2900; 00790; 36415; 85027; 88304; 93005; J2405

== ENCOUNTER → 2025-06-19 | Outpatient (CLI) | payer MEDICARE, SELFPAY ==
[2025-06-19 11:38] LABS: Hematocrit 39.3 % (40-54); Hemoglobin 13.4 g/dL (13.0-16.5); Mean Corp Hgb Conc 34.1 g/dL (32-36); Mean Corpuscular Volume 93.6 fL (80-94); Mean Platelet Vol. 10.9 fl (6.2-12.0); Platelet Count 174 K/mm3 (150-450); RBC Distribution Width CV 12.9 % (11.6-14.6); RBC Distribution Width SD 44.0 fl (35.1-43.9); Red Blood Count 4.20 M/mm3 (4.6-6.2); White Blood Count 6.8 K/mm3 (4.4-11.0)
[2025-06-19 12:56] LABS: PTHIN 107 pg/mL (11-61)
[2025-06-19 13:03] LABS: Albumin, Serum 4.7 g/dL (3.4-4.8); Anion Gap 11 (5-15); BUN 26 mg/dL (4-19); BUN/Creat Ratio 10.4 RATIO (10-20); Calcium,Total 9.6 mg/dL (7.6-11.0); Carbon Dioxide 22.7 mmol/L (21.0-32.0); Chloride 107 mmol/L (98-108); Ferritin 80 ng/mL (37-417); Glucose 99 mg/dL (70-99); Iron 94 ug/dL (65-175); Iron Binding Capacity,Total 269 ug/dL (250-450); Iron Binding Capacity,Unsat 175 ug/dL (228-428); Potassium 4.7 mmol/L (3.3-5.1)
[2025-06-19 15:03] LABS: PSA,Total- Diagnostic 4.21 ng/mL (0.00-4.00)
[2025-06-19 19:04] LABS: Xtra Tube Kwok EXTRA TUBE
[2025-06-19 19:19] LABS: Xtra Tube Kwok EXTRA TUBE
== END | disposition home or self-care (01) ==
LOC: LAB.FUTURE 08-21 15:27
PROVIDERS: PCP Internal Medicine; Referring Provider Internal Medicine Nephrology; Visit Provider Internal Medicine Nephrology
DX: D64.9 Anemia, unspecified (principal); N40.0 Benign prostatic hyperplasia without lower urinary tract symptoms
CPT/HCPCS: 36415; 80069; 82728; 83540; 83550; 83970; 84153; 85027